=== PATIENT | female | born 1940 | race African-American/Black ===

== ENCOUNTER 2017-06-02 13:31 | Emergency (ER) | payer MEDICARE, MEDICAID ==
[~2017-06-02] VITALS: Ht 160 cm; Wt 68.0 kg
[2017-06-02 13:31] VITALS: BP 127/64
[~2017-06-02 13:31] MED LIST: AMLODIPINE BES2.5 MG ORAL; JANUMET 50-1,01 EACH ORAL
--- NOTE | 2017-06-02 14:03 | Emergency Room Report ---
History of Present Illness General Chief Complaint: Multiple Trauma/Fall Source: Patient Present Illness HPI [id number] from home after accidental trip and fall multiple hours ago outside of her house this morning Takes daily baby ASA States c/o pain to left cheek Denies LOC, nausea/vomiting, blurry vision, change of vision Also c/o pain to left upper arm, not sure if she fell on it though Allergies: Coded Allergies: No Known Allergies (Verified , 01/03/10) Patient History Past Medical History: none Past Surgical History: none Pertinent Family History: none Social History: Denies: smoking, alcohol use, drug use Last Menstrual Period: Post Now: No Immunizations: UTD Reviewed Nursing Documentation: PMH: Agreed, PSxH: Agreed Nursing Documentation-PMH Hx Hypertension: Yes Hx Diabetes: Yes Review of Systems All Other Systems: negative except mentioned in HPI Physical Exam Vital Signs Date Time Temp Pulse Resp B/P (MAP) Pulse Ox O2 Delivery O2 Flow Rate FiO2 06/02/17 13:17 98.2 90 20 134/66 99 Room Air Sp02 EP Interpretation: reviewed, normal General Appearance: normal inspection, well appearing, no apparent distress, alert, GCS 15, non-toxic Head: normocephalic, other - Mild ttp to left lower orbit, mild swelling. No erythema. No reduced ROM of eyes d/t pain. Eyes: bilateral eye PERRL, bilateral eye EOMI ENT: normal ENT inspection, hearing grossly normal, normal pharynx, no angioedema, normal voice, TMs + canals normal, uvula midline, moist mucus membranes Neck: normal inspection, full range of motion, supple, thyroid normal, no meningismus, no bony tend Respiratory: normal inspection, lungs clear, normal breath sounds, no rhonchi, no respiratory distress, no retraction, no accessory muscle use, no wheezing, speaking full sentences Cardiovascular #1: regular rate, rhythm, no edema, no JVD, normal capillary refill Gastrointestinal: normal inspection, normal bowel sounds, non tender, soft, no mass, no peritonitis, non-distended, no guarding, no hernia, no pulsatile mass Genitourinary: no CVA tenderness Musculoskeletal: normal inspection, back normal, normal range of motion, no calf tenderness, pelvis stable, Michelle's Sign negative, other - Mild ttp to left upper arm, no obvious defomrity or bruising. No reduced ROM or ttp to left shoulder, elbow Neurologic: normal inspection, alert, oriented x3, responsive, product development actuary III-XII nml as tested, motor strength/tone normal, cerebellar normal, normal gait, speech normal Psychiatric: normal inspection, judgement/insight normal, mood/affect normal, no suicidal/homicidal ideation, no delusions Skin: normal inspection, normal color, no rash Lymphatic: normal inspection, no adenopathy Medical Decision Making Diagnostic Impression: Primary Impression: Multiple injuries due to trauma Additional Impression: Fall Qualified Codes: W19.XXXA - Unspecified fall, initial encounter ER Course CT Orbits negative for acute fx Low suspicion Xray humerus negative for acute trauma on ED review of xray Patient reassured ER course: Patient has remained stable during ED stay. Disposition: Patient is to be discharged to home. Patient is instructed to follow up with their primary care doctor within 5 days. Strict return precautions discussed with patient such as fever, chills, worsening/severe pain, nausea, vomiting, which may indicate severe illness. Patient verbalizes understanding and agrees with plan. Please note that this Emergency Department Report was dictated using [employer] claims technology software, occasionally this can lead to erroneous entry secondary to interpretation by the dictation equipment Other X-Ray Diagnostic Results Other X-Ray Diagnostic Results : X-Ray ordered: Left humerus # of Views/Limited Vs Complete: 3 View Indication: Pain EP Interpretation: Yes Interpretation: no dislocation, no soft tissue swelling, no fractures Impression: No acute disease Electronically Signed by: Dr Griffin Solorio MD Last Vital Signs Date Time Temp Pulse Resp B/P (MAP) Pulse Ox O2 Delivery O2 Flow Rate FiO2 06/02/17 13:17 98.2 90 20 134/66 99 Room Air Status: improved Disposition: HOME, SELF-CARE GRIFFIN SOLORIO M.D. Jun 02, 2017 14:03
[2017-06-02 15:30] VITALS: BP 153/71
[2017-06-02 16:30] VITALS: BP 144/65
--- NOTE | 2017-06-03 09:42 | Diagnostic Imaging Report ---
Indications: Pain, status post fall Technique: Spiral images obtained through the orbits. No IV contrast utilized. Multiplanar reconstructions were generated.Total dose length product 358.95 mGycm. CTDIvol(s) 28.19 mGy. Dose reduction achieved using automated exposure control Comparison: none Findings: No evidence of acute fracture. There is minimal right supraorbital soft tissue swelling. The sinuses are clear. Patient is edentulous. Impression: Minimal right periorbital soft tissue swelling. Otherwise negative This agrees with the preliminary interpretation provided overnight by [facility] telerad[facility] service. The CT scanner at [facility] is accredited by the [employer] and the scans are performed using protocols designed to limit radiation exposure to as low as reasonably achievable to attain images of sufficient resolution adequate for diagnostic evaluation.
--- NOTE | 2017-06-03 09:46 | Diagnostic Imaging Report ---
Indications: Pain Technique: Two views of the left humerus Comparison: None Findings: No evidence of acute fracture. No dislocations. No radiopaque foreign body Impression: Negative
== END 2017-06-02 16:30 | disposition home or self-care (01) ==
LOC: EDBD 13:31 → EMR 16:25
DX: S09.8XXA Other specified injuries of head, initial encounter (principal); S49.92XA Unspecified injury of left shoulder and upper arm, initial encounter; W01.0XXA Fall on same level from slipping, tripping and stumbling without subsequent striking against object, initial encounter; Y92.89 Other specified places as the place of occurrence of the external cause; R51 Headache; I10 Essential (primary) hypertension; E11.9 Type 2 diabetes mellitus without complications; Z79.82 Long term (current) use of aspirin
CPT/HCPCS: 70480; 99284

== ENCOUNTER 2018-02-14 11:35 | Emergency (ER) | payer MEDICARE, MEDICAID ==
[~2018-02-14] VITALS: Ht 160 cm; Wt 67.1 kg
--- NOTE | 2018-02-14 13:32 | Emergency Room Report ---
History of Present Illness General Chief Complaint: Neck Pain Source: Patient, Medical Record Present Illness HPI Patient presents with pain complaints to the left side of the neck patient essentially points to the lower occipital region of the scalp area into the upper cervical region on the left side reports that the pain started approximately early January She correlates the discomfort to when she had a cyst removed from the left lower chin area and soon after removing the stitches denies any trauma since then denies any chest pain or short of breath pain is exacerbated by touching the area denies any difficulty swallowing denies any head trauma denies any neuropathy in the upper extremities denies any fevers or chills and eyes any change in voice Allergies: Coded Allergies: No Known Allergies (Verified , 02/14/18) Patient History Past Medical History: see triage record Pertinent Family History: none Reviewed Nursing Documentation: PMH: Agreed; PSxH: Agreed Nursing Documentation-PMH Past Medical History: No History, Except For Hx Hypertension: Yes Hx Diabetes: Yes Review of Systems All Other Systems: negative except mentioned in HPI Physical Exam Vital Signs Date Time Temp Pulse Resp B/P (MAP) Pulse Ox O2 Delivery O2 Flow Rate FiO2 02/14/18 11:41 98.8 78 15 191/76 98 Room Air 98.8 Sp02 EP Interpretation: reviewed, normal General Appearance: well appearing, no apparent distress Head: normocephalic, atraumatic Eyes: bilateral eye PERRL, bilateral eye EOMI ENT: normal pharynx, other - Patient has some mild discomfort on palpation of the lower left mandibular region in the jawl region no obvious fluctuance Neck: other - Patient has discomfort on palpation of the left lower occipital region of the scalp C-spine midline is nontender however she does have some discomfort as well paracervical C2-C3 region no palpable masses range of motion intact with some discomfort turning to the left at approximately 25, Respiratory: lungs clear, normal breath sounds Cardiovascular #1: normal peripheral pulses, regular rate, rhythm Genitourinary: no CVA tenderness Musculoskeletal: normal inspection Neurologic: alert, oriented x3 Skin: normal color, no rash Medical Decision Making Diagnostic Impression: Primary Impression: Neck pain ER Course Given the history exam and presentation multiple differentials were considered including but not limited to, neurological neurosurgical, infectious, orthopedic type pathology Patient's discomfort is fairly specific there is a specific mechanical component My consideration for referred type pain is low Patient's imaging study shows significant arthralgic findings Patient remains neurologically appropriate 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 there are no signs of deficits Further testing was not performed And patient requires close outpatient follow-up with return to the emergency room with any change in symptoms , CT/MRI/US Diagnostic Results CT/MRI/US Diagnostic Results : Impression CT C-spineImpression: No acute injury Moderate spondylosis Last Vital Signs Date Time Temp Pulse Resp B/P (MAP) Pulse Ox O2 Delivery O2 Flow Rate FiO2 02/14/18 11:41 98.8 78 15 191/76 98 Room Air 98.8 Status: improved Disposition: HOME, SELF-CARE Condition: Improved Scripts Methocarbamol* (ROBAXIN-750*) 750 Mg Tablet 750 MG PO TID, #21 TAB 0 Refills Prov: Tamara Gaytan DO 02/14/18 Acetaminophen (Tylenol) 325 Mg Tablet 650 MG ORAL Q8HR PRN for Prn Pain/Headache/Temp > 101, #15 TAB 0 Refills Prov: Tamara Gaytan DO 02/14/18 Referrals: NOT CHOSEN IPA/MD,REFERRING (PCP) Additional Instructions: Patient is provided with the discharge instructions notified to follow up with primary doctor in the next 2-3 days otherwise return to the er with any worsening symptoms. Please note that this report is being documented using Interface[employer] technology. This can lead to erroneous entry secondary to incorrect interpretation by the dictating instrument. Tamara Gaytan DO Feb 14, 2018 13:32
[2018-02-14] MEDS ORDERED: TYLENOL325 MG ORAL (14:02)
[2018-02-14] MEDS ORDERED: ROBAXIN-750750 MG PO (14:02)
[2018-02-14 14:07] VITALS: BP 171/59
--- NOTE | 2018-02-14 14:08 | Diagnostic Imaging Report ---
Indication: Neck pain. Technique: Continuous helical imaging of the cervical spine was obtained transaxially from the skull base to the upper thoracic spine. 2-D coronal and sagittal reformatted images were obtained. Automatic Exposure Control was utilized. Total Dose length Product (DLP): 272.[address] Dose Index Volume (CTDIvol): 13.88 mGy Comparison: None Findings: There is no acute fracture or malalignment identified. There is no soft tissue swelling identified. Moderate uncovertebral arthritis is demonstrated at multiple levels. Some of the intervertebral discs show narrowing and osteophytes. Impression: No acute injury Moderate spondylosis The CT scanner at [facility] is accredited by the [employer] and the scans are performed using dose optimization techniques as appropriate to a performed exam including Automatic Exposure control.
[2018-02-14 14:12] VITALS: BP 171/59
== END 2018-02-14 14:12 | disposition home or self-care (01) ==
LOC: EMR 12:22
DX: M54.2 Cervicalgia (principal); I10 Essential (primary) hypertension; E11.9 Type 2 diabetes mellitus without complications; M47.812 Spondylosis without myelopathy or radiculopathy, cervical region
CPT/HCPCS: 72125; 99284

== ENCOUNTER 2018-07-05 09:24 | Inpatient (IN) | payer MEDICARE, MEDICAID ==
[~2018-07-05] VITALS: Ht 160 cm; Wt 63.5 kg
[~2018-07-05 09:24] MED LIST changes: +ROBAXIN-750750 MG PO; +TYLENOL325 MG ORAL
[2018-07-05 09:32] VITALS: BP 221/104
[2018-07-05] MEDS ORDERED: ASPIR 8181 MG ORAL (09:38)
[2018-07-05] MEDS ORDERED: LISINOPRIL20 MG ORAL (09:38)
[2018-07-05] MEDS ORDERED: JANUVIA25 MG ORAL (09:38)
[2018-07-05] MEDS ORDERED: PRAVACHOL40 MG ORAL (09:38)
[2018-07-05] MEDS ORDERED: Sodium Chloride 1,900 ML IVLG ONE (10:00)
--- NOTE | 2018-07-05 10:41 | Diagnostic Imaging Report ---
Indication: Cough Technique: One view of the chest Comparison: 08/17/2005 Findings: Lungs and pleural spaces are clear. Heart size is upper limits normal. Less optimal inspiration currently. Tortuous aorta. No significant interim change Impression: No acute process
[2018-07-05 10:59] LABS: BASOPHILS % (AUTO) 2.2 % (0.0-2.0); EOSINOPHILS % (AUTO) 1.6 % (0.0-3.0); HEMATOCRIT 27.9 % (37.0-47.0); LYMPHOCYTES % (AUTO) 13.3 % (20.0-45.0); MEAN CORPUSCULAR VOLUME 89 FL (80-99); MONOCYTES % (AUTO) 10.2 % (1.0-10.0); NEUTROPHILS % (AUTO) 72.8 % (45.0-75.0); PLATELET COUNT 170 K/UL (150-450); RED BLOOD COUNT 3.15 M/UL (4.20-5.40); RED CELL DISTRIBUTION WIDTH 14.5 % (11.6-14.8); WHITE BLOOD COUNT 4.9 K/UL (4.8-10.8)
--- NOTE | 2018-07-05 11:05 | Diagnostic Imaging Report ---
Indications: Left-sided weakness Technique: Spiral acquisitions obtained through the brain. Angled axial and coronal 5 x 5 mm slices were reconstructed. Total dose length product 1281.08 mGycm. CTDI vol(s) 70.38 mGy. Dose reduction achieved using automated exposure control Comparison: None. Findings: No acute intracranial hemorrhage or edema. No mass effect nor midline shift. Normal monaco-white differentiation. There is age-related enlargement of the ventricles and extra axial CSF spaces. There is periventricular deep white matter low-attenuation, consistent with chronic microvascular ischemic change. Monaco-white differentiation is otherwise normal. Visualized orbits are unremarkable. The sinuses are clear. The mastoids are clear. The calvarium is intact Impression: Chronic and age-related changes is described Negative for acute intracranial bleed or mass effect The CT scanner at [facility] is accredited by the [employer] and the scans are performed using protocols designed to limit radiation exposure to as low as reasonably achievable to attain images of sufficient resolution adequate for diagnostic evaluation.
[2018-07-05 11:10] LABS: ANION GAP 11 mmol/L (5-15); BLOOD UREA NITROGEN 23 mg/dL (7-18); CALCIUM 9.5 MG/DL (8.5-10.1); CARBON DIOXIDE 24 MMOL/L (21-32); CHLORIDE 107 MMOL/L (98-107); POTASSIUM 3.9 MMOL/L (3.5-5.1); SODIUM 142 MMOL/L (136-145)
[2018-07-05 11:19] LABS: APPEARANCE,URINE CLEAR; BILIRUBIN, URINE NEGATIVE (NEGATIVE); COLOR,URINE PALE YELLOW; GLUCOSE, URINE (UA) NEGATIVE (NEGATIVE); KETONES,URINE NEGATIVE (NEGATIVE); LEUKOCYTE ESTERASE ,URINE NEGATIVE (NEGATIVE); NITRITE,URINE NEGATIVE (NEGATIVE); PH,URINE 5 (4.5-8.0); PROTEIN,URINE NEGATIVE (NEGATIVE); UROBILINOGEN,URINE NORMAL MG/DL (0.0-1.0)
[2018-07-05 11:24] LABS: ALANINE AMINOTRANSFERASE 25 U/L (12-78); ALBUMIN 3.8 G/DL (3.4-5.0); ALBUMIN/GLOBULIN RATIO 1.1 (1.0-2.7); ALKALINE PHOSPHATASE 46 U/L (46-116); ASPARTATE AMINO TRANSFERASE 24 U/L (15-37); BILIRUBIN,TOTAL 0.4 MG/DL (0.2-1.0); CKMB 0.9 NG/ML (0.0-3.6); CREATINE KINASE 147 U/L (26-308)
[2018-07-05 11:30] VITALS: BP 206/92
[2018-07-05 13:30] VITALS: BP 198/88
--- NOTE | 2018-07-05 14:00 | Diagnostic Imaging Report ---
Indication: Left-sided weakness Technique: sagittal T1 fast spin echo, axial T1 FLAIR, axial T2 FLAIR, axial T2 FS PROPELLER, axial T2* GRE, axial diffusion weighted images. ADC and exponential ADC maps generated Comparison: Reference made to brain CT 2 hours earlier Findings: No abnormal areas of restricted diffusion to suggest acute infarction. No acute hemorrhage or edema. No mass effect nor midline shift. There is mild age-related enlargement of the ventricles and extra axial CSF spaces. There is mild periventricular deep white matter high T2 signal, consistent with chronic microvascular ischemic change. The vascular flow voids are preserved.. Visualized orbits and sinuses are unremarkable. Impression: Chronic and age-related changes Negative for acute intracranial bleed, mass effect, or infarct
[2018-07-05 15:21] VITALS: BP 187/63
--- NOTE | 2018-07-05 15:39 | Emergency Room Report ---
History of Present Illness General Chief Complaint: Generalized Weakness Source: Patient, Medical Record Present Illness HPI The patient states that she feels terrible. She states that for the past month she has noted inability to lift her left arm. She also feels like she has weakness in her left leg. She states that the symptoms been going on for about a month. She denies pain. She denies recent illness. She denies cough or congestion. She denies abdominal pain. She denies headache or neck pain. She denies tingling or numbness. She denies trauma. She has no other complaints. Allergies: Coded Allergies: No Known Allergies (Verified , 02/14/18) Patient History Past Medical History: see triage record, DM, HTN Social History: Denies: smoking, alcohol use, drug use Reviewed Nursing Documentation: PMH: Agreed; PSxH: Agreed Nursing Documentation-PMH Past Medical History: No History, Except For Hx Hypertension: Yes Hx Diabetes: Yes Review of Systems All Other Systems: negative except mentioned in HPI Physical Exam Vital Signs Date Time Temp Pulse Resp B/P (MAP) Pulse Ox O2 Delivery O2 Flow Rate FiO2 07/05/18 09:32 97.8 88 18 221/104 98 Room Air Sp02 EP Interpretation: reviewed, normal General Appearance: no apparent distress, alert, GCS 15, non-toxic Head: normocephalic, atraumatic Eyes: bilateral eye normal inspection, bilateral eye PERRL ENT: hearing grossly normal, normal pharynx, no angioedema, normal voice Neck: full range of motion, supple/symm/no masses Respiratory: chest non-tender, lungs clear, normal breath sounds, no respiratory distress, no retraction, no accessory muscle use, speaking full sentences Cardiovascular #1: regular rate, rhythm, no edema Gastrointestinal: normal bowel sounds, non tender, soft, non-distended, no guarding, no rebound Rectal: deferred Musculoskeletal: normal inspection, back normal, normal range of motion, non- tender Neurologic: alert, oriented x3, responsive, sensory intact, speech normal, other - First evaluation: unable to Lift L. arm, L. leg 4/5 MS. Repeat evaluation: Resolved. Able to fully lift all extremites equally. Psychiatric: judgement/insight normal, memory normal, mood/affect normal, no suicidal/homicidal ideation Skin: normal color, no rash, warm/dry, well hydrated Lymphatic: no adenopathy Medical Decision Making Diagnostic Impression: Primary Impression: Malignant hypertension Additional Impression: VIDAL (acute kidney injury) ER Course This patient initially was unable to lift her left arm and had 4 out of 5 muscle strength in her left leg. I was concerned she could have CVA. She underwent CT of the head and MRI of the brain. There is no acute CVA identified. Patient was noted to have systolic blood pressures over 200. She was given hydralazine IV. The blood pressure did decline into the 180s systolic. The patient endorses that she has been taking her blood pressure medications regularly. I'm concerned that given this patient's age that she will be unable to manage monitoring her blood pressure at home. I feel this patient needs to be admitted for further monitoring of her blood pressure better blood pressure control. Repeat evaluation of this patient later in the ED course and the patient was able to fully lift and use her left side. I'm unsure of the etiology, although, there may be an element of effort involved. Regardless, the patient is admitted for further evaluation and treatment of her uncontrolled blood pressure. Laboratory Tests Test 07/05/18 10:13 07/05/18 11:10 White Blood Count 4.9 K/UL (4.8-10.8) Red Blood Count 3.15 M/UL (4.20-5.40) L Hemoglobin 9.0 G/DL (12.0-16.0) L Hematocrit 27.9 % (37.0-47.0) L Mean Corpuscular Volume 89 FL (80-99) Mean Corpuscular Hemoglobin 28.5 PG (27.0-31.0) Mean Corpuscular Hemoglobin Concent 32.2 G/DL (32.0-36.0) Red Cell Distribution Width 14.5 % (11.6-14.8) Platelet Count 170 K/UL (150-450) Mean Platelet Volume 7.0 FL (6.5-10.1) Neutrophils (%) (Auto) 72.8 % (45.0-75.0) Lymphocytes (%) (Auto) 13.3 % (20.0-45.0) L Monocytes (%) (Auto) 10.2 % (1.0-10.0) H Eosinophils (%) (Auto) 1.6 % (0.0-3.0) Basophils (%) (Auto) 2.2 % (0.0-2.0) H Sodium Level 142 MMOL/L (136-145) Potassium Level 3.9 MMOL/L (3.5-5.1) Chloride Level 107 MMOL/L (98-107) Carbon Dioxide Level 24 MMOL/L (21-32) Anion Gap 11 mmol/L (5-15) Blood Urea Nitrogen 23 mg/dL (7-18) H Creatinine 2.0 MG/DL (0.55-1.30) H Estimate Glomerular Filtration Rate mL/min (>60) Glucose Level 84 MG/DL (74-106) Lactic Acid Level 1.40 mmol/L (0.4-2.0) Calcium Level 9.5 MG/DL (8.5-10.1) Total Bilirubin 0.4 MG/DL (0.2-1.0) Aspartate Amino Transferase (AST) 24 U/L (15-37) Alanine Aminotransferase (ALT) 25 U/L (12-78) Alkaline Phosphatase 46 U/L (46-116) Total Creatine Kinase 147 U/L (26-308) Creatine Kinase MB 0.9 NG/ML (0.0-3.6) Creatine Kinase MB Relative Index 0.6 Troponin I 0.006 ng/mL (0.000-0.056) Total Protein 7.2 G/DL (6.4-8.2) Albumin 3.8 G/DL (3.4-5.0) Globulin 3.4 g/dL Albumin/Globulin Ratio 1.1 (1.0-2.7) Urine Color Pale yellow Urine Appearance Clear Urine pH 5 (4.5-8.0) Urine Specific [place] 1.010 (1.005-1.035) Urine Protein Negative (NEGATIVE) Urine Glucose (UA) Negative (NEGATIVE) Urine Ketones Negative (NEGATIVE) Urine Blood Negative (NEGATIVE) Urine Nitrite Negative (NEGATIVE) Urine Bilirubin Negative (NEGATIVE) Urine Urobilinogen Normal MG/DL (0.0-1.0) Urine Leukocyte Esterase Negative (NEGATIVE) Microbiology Date/Time Source Procedure Growth Status 07/05/18 10:13 Nasal Nares Influenza Types A,B Antigen (KENDRICK) - Final Complete EKG Diagnostic Results Rate: normal Rhythm: NSR ST Segments: no acute changes Rhythm Strip Diag. Results EP Interpretation: yes Rate: 80's Rhythm: NSR, no PVC's, no ectopy Chest X-Ray Diagnostic Results Chest X-Ray Diagnostic Results : Chest X-Ray Ordered: Yes # of Views/Limited/Complete: 1 View Indication: Other Interpretation: no consolidation, no effusion, no pneumothorax, no acute cardiopulmonary disease Impression: No acute disease Electronically Signed by: Thais Mcgraw DO Last Vital Signs Date Time Temp Pulse Resp B/P (MAP) Pulse Ox O2 Delivery O2 Flow Rate FiO2 07/05/18 15:21 98.2 84 18 187/63 98 Room Air Status: improved Disposition: ADMITTED INPATIENT Condition: Serious Referrals: NON PHYSICIAN (PCP) Thais Mcgraw DO Jul 05, 2018 15:39
[2018-07-05] MEDS ORDERED: Nitroglycerin Subl 0.4mg tab SL PRN (16:30)
[2018-07-05] MEDS ORDERED: LORazepam 1mg tab ORAL PRN (16:30)
--- NOTE | 2018-07-05 16:41 | Consultation ---
Consult Note Consult Note asked to eval for BP OOC and renal failure- Patient seen in Rm 4 ER The patient states that she feels terrible. She states that for the past month she has noted inability to lift her left arm. She also feels like she has weakness in her left leg. She states that the symptoms been going on for about a month. She denies pain. She denies recent illness. She denies cough or congestion. She denies abdominal pain. She denies headache or neck pain. She denies tingling or numbness. She denies trauma. She has no other complaints. No Known Allergies (Verified , 02/14/18) Past Medical History: see triage record, DM, HTN Social History: Denies: smoking, alcohol use, drug use Reviewed Nursing Documentation: PMH: Agreed; PSxH: Agreed Past Medical History: No History, Except For Hx Hypertension: Yes Hx Diabetes: Yes she was told to have weak kidneys by her PMD interviewed examined data reviewed Assessment/Plan CKD likely diabetic/Hypertensive Nephrosclerosis BP OOC Anemia DM BP Management Anemia jaime avoid Nephrotoxics Kidney CHIRAG and 2D echo monitor renal parameters Urine studies Wilfredo Will MD Jul 05, 2018 16:41
[2018-07-05] MEDS ORDERED: HydrALAZINE 25mg tab ORAL PRN (16:45)
[2018-07-05] MEDS ORDERED: Metoprolol Tartrate 12.5mg TAB ORAL SCH (16:45)
[2018-07-05] MEDS: Metoprolol Tartrate 12.5mg TAB ORAL SCH (20:33)
[2018-07-05] MEDS: Heparin 5000 units/ml inj SUBQ SCH (20:36)
--- NOTE | 2018-07-05 20:56 | Diagnostic Imaging Report ---
History: RENAL-A Exam: US RENAL Comparison: FINDINGS: The right kidney measures 9.5 x 3.4 x 5.5 cm. The left kidney measures 9. 7 x 4.5 x 5 cm. The kidneys appear within limits for size and echogenicity. No evidence of hydronephrosis, renal stone or perinephric fluid seen. Bladder volume 123 cc. Appearance of a right ureteral jet noted. No left ureteral jet seen during imaging. IMPRESSION: Kidneys appear within limits. Bladder volume 123 cc. Appearance of a right ureteral jet noted. No left ureteral jet seen during imaging.
[2018-07-06 07:36] LABS: EOSINOPHILS % (AUTO) 1.6 % (0.0-3.0); HEMOGLOBIN 8.5 G/DL (12.0-16.0); MEAN CORPUSCULAR VOLUME 89 FL (80-99); MONOCYTES % (AUTO) 9.8 % (1.0-10.0); NEUTROPHILS % (AUTO) 78.5 % (45.0-75.0); PLATELET COUNT 173 K/UL (150-450); RED BLOOD COUNT 3.04 M/UL (4.20-5.40); RED CELL DISTRIBUTION WIDTH 14.6 % (11.6-14.8); WHITE BLOOD COUNT 5.9 K/UL (4.8-10.8)
[2018-07-06 08:15] VITALS: BP 150/70
[2018-07-06 08:25] LABS: ALANINE AMINOTRANSFERASE 23 U/L (12-78); ALBUMIN 3.3 G/DL (3.4-5.0); ALBUMIN/GLOBULIN RATIO 0.9 (1.0-2.7); ALKALINE PHOSPHATASE 45 U/L (46-116); ANION GAP 10 mmol/L (5-15); ASPARTATE AMINO TRANSFERASE 22 U/L (15-37); BILIRUBIN,TOTAL 0.4 MG/DL (0.2-1.0); BLOOD UREA NITROGEN 24 mg/dL (7-18); CALCIUM 9.3 MG/DL (8.5-10.1); CARBON DIOXIDE 24 MMOL/L (21-32); CHLORIDE 108 MMOL/L (98-107); CHOLESTEROL 188 MG/DL (< 200); CREATININE 1.9 MG/DL (0.55-1.30); FERRITIN 122 NG/ML (8-388); HDL CHOLESTEROL 88 MG/DL (40-60); POTASSIUM 3.9 MMOL/L (3.5-5.1); SODIUM 142 MMOL/L (136-145); TRIGLYCERIDES 64 MG/DL (30-150)
[2018-07-06 08:31] LABS: CREATINE KINASE 166 U/L (26-308); GAMMA GLUTAMYL TRANSPEPTIDASE 25 U/L (5-85); PHOSPHORUS 3.3 MG/DL (2.5-4.9)
[2018-07-06] MEDS: Aspirin Baby 81mg ORAL SCH (08:33)
[2018-07-06] MEDS: Metoprolol Tartrate 12.5mg TAB ORAL SCH ×2 (08:33→20:51)
[2018-07-06] MEDS: Heparin 5000 units/ml inj SUBQ SCH ×2 (08:37→20:52)
[2018-07-06 08:44] LABS: % IRON SATURATION 11 % (15-50); IRON 26 ug/dL (50-175); TOTAL IRON BINDING CAPACITY 232 ug/dL (250-450)
--- NOTE | 2018-07-06 11:36 | History and Physical ---
History of Present Illness General Date patient seen: Jul 06, 2018 Time patient seen: 08:00 Reason for Hospitalization: Generalized Weakness Present Illness HPI 78 year old female with PMH of HTN and DM presented with generalized weakness for past week. Also complains of inability to lift left arm and left leg weakness for 1 month. Pt denies chest pain, headaches, n/v/c/d, recent falls, urinary complaints or abdominal complaints. In the ED, there was a concern for CVA due to Left sided weakness, CT head and MRI head, both unremarkable. During reevaluation, pt was able to move both extremities, pt noted to have elevated BP to 200 SBP, decreased with hydralazine IVpush. Allergies: Coded Allergies: No Known Allergies (Verified , 02/14/18) Medication History Scheduled Amlodipine Besylate* (Amlodipine Besylate*), 2.5 MG ORAL DAILY, (Reported) Aspirin* (Aspir 81*), 81 MG ORAL DAILY, (Reported) Lisinopril (Lisinopril*), 40 MG ORAL DAILY, (Reported) Methocarbamol* (Robaxin-750*), 750 MG PO TID Pravastatin Sodium (Pravachol), 40 MG ORAL BEDTIME, (Reported) Sitagliptin Phos/Metformin Hcl (Janumet 50-1,000 Mg Tablet), 1 TAB ORAL TWICE A DAY, (Reported) Sitagliptin* (Januvia*), 100 MG ORAL DAILY, (Reported) Scheduled PRN Acetaminophen (Tylenol), 650 MG ORAL Q8HR PRN for Prn Pain/Headache/Temp > 101 Patient History History Provided By: Patient Healthcare decision maker Resuscitation status Full Code Advanced Directive on File No Past Medical/Surgical History Past Medical/Surgical History: (1) VIDAL (acute kidney injury) (2) Malignant hypertension (3) Renal failure (ARF), acute on chronic Review of Systems Constitutional: Reports: malaise Eye: Reports: no symptoms ENT: Reports: no symptoms Respiratory: Reports: no symptoms Cardiovascular: Reports: no symptoms Gastrointestinal: Reports: no symptoms Genitourinary: Reports: no symptoms Musculoskeletal: Reports: other - left sided weakness Skin: Reports: no symptoms Psychiatric: Reports: no symptoms Neurological: Reports: no symptoms Endocrine: Reports: no symptoms Hematologic/Lymphatic: Reports: no symptoms Physical Exam General Appearance: WD/WN, no apparent distress, alert, lethargic Lines, tubes and drains: peripheral HEENT: normocephalic, atraumatic, anicteric, mucous membranes moist Neck: non-tender, normal alignment, supple, normal inspection Respiratory/Chest: chest wall non-tender, lungs clear, normal breath sounds, no respiratory distress, no accessory muscle use Cardiovascular/Chest: normal peripheral pulses, normal rate, regular rhythm, regularly irregular Abdomen: normal bowel sounds, non tender, soft, no organomegaly Extremities: normal range of motion Skin Exam: normal pigmentation 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 Last 24 Hour Vital Signs Date Time Temp Pulse Resp B/P (MAP) Pulse Ox O2 Delivery O2 Flow Rate FiO2 07/06/18 08:44 Room Air 07/06/18 08:33 78 150/70 07/06/18 08:33 78 150/70 07/06/18 08:15 99.7 78 18 150/70 (96) 07/06/18 07:52 72 07/06/18 04:00 66 07/06/18 00:00 66 07/05/18 21:00 Room Air 07/05/18 20:33 84 147/73 07/05/18 20:00 78 07/05/18 17:30 Room Air 07/05/18 17:23 83 156/58 07/05/18 17:23 83 156/58 07/05/18 16:29 98.3 92 20 161/68 100 Room Air 07/05/18 15:57 191/77 07/05/18 15:21 98.2 84 18 187/63 98 Room Air 07/05/18 14:13 213/80 07/05/18 13:30 97.9 76 20 198/88 99 Room Air Intake and Output 07/05/18 07/06/18 19:00 07:00 Intake Total 1912 ml 500 ml Balance 1912 ml 500 ml Intake Oral 12 ml 500 ml IV Total 1900 ml # Voids 1 5 Laboratory Tests Test 07/06/18 06:08 07/06/18 09:35 White Blood Count 5.9 K/UL (4.8-10.8) Red Blood Count 3.04 M/UL (4.20-5.40) L Hemoglobin 8.5 G/DL (12.0-16.0) L Hematocrit 27.0 % (37.0-47.0) L Mean Corpuscular Volume 89 FL (80-99) Mean Corpuscular Hemoglobin 28.0 PG (27.0-31.0) Mean Corpuscular Hemoglobin Concent 31.5 G/DL (32.0-36.0) L Red Cell Distribution Width 14.6 % (11.6-14.8) Platelet Count 173 K/UL (150-450) Mean Platelet Volume 6.5 FL (6.5-10.1) Neutrophils (%) (Auto) 78.5 % (45.0-75.0) H Lymphocytes (%) (Auto) 9.0 % (20.0-45.0) L Monocytes (%) (Auto) 9.8 % (1.0-10.0) Eosinophils (%) (Auto) 1.6 % (0.0-3.0) Basophils (%) (Auto) 1.0 % (0.0-2.0) Sodium Level 142 MMOL/L (136-145) Potassium Level 3.9 MMOL/L (3.5-5.1) Chloride Level 108 MMOL/L (98-107) H Carbon Dioxide Level 24 MMOL/L (21-32) Anion Gap 10 mmol/L (5-15) Blood Urea Nitrogen 24 mg/dL (7-18) H Creatinine 1.9 MG/DL (0.55-1.30) H Estimat Glomerular Filtration Rate mL/min (>60) Glucose Level 101 MG/DL (74-106) Hemoglobin A1c 7.6 % (4.3-6.0) H Uric Acid 5.7 MG/DL (2.6-7.2) Calcium Level 9.3 MG/DL (8.5-10.1) Phosphorus Level 3.3 MG/DL (2.5-4.9) Magnesium Level 1.8 MG/DL (1.8-2.4) Iron Level 26 ug/dL (50-175) L Total Iron Binding Capacity 232 ug/dL (250-450) L Percent Iron Saturation 11 % (15-50) L Unsaturated Iron Binding 206 ug/dL (112-346) Ferritin 122 NG/ML (8-388) Total Bilirubin 0.4 MG/DL (0.2-1.0) Gamma Glutamyl Transpeptidase 25 U/L (5-85) Aspartate Amino Transf (AST/SGOT) 22 U/L (15-37) Alanine Aminotransferase (ALT/SGPT) 23 U/L (12-78) Alkaline Phosphatase 45 U/L (46-116) L Total Creatine Kinase 166 U/L (26-308) Troponin I 0.065 ng/mL (0.000-0.056) 0.055 ng/mL (0.000-0.056) Pro-B-Type Natriuretic Peptide 3908 pg/mL (0-125) H Total Protein 6.8 G/DL (6.4-8.2) Albumin 3.3 G/DL (3.4-5.0) L Globulin 3.5 g/dL Albumin/Globulin Ratio 0.9 (1.0-2.7) L Triglycerides Level 64 MG/DL (30-150) Cholesterol Level 188 MG/DL (< 200) LDL Cholesterol 78 mg/dL (<100) HDL Cholesterol 88 MG/DL (40-60) H Cholesterol/HDL Ratio 2.1 (3.3-4.4) L Vitamin B12 Level 560 PG/ML (193-986) Folate 15.6 NG/ML (8.6-58.9) Thyroid Stimulating Hormone (TSH) 0.329 uiU/mL (0.358-3.740) Height (Feet): 5 Height (Inches): 3.00 Weight (Pounds): 140 Medications Current Medications Medications (Trade) Dose Ordered Sig/Morgan Route PRN Reason Start Time Stop Time Status Last Admin Dose Admin Acetaminophen (Tylenol) 650 mg Q4H PRN ORAL Mild Pain (Pain Scale 1-3) 07/05/18 16:30 08/04/18 16:29 Amlodipine Besylate (Norvasc) 10 mg DAILY ORAL 07/06/18 09:00 08/05/18 08:59 07/06/18 08:33 Aspirin (ASA) 81 mg DAILY ORAL 07/06/18 09:00 08/05/18 08:59 07/06/18 08:33 Bisacodyl (Dulcolax) 10 mg DAILYPRN PRN RECTAL Constipation 07/05/18 16:30 08/04/18 16:29 Dextrose (Dextrose 50%) 25 ml Q30M PRN IV Hypoglycemia 07/05/18 16:30 08/04/18 16:29 Dextrose (Dextrose 50%) 50 ml Q30M PRN IV Hypoglycemia 07/05/18 16:30 08/04/18 16:29 Diphenhydramine HCl (Benadryl) 25 mg Q6H PRN ORAL Itching/Pruritis 07/05/18 16:30 08/04/18 16:29 Heparin Sodium (Porcine) (Heparin 5000 units/ml) 5,000 units EVERY 12 HOURS SUBQ 07/05/18 21:00 08/04/18 20:59 07/06/18 08:37 Hydralazine HCl (Apresoline) 25 mg Q4H PRN ORAL bp over 160 syst 07/05/18 16:45 08/04/18 16:44 Iron Sucrose 200 mg/Sodium Chloride 120 ml @ 240 mls/hr ONCE IV 07/06/18 12:00 07/06/18 14:00 07/06/18 11:31 Lorazepam (Ativan) 1 mg Q4H PRN ORAL For Anxiety 07/05/18 16:30 07/12/18 16:29 Metoprolol Tartrate (Lopressor) 12.5 mg Q12HR ORAL 07/05/18 21:00 08/04/18 20:59 07/06/18 08:33 Nitroglycerin (Ntg) 0.4 mg Q5M PRN SL Prn Chest Pain 07/05/18 16:30 08/04/18 16:29 Ondansetron HCl (Zofran) 4 mg Q6H PRN IVP Nausea & Vomiting 07/05/18 16:30 08/04/18 16:29 Pantoprazole (Protonix) 40 mg Q12HR ORAL 07/05/18 21:00 08/04/18 20:59 07/06/18 08:33 Temazepam (Restoril) 15 mg HSPRN PRN ORAL Insomnia 07/05/18 16:30 07/12/18 16:29 Assessment/Plan Assessment/Plan Assessment 78 year old female with PMH of DM and HTN presented with generalized weakness x 1 week, admitted for hypertensive emergency #hypertensive emergency #Acute on chronic renal disease #Troponin leak -BP improved with hydralazine IVp -Cont NOrvasc 10mg daily -Cont Metoprolol 12.5 mg BID -Cont hydralazine 25mg q4hrs PRN -Serial Trop and EKG unremarkable -Appreciate nephrology consult -Appreciate Cardiology consult #DM -Cont ISS -Carb controlled diet -FSG qac and hs #Left sided weakness -likley 2/2 pain possible from OA -Weakness comes and goes, during eval in ED, no weakness noted -CT and MRI brain unremarkable #Anemia likely 2/2 chronic disease and GIO -B12/ folate/ TSH WNL -FE sat 11% -s/p venofer -CTM Code status with discussion: Full I spent 75 min on this patients care, and 40 min was dedicated to counseling and /or care coordination Ayah Galicia MD Jul 06, 2018 11:36
[2018-07-06 12:00] VITALS: BP 146/62
[2018-07-06] MEDS ORDERED: Iron Sucrose 200 MG in NS 110 ML IV SCH (12:00)
--- NOTE | 2018-07-06 13:07 | Nephrology Progress Note ---
Assessment/Plan Problem List: (1) VIDAL (acute kidney injury) (2) Malignant hypertension (3) Renal failure (ARF), acute on chronic Assessment CKD likely diabetic/Hypertensive Nephrosclerosis BP OOC Anemia DM Plan BP Management Anemia jaime, low Iron avoid Nephrotoxics Kidney CHIRAG and 2D echo monitor renal parameters Urine studies Subjective ROS Limited/Unobtainable: No Constitutional: Reports: malaise, weakness Objective Objective Last 24 Hour Vital Signs Date Time Temp Pulse Resp B/P (MAP) Pulse Ox O2 Delivery O2 Flow Rate FiO2 07/06/18 08:44 Room Air 07/06/18 08:33 78 150/70 07/06/18 08:33 78 150/70 07/06/18 08:15 99.7 78 18 150/70 (96) 07/06/18 07:52 72 07/06/18 04:00 66 07/06/18 00:00 66 07/05/18 21:00 Room Air 07/05/18 20:33 84 147/73 07/05/18 20:00 78 07/05/18 17:30 Room Air 07/05/18 17:23 83 156/58 07/05/18 17:23 83 156/58 07/05/18 16:29 98.3 92 20 161/68 100 Room Air 07/05/18 15:57 191/77 07/05/18 15:21 98.2 84 18 187/63 98 Room Air 07/05/18 14:13 213/80 07/05/18 13:30 97.9 76 20 198/88 99 Room Air Intake and Output 07/05/18 07/06/18 19:00 07:00 Intake Total 1912 ml 500 ml Balance 1912 ml 500 ml Intake Oral 12 ml 500 ml IV Total 1900 ml # Voids 1 5 Laboratory Tests 07/06/18 06:08: White Blood Count 5.9, Red Blood Count 3.04L, Hemoglobin 8.5L, Hematocrit 27.0L , Mean Corpuscular Volume 89, Mean Corpuscular Hemoglobin 28.0, Mean Corpuscular Hemoglobin Concent 31.5L, Red Cell Distribution Width 14.6, Platelet Count 173, Mean Platelet Volume 6.5, Neutrophils (%) (Auto) 78.5H, Lymphocytes (%) (Auto) 9.0L, Monocytes (%) (Auto) 9.8, Eosinophils (%) (Auto) 1.6, Basophils (%) (Auto) 1.0, Sodium Level 142, Potassium Level 3.9, Chloride Level 108H, Carbon Dioxide Level 24, Anion Gap 10, Blood Urea Nitrogen 24H, Creatinine 1.9H, Estimat Glomerular Filtration Rate , Glucose Level 101, Hemoglobin A1c 7.6H, Uric Acid 5.7, Calcium Level 9.3, Phosphorus Level 3.3, Magnesium Level 1.8, Iron Level 26L, Total Iron Binding Capacity 232L, Percent Iron Saturation 11L, Unsaturated Iron Binding 206, Ferritin 122, Total Bilirubin 0.4, Gamma Glutamyl Transpeptidase 25, Aspartate Amino Transf (AST/ SGOT) 22, Alanine Aminotransferase (ALT/SGPT) 23, Alkaline Phosphatase 45L, Total Creatine Kinase 166, Troponin I 0.065H, Pro-B-Type Natriuretic Peptide 3908H, Total Protein 6.8, Albumin 3.3L, Globulin 3.5, Albumin/Globulin Ratio 0.9L, Triglycerides Level 64, Cholesterol Level 188, LDL Cholesterol 78, HDL Cholesterol 88H, Cholesterol/HDL Ratio 2.1L, Vitamin B12 Level 560, Folate 15.6 , Thyroid Stimulating Hormone (TSH) 0.329L 07/06/18 09:35: Troponin I 0.055 Height (Feet): 5 Height (Inches): 3.00 Weight (Pounds): 140 General Appearance: no apparent distress Cardiovascular: normal rate Respiratory/Chest: decreased breath sounds Abdomen: soft Objective no change Wilfredo Will MD Jul 06, 2018 13:07
--- NOTE | 2018-07-06 15:07 | Cardiac Electrophysiology PN ---
Subjective Subjective [id number] Objective Last 24 Hour Vital Signs Date Time Temp Pulse Resp B/P (MAP) Pulse Ox O2 Delivery O2 Flow Rate FiO2 07/06/18 12:00 99.1 67 18 146/62 (90) 07/06/18 11:41 57 07/06/18 08:44 Room Air 07/06/18 08:33 78 150/70 07/06/18 08:33 78 150/70 07/06/18 08:15 99.7 78 18 150/70 (96) 07/06/18 07:52 72 07/06/18 04:00 66 07/06/18 00:00 66 07/05/18 21:00 Room Air 07/05/18 20:33 84 147/73 07/05/18 20:00 78 07/05/18 17:30 Room Air 07/05/18 17:23 83 156/58 07/05/18 17:23 83 156/58 07/05/18 16:29 98.3 92 20 161/68 100 Room Air 07/05/18 15:57 191/77 07/05/18 15:21 98.2 84 18 187/63 98 Room Air Intake and Output 07/05/18 07/06/18 19:00 07:00 Intake Total 1912 ml 500 ml Balance 1912 ml 500 ml Intake Oral 12 ml 500 ml IV Total 1900 ml # Voids 1 5 Laboratory Tests Test 07/06/18 06:08 07/06/18 09:35 White Blood Count 5.9 K/UL (4.8-10.8) Red Blood Count 3.04 M/UL (4.20-5.40) L Hemoglobin 8.5 G/DL (12.0-16.0) L Hematocrit 27.0 % (37.0-47.0) L Mean Corpuscular Volume 89 FL (80-99) Mean Corpuscular Hemoglobin 28.0 PG (27.0-31.0) Mean Corpuscular Hemoglobin Concent 31.5 G/DL (32.0-36.0) L Red Cell Distribution Width 14.6 % (11.6-14.8) Platelet Count 173 K/UL (150-450) Mean Platelet Volume 6.5 FL (6.5-10.1) Neutrophils (%) (Auto) 78.5 % (45.0-75.0) H Lymphocytes (%) (Auto) 9.0 % (20.0-45.0) L Monocytes (%) (Auto) 9.8 % (1.0-10.0) Eosinophils (%) (Auto) 1.6 % (0.0-3.0) Basophils (%) (Auto) 1.0 % (0.0-2.0) Sodium Level 142 MMOL/L (136-145) Potassium Level 3.9 MMOL/L (3.5-5.1) Chloride Level 108 MMOL/L (98-107) H Carbon Dioxide Level 24 MMOL/L (21-32) Anion Gap 10 mmol/L (5-15) Blood Urea Nitrogen 24 mg/dL (7-18) H Creatinine 1.9 MG/DL (0.55-1.30) H Estimat Glomerular Filtration Rate mL/min (>60) Glucose Level 101 MG/DL (74-106) Hemoglobin A1c 7.6 % (4.3-6.0) H Uric Acid 5.7 MG/DL (2.6-7.2) Calcium Level 9.3 MG/DL (8.5-10.1) Phosphorus Level 3.3 MG/DL (2.5-4.9) Magnesium Level 1.8 MG/DL (1.8-2.4) Iron Level 26 ug/dL (50-175) L Total Iron Binding Capacity 232 ug/dL (250-450) L Percent Iron Saturation 11 % (15-50) L Unsaturated Iron Binding 206 ug/dL (112-346) Ferritin 122 NG/ML (8-388) Total Bilirubin 0.4 MG/DL (0.2-1.0) Gamma Glutamyl Transpeptidase 25 U/L (5-85) Aspartate Amino Transf (AST/SGOT) 22 U/L (15-37) Alanine Aminotransferase (ALT/SGPT) 23 U/L (12-78) Alkaline Phosphatase 45 U/L (46-116) L Total Creatine Kinase 166 U/L (26-308) Troponin I 0.065 ng/mL (0.000-0.056) 0.055 ng/mL (0.000-0.056) Pro-B-Type Natriuretic Peptide 3908 pg/mL (0-125) H Total Protein 6.8 G/DL (6.4-8.2) Albumin 3.3 G/DL (3.4-5.0) L Globulin 3.5 g/dL Albumin/Globulin Ratio 0.9 (1.0-2.7) L Triglycerides Level 64 MG/DL (30-150) Cholesterol Level 188 MG/DL (< 200) LDL Cholesterol 78 mg/dL (<100) HDL Cholesterol 88 MG/DL (40-60) H Cholesterol/HDL Ratio 2.1 (3.3-4.4) L Vitamin B12 Level 560 PG/ML (193-986) Folate 15.6 NG/ML (8.6-58.9) Thyroid Stimulating Hormone (TSH) 0.329 uiU/mL (0.358-3.740) Microbiology Date/Time Source Procedure Growth Status 07/05/18 10:13 Nasal Nares Influenza Types A,B Antigen (KENDRICK) - Final Complete Paco Awad MD Jul 06, 2018 15:07
[2018-07-06 16:00] VITALS: BP 163/73
--- NOTE | 2018-07-06 19:01 | Consultation ---
DATE OF CONSULTATION: 07/06/2018 CARDIOLOGY CONSULTATION CONSULTING PHYSICIAN: Paco Awad M.D. REFERRING PHYSICIAN: Musa Ly M.D. REASON FOR CONSULTATION: History of hypertension and bradycardia. HISTORY OF PRESENT ILLNESS: The patient is an 78-year-old lady with history of hypertension drove herself in a bus to the hospital for increasing weakness of the left arm and left leg. The patient did not have any chest pain or shortness of breath. In the emergency room, the patient's blood pressure was 220/104 with heart rate of 88. Subsequently, the patient also had episode of bradycardia with heart rate down to low 50s. Cardiology consultation was obtained for further evaluation and management. REVIEW OF SYSTEMS: Negative other than what is mentioned in the history of present illness. PAST MEDICAL HISTORY: 1. Hypertension. 2. Diabetes. FAMILY HISTORY: Noncontributory. SOCIAL HISTORY: She lives at home. Does not smoke or drink alcohol. PHYSICAL EXAMINATION: VITAL SIGNS: Show blood pressure of 146/52, pulse rate 67, respirations 18, and temperature 99.1. HEAD AND NECK: Showed no JVD. LUNGS: Clear. CARDIOVASCULAR: Shows regular S1 and S2 with no gallop or murmur. ABDOMEN: Soft. EXTREMITIES: A 1+ pitting edema. LABORATORY DATA: Labs show white count of 5.9, hemoglobin of 8.5, hematocrit of 27, and platelet count 173,000. Sodium 142, potassium 3.9, BUN of 25, creatinine 1.9, and glucose of 101. Troponin 0.065 and 0.055. BNP is 3908. ASSESSMENT/PLAN: 1. Troponin leak. The second troponin is negative. EKG showed sinus bradycardia with no ST-T wave abnormalities. The patient does not have any chest pain. I will give the patient aspirin and a low-dose beta-chris 12.5 mg b.i.d. 2. History of hypertension. The patient is on Norvasc 10 mg daily. The patient is also on low-dose beta-chris. Add p.r.n. hydralazine and clonidine. I will leave the Lasix to Dr. Will. 3. Renal failure. Duration is not known. 4. Left arm and leg weakness. The patient underwent CT of the head and MRI of the brain, but no acute CVA was found. 5. Anemia. It is not clear at this time. It could be due to renal failure, the creatinine is 2. Thank you very much, Dr. Ly, for allowing me to participate in the care of this patient. Please do not hesitate to contact me for any questions regarding my evaluation. Paco Awad M.D. DR: FRAN JOB#: [id number] CC:
[2018-07-06 20:00] VITALS: BP 121/64
[2018-07-06] MEDS: NovoLOG Insulin Flexpen SUBQ SCH (21:16)
[2018-07-07] VITALS: BP 155/65
[2018-07-07 04:00] VITALS: BP 152/63
[2018-07-07] MEDS: NovoLOG Insulin Flexpen SUBQ SCH (06:21)
[2018-07-07 08:00] VITALS: BP 171/94
[2018-07-07 08:42] LABS: ALANINE AMINOTRANSFERASE 25 U/L (12-78); ALBUMIN 3.5 G/DL (3.4-5.0); ALKALINE PHOSPHATASE 45 U/L (46-116); ANION GAP 12 mmol/L (5-15); ASPARTATE AMINO TRANSFERASE 27 U/L (15-37); BILIRUBIN,TOTAL 0.3 MG/DL (0.2-1.0); BLOOD UREA NITROGEN 23 mg/dL (7-18); CALCIUM 9.3 MG/DL (8.5-10.1); CARBON DIOXIDE 22 MMOL/L (21-32); CHLORIDE 106 MMOL/L (98-107); CREATININE 1.7 MG/DL (0.55-1.30); POTASSIUM 3.8 MMOL/L (3.5-5.1); SODIUM 140 MMOL/L (136-145)
[2018-07-07 08:44] LABS: BASOPHILS % (AUTO) 1.5 % (0.0-2.0); EOSINOPHILS % (AUTO) 2.6 % (0.0-3.0); HEMOGLOBIN 9.1 G/DL (12.0-16.0); MEAN CORPUSCULAR VOLUME 89 FL (80-99); MONOCYTES % (AUTO) 11.1 % (1.0-10.0); NEUTROPHILS % (AUTO) 72.8 % (45.0-75.0); PLATELET COUNT 179 K/UL (150-450); RED BLOOD COUNT 3.25 M/UL (4.20-5.40); RED CELL DISTRIBUTION WIDTH 14.7 % (11.6-14.8); WHITE BLOOD COUNT 6.3 K/UL (4.8-10.8)
[2018-07-07] MEDS: Aspirin Baby 81mg ORAL SCH (09:02)
[2018-07-07] MEDS: Metoprolol Tartrate 12.5mg TAB ORAL SCH ×2 (09:02→21:12)
[2018-07-07] MEDS: Heparin 5000 units/ml inj SUBQ SCH ×2 (09:05→21:16)
[2018-07-07 12:00] VITALS: BP 157/74
--- NOTE | 2018-07-07 12:21 | Nephrology Progress Note ---
Assessment/Plan Problem List: (1) Renal failure (ARF), acute on chronic (2) VIDAL (acute kidney injury) (3) Malignant hypertension Assessment CKD likely diabetic/Hypertensive Nephrosclerosis- Cr lower/ stable BP OOC Anemia DM Plan BP Management- add Hydralazine to Norvasc and Lopressor Anemia jaime, low Iron avoid Nephrotoxics Kidney CHIRAG and 2D echo monitor renal parameters Urine studies Subjective ROS Limited/Unobtainable: No Constitutional: Reports: malaise Objective Objective Last 24 Hour Vital Signs Date Time Temp Pulse Resp B/P (MAP) Pulse Ox O2 Delivery O2 Flow Rate FiO2 07/07/18 09:02 78 171/94 07/07/18 09:02 78 171/94 07/07/18 09:00 Room Air 07/07/18 08:00 99.7 78 21 171/94 (119) 98 07/07/18 07:45 74 07/07/18 04:00 57 07/07/18 04:00 98.6 74 20 152/63 (92) 95 07/07/18 00:00 98.5 68 17 155/65 (95) 96 07/07/18 00:00 56 07/06/18 21:00 Room Air 07/06/18 20:51 80 134/53 07/06/18 20:00 98.2 68 20 121/64 (83) 96 07/06/18 20:00 64 07/06/18 16:39 163/73 07/06/18 16:14 71 07/06/18 16:00 97.0 68 20 163/73 (103) 97 Intake and Output 07/06/18 07/07/18 19:00 07:00 Intake Total 750 ml Balance 750 ml Intake Oral 750 ml # Voids 4 3 Laboratory Tests 07/06/18 15:20: Urine Eosinophils None seen, Urine Random Sodium 65 07/07/18 06:40: White Blood Count 6.3, Red Blood Count 3.25L, Hemoglobin 9.1L, Hematocrit 29.0L , Mean Corpuscular Volume 89, Mean Corpuscular Hemoglobin 28.0, Mean Corpuscular Hemoglobin Concent 31.5L, Red Cell Distribution Width 14.7, Platelet Count 179, Mean Platelet Volume 6.1L, Neutrophils (%) (Auto) 72.8, Lymphocytes (%) (Auto) 12.0L, Monocytes (%) (Auto) 11.1H, Eosinophils (%) (Auto ) 2.6, Basophils (%) (Auto) 1.5, Sodium Level 140, Potassium Level 3.8, Chloride Level 106, Carbon Dioxide Level 22, Anion Gap 12, Blood Urea Nitrogen 23H, Creatinine 1.7H, Estimat Glomerular Filtration Rate , Glucose Level 112H, Calcium Level 9.3, Total Bilirubin 0.3, Aspartate Amino Transf (AST/SGOT) 27, Alanine Aminotransferase (ALT/SGPT) 25, Alkaline Phosphatase 45L, Troponin I 0.040, Total Protein 6.9, Albumin 3.5, Globulin 3.4, Albumin/Globulin Ratio 1.0 07/07/18 08:26: Urine Eosinophils None seen Height (Feet): 5 Height (Inches): 3.00 Weight (Pounds): 140 General Appearance: no apparent distress Cardiovascular: regular rhythm Respiratory/Chest: lungs clear Objective no change Wilfredo Will MD Jul 07, 2018 12:21
--- NOTE | 2018-07-07 13:06 | General Progress Note ---
Assessment/Plan Assessment/Plan Assessment 78 year old female with PMH of DM and HTN presented with generalized weakness x 1 week, admitted for hypertensive emergency #hypertensive emergency #Acute on chronic renal disease - improved #Troponin leak -BP improved with hydralazine IVp -Cont NOrvasc 10mg daily -Cont Metoprolol 12.5 mg BID -Cont hydralazine added -Serial Trop and EKG unremarkable -Appreciate nephrology consult -Appreciate Cardiology consult -Creatinine improved #DM -Cont ISS -Carb controlled diet -FSG qac and hs #Left sided weakness -likley 2/2 pain possible from OA -Weakness comes and goes, during eval in ED, no weakness noted -CT and MRI brain unremarkable #Anemia likely 2/2 chronic disease and GIO -B12/ folate/ TSH WNL -FE sat 11% -s/p venofer -CTM -Will downgrade to med/surg Code status with discussion: Full I spent 45 min on this patients care, and 32 min was dedicated to counseling and /or care coordination Subjective Allergies: Coded Allergies: No Known Allergies (Verified , 02/14/18) Subjective Constitutional: Reports: malaise Eye: Reports: no symptoms ENT: Reports: no symptoms Respiratory: Reports: no symptoms Cardiovascular: Reports: no symptoms Gastrointestinal: Reports: no symptoms Genitourinary: Reports: no symptoms Musculoskeletal: Reports: other - left sided weakness Skin: Reports: no symptoms Psychiatric: Reports: no symptoms Neurological: Reports: no symptoms Endocrine: Reports: no symptoms Hematologic/Lymphatic: Reports: no symptoms Objective Last 24 Hour Vital Signs Date Time Temp Pulse Resp B/P (MAP) Pulse Ox O2 Delivery O2 Flow Rate FiO2 07/07/18 09:02 78 171/94 07/07/18 09:02 78 171/94 07/07/18 09:00 Room Air 07/07/18 08:00 99.7 78 21 171/94 (119) 98 07/07/18 07:45 74 07/07/18 04:00 57 07/07/18 04:00 98.6 74 20 152/63 (92) 95 07/07/18 00:00 98.5 68 17 155/65 (95) 96 07/07/18 00:00 56 07/06/18 21:00 Room Air 07/06/18 20:51 80 134/53 07/06/18 20:00 98.2 68 20 121/64 (83) 96 07/06/18 20:00 64 07/06/18 16:39 163/73 07/06/18 16:14 71 07/06/18 16:00 97.0 68 20 163/73 (103) 97 Intake and Output 07/06/18 07/07/18 19:00 07:00 Intake Total 750 ml Balance 750 ml Intake Oral 750 ml # Voids 4 3 Laboratory Tests 07/06/18 15:20: Urine Eosinophils None seen, Urine Random Sodium 65 07/07/18 06:40: White Blood Count 6.3, Red Blood Count 3.25L, Hemoglobin 9.1L, Hematocrit 29.0L , Mean Corpuscular Volume 89, Mean Corpuscular Hemoglobin 28.0, Mean Corpuscular Hemoglobin Concent 31.5L, Red Cell Distribution Width 14.7, Platelet Count 179, Mean Platelet Volume 6.1L, Neutrophils (%) (Auto) 72.8, Lymphocytes (%) (Auto) 12.0L, Monocytes (%) (Auto) 11.1H, Eosinophils (%) (Auto ) 2.6, Basophils (%) (Auto) 1.5, Sodium Level 140, Potassium Level 3.8, Chloride Level 106, Carbon Dioxide Level 22, Anion Gap 12, Blood Urea Nitrogen 23H, Creatinine 1.7H, Estimat Glomerular Filtration Rate , Glucose Level 112H, Calcium Level 9.3, Total Bilirubin 0.3, Aspartate Amino Transf (AST/SGOT) 27, Alanine Aminotransferase (ALT/SGPT) 25, Alkaline Phosphatase 45L, Troponin I 0.040, Total Protein 6.9, Albumin 3.5, Globulin 3.4, Albumin/Globulin Ratio 1.0 07/07/18 08:26: Urine Eosinophils None seen Height (Feet): 5 Height (Inches): 3.00 Weight (Pounds): 140 Objective General Appearance: WD/WN, no apparent distress, alert, lethargic Lines, tubes and drains: peripheral HEENT: normocephalic, atraumatic, anicteric, mucous membranes moist Neck: non-tender, normal alignment, supple, normal inspection Respiratory/Chest: chest wall non-tender, lungs clear, normal breath sounds, no respiratory distress, no accessory muscle use Cardiovascular/Chest: normal peripheral pulses, normal rate, regular rhythm, regularly irregular Abdomen: normal bowel sounds, non tender, soft, no organomegaly Extremities: normal range of motion Skin Exam: normal pigmentation Neurologic: carpet tile layer II-XII grossly normal Ayah Galicia MD Jul 07, 2018 13:06
[2018-07-07] MEDS ORDERED: HydrALAZINE 25mg tab ORAL SCH (14:00)
[2018-07-07 16:00] VITALS: BP 151/62
[2018-07-07] MEDS ORDERED: Nitroglycerin Subl 0.4mg tab SL PRN (17:45)
[2018-07-07] MEDS ORDERED: LORazepam 1mg tab ORAL PRN (18:00)
[2018-07-07 20:00] VITALS: BP 147/68
[2018-07-07] MEDS ORDERED: HydrALAZINE 25mg tab ORAL PRN (20:45)
[2018-07-07] MEDS: HydrALAZINE 25mg tab ORAL SCH (22:52)
[2018-07-08 00:46] VITALS: BP 136/56
[2018-07-08 04:00] VITALS: BP 140/65
[2018-07-08] MEDS: HydrALAZINE 25mg tab ORAL SCH ×3 (06:21→22:21)
[2018-07-08 08:00] VITALS: BP 139/57
[2018-07-08] MEDS: Aspirin Baby 81mg ORAL SCH (08:36)
[2018-07-08] MEDS: Metoprolol Tartrate 12.5mg TAB ORAL SCH ×2 (08:37→20:46)
[2018-07-08] MEDS: Heparin 5000 units/ml inj SUBQ SCH ×2 (08:51→20:47)
--- NOTE | 2018-07-08 11:40 | Nephrology Progress Note ---
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 Appearance of a right ureteral jet noted. No left ureteral jet seen during imaging. add flomax 2D echo ? Ej Fx 55 % monitor renal parameters Urine studies DC planning? Subjective ROS Limited/Unobtainable: No Objective Objective Last 24 Hour Vital Signs Date Time Temp Pulse Resp B/P (MAP) Pulse Ox O2 Delivery O2 Flow Rate FiO2 07/08/18 09:00 Room Air 07/08/18 08:37 68 140/65 07/08/18 08:37 68 140/65 07/08/18 08:00 97.7 70 20 139/57 (84) 95 07/08/18 06:21 140/65 07/08/18 04:00 98.2 68 20 140/65 (90) 94 07/08/18 00:46 98.2 68 20 136/56 (82) 95 07/07/18 22:52 135/57 07/07/18 21:12 73 147/68 07/07/18 21:00 Room Air 07/07/18 20:00 97.9 73 20 147/68 (94) 96 07/07/18 16:00 98.7 69 22 151/62 (91) 97 07/07/18 15:47 66 07/07/18 14:17 158/71 07/07/18 12:00 98.8 71 21 157/74 (101) 96 07/07/18 11:52 72 Intake and Output 07/07/18 07/08/18 18:59 06:59 Intake Total 120 ml Balance 120 ml Intake Oral 120 ml # Voids 1 Laboratory Tests 07/08/18 07:00: Urine Eosinophils None seen Height (Feet): 5 Height (Inches): 3.00 Weight (Pounds): 140 General Appearance: no apparent distress Objective no change Wilfredo Will MD Jul 08, 2018 11:40
[2018-07-08 12:00] VITALS: BP 152/72
[2018-07-08 16:46] VITALS: BP 136/63
--- NOTE | 2018-07-08 18:27 | Cardiac Electrophysiology PN ---
Assessment/Plan Assessment/Plan 1. Troponin leak. The second troponin is negative. EKG showed sinus bradycardia with no ST-T wave abnormalities. The patient does not have any chest pain. On aspirin and a low-dose beta-chris 12.5 mg b.i.d. 2. History of hypertension. The patient is on Norvasc 10 mg daily. The patient is also on low-dose beta-chris and hydralazine 3. Renal failure. Duration is not known.Cr improved to 1.7 4. Left arm and leg weakness. The patient underwent CT of the head and MRI of the brain, but no acute CVA was found. 5. Anemia. It is not clear at this time. It could be due to renal failure, the creatinine is 2. DW RN Subjective Subjective No CP or SOB. Objective Last 24 Hour Vital Signs Date Time Temp Pulse Resp B/P (MAP) Pulse Ox O2 Delivery O2 Flow Rate FiO2 07/08/18 16:46 98.1 63 18 136/63 (87) 97 07/08/18 13:06 152/72 07/08/18 12:00 97.9 61 20 152/72 (98) 96 07/08/18 09:00 Room Air 07/08/18 08:37 68 140/65 07/08/18 08:37 68 140/65 07/08/18 08:00 97.7 70 20 139/57 (84) 95 07/08/18 06:21 140/65 07/08/18 04:00 98.2 68 20 140/65 (90) 94 07/08/18 00:46 98.2 68 20 136/56 (82) 95 07/07/18 22:52 135/57 07/07/18 21:12 73 147/68 07/07/18 21:00 Room Air 07/07/18 20:00 97.9 73 20 147/68 (94) 96 Intake and Output 07/07/18 07/08/18 19:00 07:00 Intake Total 120 ml Balance 120 ml Intake Oral 120 ml # Voids 1 Laboratory Tests Test 07/08/18 07:00 Urine Eosinophils None seen (NONE SEEN) Objective HEAD AND NECK: No JVD. LUNGS: Clear. CARDIOVASCULAR: Shows regular S1 and S2 with no gallop or murmur. ABDOMEN: Soft. EXTREMITIES: 1+ pitting edema. Paco Awad MD Jul 08, 2018 18:27
[2018-07-08 20:26] VITALS: BP 143/56
[2018-07-08] MEDS ORDERED: Tamsulosin 0.4mg cap ORAL SCH (21:00)
--- NOTE | 2018-07-08 23:12 | General Progress Note ---
Assessment/Plan Assessment/Plan Assessment 78 year old female with PMH of DM and HTN presented with generalized weakness x 1 week, admitted for hypertensive emergency #hypertensive emergency - resolved #Acute on chronic renal disease - improved #Troponin leak -BP improved with hydralazine IVp -Cont NOrvasc 10mg daily -Cont Metoprolol 12.5 mg BID -Cont hydralazine -Serial Trop and EKG unremarkable -Appreciate nephrology consult -Appreciate Cardiology consult -Creatinine improved #DM -Cont ISS -Carb controlled diet -FSG qac and hs #Left sided weakness -likley 2/2 pain possible from OA -Weakness comes and goes, during eval in ED, no weakness noted -CT and MRI brain unremarkable #Anemia likely 2/2 chronic disease and GIO -B12/ folate/ TSH WNL -FE sat 11% -s/p venofer -CTM DC in AM Code status with discussion: Full I spent 45 min on this patients care, and 32 min was dedicated to counseling and /or care coordination Subjective Date patient seen: Jul 08, 2018 Allergies: Coded Allergies: No Known Allergies (Verified , 02/14/18) All Systems: reviewed and negative except above Subjective States she feels better, has no complaints Objective Last 24 Hour Vital Signs Date Time Temp Pulse Resp B/P (MAP) Pulse Ox O2 Delivery O2 Flow Rate FiO2 07/08/18 22:21 126/50 07/08/18 20:46 61 143/56 07/08/18 20:26 98.4 61 20 143/56 (85) 96 07/08/18 16:46 98.1 63 18 136/63 (87) 97 07/08/18 13:06 152/72 07/08/18 12:00 97.9 61 20 152/72 (98) 96 07/08/18 09:00 Room Air 07/08/18 08:37 68 140/65 07/08/18 08:37 68 140/65 07/08/18 08:00 97.7 70 20 139/57 (84) 95 07/08/18 06:21 140/65 07/08/18 04:00 98.2 68 20 140/65 (90) 94 07/08/18 00:46 98.2 68 20 136/56 (82) 95 Intake and Output 07/07/18 07/08/18 19:00 07:00 Intake Total 120 ml Balance 120 ml Intake Oral 120 ml # Voids 1 Laboratory Tests 07/08/18 07:00: Urine Eosinophils None seen Height (Feet): 5 Height (Inches): 3.00 Weight (Pounds): 140 Objective General Appearance: WD/WN, no apparent distress, alert, lethargic Lines, tubes and drains: peripheral HEENT: normocephalic, atraumatic, anicteric, mucous membranes moist Neck: non-tender, normal alignment, supple, normal inspection Respiratory/Chest: chest wall non-tender, lungs clear, normal breath sounds, no respiratory distress, no accessory muscle use Cardiovascular/Chest: normal peripheral pulses, normal rate, regular rhythm, regularly irregular Abdomen: normal bowel sounds, non tender, soft, no organomegaly Extremities: normal range of motion Skin Exam: normal pigmentation 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
[2018-07-09 00:29] VITALS: BP 129/59
[2018-07-09 04:32] VITALS: BP 124/53
[2018-07-09] MEDS: HydrALAZINE 25mg tab ORAL SCH ×2 (05:24→13:26)
[2018-07-09 08:00] VITALS: BP 129/66
[2018-07-09] MEDS: Aspirin Baby 81mg ORAL SCH (08:03)
[2018-07-09] MEDS: Metoprolol Tartrate 12.5mg TAB ORAL SCH (08:04)
[2018-07-09] MEDS: Heparin 5000 units/ml inj SUBQ SCH (08:07)
[2018-07-09 12:00] VITALS: BP 110/48
--- NOTE | 2018-07-09 12:16 | Nephrology Progress Note ---
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 Appearance of a right ureteral jet noted. No left ureteral jet seen during imaging. add flomax 2D echo ? Ej Fx 55 % monitor renal parameters Urine studies DC planning? Subjective ROS Limited/Unobtainable: No Constitutional: Reports: malaise, weakness Objective Objective Last 24 Hour Vital Signs Date Time Temp Pulse Resp B/P (MAP) Pulse Ox O2 Delivery O2 Flow Rate FiO2 07/09/18 09:00 Room Air 07/09/18 08:04 64 124/53 07/09/18 08:03 64 124/53 07/09/18 08:00 98.2 65 16 129/66 (87) 95 07/09/18 05:24 124/53 07/09/18 04:32 98.5 64 18 124/53 (76) 94 07/09/18 00:29 98.5 64 20 129/59 (82) 96 07/08/18 22:21 126/50 07/08/18 21:00 Room Air 07/08/18 20:46 61 143/56 07/08/18 20:26 98.4 61 20 143/56 (85) 96 07/08/18 16:46 98.1 63 18 136/63 (87) 97 07/08/18 13:06 152/72 Intake and Output 07/08/18 07/09/18 18:59 06:59 Intake Total 360 ml Balance 360 ml Intake Oral 360 ml # Voids 3 Height (Feet): 5 Height (Inches): 3.00 Weight (Pounds): 140 General Appearance: no apparent distress Cardiovascular: normal rate Respiratory/Chest: decreased breath sounds Abdomen: soft Objective no change Wilfredo Will MD Jul 09, 2018 12:16
[2018-07-09 13:26] VITALS: BP 110/48
[2018-07-09] MEDS ORDERED: AMLODIPINE BESY10 MG ORAL (15:22)
[2018-07-09] MEDS ORDERED: HYDRALAZINE HCL25 M1 ORAL (15:24)
[2018-07-09] MEDS ORDERED: METOPROLOL SUCC25 MG ORAL ×2 (15:28→15:31)
--- NOTE | 2018-07-09 16:10 | Cardiac Electrophysiology PN ---
Assessment/Plan Assessment/Plan 1. Troponin leak. 2 follow up troponins are negative. EKG showed sinus bradycardia with no ST-T wave abnormalities. The patient does not have any chest pain. On aspirin and a low-dose beta-chris 12.5 mg b.i.d. 2. History of hypertension. The patient is on Norvasc 10 mg daily, Lopressor 12.5 and hydralazine 3. Renal failure. Duration is not known.Cr improved to 1.7 4. Left arm and leg weakness. The patient underwent CT of the head and MRI of the brain, but no acute CVA was found. 5. Anemia. Could be due to renal failure, the creatinine is 2. DW RN Subjective Subjective No CP or SOB. Comfortable in NAD. Objective Last 24 Hour Vital Signs Date Time Temp Pulse Resp B/P (MAP) Pulse Ox O2 Delivery O2 Flow Rate FiO2 07/09/18 13:26 110/48 07/09/18 12:00 98.1 58 14 110/48 (68) 95 07/09/18 09:00 Room Air 07/09/18 08:04 64 124/53 07/09/18 08:03 64 124/53 07/09/18 08:00 98.2 65 16 129/66 (87) 95 07/09/18 05:24 124/53 07/09/18 04:32 98.5 64 18 124/53 (76) 94 07/09/18 00:29 98.5 64 20 129/59 (82) 96 07/08/18 22:21 126/50 07/08/18 21:00 Room Air 07/08/18 20:46 61 143/56 07/08/18 20:26 98.4 61 20 143/56 (85) 96 07/08/18 16:46 98.1 63 18 136/63 (87) 97 Intake and Output 07/08/18 07/09/18 19:00 07:00 Intake Total 360 ml Balance 360 ml Intake Oral 360 ml # Voids 3 Laboratory Tests Test 07/09/18 15:25 C-Reactive Protein, Quantitative Pending Objective HEAD AND NECK: No JVD. LUNGS: Clear. CARDIOVASCULAR: Regular S1 and S2 with no gallop or murmur. ABDOMEN: Soft. EXTREMITIES: 1+ pitting edema. Paco Awad MD Jul 09, 2018 16:10
--- NOTE | 2018-07-11 09:33 | Cardiology Report ---
APPROVED REPORT EXAM: Two-dimensional and M-mode echocardiogram with Doppler and color Doppler. INDICATION Congestive Heart Failure M-Mode DIMENSIONS IVSd0.9 (0.7-1.1cm)Left Atrium (MM)2.9 (1.6-4.0cm) LVDd5.1 (3.5-5.6cm)Aortic Root3.6 (2.0-3.7cm) PWd0.8 (0.7-1.1cm)Aortic Cusp Exc.1.6 (1.5-2.0cm) IVSs1.3 cm LVDs3.2 (2.5-4.0cm) PWs1.0 cm Normal left ventricular chamber size, systolic function and wall motion. Left ventricular ejection fraction estimated to be 55-60 %. Mild left ventricular hypertrophy by 2-D. Trivial pericardial effusion. All other cardiac chamber sizes are within normal limits. Focal aortic valve sclerosis with decreased cusp excursion. Thickened mitral valve leaflets with normal excursion. Mitral annulus and aortic root calcification. Pulmonic valve not well visualized. Normal tricuspid valve structure. IVC dilated at 2.3 cm with slightly physiologic collapse suggestive of increased RA pressure. A color flow and spectral Doppler study was performed and revealed: Trace aortic regurgitation. Trace mitral regurgitation. Mitral diastolic velocities suggest reduced left ventricular relaxation c/w mild LV diastolic dysfunction (Grade I ). Mild tricuspid regurgitation. Tricuspid systolic velocities suggests peak right ventricular systolic pressure of 37 mmHg,consistent with mild pulmonary hypertension.
--- NOTE | 2018-07-11 09:33 | Cardiology Report ---
APPROVED REPORT EKG Measurement Heart [id number] [id number] Sinus bradycardia Otherwise normal ECG
--- NOTE | 2018-07-13 02:28 | Discharge Summary ---
Discharge Summary Hospital Course Date of Admission Jul 05, 2018 at 16:45 Date of Discharge Jul 09, 2018 at 16:30 Admitting Diagnosis MALIGNANT HTN Reason for Hospitalization: hypertensive emergency with VIDAL and type 2 NSTEMI NE Nur is a 78 year old female who was admitted on Jul 05, 2018 at 16:45 for Malignant Hypertension Consultations Cardiology, Nephrology Hospital Course Assessment 78 year old female with PMH of DM and HTN presented with generalized weakness x 1 week, admitted for hypertensive emergency. Pt received hydralazine IVp in ED with decrease in BP. Pt noted to have type 2 NSTEMI, evaluated by cardiology, serial troponins and EKG was unremarkable. Pt restarted on home medications and titrated up, on discharge will continue Norvasc 10mg daily, hydralazine 25mg q6hrs and metoprolol 12.5mg BID. Pt also noted to have acute kidney injury, evaluated by nephrology, improved with decrease in BP. Pt c/o left sided weakness, due to concerns for CVA, CTH and MRI H was done, results unremarkable. On discharge, pt was tolerating PO diet, hemodynamically stable and ambulating with a stable gait. Physical exam prior to discharge: General Appearance: WD/WN, no apparent distress, alert, lethargic Lines, tubes and drains: peripheral HEENT: normocephalic, atraumatic, anicteric, mucous membranes moist Neck: non-tender, normal alignment, supple, normal inspection Respiratory/Chest: chest wall non-tender, lungs clear, normal breath sounds, no respiratory distress, no accessory muscle use Cardiovascular/Chest: normal peripheral pulses, normal rate, regular rhythm, regularly irregular Abdomen: normal bowel sounds, non tender, soft, no organomegaly Extremities: normal range of motion Skin Exam: normal pigmentation 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 35 min dedicated to counseling, care coordination and discharge planning Discharge Medications Continued Medications: Amlodipine Besylate* (Amlodipine Besylate*) 10 Mg Tablet 10 MG ORAL DAILY, TAB (This prescription has been renewed) Aspirin* (Aspir 81*) 81 Mg Tablet.dr 81 MG ORAL DAILY, TAB (This prescription has been renewed) Hydralazine Hcl* (Hydralazine Hcl*) 25 Mg Tablet 25 MG ORAL EVERY 8 HOURS, TAB 0 Refills (This prescription has been renewed) Metoprolol Succinate* (Metoprolol Succinate*) 25 Mg Tab.er.24h 12.5 MG ORAL BID, TAB (This prescription has been renewed) Pravastatin Sodium (Pravachol) 40 Mg Tablet 40 MG ORAL BEDTIME, TAB (This prescription has been renewed) Sitagliptin Phos/Metformin Hcl (Janumet 50-1,000 Mg Tablet) 1 Each Tablet 1 TAB ORAL TWICE A DAY, TAB Sitagliptin* (Januvia*) 25 Mg Tablet 100 MG ORAL DAILY, TAB (This prescription has been renewed) Discontinued Medications: Amlodipine Besylate* (Amlodipine Besylate*) 2.5 Mg Tablet 2.5 MG ORAL DAILY, TAB Lisinopril (Lisinopril*) 20 Mg Tablet 40 MG ORAL DAILY, TAB Metoprolol Succinate* (Metoprolol Succinate*) 25 Mg Tab.er.24h 12.5 MG ORAL DAILY, TAB Discharge Condition Upon Discharge: stable Discharge Disposition Patient was discharged to Home (01) Discharge Diagnoses: (1) Hypertensive emergency (2) Acute kidney failure (3) NSTEMI (non-ST elevated myocardial infarction) Ayah Galicia MD Jul 13, 2018 02:28
== END 2018-07-09 16:30 | disposition home or self-care (01) | DRG 281 ==
LOC: EMR 10:00 → EDBEDREQ 14:14 → EDBEDREQSVC 14:14 → EDBEDREQ 15:40 → 2E 16:45 → 4E 07-07 17:15
DX: I16.1 Hypertensive emergency (principal); I21.A1 Myocardial infarction type 2; N17.9 Acute kidney failure, unspecified; I12.9 Hypertensive chronic kidney disease with stage 1 through stage 4 chronic kidney disease, or unspecified chronic kidney disease; N18.9 Chronic kidney disease, unspecified; E11.22 Type 2 diabetes mellitus with diabetic chronic kidney disease; D63.8 Anemia in other chronic diseases classified elsewhere; M79.602 Pain in left arm; M79.605 Pain in left leg
CPT/HCPCS: 36415; 70450; 70551; 71045; 76770; 80053; 80061; 81003; 82550; 82553; 82607; 82728; 82746; 82962; 82977; 83036; 83540; 83550; 83605; 83735; 83880; 84100; 84300; 84443; 84484; 84550; 85025; 86140; 86710; 87040; 89050; 93005; 93306; 96361; 96374; 96375; 99285; J1815; J2405

== ENCOUNTER 2018-08-10 10:00 | Inpatient (IN) | payer MEDICARE, MEDICAID ==
[~2018-08-10] VITALS: Ht 167.6 cm; Wt 61.0 kg
[~2018-08-10 10:00] MED LIST changes: +AMLODIPINE BESY10 MG ORAL; +ASPIR 8181 MG ORAL; +HYDRALAZINE HCL25 M1 ORAL; +JANUVIA25 MG ORAL; +LISINOPRIL20 MG ORAL; +METOPROLOL SUCC25 MG ORAL; +PRAVACHOL40 MG ORAL
[2018-08-10 10:31] LABS: HEMOGLOBIN 11.9 G/DL (12.0-16.0); MEAN CORPUSCULAR VOLUME 86 FL (80-99); PLATELET COUNT 241 K/UL (150-450); RED BLOOD COUNT 4.29 M/UL (4.20-5.40); WHITE BLOOD COUNT 10.3 K/UL (4.8-10.8)
[2018-08-10 10:32] VITALS: BP 117/78
--- NOTE | 2018-08-10 10:51 | Diagnostic Imaging Report ---
EXAM: XR Chest, 1 View CLINICAL HISTORY: Chest pain TECHNIQUE: Frontal view of the chest. COMPARISON: Chest x-rays dated 07/05/18 FINDINGS: Lungs: Unremarkable. The lungs appear clear. No focal consolidation. Pleural space: Unremarkable. The costophrenic angles are sharp. No visible pneumothorax. Heart: Unremarkable. No cardiomegaly. Mediastinum: Unremarkable. Bones/joints: Unremarkable. Vasculature: Mild calcifications in the aortic arch. Tubes, lines and devices: Telemetry leads overlie the thorax. IMPRESSION: No acute findings.
[2018-08-10 11:02] LABS: ANION GAP 21 mmol/L (5-15); BLOOD UREA NITROGEN 40 mg/dL (7-18); CALCIUM 10.3 MG/DL (8.5-10.1); CARBON DIOXIDE 18 MMOL/L (21-32); CHLORIDE 99 MMOL/L (98-107); CREATININE 3.1 MG/DL (0.55-1.30); POTASSIUM 4.1 MMOL/L (3.5-5.1); SODIUM 138 MMOL/L (136-145)
[2018-08-10 11:15] LABS: ALANINE AMINOTRANSFERASE 21 U/L (12-78); ALKALINE PHOSPHATASE 51 U/L (46-116); ASPARTATE AMINO TRANSFERASE 22 U/L (15-37); BILIRUBIN,TOTAL 0.6 MG/DL (0.2-1.0); CKMB 2.8 NG/ML (0.0-3.6); CREATINE KINASE 192 U/L (26-308)
[2018-08-10] MEDS ORDERED: Metoprolol 5mg/5ml Inj IVP ONE (11:30)
[2018-08-10 12:04] LABS: APPEARANCE,URINE CLEAR; BILIRUBIN, URINE NEGATIVE (NEGATIVE); GLUCOSE, URINE (UA) 1+ (NEGATIVE); KETONES,URINE 2+ (NEGATIVE); LEUKOCYTE ESTERASE ,URINE 1+ (NEGATIVE); NITRITE,URINE NEGATIVE (NEGATIVE); PH,URINE 5 (4.5-8.0); PROTEIN,URINE 3+ (NEGATIVE); UROBILINOGEN,URINE NORMAL MG/DL (0.0-1.0)
[2018-08-10 12:05] LABS: COLOR,URINE YELLOW
--- NOTE | 2018-08-10 12:08 | Emergency Room Report ---
History of Present Illness General Chief Complaint: Generalized Weakness Source: Patient, Medical Record (Tamara Gaytan DO) Present Illness HPI Patient present by paramedics for reports of dizziness fall Near syncopal episode Patient reports that while on the ground she was having a hard time standing up felt extremely weak Denies any focal weakness and eyes any chest pain or short of breath she does also have some nausea with this denies any headache denies any neck pain denies any photophobia Denies any change in medications recently (Tamara Gaytan DO) Allergies: Coded Allergies: No Known Allergies (Verified , 02/14/18) Patient History Past Medical History: see triage record Pertinent Family History: none Reviewed Nursing Documentation: PMH: Agreed; PSxH: Agreed (Tamara Gaytan DO) Nursing Documentation-PMH Past Medical History: No History, Except For Hx Cardiac Problems: Yes Hx Hypertension: Yes Hx Diabetes: Yes Hx Cancer: No Hx Gastrointestinal Problems: No Hx Neurological Problems: No (Tamara Gaytan DO) Review of Systems All Other Systems: negative except mentioned in HPI (Tamara Gaytan DO) Physical Exam Vital Signs Date Time Temp Pulse Resp B/P (MAP) Pulse Ox O2 Delivery O2 Flow Rate FiO2 08/10/18 09:58 99.0 114 20 117/78 99 Room Air Sp02 EP Interpretation: reviewed, normal General Appearance: no apparent distress Head: normocephalic, atraumatic Eyes: bilateral eye PERRL, bilateral eye EOMI ENT: hearing grossly normal, normal pharynx, TMs + canals normal, uvula midline Neck: full range of motion, supple, no meningismus, no bony tend Respiratory: lungs clear, normal breath sounds, no rhonchi, no respiratory distress, no retraction, no accessory muscle use Cardiovascular #1: normal peripheral pulses, regular rate, rhythm, no edema, no gallop, no JVD, no murmur Gastrointestinal: normal bowel sounds, non tender, soft, no mass, no organomegaly, non-distended, no guarding, no hernia, no pulsatile mass, no rebound Genitourinary: no CVA tenderness Musculoskeletal: normal inspection Neurologic: oriented x3, responsive, jira developer III-XII nml as tested, motor strength/ tone normal, sensory intact Psychiatric: mood/affect normal Skin: normal color, no rash, warm/dry, palpation normal Lymphatic: normal inspection, no adenopathy (Tamara Gaytan DO) Procedures Critical Care Time Critical Care Time 40 minutes for multiple re-evaluations hypertensive presentation requiring repeat intervention, elevated troponin concern for cardiac not including any procedural time, (Tamara Gaytan DO) Medical Decision Making Diagnostic Impression: Primary Impression: NSTEMI (non-ST elevated myocardial infarction) Additional Impression: Hypertensive emergency ER Course Patient is a fairly complex patient with multiple differential to consideration including but not limited to cardiac cardiopulmonary and vascular emergencies Patient's blood work shows abnormal findings including elevated troponin level BNP is also elevated Patient requiring acute intervention for her blood pressure Initially remained above 200 systolic patient also nauseated and at this time will have imaging and further inpatient care Labs Test 08/10/18 10:05 08/10/18 11:00 White Blood Count 10.3 K/UL (4.8-10.8) Red Blood Count 4.29 M/UL (4.20-5.40) Hemoglobin 11.9 G/DL (12.0-16.0) Hematocrit 37.0 % (37.0-47.0) Mean Corpuscular Volume 86 FL (80-99) Mean Corpuscular Hemoglobin 27.8 PG (27.0-31.0) Mean Corpuscular Hemoglobin Concent 32.2 G/DL (32.0-36.0) Red Cell Distribution Width 13.0 % (11.6-14.8) Platelet Count 241 K/UL (150-450) Mean Platelet Volume 7.5 FL (6.5-10.1) Neutrophils (%) (Auto) % (45.0-75.0) Lymphocytes (%) (Auto) % (20.0-45.0) Monocytes (%) (Auto) % (1.0-10.0) Eosinophils (%) (Auto) % (0.0-3.0) Basophils (%) (Auto) % (0.0-2.0) Differential Total Cells Counted 100 Neutrophils % (Manual) 87 % (45-75) Lymphocytes % (Manual) 4 % (20-45) Monocytes % (Manual) 8 % (1-10) Eosinophils % (Manual) 0 % (0-3) Basophils % (Manual) 1 % (0-2) Band Neutrophils 0 % (0-8) Platelet Estimate Adequate Platelet Morphology Normal Red Blood Cell Morphology Normal Sodium Level 138 MMOL/L (136-145) Potassium Level 4.1 MMOL/L (3.5-5.1) Chloride Level 99 MMOL/L (98-107) Carbon Dioxide Level 18 MMOL/L (21-32) Anion Gap 21 mmol/L (5-15) Blood Urea Nitrogen 40 mg/dL (7-18) Creatinine 3.1 MG/DL (0.55-1.30) Estimat Glomerular Filtration Rate mL/min (>60) Glucose Level 245 MG/DL (74-106) Calcium Level 10.3 MG/DL (8.5-10.1) Total Bilirubin 0.6 MG/DL (0.2-1.0) Aspartate Amino Transf (AST/SGOT) 22 U/L (15-37) Alanine Aminotransferase (ALT/SGPT) 21 U/L (12-78) Alkaline Phosphatase 51 U/L (46-116) Total Creatine Kinase 192 U/L (26-308) Creatine Kinase MB 2.8 NG/ML (0.0-3.6) Creatine Kinase MB Relative Index 1.4 Troponin I 0.195 ng/mL (0.000-0.056) Pro-B-Type Natriuretic Peptide 56005 pg/mL (0-125) Total Protein 8.1 G/DL (6.4-8.2) Albumin 4.0 G/DL (3.4-5.0) Globulin 4.1 g/dL Albumin/Globulin Ratio 1.0 (1.0-2.7) Urine Color Yellow Urine Appearance Clear Urine pH 5 (4.5-8.0) Urine Specific [place] 1.025 (1.005-1.035) Urine Protein 3+ (NEGATIVE) Urine Glucose (UA) 1+ (NEGATIVE) Urine Ketones 2+ (NEGATIVE) Urine Blood 3+ (NEGATIVE) Urine Nitrite Negative (NEGATIVE) Urine Bilirubin Negative (NEGATIVE) Urine Urobilinogen Normal MG/DL (0.0-1.0) Urine Leukocyte Esterase 1+ (NEGATIVE) (Tamara Gaytan DO) EKG Diagnostic Results Rate: normal Rhythm: NSR ST Segments: other - Nonspecific ST T-wave changes (Tamara Gaytan DO) Rhythm Strip Diag. Results EP Interpretation: yes Rate: 66 Rhythm: NSR, no PVC's, no ectopy (Tamara Gaytan DO) Chest X-Ray Diagnostic Results Chest X-Ray Diagnostic Results : Chest X-Ray Ordered: Yes # of Views/Limited/Complete: 1 View Indication: Chest Pain EP Interpretation: Yes Interpretation: no consolidation, no effusion, no pneumothorax Impression: No acute disease Electronically Signed by: Tamara Gaytan DO (Tamara Gaytan DO) CT/MRI/US Diagnostic Results CT/MRI/US Diagnostic Results : Impression CT headIMPRESSION: 1. No acute intracranial findings. 2. Mild periventricular white matter hypodensities, likely related to chronic small vessel disease changes. 3. Mild generalized cerebral parenchymal volume loss, likely age-related. (Tamara Gaytan DO) CT/MRI/US Diagnostic Results : Imaging Test Ordered: head Impression white mater changes, no mass or bleed (Bhupendra Corbett MD) Last Vital Signs Date Time Temp Pulse Resp B/P (MAP) Pulse Ox O2 Delivery O2 Flow Rate FiO2 08/10/18 11:32 99 193/91 08/10/18 10:32 20 Room Air 08/10/18 10:32 98.9 99 Status: improved (Tamara Gaytan DO) Disposition: ADMITTED INPATIENT Condition: Critical Referrals: Rolando Booth MD (PCP) Tamara Gaytan DO Aug 10, 2018 12:08 Bhupendra Corbett MD Aug 10, 2018 13:53
[2018-08-10 12:45] VITALS: BP 200/90
[2018-08-10 13:15] VITALS: BP 150/68
--- NOTE | 2018-08-10 13:22 | Diagnostic Imaging Report ---
EXAM: CT Head Without Intravenous Contrast CLINICAL HISTORY: PAIN TECHNIQUE: Axial computed tomography images of the head/brain without intravenous contrast. CTDI is 70.38 mGy and DLP is 1340 mGy-cm. One or more of the following dose reduction techniques were used: automated exposure control, adjustment of the mA and/or kV according to patient size, use of iterative reconstruction technique. COMPARISON: CT head dated 07/05/18 FINDINGS: Brain: Mild generalized parenchymal volume loss, likely age-related. Mild periventricular white matter hypodensities. No evidence of acute intracranial hemorrhage. No mass effect or midline shift. Ventricles: Unremarkable. No ventriculomegaly. Bones/joints: Unremarkable. No acute fracture. Soft tissues: Unremarkable. Sinuses: Unremarkable as visualized. No acute sinusitis. Mastoid air cells: Unremarkable as visualized. No mastoid effusion. IMPRESSION: 1. No acute intracranial findings. 2. Mild periventricular white matter hypodensities, likely related to chronic small vessel disease changes. 3. Mild generalized cerebral parenchymal volume loss, likely age-related.
[2018-08-10] MEDS ORDERED: Zolpidem 5mg tab ORAL PRN (14:45)
[2018-08-10] MEDS ORDERED: Miralax 17gm pkt ORAL PRN (14:45)
[2018-08-10] MEDS ORDERED: HydrALAZINE 25mg tab ORAL SCH (14:45)
[2018-08-10] MEDS ORDERED: Nitroglycerin Subl 0.4mg tab SL PRN (14:45)
--- NOTE | 2018-08-10 14:59 | History & Physical ---
History and Physical History & Physicial Rolando Booth MD Aug 10, 2018 14:59
--- NOTE | 2018-08-10 15:47 | Consultation ---
Consult Note Consult Note asked to evaluate at the request of Dr Booth for renal failure Patient is known to me from her previous admission Patient present by paramedics for reports of dizziness fall Near syncopal episode Patient reports that while on the ground she was having a hard time standing up felt extremely weak Denies any focal weakness and eyes any chest pain or short of breath she does also have some nausea with this denies any headache denies any neck pain denies any photophobia Denies any change in medications recently Past Medical History: see triage record, DM, HTN Social History: Denies: smoking, alcohol use, drug use Reviewed Nursing Documentation: PMH: Agreed; PSxH: Agreed Past Medical History: No History, Except For Hx Hypertension: Yes Hx Diabetes: Yes she was told to have weak kidneys by her PMD interviewed examined data reviewed Assessment/Plan CKD likely diabetic/Hypertensive Nephrosclerosis Dehydration BP OOC Anemia DM elevated troponin Hydrate BP Management Anemia jaime avoid Nephrotoxics Kidney CHIRAG and 2D echo done last time reviewed monitor renal parameters Urine studies Wilfredo Will MD Aug 10, 2018 15:47
[2018-08-10 16:00] VITALS: BP 155/93
--- NOTE | 2018-08-10 17:12 | Cardiology Progress Note ---
Assessment/Plan Assessment/Plan The patient is seen and examined, full consult note will be dictated shortly. Objective Last 24 Hour Vital Signs Date Time Temp Pulse Resp B/P (MAP) Pulse Ox O2 Delivery O2 Flow Rate FiO2 08/10/18 16:43 Room Air 08/10/18 13:15 92 16 150/68 100 Room Air 08/10/18 13:15 98.9 92 16 150/68 100 Room Air 08/10/18 12:53 209/86 08/10/18 12:45 87 21 200/90 100 Room Air 08/10/18 11:32 99 193/91 08/10/18 10:32 114 20 Room Air 08/10/18 10:32 98.9 114 20 117/78 99 Room Air 08/10/18 09:58 99.0 114 20 117/78 99 Room Air Laboratory Tests Test 08/10/18 10:05 08/10/18 11:00 08/10/18 15:55 White Blood Count 10.3 K/UL (4.8-10.8) Red Blood Count 4.29 M/UL (4.20-5.40) Hemoglobin 11.9 G/DL (12.0-16.0) L Hematocrit 37.0 % (37.0-47.0) Mean Corpuscular Volume 86 FL (80-99) Mean Corpuscular Hemoglobin 27.8 PG (27.0-31.0) Mean Corpuscular Hemoglobin Concent 32.2 G/DL (32.0-36.0) Red Cell Distribution Width 13.0 % (11.6-14.8) Platelet Count 241 K/UL (150-450) Mean Platelet Volume 7.5 FL (6.5-10.1) Neutrophils (%) (Auto) % (45.0-75.0) Lymphocytes (%) (Auto) % (20.0-45.0) Monocytes (%) (Auto) % (1.0-10.0) Eosinophils (%) (Auto) % (0.0-3.0) Basophils (%) (Auto) % (0.0-2.0) Differential Total Cells Counted 100 Neutrophils % (Manual) 87 % (45-75) H Lymphocytes % (Manual) 4 % (20-45) L Monocytes % (Manual) 8 % (1-10) Eosinophils % (Manual) 0 % (0-3) Basophils % (Manual) 1 % (0-2) Band Neutrophils 0 % (0-8) Platelet Estimate Adequate Platelet Morphology Normal Red Blood Cell Morphology Normal Sodium Level 138 MMOL/L (136-145) Potassium Level 4.1 MMOL/L (3.5-5.1) Chloride Level 99 MMOL/L (98-107) Carbon Dioxide Level 18 MMOL/L (21-32) L Anion Gap 21 mmol/L (5-15) H Blood Urea Nitrogen 40 mg/dL (7-18) H Creatinine 3.1 MG/DL (0.55-1.30) H Estimat Glomerular Filtration Rate mL/min (>60) Glucose Level 245 MG/DL (74-106) H Calcium Level 10.3 MG/DL (8.5-10.1) H Total Bilirubin 0.6 MG/DL (0.2-1.0) Aspartate Amino Transf (AST/SGOT) 22 U/L (15-37) Alanine Aminotransferase (ALT/SGPT) 21 U/L (12-78) Alkaline Phosphatase 51 U/L (46-116) Total Creatine Kinase 192 U/L (26-308) Creatine Kinase MB 2.8 NG/ML (0.0-3.6) Creatine Kinase MB Relative Index 1.4 Troponin I 0.195 ng/mL (0.000-0.056) Pending Pro-B-Type Natriuretic Peptide 11378 pg/mL (0-125) H Total Protein 8.1 G/DL (6.4-8.2) Albumin 4.0 G/DL (3.4-5.0) Globulin 4.1 g/dL Albumin/Globulin Ratio 1.0 (1.0-2.7) Urine Color Yellow Urine Appearance Clear Urine pH 5 (4.5-8.0) Urine Specific [place] 1.025 (1.005-1.035) Urine Protein 3+ (NEGATIVE) H Urine Glucose (UA) 1+ (NEGATIVE) H Urine Ketones 2+ (NEGATIVE) H Urine Blood 3+ (NEGATIVE) H Urine Nitrite Negative (NEGATIVE) Urine Bilirubin Negative (NEGATIVE) Urine Urobilinogen Normal MG/DL (0.0-1.0) Urine Leukocyte Esterase 1+ (NEGATIVE) H Urine RBC 5-10 /HPF (0 - 2) H Urine WBC 2-4 /HPF (0 - 2) Urine Squamous Epithelial Cells Few /LPF (NONE/OCC) Urine Bacteria Few /HPF (NONE) Urine Hyaline Casts 0-2 /LPF (NONE) H Urine Fine Granular Casts 0-2 /LPF (NONE) H Paco Jennings MD Aug 10, 2018 17:12
[2018-08-10] MEDS: sitaGLIPtin 25mg tab ORAL SCH (18:00)
[2018-08-10] MEDS: Aspirin EC 81mg tab ORAL SCH (18:00)
[2018-08-10] MEDS: Docusate 100mg cap ORAL SCH (18:05)
[2018-08-10] MEDS: NovoLOG Insulin Flexpen SUBQ SCH ×2 (18:20→21:01)
--- NOTE | 2018-08-10 18:46 | Consultation ---
History of Present Illness General Date patient seen: Aug 10, 2018 Chief Complaint: Generalized Weakness Referring physician: Dr. Rolando Booth Present Illness HPI Nicolette Nur is an 78-year-old female with past medical history significant for hypertension, diabetes type 2, dyslipidemia, history of chronic kidney disease, who presented to the emergency room complaining about a ground level fall, weakness, and lack of appetite. She states that she was about to get in a taxi to go to [employer] today and all of a sudden her legs collapsed beneath her. She denies any chest pain, shortness of breath, headache, double vision or residual weakness. She has now been admitted to the hospital with the mild elevation of troponin, possible acute coronary syndrome, as well as dehydration, and acute kidney injury on chronic renal insufficiency. We are called to evaluate the cause of her syncope. She is alert and oriented x 4 with a symmetrical motor exam, and no signs or symptoms of an acute stroke. However, we did discuss risk factors for stroke and she understands that he elevated blood pressure is her number one risk. We discussed the importance of maintaining a blood pressure below 130, which patient agreed she is not currently doing. She also reported recently lowering her own dose of antihypertensive because she didn't think it was necessary. Allergies: Coded Allergies: No Known Allergies (Verified , 02/14/18) Medication History Scheduled Amlodipine Besylate* (Amlodipine Besylate*), 10 MG ORAL DAILY, (Reported) Aspirin* (Aspir 81*), 81 MG ORAL DAILY, (Reported) Hydralazine Hcl* (Hydralazine Hcl*), 25 MG ORAL EVERY 8 HOURS, (Reported) Methocarbamol* (Robaxin-750*), 750 MG PO TID Metoprolol Succinate* (Metoprolol Succinate*), 12.5 MG ORAL BID, (Reported) Pravastatin Sodium (Pravachol), 40 MG ORAL BEDTIME, (Reported) Sitagliptin Phos/Metformin Hcl (Janumet 50-1,000 Mg Tablet), 1 TAB ORAL TWICE A DAY, (Reported) Sitagliptin* (Januvia*), 100 MG ORAL DAILY, (Reported) Scheduled PRN Acetaminophen (Tylenol), 650 MG ORAL Q8HR PRN for Prn Pain/Headache/Temp > 101 Patient History Healthcare decision maker Resuscitation status Full Code Advanced Directive on File No Past Medical/Surgical History Past Medical/Surgical History: (1) Hypertension Review of Systems Constitutional: Reports: weakness Eye: Reports: no symptoms Respiratory: Reports: no symptoms Cardiovascular: Reports: no symptoms Gastrointestinal: Reports: no symptoms Genitourinary: Reports: no symptoms Musculoskeletal: Reports: see HPI Skin: Reports: no symptoms Psychiatric: Reports: no symptoms Neurological: Reports: dizziness Hematologic/Lymphatic: Reports: no symptoms All Other Systems: negative except mentioned in HPI Physical Exam General Appearance: WD/WN, no apparent distress, alert, lethargic Lines, tubes and drains: peripheral HEENT: normocephalic, atraumatic, anicteric, mucous membranes moist, PERRL, EOMI, pharynx normal, supple, no JVD Neck: non-tender, normal alignment, supple, normal inspection Respiratory/Chest: normal breath sounds Cardiovascular/Chest: normal peripheral pulses Extremities: normal range of motion, non-tender, normal inspection, no calf tenderness, normal capillary refill, non-pitting, no edema, no cyanosis Skin Exam: warm/dry, no diaphoresis Neurologic: high heel builder II-XII grossly normal, no motor/sensory deficits, abnormal gait , alert, oriented x 3, responsive, normal mood/affect Last 24 Hour Vital Signs Date Time Temp Pulse Resp B/P (MAP) Pulse Ox O2 Delivery O2 Flow Rate FiO2 08/10/18 16:43 Room Air 08/10/18 13:15 92 16 150/68 100 Room Air 08/10/18 13:15 98.9 92 16 150/68 100 Room Air 08/10/18 12:53 209/86 08/10/18 12:45 87 21 200/90 100 Room Air 08/10/18 11:32 99 193/91 08/10/18 10:32 114 20 Room Air 08/10/18 10:32 98.9 114 20 117/78 99 Room Air 08/10/18 09:58 99.0 114 20 117/78 99 Room Air Laboratory Tests Test 08/10/18 10:05 08/10/18 11:00 08/10/18 15:55 White Blood Count 10.3 K/UL (4.8-10.8) Red Blood Count 4.29 M/UL (4.20-5.40) Hemoglobin 11.9 G/DL (12.0-16.0) L Hematocrit 37.0 % (37.0-47.0) Mean Corpuscular Volume 86 FL (80-99) Mean Corpuscular Hemoglobin 27.8 PG (27.0-31.0) Mean Corpuscular Hemoglobin Concent 32.2 G/DL (32.0-36.0) Red Cell Distribution Width 13.0 % (11.6-14.8) Platelet Count 241 K/UL (150-450) Mean Platelet Volume 7.5 FL (6.5-10.1) Neutrophils (%) (Auto) % (45.0-75.0) Lymphocytes (%) (Auto) % (20.0-45.0) Monocytes (%) (Auto) % (1.0-10.0) Eosinophils (%) (Auto) % (0.0-3.0) Basophils (%) (Auto) % (0.0-2.0) Differential Total Cells Counted 100 Neutrophils % (Manual) 87 % (45-75) H Lymphocytes % (Manual) 4 % (20-45) L Monocytes % (Manual) 8 % (1-10) Eosinophils % (Manual) 0 % (0-3) Basophils % (Manual) 1 % (0-2) Band Neutrophils 0 % (0-8) Platelet Estimate Adequate Platelet Morphology Normal Red Blood Cell Morphology Normal Sodium Level 138 MMOL/L (136-145) Potassium Level 4.1 MMOL/L (3.5-5.1) Chloride Level 99 MMOL/L (98-107) Carbon Dioxide Level 18 MMOL/L (21-32) L Anion Gap 21 mmol/L (5-15) H Blood Urea Nitrogen 40 mg/dL (7-18) H Creatinine 3.1 MG/DL (0.55-1.30) H Estimat Glomerular Filtration Rate mL/min (>60) Glucose Level 245 MG/DL (74-106) H Calcium Level 10.3 MG/DL (8.5-10.1) H Total Bilirubin 0.6 MG/DL (0.2-1.0) Aspartate Amino Transf (AST/SGOT) 22 U/L (15-37) Alanine Aminotransferase (ALT/SGPT) 21 U/L (12-78) Alkaline Phosphatase 51 U/L (46-116) Total Creatine Kinase 192 U/L (26-308) Creatine Kinase MB 2.8 NG/ML (0.0-3.6) Creatine Kinase MB Relative Index 1.4 Troponin I 0.195 ng/mL (0.000-0.056) 0.166 ng/mL (0.000-0.056) Pro-B-Type Natriuretic Peptide 17459 pg/mL (0-125) H Total Protein 8.1 G/DL (6.4-8.2) Albumin 4.0 G/DL (3.4-5.0) Globulin 4.1 g/dL Albumin/Globulin Ratio 1.0 (1.0-2.7) Urine Color Yellow Urine Appearance Clear Urine pH 5 (4.5-8.0) Urine Specific [place] 1.025 (1.005-1.035) Urine Protein 3+ (NEGATIVE) H Urine Glucose (UA) 1+ (NEGATIVE) H Urine Ketones 2+ (NEGATIVE) H Urine Blood 3+ (NEGATIVE) H Urine Nitrite Negative (NEGATIVE) Urine Bilirubin Negative (NEGATIVE) Urine Urobilinogen Normal MG/DL (0.0-1.0) Urine Leukocyte Esterase 1+ (NEGATIVE) H Urine RBC 5-10 /HPF (0 - 2) H Urine WBC 2-4 /HPF (0 - 2) Urine Squamous Epithelial Cells Few /LPF (NONE/OCC) Urine Bacteria Few /HPF (NONE) Urine Hyaline Casts 0-2 /LPF (NONE) H Urine Fine Granular Casts 0-2 /LPF (NONE) H Height (Feet): 5 Height (Inches): 6.00 Weight (Pounds): 135 Medications Current Medications Medications (Trade) Dose Ordered Sig/Morgan Route PRN Reason Start Time Stop Time Status Last Admin Dose Admin Acetaminophen (Tylenol) 650 mg Q4H PRN ORAL Mild Pain (Pain Scale 1-3) 08/10/18 14:45 09/09/18 14:44 Amlodipine Besylate (Norvasc) 10 mg DAILY ORAL 08/11/18 09:00 09/09/18 14:44 Aspirin (Ecotrin) 81 mg DAILY ORAL 08/10/18 14:45 09/09/18 14:44 08/10/18 18:00 Bisacodyl (Dulcolax) 10 mg DAILYPRN PRN RECTAL Constipation 08/10/18 14:45 09/09/18 14:44 Carvedilol (Coreg) 6.25 mg EVERY 12 HOURS ORAL 08/10/18 21:00 09/09/18 14:44 Dextrose (Dextrose 50%) 25 ml Q30M PRN IV Hypoglycemia 08/10/18 14:45 09/09/18 14:44 Dextrose (Dextrose 50%) 50 ml Q30M PRN IV Hypoglycemia 08/10/18 14:45 09/09/18 14:44 Docusate Sodium (Colace) 100 mg TID ORAL 08/10/18 18:00 09/09/18 20:59 08/10/18 18:05 Heparin Sodium (Porcine) (Heparin 5000 units/ml) 5,000 units EVERY 12 HOURS SUBQ 08/10/18 21:00 09/09/18 20:59 Hydralazine HCl (Apresoline) 10 mg Q4H PRN IV SBP >160 08/10/18 14:45 09/09/18 14:44 Hydralazine HCl (Apresoline) 25 mg EVERY 8 HOURS ORAL 08/10/18 22:00 09/09/18 14:44 Insulin Aspart (NovoLOG) BEFORE MEALS AND HS SUBQ 08/10/18 16:30 09/09/18 16:29 08/10/18 18:20 Nitroglycerin (Ntg) 0.4 mg Q5M PRN SL Prn Chest Pain 08/10/18 14:45 09/09/18 14:44 Ondansetron HCl (Zofran) 4 mg Q6H PRN IVP Nausea & Vomiting 08/10/18 14:45 09/09/18 14:44 Polyethylene Glycol (Miralax) 17 gm DAILYPRN PRN ORAL Constipation 08/10/18 14:45 09/09/18 14:44 Pravastatin Sodium (Pravachol) 40 mg BEDTIME ORAL 08/10/18 21:00 09/09/18 20:59 Sitagliptin Phosphate (Januvia) 25 mg DAILY ORAL 08/10/18 14:45 09/09/18 14:44 08/10/18 18:00 Sodium Chloride 1,000 ml @ 75 mls/hr [id number] IV 08/10/18 15:43 08/11/18 15:42 08/10/18 15:43 Tamsulosin HCl (Flomax) 0.4 mg BEDTIME ORAL 4/13/19 21:00 09/09/18 20:59 Zolpidem Tartrate (Ambien) 5 mg DAILYPRN PRN ORAL Insomnia 08/10/18 14:45 08/17/18 14:44 Assessment/Plan Problem List: (1) Vasovagal near syncope Assessment & Plan: Reported episode earlier today, described as general weakness leading to collapse of both patient's legs . No residual weakness on exam, motor exam symmetrical bilaterally. Follow BP Telemetry Consider Orthostatic BPs Treat UTI Maintain normothermia Abx as per PMT or ID Maintain normoglycemia with ISS Continue 4 Hour Neuro Obs PT/ OT Evals as soon as possible CT Brain - negative - no indication for ICD Codes: R55 - Syncope and collapse SNOMED: 681976259 (2) Hypertension Assessment & Plan: Maintain BP<140 Supplement current regimen as needed ICD Codes: I10 - Essential (primary) hypertension SNOMED: 85128433 Qualifiers: Qualified Codes: I10 - Essential (primary) hypertension (3) UTI (urinary tract infection) ICD Codes: N39.0 - Urinary tract infection, site not specified SNOMED: 25304604 Qualifiers: Qualified Codes: N39.0 - Urinary tract infection, site not specified; R31.9 - Hematuria, unspecified (4) NSTEMI (non-ST elevated myocardial infarction) Assessment & Plan: Uptrending elevated Troponins No neuro deficits or need for MRI at this time. Continue telemetry monitoring Correct/ Replete lytes as appropriate ICD Codes: I21.4 - Non-ST elevation (NSTEMI) myocardial infarction SNOMED: 06606219 Status: stable Zulma Vivar N.P. Aug 10, 2018 18:46
[2018-08-10 18:54] VITALS: BP 155/93
--- NOTE | 2018-08-10 19:00 | History and Physical Report ---
DATE OF ADMISSION: 08/10/2018 CHIEF COMPLAINT: Dizziness and weakness. HISTORY OF PRESENT ILLNESS: This is an 78-year-old very delightful female with past medical history significant for hypertension, diabetes type 2, dyslipidemia, history of chronic kidney disease, who has presented to the emergency room complaining about the dizziness and fall, weakness, and lack of appetite. The patient stated that she was supposed to take her Januvia, however, per pharmacy, the patient was still getting renewal on her Janumet and while she is taking the Janumet, she is not feeling as good. It was noted that the patient has a worsening of renal function and metformin contraindicated at this time. I advised the patient to do not take the metformin and I advised the patient if the feeling is of progressive worsening, come to the emergency room for further evaluation. The patient presented to the emergency room. Denies any chest pain or shortness of breath. Complained about some nausea and lack of appetite. No vomiting. Denies any headache. Denies any double vision. However, she complained about the episode of fall and dizziness. Shortly after initial evaluation in the emergency, the patient was admitted to the hospital with the mild elevation of troponin, possible acute coronary syndrome, as well as dehydration, and acute kidney injury on chronic renal insufficiency. PAST MEDICAL/PAST SURGICAL HISTORY: As above. History of hypertension, diabetes type 2, diabetic nephropathy, history of dyslipidemia, as well as chronic kidney disease. MEDICATIONS AT HOME: Significant for amlodipine 10 mg p.o. daily, aspirin 81 mg, hydralazine 25 mg every 8 hours, metoprolol 12.5 b.i.d., pravastatin 40 mg at bedtime, and Januvia 25 mg daily. ALLERGIES: No known drug allergies. SOCIAL HISTORY: Denies any smoking, alcohol, or drugs. FAMILY HISTORY: Noncontributory. REVIEW OF SYSTEMS: Mostly as above. Denies any dysuria, frequency, or hematuria. Complained about nausea. No vomiting . Denies any hemoptysis or hematochezia. Denies any suicidal or homicidal ideation. Denies any loss of consciousness. Denies any seizure activity. Complained about the fall and dizziness. Denies any double vision. PHYSICAL EXAMINATION: VITAL SIGNS: On admission, temperature 99, pulse of 114, respirations 20, and blood pressure 117/78. GENERAL: The patient is awake and responsive, in no acute distress. HEAD AND NECK: Pupils are reactive to light. Extraocular movements intact. Neck was supple. No JVD. LUNGS: Good air entry. No wheezing or rales. HEART: Reveals S1, S2. Regular rhythm. No gallops. ABDOMEN: Soft, nondistended, and nontender. Positive bowel sounds. Mildly obese. EXTREMITIES: No cyanosis, clubbing, or edema. NEUROLOGIC: COMPUTER PROGRAMMING MANAGER II through XII grossly intact. Motor is 5/5 in all extremities. Gait is intact. RECTAL/GENITOURINARY: Refused and deferred. PSYCHIATRIC: Mood and affect is intact. LABORATORY DATA: On admission from the ER, WBC of 10.3, hemoglobin 11, hematocrit 37, and platelets is 241,000. Sodium 138, potassium 4.1, chloride 99, bicarb 18, BUN 40, and creatinine 3.1. Glucose level is 245. Calcium is elevated at 10.3. First troponin 0.195. ProBNP of . UA is +3 protein, +1 glucose, +2 ketone, and 5 to 10 rbc. The patient had a CT of the head was done in the ER. No acute intracranial finding, mild periventricular white matter hypodensity likely related to the chronic small vessel disease, and mild generalized cerebral parenchymal volume likely age-related. Chest x-ray was done, noted no acute finding. EKG was significant for sinus tachycardia, ventricular rate of 102. No ST elevation. T-wave inversion was noted. Review of the record prior to admission at [facility] on 07/06/2018 through July 09, 2018 noted that the patient had an echocardiogram, showed a ejection fraction of 55 to 60 percent with mild left ventricular hypertrophy and trivial pericardial effusion. Pulmonic valve not well visualized. Systolic function and wall motion are normal with the left ventricular chamber normal. Review of the chart copy was obtained from the previous admission chart and placed in the chart. ASSESSMENT: 1. Acute kidney injury on chronic renal insufficiency. 2. Dehydration. 3. Diabetes type 2, poorly controlled. 4. Diabetic nephropathy. 5. Hypertension, uncontrolled. 6. Mild elevation in troponin, possible acute coronary syndrome. 7. Dyslipidemia. 8. Mild obesity. PLAN: 1. Admit the patient to monitored unit. 2. We will resume home medication. 3. We will hold off on metformin. 4. Accu-Chek with sliding scale. 5. Gentle hydration x1 liter. 6. Follow up with serial troponin. 7. Echocardiogram. 8. DVT prophylaxis with heparin subcutaneous. 9. Code status is Full Code. 10. We will follow up with Dr. Paco Jennings from Cardiology consultation as well as Dr. Maciel from Neurology and Dr. Will from Nephrology. Rolando Booth M.D. DR: IRIS JOB#: [id number] CC:
--- NOTE | 2018-08-10 19:30 | Consultation ---
DATE OF CONSULTATION: 08/10/2018 CARDIOLOGY CONSULTATION CONSULTING PHYSICIAN: Paco Jennings M.D. REFERRING PHYSICIAN: Rolando Booth M.D. REASON FOR CONSULTATION: Management of presyncope as well as tachycardia. HISTORY OF PRESENT ILLNESS: The patient is a very pleasant 78-year-old lady, who is brought into [facility] by paramedics for report of dizziness as well as fall. The patient apparently had a near syncopal event, but never lost consciousness. She had a hard time to stand up after her fall. She also has complaints of nausea. At the time of arrival to the hospital, her blood pressure was 117/78 mmHg. However, her heart rate was elevated at 114 beats per minute. She had low-grade fever of 99. Her cardiovascular history is significant for history of hypertension and diabetes as well as chronic kidney disease, which was diagnosed just about a year ago. There is also some history of cardiac problems. Upon arrival to the hospital, the initial workup in the emergency department showed elevation of BUN and creatinine of 240 and 3.1 respectively and also elevation of troponin I level at 0.195. The patient's proBNP was also elevated at 17,820. The patient denies any chest pain or shortness of breath with her activities, however, her level of activity is limited. Chest x-ray did not show any acute cardiopulmonary event. She was admitted to telemetry for further evaluation and management of renal failure and presyncope. Cardiology consultation was made at the request of Dr. Booth for resting tachycardia, elevation of troponin I level, as well as presyncope. PAST MEDICAL HISTORY: 1. Chronic kidney disease. 2. Hypertension. 3. Diabetes mellitus. 4. Cardiac disease in the past, the nature of which is unknown. SURGERIES: None. MEDICATIONS: List of medications in the outpatient setting including acetaminophen 650 q.8 h. p.r.n. pain for temperature above 101, amlodipine 10 mg p.o. daily, aspirin 81 mg p.o. daily, hydralazine 25 mg p.o. 3 times a day, Robaxin 750 three times a day, metoprolol 12.5 mg twice daily, Pravachol 40 mg p.o. at bedtime, Janumet one tablet twice daily, and Januvia 100 mg daily. ALLERGIES: No known drug allergies. FAMILY HISTORY: No premature coronary coronary disease in the first-degree relatives. REVIEW OF SYSTEMS: HEENT: Denies any headache, diplopia, or blurred vision. CONSTITUTIONAL: Complains of generalized weakness, but no fever, chills, or night sweats. CARDIOVASCULAR: Denies any chest pain, shortness breath, PND, orthopnea, or leg swelling. Positive for presyncope. Negative for syncope. PULMONARY: Denies any cough, hemoptysis, or wheezing. GASTROINTESTINAL: Loss of appetite has been noted. Positive for nausea. No GI bleed. No diarrhea or constipation. GENITOURINARY: Denies any hematuria, dysuria, or incontinence. She was told that she had kidney disease last year. NEUROLOGY: Denies any motor dysfunction, sensory deficit, or altered speech or any prior stroke. PHYSICAL EXAMINATION: VITAL SIGNS: Blood pressure at the time of arrival to the hospital was 117/78, pulse of 114, respirations 20, temperature 99.0 degrees Fahrenheit, and O2 saturation of 99% on room air. GENERAL: The patient is a very pleasant 78-year-old female, in no apparent respiratory distress. Alert and oriented x4. HEENT: Atraumatic and normocephalic. Anicteric. Pupils are equal, round, and reactive to light and accommodation. There is conjunctival pallor. NECK: JVP is less than 5 cm. No carotid bruit. Carotid upstrokes 2+ bilaterally. CARDIOVASCULAR: Normal S1, S2. There is 2/6 mid systolic murmur at the left sternal border. PMI is at fourth intercostal space at the midclavicular line. LUNGS: Clear to auscultation bilaterally. ABDOMEN: Soft, nontender, and nondistended. No hepatosplenomegaly. Positive bowel sounds. EXTREMITIES: No evidence of edema, clubbing, or cyanosis. LABORATORY FINDINGS: WBC is 10.3, hemoglobin 11.9, hematocrit 37%, and platelet count is 241,000. Sodium was 138, potassium is 4.1, chloride 99, bicarbonate is 18, BUN of 40, creatinine is 3.1, and glucose is 245. Calcium is 10.3. Troponin I elevated at 0.195. ProBNP is 17,820. UA showed 3+ proteinuria, 1+ glucosuria, 2+ ketonuria, and 3+ hematuria with pH of 5 and specific gravity of 1.025. Chest x-ray showed no acute cardiopulmonary disease. A 12-lead electrocardiogram, sinus tachycardia at the rate of 102 with a prolongation of QT interval at 474 millisecond. No acute ischemic features. ASSESSMENT AND PLAN: The patient is a very unfortunate 78-year-old lady, who is seen in Cardiology consultation. 1. Elevation of troponin I level could be secondary to non-ST elevation myocardial infarction versus troponin I leak due to renal failure. Given the fact that the patient is chest pain-free and denies any shortness of breath, I would continue conservative management in view of renal failure. The patient will require aspirin and statins and control of hypertension. We will up titrate beta-chris for better control. 2. Sinus tachycardia. We use beta-blockers. The patient requires to have rule out for hypovolemia, also sepsis given some low temperature and left shift on the CBC. 3. Chronic kidney disease most possibly some acute component. Beta natriuretic peptide is severely elevated. Could be secondary to volume overload. The assessment of hemodynamics is quite complicated. I would be more inclined given the patient fluid than using diuretics. Looking at the orders, it seem that the patient received 20 mg of intravenous diuretics upon arrival to the hospital. We would like to obtain 2D echocardiography for better assessment of hemodynamics. 4. Abnormal EKG including prolongation of QT interval. We will check a stat magnesium level as calcium level is within normal limits. 5. Presyncope/weakness most likely secondary to worsening of renal failure. The patient's nonspecific symptoms is very much explainable by her renal function. I would like to thank, Dr. Booth, for allowing me to participate in the care of this patient. Paco Jennings M.D. DR: TITI JOB#: [id number] CC:
[2018-08-10 20:00] VITALS: BP 162/78
[2018-08-10] MEDS: Tamsulosin 0.4mg cap ORAL SCH (20:58)
[2018-08-10] MEDS ORDERED: Carvedilol 6.25mg Tab ORAL SCH (21:00)
[2018-08-10] MEDS ORDERED: Docusate 100mg cap ORAL SCH (21:00)
[2018-08-10] MEDS: Heparin 5000 units/ml inj SUBQ SCH (21:01)
[2018-08-10] MEDS: HydrALAZINE 25mg tab ORAL SCH (22:15)
[2018-08-11] VITALS (7 sets, daily range): BP systolic 118–170; BP diastolic 62–88
[2018-08-11] MEDS: HydrALAZINE 25mg tab ORAL SCH ×3 (05:57→21:41)
[2018-08-11] MEDS: NovoLOG Insulin Flexpen SUBQ SCH ×4 (05:59→21:42)
[2018-08-11 06:52] LABS: BASOPHILS % (AUTO) 0.9 % (0.0-2.0); EOSINOPHILS % (AUTO) 0.2 % (0.0-3.0); HEMATOCRIT 32.4 % (37.0-47.0); HEMOGLOBIN 10.6 G/DL (12.0-16.0); LYMPHOCYTES % (AUTO) 8.4 % (20.0-45.0); MEAN CORPUSCULAR VOLUME 86 FL (80-99); MONOCYTES % (AUTO) 9.7 % (1.0-10.0); NEUTROPHILS % (AUTO) 80.8 % (45.0-75.0); PLATELET COUNT 198 K/UL (150-450); RED BLOOD COUNT 3.76 M/UL (4.20-5.40); RED CELL DISTRIBUTION WIDTH 13.2 % (11.6-14.8); WHITE BLOOD COUNT 8.7 K/UL (4.8-10.8)
[2018-08-11 07:16] LABS: CREATINE KINASE 155 U/L (26-308); GAMMA GLUTAMYL TRANSPEPTIDASE 28 U/L (5-85)
[2018-08-11 07:19] LABS: ALANINE AMINOTRANSFERASE 20 U/L (12-78); ALBUMIN 3.6 G/DL (3.4-5.0); ALBUMIN/GLOBULIN RATIO 0.9 (1.0-2.7); ALKALINE PHOSPHATASE 45 U/L (46-116); ANION GAP 13 mmol/L (5-15); ASPARTATE AMINO TRANSFERASE 24 U/L (15-37); BILIRUBIN,TOTAL 0.4 MG/DL (0.2-1.0); BLOOD UREA NITROGEN 44 mg/dL (7-18); CALCIUM 9.7 MG/DL (8.5-10.1); CARBON DIOXIDE 25 MMOL/L (21-32); CHLORIDE 100 MMOL/L (98-107); CHOLESTEROL 221 MG/DL (< 200); CREATININE 2.5 MG/DL (0.55-1.30); FERRITIN 398 NG/ML (8-388); HDL CHOLESTEROL 91 MG/DL (40-60); PHOSPHORUS 3.3 MG/DL (2.5-4.9); POTASSIUM 3.4 MMOL/L (3.5-5.1); SODIUM 138 MMOL/L (136-145); TRIGLYCERIDES 82 MG/DL (30-150)
[2018-08-11] MEDS: sitaGLIPtin 25mg tab ORAL SCH (08:24)
[2018-08-11] MEDS: Aspirin EC 81mg tab ORAL SCH (08:24)
[2018-08-11] MEDS: Docusate 100mg cap ORAL SCH ×3 (08:26→18:07)
[2018-08-11] MEDS: Heparin 5000 units/ml inj SUBQ SCH ×2 (08:31→20:46)
[2018-08-11] MEDS: Carvedilol 12.5mg tab ORAL SCH ×2 (09:20→20:42)
--- NOTE | 2018-08-11 11:01 | Nephrology Progress Note ---
Assessment/Plan Problem List: (1) Acute kidney failure Assessment: Cr lowering (2) Renal failure (ARF), acute on chronic (3) Hypertensive emergency (4) NSTEMI (non-ST elevated myocardial infarction) Assessment CKD likely diabetic/Hypertensive Nephrosclerosis Dehydration BP OOC Anemia DM elevated troponin Plan Hydrate K supplement as needed BP Management Anemia jaime avoid Nephrotoxics Kidney CHIRAG and 2D echo done last time reviewed monitor renal parameters Urine studies Subjective ROS Limited/Unobtainable: No Constitutional: Reports: malaise Objective Objective Last 24 Hour Vital Signs Date Time Temp Pulse Resp B/P (MAP) Pulse Ox O2 Delivery O2 Flow Rate FiO2 08/11/18 09:20 91 157/80 08/11/18 08:26 91 157/80 08/11/18 08:00 98.2 91 18 157/80 (105) 100 08/11/18 08:00 93 08/11/18 05:57 158/87 08/11/18 04:00 99.0 95 18 160/81 (107) 98 08/11/18 04:00 95 08/11/18 01:15 82 141/71 (94) 08/11/18 00:57 170/86 08/11/18 00:30 98.5 84 18 170/88 (115) 96 08/11/18 00:00 84 08/10/18 22:15 167/80 08/10/18 21:00 Room Air 08/10/18 20:58 88 164/90 08/10/18 20:00 99.0 101 18 162/78 (106) 98 08/10/18 20:00 101 08/10/18 18:54 98.2 92 18 155/93 (113) 100 08/10/18 16:43 Room Air 08/10/18 16:00 89 08/10/18 16:00 98.2 92 18 155/93 (113) 100 08/10/18 13:15 92 16 150/68 100 Room Air 08/10/18 13:15 98.9 92 16 150/68 100 Room Air 08/10/18 12:53 209/86 08/10/18 12:45 87 21 200/90 100 Room Air 08/10/18 11:32 99 193/91 Intake and Output 08/10/18 08/11/18 18:59 06:59 Intake Total 1000 ml Output Total 300 ml Balance 1000 ml -300 ml IV Total 1000 ml Output Urine Total 300 ml Laboratory Tests 08/10/18 11:00: Urine Color Yellow, Urine Appearance Clear, Urine pH 5, Urine Specific [place] 1.025, Urine Protein 3+H, Urine Glucose (UA) 1+H, Urine Ketones 2+H, Urine Blood 3+H, Urine Nitrite Negative, Urine Bilirubin Negative, Urine Urobilinogen Normal, Urine Leukocyte Esterase 1+H, Urine RBC 5-10H, Urine WBC 2-4, Urine Squamous Epithelial Cells Few, Urine Bacteria Few, Urine Hyaline Casts 0-2H, Urine Fine Granular Casts 0-2H 08/10/18 15:55: Troponin I 0.166H 08/11/18 04:55: Troponin I 0.104H, White Blood Count 8.7, Red Blood Count 3.76L, Hemoglobin 10.6L, Hematocrit 32.4L, Mean Corpuscular Volume 86, Mean Corpuscular Hemoglobin 28.3, Mean Corpuscular Hemoglobin Concent 32.8, Red Cell Distribution Width 13.2, Platelet Count 198, Mean Platelet Volume 7.0, Neutrophils (%) (Auto) 80.8H, Lymphocytes (%) (Auto) 8.4L, Monocytes (%) (Auto) 9.7, Eosinophils (%) (Auto) 0.2, Basophils (%) (Auto) 0.9, Prothrombin Time 10.8 , Prothromb Time International Ratio 1.0, Activated Partial Thromboplast Time 22L, Sodium Level 138, Potassium Level 3.4L, Chloride Level 100, Carbon Dioxide Level 25, Anion Gap 13, Blood Urea Nitrogen 44H, Creatinine 2.5H, Estimat Glomerular Filtration Rate , Glucose Level 144#H, Hemoglobin A1c 6.9H, Uric Acid 10.6H, Calcium Level 9.7, Phosphorus Level 3.3, Magnesium Level 2.3, Ferritin 398H, Total Bilirubin 0.4, Gamma Glutamyl Transpeptidase 28, Aspartate Amino Transf (AST/SGOT) 24, Alanine Aminotransferase (ALT/SGPT) 20, Alkaline Phosphatase 45L, Total Creatine Kinase 155, C-Reactive Protein, Quantitative < 0.4, Pro-B-Type Natriuretic Peptide 5629H, Total Protein 7.4, Albumin 3.6, Globulin 3.8, Albumin/Globulin Ratio 0.9L, Triglycerides Level 82, Cholesterol Level 221H, LDL Cholesterol 97, HDL Cholesterol 91H, Cholesterol/HDL Ratio 2.4L , Vitamin B12 Level 1254H, Folate 15.3, Thyroid Stimulating Hormone (TSH) 0.114L Height (Feet): 5 Height (Inches): 6.00 Weight (Pounds): 135 General Appearance: no apparent distress, lethargic Cardiovascular: tachycardia Respiratory/Chest: decreased breath sounds Abdomen: soft Wilfredo Will MD Aug 11, 2018 11:01
[2018-08-11] MEDS ORDERED: Allopurinol 100mg Tab ORAL SCH (11:15)
[2018-08-11] MEDS: Tamsulosin 0.4mg cap ORAL SCH (20:42)
--- NOTE | 2018-08-11 22:23 | Internal Med Progress Note ---
Subjective Physician Name Rolando Booth Attending Physician Rolando Booth MD Current Medications Medications (Trade) Dose Ordered Sig/Morgan Route PRN Reason Start Time Stop Time Status Last Admin Dose Admin Acetaminophen (Tylenol) 650 mg Q4H PRN ORAL Mild Pain (Pain Scale 1-3) 08/10/18 14:45 09/09/18 14:44 Allopurinol (Zyloprim) 100 mg DAILY ORAL 08/12/18 09:00 09/11/18 08:59 Amlodipine Besylate (Norvasc) 10 mg DAILY ORAL 08/11/18 09:00 09/09/18 14:44 08/11/18 08:26 Aspirin (Ecotrin) 81 mg DAILY ORAL 08/10/18 14:45 09/09/18 14:44 08/11/18 08:24 Bisacodyl (Dulcolax) 10 mg DAILYPRN PRN RECTAL Constipation 08/10/18 14:45 09/09/18 14:44 Carvedilol (Coreg) 12.5 mg EVERY 12 HOURS ORAL 08/11/18 09:00 09/09/18 14:44 08/11/18 20:42 Dextrose (Dextrose 50%) 25 ml Q30M PRN IV Hypoglycemia 08/10/18 14:45 09/09/18 14:44 Dextrose (Dextrose 50%) 50 ml Q30M PRN IV Hypoglycemia 08/10/18 14:45 09/09/18 14:44 Docusate Sodium (Colace) 100 mg TID ORAL 08/10/18 18:00 09/09/18 20:59 08/11/18 18:07 Heparin Sodium (Porcine) (Heparin 5000 units/ml) 5,000 units EVERY 12 HOURS SUBQ 08/10/18 21:00 09/09/18 20:59 08/11/18 20:46 Hydralazine HCl (Apresoline) 10 mg Q4H PRN IV SBP >160 08/10/18 14:45 09/09/18 14:44 08/11/18 00:57 Hydralazine HCl (Apresoline) 25 mg EVERY 8 HOURS ORAL 08/10/18 22:00 09/09/18 14:44 08/11/18 21:41 Insulin Aspart (NovoLOG) BEFORE MEALS AND HS SUBQ 08/10/18 16:30 09/09/18 16:29 08/11/18 21:42 Nitroglycerin (Ntg) 0.4 mg Q5M PRN SL Prn Chest Pain 08/10/18 14:45 09/09/18 14:44 Ondansetron HCl (Zofran) 4 mg Q6H PRN IVP Nausea & Vomiting 08/10/18 14:45 09/09/18 14:44 Polyethylene Glycol (Miralax) 17 gm DAILYPRN PRN ORAL Constipation 08/10/18 14:45 09/09/18 14:44 Pravastatin Sodium (Pravachol) 40 mg BEDTIME ORAL 08/10/18 21:00 09/09/18 20:59 08/11/18 20:40 Sitagliptin Phosphate (Januvia) 25 mg DAILY ORAL 08/10/18 14:45 09/09/18 14:44 08/11/18 08:24 Tamsulosin HCl (Flomax) 0.4 mg BEDTIME ORAL 08/10/18 21:00 09/09/18 20:59 08/11/18 20:42 Zolpidem Tartrate (Ambien) 5 mg DAILYPRN PRN ORAL Insomnia 08/10/18 14:45 08/17/18 14:44 Allergies: Coded Allergies: No Known Allergies (Verified , 02/14/18) Subjective Awake, alert, responsive, No Nausea or Vomiting, Feeling "better" Objective Last Vital Signs Date Time Temp Pulse Resp B/P (MAP) Pulse Ox O2 Delivery O2 Flow Rate FiO2 08/11/18 21:41 130/79 08/11/18 20:42 74 08/11/18 16:00 98.7 18 100 08/11/18 09:00 Room Air Laboratory Tests Test 08/11/18 04:55 White Blood Count 8.7 K/UL (4.8-10.8) Red Blood Count 3.76 M/UL (4.20-5.40) L Hemoglobin 10.6 G/DL (12.0-16.0) L Hematocrit 32.4 % (37.0-47.0) L Mean Corpuscular Volume 86 FL (80-99) Mean Corpuscular Hemoglobin 28.3 PG (27.0-31.0) Mean Corpuscular Hemoglobin Concent 32.8 G/DL (32.0-36.0) Red Cell Distribution Width 13.2 % (11.6-14.8) Platelet Count 198 K/UL (150-450) Mean Platelet Volume 7.0 FL (6.5-10.1) Neutrophils (%) (Auto) 80.8 % (45.0-75.0) H Lymphocytes (%) (Auto) 8.4 % (20.0-45.0) L Monocytes (%) (Auto) 9.7 % (1.0-10.0) Eosinophils (%) (Auto) 0.2 % (0.0-3.0) Basophils (%) (Auto) 0.9 % (0.0-2.0) Prothrombin Time 10.8 SEC (9.30-11.50) Prothromb Time International Ratio 1.0 (0.9-1.1) Activated Partial Thromboplast Time 22 SEC (23-33) L Sodium Level 138 MMOL/L (136-145) Potassium Level 3.4 MMOL/L (3.5-5.1) L Chloride Level 100 MMOL/L (98-107) Carbon Dioxide Level 25 MMOL/L (21-32) Anion Gap 13 mmol/L (5-15) Blood Urea Nitrogen 44 mg/dL (7-18) H Creatinine 2.5 MG/DL (0.55-1.30) H Estimat Glomerular Filtration Rate mL/min (>60) Glucose Level 144 MG/DL (74-106) #H Hemoglobin A1c 6.9 % (4.3-6.0) H Uric Acid 10.6 MG/DL (2.6-7.2) H Calcium Level 9.7 MG/DL (8.5-10.1) Phosphorus Level 3.3 MG/DL (2.5-4.9) Magnesium Level 2.3 MG/DL (1.8-2.4) Ferritin 398 NG/ML (8-388) H Total Bilirubin 0.4 MG/DL (0.2-1.0) Gamma Glutamyl Transpeptidase 28 U/L (5-85) Aspartate Amino Transf (AST/SGOT) 24 U/L (15-37) Alanine Aminotransferase (ALT/SGPT) 20 U/L (12-78) Alkaline Phosphatase 45 U/L (46-116) L Total Creatine Kinase 155 U/L (26-308) Troponin I 0.104 ng/mL (0.000-0.056) C-Reactive Protein, Quantitative < 0.4 mg/dL (0.00-0.90) Pro-B-Type Natriuretic Peptide 5629 pg/mL (0-125) H Total Protein 7.4 G/DL (6.4-8.2) Albumin 3.6 G/DL (3.4-5.0) Globulin 3.8 g/dL Albumin/Globulin Ratio 0.9 (1.0-2.7) L Triglycerides Level 82 MG/DL (30-150) Cholesterol Level 221 MG/DL (< 200) H LDL Cholesterol 97 mg/dL (<100) HDL Cholesterol 91 MG/DL (40-60) H Cholesterol/HDL Ratio 2.4 (3.3-4.4) L Vitamin B12 Level 1254 PG/ML (193-986) H Folate 15.3 NG/ML (8.6-58.9) Thyroid Stimulating Hormone (TSH) 0.114 uiU/mL (0.358-3.740) Intake and Output 08/10/18 08/11/18 19:00 07:00 Intake Total 1000 ml Output Total 300 ml Balance 1000 ml -300 ml IV Total 1000 ml Output Urine Total 300 ml Objective GENERAL: The patient is awake and responsive, in no acute distress. HEAD AND NECK: Pupils are reactive to light. Extraocular movements intact. Neck was supple. No JVD. LUNGS: Good air entry. No wheezing or rales. HEART: Reveals S1, S2. Regular rhythm. No gallops. ABDOMEN: Soft, nondistended, and nontender. Positive bowel sounds. Mildly obese. EXTREMITIES: No cyanosis, clubbing, or edema. NEUROLOGIC: SPR[place] CLIP[place] II through XII grossly intact. Motor is 5/5 in all extremities. Gait is intact. RECTAL/GENITOURINARY: Refused and deferred. Assessment/Plan Assessment/Plan ASSESSMENT: 1. Acute kidney injury on chronic renal insufficiency. 2. Dehydration. 3. Diabetes type 2, poorly controlled. 4. Diabetic nephropathy. 5. Hypertension, uncontrolled. 6. Mild elevation in troponin, possible acute coronary syndrome. 7. Dyslipidemia. 8. Mild obesity. PLAN: - In monitored unit. - Monitor Accu-Chek with sliding scale. - DVT prophylaxis with heparin subcutaneous. - Code status is Full Code. - Dr. Paco Jennings from Cardiology consultation as well as Dr. Maciel from Neurology and Dr. Will from Nephrology. - DC home in AM. Ly Rosenberg Payam MD Aug 11, 2018 22:23
--- NOTE | 2018-08-11 23:00 | Neurology Progress Note ---
Interim History Interim History ROS Limited/Unobtainable: No Complaints: Weakness/ Syncope Events: Uptrending Tropnonin Interim History No new events Review of Systems All Systems: reviewed and negative except above Objective Physical Exam Last Vital Signs Date Time Temp Pulse Resp B/P (MAP) Pulse Ox O2 Delivery O2 Flow Rate FiO2 08/11/18 21:41 130/79 08/11/18 20:42 74 08/11/18 16:00 98.7 18 100 08/11/18 09:00 Room Air Laboratory Tests Test 08/11/18 04:55 White Blood Count 8.7 K/UL (4.8-10.8) Red Blood Count 3.76 M/UL (4.20-5.40) L Hemoglobin 10.6 G/DL (12.0-16.0) L Hematocrit 32.4 % (37.0-47.0) L Mean Corpuscular Volume 86 FL (80-99) Mean Corpuscular Hemoglobin 28.3 PG (27.0-31.0) Mean Corpuscular Hemoglobin Concent 32.8 G/DL (32.0-36.0) Red Cell Distribution Width 13.2 % (11.6-14.8) Platelet Count 198 K/UL (150-450) Mean Platelet Volume 7.0 FL (6.5-10.1) Neutrophils (%) (Auto) 80.8 % (45.0-75.0) H Lymphocytes (%) (Auto) 8.4 % (20.0-45.0) L Monocytes (%) (Auto) 9.7 % (1.0-10.0) Eosinophils (%) (Auto) 0.2 % (0.0-3.0) Basophils (%) (Auto) 0.9 % (0.0-2.0) Prothrombin Time 10.8 SEC (9.30-11.50) Prothromb Time International Ratio 1.0 (0.9-1.1) Activated Partial Thromboplast Time 22 SEC (23-33) L Sodium Level 138 MMOL/L (136-145) Potassium Level 3.4 MMOL/L (3.5-5.1) L Chloride Level 100 MMOL/L (98-107) Carbon Dioxide Level 25 MMOL/L (21-32) Anion Gap 13 mmol/L (5-15) Blood Urea Nitrogen 44 mg/dL (7-18) H Creatinine 2.5 MG/DL (0.55-1.30) H Estimat Glomerular Filtration Rate mL/min (>60) Glucose Level 144 MG/DL (74-106) #H Hemoglobin A1c 6.9 % (4.3-6.0) H Uric Acid 10.6 MG/DL (2.6-7.2) H Calcium Level 9.7 MG/DL (8.5-10.1) Phosphorus Level 3.3 MG/DL (2.5-4.9) Magnesium Level 2.3 MG/DL (1.8-2.4) Ferritin 398 NG/ML (8-388) H Total Bilirubin 0.4 MG/DL (0.2-1.0) Gamma Glutamyl Transpeptidase 28 U/L (5-85) Aspartate Amino Transf (AST/SGOT) 24 U/L (15-37) Alanine Aminotransferase (ALT/SGPT) 20 U/L (12-78) Alkaline Phosphatase 45 U/L (46-116) L Total Creatine Kinase 155 U/L (26-308) Troponin I 0.104 ng/mL (0.000-0.056) C-Reactive Protein, Quantitative < 0.4 mg/dL (0.00-0.90) Pro-B-Type Natriuretic Peptide 5629 pg/mL (0-125) H Total Protein 7.4 G/DL (6.4-8.2) Albumin 3.6 G/DL (3.4-5.0) Globulin 3.8 g/dL Albumin/Globulin Ratio 0.9 (1.0-2.7) L Triglycerides Level 82 MG/DL (30-150) Cholesterol Level 221 MG/DL (< 200) H LDL Cholesterol 97 mg/dL (<100) HDL Cholesterol 91 MG/DL (40-60) H Cholesterol/HDL Ratio 2.4 (3.3-4.4) L Vitamin B12 Level 1254 PG/ML (193-986) H Folate 15.3 NG/ML (8.6-58.9) Thyroid Stimulating Hormone (TSH) 0.114 uiU/mL (0.358-3.740) Impression/Recommendations Problems: (1) Vasovagal near syncope Assessment & Plan: Reported episode earlier today, described as general weakness leading to collapse of both patient's legs . No residual weakness on exam, motor exam symmetrical bilaterally. Follow BP Telemetry Consider Orthostatic BPs Treat UTI Maintain normothermia Abx as per PMT or ID Maintain normoglycemia with ISS Continue 4 Hour Neuro Obs PT/ OT Evals as soon as possible CT Brain - negative - no indication for MRI Brain at this time. Na 135-145 Q4 Hour Neuro obs (2) Hypertension Assessment & Plan: Maintain BP<140 Supplement current regimen as needed (3) UTI (urinary tract infection) Assessment & Plan: Treat as per PMT/ID Maintain normothermia with Tylenol as needed (4) NSTEMI (non-ST elevated myocardial infarction) Assessment & Plan: Uptrending elevated Troponins No neuro deficits or need for MRI at this time. Continue telemetry monitoring Correct/ Replete lytes as appropriate Start ASA/ Plavix Recs as per Cardiology Status: stable Zulma Vivar N.P. Aug 11, 2018 23:00
[2018-08-12] VITALS (7 sets, daily range): BP systolic 114–152; BP diastolic 55–85
--- NOTE | 2018-08-12 00:18 | Neurology Progress Note ---
Interim History Interim History ROS Limited/Unobtainable: No Complaints: Weakness/ Syncope Events: Uptrending Tropnonin Objective Physical Exam Last Vital Signs Date Time Temp Pulse Resp B/P (MAP) Pulse Ox O2 Delivery O2 Flow Rate FiO2 08/11/18 21:41 130/79 08/11/18 21:00 Room Air 08/11/18 20:42 74 08/11/18 20:00 98.2 18 100 Laboratory Tests Test 08/11/18 04:55 White Blood Count 8.7 K/UL (4.8-10.8) Red Blood Count 3.76 M/UL (4.20-5.40) L Hemoglobin 10.6 G/DL (12.0-16.0) L Hematocrit 32.4 % (37.0-47.0) L Mean Corpuscular Volume 86 FL (80-99) Mean Corpuscular Hemoglobin 28.3 PG (27.0-31.0) Mean Corpuscular Hemoglobin Concent 32.8 G/DL (32.0-36.0) Red Cell Distribution Width 13.2 % (11.6-14.8) Platelet Count 198 K/UL (150-450) Mean Platelet Volume 7.0 FL (6.5-10.1) Neutrophils (%) (Auto) 80.8 % (45.0-75.0) H Lymphocytes (%) (Auto) 8.4 % (20.0-45.0) L Monocytes (%) (Auto) 9.7 % (1.0-10.0) Eosinophils (%) (Auto) 0.2 % (0.0-3.0) Basophils (%) (Auto) 0.9 % (0.0-2.0) Prothrombin Time 10.8 SEC (9.30-11.50) Prothromb Time International Ratio 1.0 (0.9-1.1) Activated Partial Thromboplast Time 22 SEC (23-33) L Sodium Level 138 MMOL/L (136-145) Potassium Level 3.4 MMOL/L (3.5-5.1) L Chloride Level 100 MMOL/L (98-107) Carbon Dioxide Level 25 MMOL/L (21-32) Anion Gap 13 mmol/L (5-15) Blood Urea Nitrogen 44 mg/dL (7-18) H Creatinine 2.5 MG/DL (0.55-1.30) H Estimat Glomerular Filtration Rate mL/min (>60) Glucose Level 144 MG/DL (74-106) #H Hemoglobin A1c 6.9 % (4.3-6.0) H Uric Acid 10.6 MG/DL (2.6-7.2) H Calcium Level 9.7 MG/DL (8.5-10.1) Phosphorus Level 3.3 MG/DL (2.5-4.9) Magnesium Level 2.3 MG/DL (1.8-2.4) Ferritin 398 NG/ML (8-388) H Total Bilirubin 0.4 MG/DL (0.2-1.0) Gamma Glutamyl Transpeptidase 28 U/L (5-85) Aspartate Amino Transf (AST/SGOT) 24 U/L (15-37) Alanine Aminotransferase (ALT/SGPT) 20 U/L (12-78) Alkaline Phosphatase 45 U/L (46-116) L Total Creatine Kinase 155 U/L (26-308) Troponin I 0.104 ng/mL (0.000-0.056) C-Reactive Protein, Quantitative < 0.4 mg/dL (0.00-0.90) Pro-B-Type Natriuretic Peptide 5629 pg/mL (0-125) H Total Protein 7.4 G/DL (6.4-8.2) Albumin 3.6 G/DL (3.4-5.0) Globulin 3.8 g/dL Albumin/Globulin Ratio 0.9 (1.0-2.7) L Triglycerides Level 82 MG/DL (30-150) Cholesterol Level 221 MG/DL (< 200) H LDL Cholesterol 97 mg/dL (<100) HDL Cholesterol 91 MG/DL (40-60) H Cholesterol/HDL Ratio 2.4 (3.3-4.4) L Vitamin B12 Level 1254 PG/ML (193-986) H Folate 15.3 NG/ML (8.6-58.9) Thyroid Stimulating Hormone (TSH) 0.114 uiU/mL (0.358-3.740) Impression/Recommendations Problems: (1) Vasovagal near syncope Assessment & Plan: Reported episode earlier today, described as general weakness leading to collapse of both patient's legs . No residual weakness on exam, motor exam symmetrical bilaterally. Follow BP Telemetry Consider Orthostatic BPs Treat UTI Maintain normothermia Abx as per PMT or ID Maintain normoglycemia with ISS Continue 4 Hour Neuro Obs PT/ OT Evals as soon as possible CT Brain - negative - no indication for MRI Brain at this time. Na 135-145 Q4 Hour Neuro obs (2) Hypertension Assessment & Plan: Maintain BP<140 Supplement current regimen as needed (3) UTI (urinary tract infection) Assessment & Plan: Treat as per PMT/ID Maintain normothermia with Tylenol as needed (4) NSTEMI (non-ST elevated myocardial infarction) Assessment & Plan: Uptrending elevated Troponins No neuro deficits or need for MRI at this time. Continue telemetry monitoring Correct/ Replete lytes as appropriate Start ASA/ Plavix Recs as per Cardiology Status: stable Zulma Vivar N.P. Aug 12, 2018 00:18
[2018-08-12] MEDS: NovoLOG Insulin Flexpen SUBQ SCH ×4 (06:04→21:43)
[2018-08-12] MEDS: HydrALAZINE 25mg tab ORAL SCH ×3 (06:04→22:14)
[2018-08-12 06:24] LABS: BASOPHILS % (AUTO) 1.5 % (0.0-2.0); EOSINOPHILS % (AUTO) 0.5 % (0.0-3.0); HEMATOCRIT 32.4 % (37.0-47.0); HEMOGLOBIN 10.4 G/DL (12.0-16.0); LYMPHOCYTES % (AUTO) 12.2 % (20.0-45.0); MEAN CORPUSCULAR VOLUME 87 FL (80-99); MONOCYTES % (AUTO) 9.9 % (1.0-10.0); NEUTROPHILS % (AUTO) 75.9 % (45.0-75.0); PLATELET COUNT 174 K/UL (150-450); RED BLOOD COUNT 3.72 M/UL (4.20-5.40); RED CELL DISTRIBUTION WIDTH 13.2 % (11.6-14.8); WHITE BLOOD COUNT 5.8 K/UL (4.8-10.8)
[2018-08-12 06:48] LABS: ANION GAP 10 mmol/L (5-15); BLOOD UREA NITROGEN 38 mg/dL (7-18); CALCIUM 9.4 MG/DL (8.5-10.1); CARBON DIOXIDE 24 MMOL/L (21-32); CHLORIDE 101 MMOL/L (98-107); CREATININE 1.8 MG/DL (0.55-1.30); POTASSIUM 4.1 MMOL/L (3.5-5.1); SODIUM 135 MMOL/L (136-145)
[2018-08-12 06:54] LABS: ALANINE AMINOTRANSFERASE 17 U/L (12-78); ALBUMIN 3.1 G/DL (3.4-5.0); ALKALINE PHOSPHATASE 42 U/L (46-116); ASPARTATE AMINO TRANSFERASE 18 U/L (15-37); BILIRUBIN,DIRECT 0.1 MG/DL (0.0-0.3); BILIRUBIN,TOTAL 0.5 MG/DL (0.2-1.0); PHOSPHORUS 2.7 MG/DL (2.5-4.9)
[2018-08-12] MEDS: Aspirin EC 81mg tab ORAL SCH (08:54)
[2018-08-12] MEDS: Carvedilol 12.5mg tab ORAL SCH (08:54)
[2018-08-12] MEDS: sitaGLIPtin 25mg tab ORAL SCH (08:54)
[2018-08-12] MEDS: Docusate 100mg cap ORAL SCH ×3 (08:55→18:09)
[2018-08-12] MEDS ORDERED: Allopurinol 100mg Tab ORAL SCH (09:00)
[2018-08-12] MEDS: Heparin 5000 units/ml inj SUBQ SCH ×2 (09:00→21:42)
--- NOTE | 2018-08-12 12:14 | Consultation ---
History of Present Illness General Date patient seen: Aug 12, 2018 Chief Complaint: Generalized Weakness Referring physician: Dr. Rolando Booth Present Illness HPI 78 year old female with hx of HTN, DM, brought in by paramedics after an episode of near syncope. She has been feeling week recently. She was found to have renal failure. She was hypotensive on presentation and shortly afterwards it increased to 20. Her troponin was increased as well. She is admitted to telemetry for work up. Allergies: Coded Allergies: No Known Allergies (Verified , 02/14/18) Medication History Scheduled Amlodipine Besylate* (Amlodipine Besylate*), 10 MG ORAL DAILY, (Reported) Aspirin* (Aspir 81*), 81 MG ORAL DAILY, (Reported) Hydralazine Hcl* (Hydralazine Hcl*), 25 MG ORAL EVERY 8 HOURS, (Reported) Methocarbamol* (Robaxin-750*), 750 MG PO TID Metoprolol Succinate* (Metoprolol Succinate*), 12.5 MG ORAL BID, (Reported) Pravastatin Sodium (Pravachol), 40 MG ORAL BEDTIME, (Reported) Sitagliptin Phos/Metformin Hcl (Janumet 50-1,000 Mg Tablet), 1 TAB ORAL TWICE A DAY, (Reported) Sitagliptin* (Januvia*), 100 MG ORAL DAILY, (Reported) Scheduled PRN Acetaminophen (Tylenol), 650 MG ORAL Q8HR PRN for Prn Pain/Headache/Temp > 101 Patient History Healthcare decision maker Resuscitation status Full Code Advanced Directive on File No Past Medical/Surgical History Past Medical/Surgical History: (1) Diabetes mellitus (2) ATN (acute tubular necrosis) (3) Hypertension Review of Systems All Other Systems: negative except mentioned in HPI Physical Exam General Appearance: WD/WN Lines, tubes and drains: peripheral HEENT: atraumatic Neck: non-tender, normal alignment, supple Respiratory/Chest: chest wall non-tender, lungs clear Cardiovascular/Chest: normal peripheral pulses Abdomen: normal bowel sounds Genitourinary/Rectal: normal genital exam Extremities: normal range of motion Last 24 Hour Vital Signs Date Time Temp Pulse Resp B/P (MAP) Pulse Ox O2 Delivery O2 Flow Rate FiO2 08/12/18 09:00 Room Air 08/12/18 08:55 82 152/70 08/12/18 08:54 82 152/70 08/12/18 08:00 97.2 82 20 152/70 (97) 98 08/12/18 08:00 84 08/12/18 06:04 152/73 08/12/18 04:00 97.8 82 18 152/73 (99) 100 08/12/18 03:56 78 08/12/18 00:00 98.2 73 18 141/69 (93) 100 08/11/18 23:28 73 08/11/18 21:41 130/79 08/11/18 21:00 Room Air 08/11/18 20:42 74 142/63 08/11/18 20:00 98.2 76 18 142/63 (89) 100 08/11/18 16:00 98.7 78 18 118/62 (80) 100 08/11/18 16:00 72 08/11/18 13:08 125/65 Intake and Output 08/11/18 08/12/18 19:00 07:00 Intake Total 500 ml Output Total 500 ml 300 ml Balance 0 ml -300 ml Intake Oral 500 ml Output Urine Total 500 ml 300 ml Laboratory Tests Test 08/12/18 05:50 White Blood Count 5.8 K/UL (4.8-10.8) Red Blood Count 3.72 M/UL (4.20-5.40) L Hemoglobin 10.4 G/DL (12.0-16.0) L Hematocrit 32.4 % (37.0-47.0) L Mean Corpuscular Volume 87 FL (80-99) Mean Corpuscular Hemoglobin 28.0 PG (27.0-31.0) Mean Corpuscular Hemoglobin Concent 32.1 G/DL (32.0-36.0) Red Cell Distribution Width 13.2 % (11.6-14.8) Platelet Count 174 K/UL (150-450) Mean Platelet Volume 7.3 FL (6.5-10.1) Neutrophils (%) (Auto) 75.9 % (45.0-75.0) H Lymphocytes (%) (Auto) 12.2 % (20.0-45.0) L Monocytes (%) (Auto) 9.9 % (1.0-10.0) Eosinophils (%) (Auto) 0.5 % (0.0-3.0) Basophils (%) (Auto) 1.5 % (0.0-2.0) Sodium Level 135 MMOL/L (136-145) L Potassium Level 4.1 MMOL/L (3.5-5.1) Chloride Level 101 MMOL/L (98-107) Carbon Dioxide Level 24 MMOL/L (21-32) Anion Gap 10 mmol/L (5-15) Blood Urea Nitrogen 38 mg/dL (7-18) H Creatinine 1.8 MG/DL (0.55-1.30) H Estimat Glomerular Filtration Rate mL/min (>60) Glucose Level 131 MG/DL (74-106) H Uric Acid 7.8 MG/DL (2.6-7.2) H Calcium Level 9.4 MG/DL (8.5-10.1) Phosphorus Level 2.7 MG/DL (2.5-4.9) Magnesium Level 2.2 MG/DL (1.8-2.4) Total Bilirubin 0.5 MG/DL (0.2-1.0) Direct Bilirubin 0.1 MG/DL (0.0-0.3) Aspartate Amino Transf (AST/SGOT) 18 U/L (15-37) Alanine Aminotransferase (ALT/SGPT) 17 U/L (12-78) Alkaline Phosphatase 42 U/L (46-116) L Troponin I 0.047 ng/mL (0.000-0.056) Total Protein 6.7 G/DL (6.4-8.2) Albumin 3.1 G/DL (3.4-5.0) L Height (Feet): 5 Height (Inches): 6.00 Weight (Pounds): 135 Medications Current Medications Medications (Trade) Dose Ordered Sig/Morgan Route PRN Reason Start Time Stop Time Status Last Admin Dose Admin Acetaminophen (Tylenol) 650 mg Q4H PRN ORAL Mild Pain (Pain Scale 1-3) 08/10/18 14:45 09/09/18 14:44 Allopurinol (Zyloprim) 100 mg DAILY ORAL 08/12/18 09:00 09/11/18 08:59 08/12/18 08:55 Amlodipine Besylate (Norvasc) 10 mg DAILY ORAL 08/11/18 09:00 09/09/18 14:44 08/12/18 08:55 Aspirin (Ecotrin) 81 mg DAILY ORAL 08/10/18 14:45 09/09/18 14:44 08/12/18 08:54 Bisacodyl (Dulcolax) 10 mg DAILYPRN PRN RECTAL Constipation 08/10/18 14:45 09/09/18 14:44 Carvedilol (Coreg) 12.5 mg EVERY 12 HOURS ORAL 08/11/18 09:00 09/09/18 14:44 08/12/18 08:54 Dextrose (Dextrose 50%) 25 ml Q30M PRN IV Hypoglycemia 08/10/18 14:45 09/09/18 14:44 Dextrose (Dextrose 50%) 50 ml Q30M PRN IV Hypoglycemia 08/10/18 14:45 09/09/18 14:44 Docusate Sodium (Colace) 100 mg TID ORAL 08/10/18 18:00 09/09/18 20:59 08/12/18 08:55 Heparin Sodium (Porcine) (Heparin 5000 units/ml) 5,000 units EVERY 12 HOURS SUBQ 08/10/18 21:00 09/09/18 20:59 08/12/18 09:00 Hydralazine HCl (Apresoline) 10 mg Q4H PRN IV SBP >160 08/10/18 14:45 09/09/18 14:44 08/11/18 00:57 Hydralazine HCl (Apresoline) 25 mg EVERY 8 HOURS ORAL 08/10/18 22:00 09/09/18 14:44 08/12/18 06:04 Insulin Aspart (NovoLOG) BEFORE MEALS AND HS SUBQ 08/10/18 16:30 09/09/18 16:29 08/12/18 06:04 Nitroglycerin (Ntg) 0.4 mg Q5M PRN SL Prn Chest Pain 08/10/18 14:45 09/09/18 14:44 Ondansetron HCl (Zofran) 4 mg Q6H PRN IVP Nausea & Vomiting 08/10/18 14:45 09/09/18 14:44 Polyethylene Glycol (Miralax) 17 gm DAILYPRN PRN ORAL Constipation 08/10/18 14:45 09/09/18 14:44 Pravastatin Sodium (Pravachol) 40 mg BEDTIME ORAL 08/10/18 21:00 09/09/18 20:59 08/11/18 20:40 Sitagliptin Phosphate (Januvia) 25 mg DAILY ORAL 08/10/18 14:45 09/09/18 14:44 08/12/18 08:54 Tamsulosin HCl (Flomax) 0.4 mg BEDTIME ORAL 08/10/18 21:00 09/09/18 20:59 08/11/18 20:42 Zolpidem Tartrate (Ambien) 5 mg DAILYPRN PRN ORAL Insomnia 08/10/18 14:45 08/17/18 14:44 Assessment/Plan Problem List: (1) Acute encephalopathy ICD Codes: G93.40 - Encephalopathy, unspecified SNOMED: 64429511, 136699626 (2) Hypertensive emergency ICD Codes: I16.1 - Hypertensive emergency SNOMED: 229653083271257 (3) Vasovagal near syncope ICD Codes: R55 - Syncope and collapse SNOMED: 387525427 (4) NSTEMI (non-ST elevated myocardial infarction) ICD Codes: I21.4 - Non-ST elevation (NSTEMI) myocardial infarction SNOMED: 45577674 (5) ATN (acute tubular necrosis) ICD Codes: N17.0 - Acute kidney failure with tubular necrosis SNOMED: 68096010 (6) Diabetes mellitus ICD Codes: E11.9 - Type 2 diabetes mellitus without complications SNOMED: 61567013 (7) Hypertension ICD Codes: I10 - Essential (primary) hypertension SNOMED: 97572677 Qualifiers: Qualified Codes: I10 - Essential (primary) hypertension Assessment/Plan serial ekg, troponin, echo iv fluids pt/ot renal work up sliding scale diabetic diet might need placement. Radha Vazquez MD Aug 12, 2018 12:14
[2018-08-12 12:21] LABS: CREATINE KINASE 101 U/L (26-308)
--- NOTE | 2018-08-12 12:31 | Nephrology Progress Note ---
Assessment/Plan Problem List: (1) Acute kidney failure Assessment: Cr lowering (2) Renal failure (ARF), acute on chronic (3) Hypertensive emergency (4) NSTEMI (non-ST elevated myocardial infarction) Assessment CKD likely diabetic/Hypertensive Nephrosclerosis Dehydration BP OOC Anemia DM elevated troponin Plan lab reeviewed Cr lowered K supplement as needed BP Management, adjust meds Anemia jaime avoid Nephrotoxics Kidney CHIRAG and 2D echo done last time reviewed monitor renal parameters Urine studies Subjective ROS Limited/Unobtainable: No Objective Objective Last 24 Hour Vital Signs Date Time Temp Pulse Resp B/P (MAP) Pulse Ox O2 Delivery O2 Flow Rate FiO2 08/12/18 09:00 Room Air 08/12/18 08:55 82 152/70 08/12/18 08:54 82 152/70 08/12/18 08:00 97.2 82 20 152/70 (97) 98 08/12/18 08:00 84 08/12/18 06:04 152/73 08/12/18 04:00 97.8 82 18 152/73 (99) 100 08/12/18 03:56 78 08/12/18 00:00 98.2 73 18 141/69 (93) 100 08/11/18 23:28 73 08/11/18 21:41 130/79 08/11/18 21:00 Room Air 08/11/18 20:42 74 142/63 08/11/18 20:00 98.2 76 18 142/63 (89) 100 08/11/18 16:00 98.7 78 18 118/62 (80) 100 08/11/18 16:00 72 08/11/18 13:08 125/65 Intake and Output 08/11/18 08/12/18 18:59 06:59 Intake Total 500 ml Output Total 500 ml 300 ml Balance 0 ml -300 ml Intake Oral 500 ml Output Urine Total 500 ml 300 ml Laboratory Tests 08/12/18 05:50: White Blood Count 5.8, Red Blood Count 3.72L, Hemoglobin 10.4L, Hematocrit 32.4L , Mean Corpuscular Volume 87, Mean Corpuscular Hemoglobin 28.0, Mean Corpuscular Hemoglobin Concent 32.1, Red Cell Distribution Width 13.2, Platelet Count 174, Mean Platelet Volume 7.3, Neutrophils (%) (Auto) 75.9H, Lymphocytes ( %) (Auto) 12.2L, Monocytes (%) (Auto) 9.9, Eosinophils (%) (Auto) 0.5, Basophils (%) (Auto) 1.5, Sodium Level 135L, Potassium Level 4.1, Chloride Level 101, Carbon Dioxide Level 24, Anion Gap 10, Blood Urea Nitrogen 38H, Creatinine 1.8H, Estimat Glomerular Filtration Rate , Glucose Level 131H, Uric Acid 7.7H, Calcium Level 9.4, Phosphorus Level 2.7, Magnesium Level 2.2, Total Bilirubin 0.5, Direct Bilirubin 0.1, Aspartate Amino Transf (AST/SGOT) 18, Alanine Aminotransferase (ALT/SGPT) 17, Alkaline Phosphatase 42L, Total Creatine Kinase 101, Troponin I 0.047, Total Protein 6.7, Albumin 3.1L Height (Feet): 5 Height (Inches): 6.00 Weight (Pounds): 135 General Appearance: no apparent distress Objective no change Wilfredo Will MD Aug 12, 2018 12:31
--- NOTE | 2018-08-12 14:52 | Diagnostic Imaging Report ---
Indication: Acute renal failure, abnormal renal function tests Technique: Grayscale and duplex images of the kidneys, retroperitoneum, and bladder were obtained. Comparison: 07/05/2018 Findings: Right kidney measures 8 cm in length. Left kidney measures 8.2 cm in length. Both kidneys demonstrate normal echogenicity. No hydronephrosis. No focal abnormality. Normal inferior vena cava. Bladder is normal, demonstrates bilateral ureteral jets. No significant interim change Impression: Bilateral small kidneys Otherwise unremarkable. Negative for hydronephrosis.
[2018-08-12] MEDS ORDERED: Miralax 17gm pkt ORAL PRN (15:23)
[2018-08-12] MEDS ORDERED: Zolpidem 5mg tab ORAL PRN (15:23)
[2018-08-12] MEDS ORDERED: Nitroglycerin Subl 0.4mg tab SL PRN (15:30)
[2018-08-12 16:22] LABS: APPEARANCE,URINE CLEAR; BILIRUBIN, URINE NEGATIVE (NEGATIVE); COLOR,URINE PALE YELLOW; GLUCOSE, URINE (UA) NEGATIVE (NEGATIVE); KETONES,URINE 1+ (NEGATIVE); LEUKOCYTE ESTERASE ,URINE 1+ (NEGATIVE); NITRITE,URINE NEGATIVE (NEGATIVE); PH,URINE 5 (4.5-8.0); PROTEIN,URINE 1+ (NEGATIVE); UROBILINOGEN,URINE NORMAL MG/DL (0.0-1.0)
--- NOTE | 2018-08-12 16:38 | Internal Med Progress Note ---
Subjective Physician Name Rolando Booth Attending Physician Rolando Booth MD Current Medications Medications (Trade) Dose Ordered Sig/Morgan Route PRN Reason Start Time Stop Time Status Last Admin Dose Admin Acetaminophen (Tylenol) 650 mg Q4H PRN ORAL Mild Pain (Pain Scale 1-3) 08/12/18 15:21 09/11/18 15:20 Allopurinol (Zyloprim) 100 mg DAILY ORAL 08/13/18 09:00 09/11/18 08:59 Amlodipine Besylate (Norvasc) 10 mg DAILY ORAL 08/13/18 09:00 09/09/18 14:44 Aspirin (Ecotrin) 81 mg DAILY ORAL 08/13/18 09:00 09/09/18 14:44 Bisacodyl (Dulcolax) 10 mg DAILYPRN PRN RECTAL Constipation 08/12/18 15:21 09/11/18 15:20 Carvedilol (Coreg) 25 mg EVERY 12 HOURS ORAL 08/12/18 21:00 09/09/18 14:44 Dextrose (Dextrose 50%) 25 ml Q30M PRN IV Hypoglycemia 08/12/18 15:45 09/09/18 14:44 Dextrose (Dextrose 50%) 50 ml Q30M PRN IV Hypoglycemia 08/12/18 15:45 09/09/18 14:44 Docusate Sodium (Colace) 100 mg TID ORAL 08/12/18 18:00 09/09/18 20:59 Heparin Sodium (Porcine) (Heparin 5000 units/ml) 5,000 units EVERY 12 HOURS SUBQ 08/12/18 21:00 09/09/18 20:59 Hydralazine HCl (Apresoline) 25 mg EVERY 8 HOURS ORAL 08/12/18 22:00 09/09/18 14:44 Insulin Aspart (NovoLOG) BEFORE MEALS AND HS SUBQ 08/12/18 16:30 09/09/18 16:29 Nitroglycerin (Ntg) 0.4 mg Q5M PRN SL Prn Chest Pain 08/12/18 15:30 09/09/18 14:44 Ondansetron HCl (Zofran) 4 mg Q6H PRN IVP Nausea & Vomiting 08/12/18 15:23 09/09/18 15:22 Polyethylene Glycol (Miralax) 17 gm DAILYPRN PRN ORAL Constipation 08/12/18 15:23 09/11/18 15:22 Pravastatin Sodium (Pravachol) 40 mg BEDTIME ORAL 08/12/18 21:00 09/09/18 20:59 Sitagliptin Phosphate (Januvia) 25 mg DAILY ORAL 08/13/18 09:00 09/09/18 14:44 Tamsulosin HCl (Flomax) 0.4 mg BEDTIME ORAL 08/12/18 21:00 09/09/18 20:59 Zolpidem Tartrate (Ambien) 5 mg DAILYPRN PRN ORAL Insomnia 08/12/18 15:23 08/19/18 15:22 Allergies: Coded Allergies: No Known Allergies (Verified , 02/14/18) Subjective Awake, alert, responsive, No Nausea or Vomiting, Feeling "Okay, but weak", renal function improving. Objective Last Vital Signs Date Time Temp Pulse Resp B/P (MAP) Pulse Ox O2 Delivery O2 Flow Rate FiO2 08/12/18 16:00 99.3 91 20 140/85 (103) 99 08/12/18 15:53 Room Air Laboratory Tests Test 08/12/18 05:50 08/12/18 16:00 White Blood Count 5.8 K/UL (4.8-10.8) Red Blood Count 3.72 M/UL (4.20-5.40) L Hemoglobin 10.4 G/DL (12.0-16.0) L Hematocrit 32.4 % (37.0-47.0) L Mean Corpuscular Volume 87 FL (80-99) Mean Corpuscular Hemoglobin 28.0 PG (27.0-31.0) Mean Corpuscular Hemoglobin Concent 32.1 G/DL (32.0-36.0) Red Cell Distribution Width 13.2 % (11.6-14.8) Platelet Count 174 K/UL (150-450) Mean Platelet Volume 7.3 FL (6.5-10.1) Neutrophils (%) (Auto) 75.9 % (45.0-75.0) H Lymphocytes (%) (Auto) 12.2 % (20.0-45.0) L Monocytes (%) (Auto) 9.9 % (1.0-10.0) Eosinophils (%) (Auto) 0.5 % (0.0-3.0) Basophils (%) (Auto) 1.5 % (0.0-2.0) Sodium Level 135 MMOL/L (136-145) L Potassium Level 4.1 MMOL/L (3.5-5.1) Chloride Level 101 MMOL/L (98-107) Carbon Dioxide Level 24 MMOL/L (21-32) Anion Gap 10 mmol/L (5-15) Blood Urea Nitrogen 38 mg/dL (7-18) H Creatinine 1.8 MG/DL (0.55-1.30) H Estimat Glomerular Filtration Rate mL/min (>60) Glucose Level 131 MG/DL (74-106) H Uric Acid 7.7 MG/DL (2.6-7.2) H Calcium Level 9.4 MG/DL (8.5-10.1) Phosphorus Level 2.7 MG/DL (2.5-4.9) Magnesium Level 2.2 MG/DL (1.8-2.4) Total Bilirubin 0.5 MG/DL (0.2-1.0) Direct Bilirubin 0.1 MG/DL (0.0-0.3) Aspartate Amino Transf (AST/SGOT) 18 U/L (15-37) Alanine Aminotransferase (ALT/SGPT) 17 U/L (12-78) Alkaline Phosphatase 42 U/L (46-116) L Total Creatine Kinase 101 U/L (26-308) Troponin I 0.047 ng/mL (0.000-0.056) Total Protein 6.7 G/DL (6.4-8.2) Albumin 3.1 G/DL (3.4-5.0) L Urine Color Pale yellow Urine Appearance Clear Urine pH 5 (4.5-8.0) Urine Specific [place] 1.015 (1.005-1.035) Urine Protein 1+ (NEGATIVE) H Urine Glucose (UA) Negative (NEGATIVE) Urine Ketones 1+ (NEGATIVE) H Urine Blood Negative (NEGATIVE) Urine Nitrite Negative (NEGATIVE) Urine Bilirubin Negative (NEGATIVE) Urine Urobilinogen Normal MG/DL (0.0-1.0) Urine Leukocyte Esterase 1+ (NEGATIVE) H Urine RBC 0-2 /HPF (0 - 2) Urine WBC 2-4 /HPF (0 - 2) Urine Squamous Epithelial Cells Few /LPF (NONE/OCC) Urine Bacteria Many /HPF (NONE) H Urine Eosinophils Pending Urine Random Creatinine Pending Urine Random Microalbumin Pending Urine Random Sodium Pending Urine Creatinine Pending Urine Microalbumin/Creatinine Ratio Pending Urine Potassium Timed Pending Microbiology Date/Time Source Procedure Growth Status 08/10/18 10:20 Blood Blood Culture - Preliminary NO GROWTH AFTER 24 HOURS Resulted 08/10/18 10:05 Blood Blood Culture - Preliminary NO GROWTH AFTER 24 HOURS Resulted Intake and Output 08/11/18 08/12/18 18:59 06:59 Intake Total 500 ml Output Total 500 ml 300 ml Balance 0 ml -300 ml Intake Oral 500 ml Output Urine Total 500 ml 300 ml Objective GENERAL: The patient is awake and responsive, in no acute distress. HEAD AND NECK: Pupils are reactive to light. Extraocular movements intact. Neck was supple. No JVD. LUNGS: Good air entry. No wheezing or rales. HEART: Reveals S1, S2. Regular rhythm. No gallops. ABDOMEN: Soft, nondistended, and nontender. Positive bowel sounds. Mildly obese. EXTREMITIES: No cyanosis, clubbing, or edema. NEUROLOGIC: MACADAM RAKER II through XII grossly intact. Motor is 5/5 in all extremities. Gait is intact. RECTAL/GENITOURINARY: Refused and deferred. Assessment/Plan Assessment/Plan ASSESSMENT: 1. Acute kidney injury on chronic renal insufficiency. 2. Dehydration. 3. Diabetes type 2, poorly controlled. 4. Diabetic nephropathy. 5. Hypertension, uncontrolled. 6. Mild elevation in troponin, possible acute coronary syndrome. 7. Dyslipidemia. 8. Mild obesity. PLAN: - DC monitored transfer to medical unit. - Monitor Accu-Chek with sliding scale. - DVT prophylaxis with heparin subcutaneous. - Code status is Full Code. - Dr. Paco Jennings from Cardiology consultation as well as Dr. Maciel from Neurology and Dr. Will from Nephrology. - DC home soon.. Rolando Booth M.D. Rolando Booth MD Aug 12, 2018 16:38
[2018-08-12] MEDS ORDERED: Carvedilol 25mg Tab ORAL SCH (21:00)
[2018-08-12] MEDS: Tamsulosin 0.4mg cap ORAL SCH (21:38)
[2018-08-12] MEDS: Carvedilol 25mg Tab ORAL SCH (21:38)
--- NOTE | 2018-08-12 23:56 | Cardiology Progress Note ---
Assessment/Plan Assessment/Plan 1. Elevation of troponin I level could be secondary to non-ST elevation myocardial infarction versus troponin I leak due to renal failure. 2D echo reveals normal LVEF with normal intracardiac filling pressure. Given the fact that the patient is chest pain-free and denies any shortness of breath, I would continue conservative management in view of renal failure. Continue aspirin and statins. 2. Sinus tachycardia, resolved. 3. Chronic kidney disease most possibly some acute component. 4. Presyncope/weakness most likely secondary to worsening of renal failure. The patient's nonspecific symptoms is very much explainable by her renal function. Subjective Subjective Sinus rhythm at rate of 81. Objective Last 24 Hour Vital Signs Date Time Temp Pulse Resp B/P (MAP) Pulse Ox O2 Delivery O2 Flow Rate FiO2 08/12/18 22:14 130/59 08/12/18 21:38 81 140/60 08/12/18 21:00 Room Air 08/12/18 20:00 99.3 81 18 140/60 (86) 99 08/12/18 16:00 98.6 78 20 114/60 (78) 99 08/12/18 15:53 Room Air 08/12/18 13:54 117/51 08/12/18 12:00 71 08/12/18 12:00 97.7 71 20 125/55 (78) 98 08/12/18 09:00 Room Air 08/12/18 08:55 82 152/70 08/12/18 08:54 82 152/70 08/12/18 08:00 97.2 82 20 152/70 (97) 98 08/12/18 08:00 84 08/12/18 06:04 152/73 08/12/18 04:00 97.8 82 18 152/73 (99) 100 08/12/18 03:56 78 08/12/18 00:00 98.2 73 18 141/69 (93) 100 Intake and Output 08/11/18 08/12/18 19:00 07:00 Intake Total 500 ml Output Total 500 ml 300 ml Balance 0 ml -300 ml Intake Oral 500 ml Output Urine Total 500 ml 300 ml 2D Echo: EF 55%, small Pericard. eff., Mild LVH, RVSP 23mmHg, Grade I LVDD Laboratory Tests Test 08/12/18 05:50 08/12/18 16:00 White Blood Count 5.8 K/UL (4.8-10.8) Red Blood Count 3.72 M/UL (4.20-5.40) L Hemoglobin 10.4 G/DL (12.0-16.0) L Hematocrit 32.4 % (37.0-47.0) L Mean Corpuscular Volume 87 FL (80-99) Mean Corpuscular Hemoglobin 28.0 PG (27.0-31.0) Mean Corpuscular Hemoglobin Concent 32.1 G/DL (32.0-36.0) Red Cell Distribution Width 13.2 % (11.6-14.8) Platelet Count 174 K/UL (150-450) Mean Platelet Volume 7.3 FL (6.5-10.1) Neutrophils (%) (Auto) 75.9 % (45.0-75.0) H Lymphocytes (%) (Auto) 12.2 % (20.0-45.0) L Monocytes (%) (Auto) 9.9 % (1.0-10.0) Eosinophils (%) (Auto) 0.5 % (0.0-3.0) Basophils (%) (Auto) 1.5 % (0.0-2.0) Sodium Level 135 MMOL/L (136-145) L Potassium Level 4.1 MMOL/L (3.5-5.1) Chloride Level 101 MMOL/L (98-107) Carbon Dioxide Level 24 MMOL/L (21-32) Anion Gap 10 mmol/L (5-15) Blood Urea Nitrogen 38 mg/dL (7-18) H Creatinine 1.8 MG/DL (0.55-1.30) H Estimat Glomerular Filtration Rate mL/min (>60) Glucose Level 131 MG/DL (74-106) H Uric Acid 7.7 MG/DL (2.6-7.2) H Calcium Level 9.4 MG/DL (8.5-10.1) Phosphorus Level 2.7 MG/DL (2.5-4.9) Magnesium Level 2.2 MG/DL (1.8-2.4) Total Bilirubin 0.5 MG/DL (0.2-1.0) Direct Bilirubin 0.1 MG/DL (0.0-0.3) Aspartate Amino Transf (AST/SGOT) 18 U/L (15-37) Alanine Aminotransferase (ALT/SGPT) 17 U/L (12-78) Alkaline Phosphatase 42 U/L (46-116) L Total Creatine Kinase 101 U/L (26-308) Troponin I 0.047 ng/mL (0.000-0.056) Total Protein 6.7 G/DL (6.4-8.2) Albumin 3.1 G/DL (3.4-5.0) L Urine Color Pale yellow Urine Appearance Clear Urine pH 5 (4.5-8.0) Urine Specific [place] 1.015 (1.005-1.035) Urine Protein 1+ (NEGATIVE) H Urine Glucose (UA) Negative (NEGATIVE) Urine Ketones 1+ (NEGATIVE) H Urine Blood Negative (NEGATIVE) Urine Nitrite Negative (NEGATIVE) Urine Bilirubin Negative (NEGATIVE) Urine Urobilinogen Normal MG/DL (0.0-1.0) Urine Leukocyte Esterase 1+ (NEGATIVE) H Urine RBC 0-2 /HPF (0 - 2) Urine WBC 2-4 /HPF (0 - 2) Urine Squamous Epithelial Cells Few /LPF (NONE/OCC) Urine Bacteria Many /HPF (NONE) H Urine Eosinophils None seen (NONE SEEN) Urine Random Creatinine Pending Urine Random Microalbumin Pending Urine Random Sodium 111 mmol/L (20-110) H Urine Creatinine 82.0 MG/DL (30.0-125.0) Urine Microalbumin/Creatinine Ratio Pending Urine Potassium Timed 30 mmol/L (12-62) Microbiology Date/Time Source Procedure Growth Status 08/10/18 10:20 Blood Blood Culture - Preliminary NO GROWTH AFTER 24 HOURS Resulted 08/10/18 10:05 Blood Blood Culture - Preliminary NO GROWTH AFTER 24 HOURS Resulted Objective HEENT: Atraumatic and normocephalic. Anicteric. Pupils are equal, round, and reactive to light and accommodation. There is conjunctival pallor. NECK: JVP is less than 5 cm. No carotid bruit. Carotid upstrokes 2+ bilaterally. CARDIOVASCULAR: Normal S1, S2. There is 2/6 mid systolic murmur at the left sternal border. PMI is at fourth intercostal space at the midclavicular line. LUNGS: Clear to auscultation bilaterally. ABDOMEN: Soft, nontender, and nondistended. No hepatosplenomegaly. Positive bowel sounds. EXTREMITIES: No evidence of edema, clubbing, or cyanosis. Paco Jennings MD Aug 12, 2018 23:56
[2018-08-13] VITALS (9 sets, daily range): BP systolic 82–125; BP diastolic 41–68
[2018-08-13] MEDS: HydrALAZINE 25mg tab ORAL SCH ×3 (05:45→22:00)
[2018-08-13] MEDS: NovoLOG Insulin Flexpen SUBQ SCH ×4 (05:50→21:19)
[2018-08-13] MEDS: Docusate 100mg cap ORAL SCH ×3 (09:07→17:26)
[2018-08-13] MEDS: Allopurinol 100mg Tab ORAL SCH (09:07)
[2018-08-13] MEDS: Aspirin EC 81mg tab ORAL SCH (09:07)
[2018-08-13] MEDS: sitaGLIPtin 25mg tab ORAL SCH (09:08)
[2018-08-13] MEDS: Carvedilol 25mg Tab ORAL SCH (09:08)
[2018-08-13] MEDS: Heparin 5000 units/ml inj SUBQ SCH ×2 (09:10→21:18)
[2018-08-13] MEDS ORDERED: FLOMAX0.4 MG ORAL (09:45)
[2018-08-13] MEDS ORDERED: JANUVIA25 MG ORAL (09:45)
--- NOTE | 2018-08-13 09:47 | Pulmonology Progress Note ---
Assessment/Plan Problems: (1) Acute encephalopathy (2) Hypertensive emergency (3) Vasovagal near syncope (4) NSTEMI (non-ST elevated myocardial infarction) (5) ATN (acute tubular necrosis) (6) Diabetes mellitus (7) Hypertension Assessment/Plan BP better electrolytes better on Januvia for DM sliding scale pt/ot dc planning Subjective ROS Limited/Unobtainable: No Constitutional: Reports: no symptoms Respiratory: Reports: no symptoms Allergies: Coded Allergies: No Known Allergies (Verified , 02/14/18) Objective Last 24 Hour Vital Signs Date Time Temp Pulse Resp B/P (MAP) Pulse Ox O2 Delivery O2 Flow Rate FiO2 08/13/18 09:30 Room Air 08/13/18 09:09 75 113/58 08/13/18 09:08 75 113/58 08/13/18 08:00 98.3 75 21 113/58 (76) 99 08/13/18 05:45 125/68 08/13/18 04:00 98.3 69 18 125/68 (87) 100 69 08/13/18 00:00 98.6 70 18 113/54 (73) 98 08/12/18 22:14 130/59 08/12/18 21:38 81 140/60 08/12/18 21:00 Room Air 08/12/18 20:00 99.3 81 18 140/60 (86) 99 08/12/18 16:00 98.6 78 20 114/60 (78) 99 08/12/18 15:53 Room Air 08/12/18 13:54 117/51 08/12/18 12:00 71 08/12/18 12:00 97.7 71 20 125/55 (78) 98 Intake and Output 08/12/18 08/13/18 19:00 07:00 Intake Total 120 ml 520 ml Output Total 200 ml Balance 120 ml 320 ml Intake Oral 120 ml 520 ml Output Urine Total 200 ml # Voids 3 # Bowel Movements 2 General Appearance: WD/WN HEENT: normocephalic, atraumatic Respiratory/Chest: chest wall non-tender, lungs clear, normal breath sounds Breasts: no masses Cardiovascular: normal peripheral pulses Abdomen: normal bowel sounds, no organomegaly Genitourinary: normal external genitalia Skin: no rash Microbiology Date/Time Source Procedure Growth Status 08/10/18 10:20 Blood Blood Culture - Preliminary NO GROWTH AFTER 48 HOURS Resulted 08/10/18 10:05 Blood Blood Culture - Preliminary NO GROWTH AFTER 48 HOURS Resulted 08/12/18 16:00 Urine,Clean Catch Urine Culture - Preliminary Gram Negative Bacillus 1 Resulted Laboratory Tests 08/12/18 16:00: Urine Color Pale yellow, Urine Appearance Clear, Urine pH 5, Urine Specific [place] 1.015, Urine Protein 1+H, Urine Glucose (UA) Negative, Urine Ketones 1+H , Urine Blood Negative, Urine Nitrite Negative, Urine Bilirubin Negative, Urine Urobilinogen Normal, Urine Leukocyte Esterase 1+H, Urine RBC 0-2, Urine WBC 2-4 , Urine Squamous Epithelial Cells Few, Urine Bacteria ManyH, Urine Eosinophils None seen, Urine Random Creatinine [Pending], Urine Random Microalbumin [Pending ], Urine Random Sodium 111H, Urine Creatinine 82.0, Urine Microalbumin/ Creatinine Ratio [Pending], Urine Potassium Timed 30 Current Medications Medications (Trade) Dose Ordered Sig/Morgan Route PRN Reason Start Time Stop Time Status Last Admin Dose Admin Acetaminophen (Tylenol) 650 mg Q4H PRN ORAL Mild Pain (Pain Scale 1-3) 08/12/18 15:21 09/11/18 15:20 Allopurinol (Zyloprim) 100 mg DAILY ORAL 08/13/18 09:00 09/11/18 08:59 08/13/18 09:07 Amlodipine Besylate (Norvasc) 10 mg DAILY ORAL 08/13/18 09:00 09/09/18 14:44 08/13/18 09:09 Aspirin (Ecotrin) 81 mg DAILY ORAL 08/13/18 09:00 09/09/18 14:44 08/13/18 09:07 Carvedilol (Coreg) 25 mg EVERY 12 HOURS ORAL 08/12/18 21:00 09/09/18 14:44 08/13/18 09:08 Dextrose (Dextrose 50%) 25 ml Q30M PRN IV Hypoglycemia 08/12/18 15:45 09/09/18 14:44 Dextrose (Dextrose 50%) 50 ml Q30M PRN IV Hypoglycemia 08/12/18 15:45 09/09/18 14:44 Docusate Sodium (Colace) 100 mg TID ORAL 08/12/18 18:00 09/09/18 20:59 08/13/18 09:07 Heparin Sodium (Porcine) (Heparin 5000 units/ml) 5,000 units EVERY 12 HOURS SUBQ 08/12/18 21:00 09/09/18 20:59 08/13/18 09:10 Hydralazine HCl (Apresoline) 25 mg EVERY 8 HOURS ORAL 08/12/18 22:00 09/09/18 14:44 08/13/18 05:45 Insulin Aspart (NovoLOG) BEFORE MEALS AND HS SUBQ 08/12/18 16:30 09/09/18 16:29 08/13/18 05:50 Pravastatin Sodium (Pravachol) 40 mg BEDTIME ORAL 08/12/18 21:00 09/09/18 20:59 08/12/18 21:37 Sitagliptin Phosphate (Januvia) 25 mg DAILY ORAL 08/13/18 09:00 09/09/18 14:44 08/13/18 09:08 Tamsulosin HCl (Flomax) 0.4 mg BEDTIME ORAL 08/12/18 21:00 09/09/18 20:59 08/12/18 21:38 Zolpidem Tartrate (Ambien) 5 mg DAILYPRN PRN ORAL Insomnia 08/12/18 15:23 08/19/18 15:22 Radha Vazquez MD Aug 13, 2018 09:47
--- NOTE | 2018-08-13 11:04 | Nephrology Progress Note ---
Assessment/Plan Problem List: (1) Acute kidney failure Assessment: Cr lowering (2) Renal failure (ARF), acute on chronic (3) Hypertensive emergency (4) NSTEMI (non-ST elevated myocardial infarction) Assessment became hypotensive with PT CKD likely diabetic/Hypertensive Nephrosclerosis Dehydration BP OOC Anemia DM elevated troponin Plan fluid challenge adjust bp meds check labs in am Cr lowered K supplement as needed BP Management, adjust meds Anemia jaime avoid Nephrotoxics Kidney CHIRAG and 2D echo done last time reviewed monitor renal parameters Urine studies Subjective ROS Limited/Unobtainable: No Constitutional: Reports: malaise, weakness Objective Objective Last 24 Hour Vital Signs Date Time Temp Pulse Resp B/P (MAP) Pulse Ox O2 Delivery O2 Flow Rate FiO2 08/13/18 10:25 69 84/51 (62) 08/13/18 10:25 72 82/42 (55) 08/13/18 09:30 Room Air 08/13/18 09:09 75 113/58 08/13/18 09:08 75 113/58 08/13/18 08:00 98.3 75 21 113/58 (76) 99 08/13/18 05:45 125/68 08/13/18 04:00 98.3 69 18 125/68 (87) 100 69 08/13/18 00:00 98.6 70 18 113/54 (73) 98 08/12/18 22:14 130/59 08/12/18 21:38 81 140/60 08/12/18 21:00 Room Air 08/12/18 20:00 99.3 81 18 140/60 (86) 99 08/12/18 16:00 98.6 78 20 114/60 (78) 99 08/12/18 15:53 Room Air 08/12/18 13:54 117/51 08/12/18 12:00 71 08/12/18 12:00 97.7 71 20 125/55 (78) 98 Intake and Output 08/12/18 08/13/18 19:00 07:00 Intake Total 120 ml 520 ml Output Total 200 ml Balance 120 ml 320 ml Intake Oral 120 ml 520 ml Output Urine Total 200 ml # Voids 3 # Bowel Movements 2 Laboratory Tests 08/12/18 16:00: Urine Color Pale yellow, Urine Appearance Clear, Urine pH 5, Urine Specific [place] 1.015, Urine Protein 1+H, Urine Glucose (UA) Negative, Urine Ketones 1+H , Urine Blood Negative, Urine Nitrite Negative, Urine Bilirubin Negative, Urine Urobilinogen Normal, Urine Leukocyte Esterase 1+H, Urine RBC 0-2, Urine WBC 2-4 , Urine Squamous Epithelial Cells Few, Urine Bacteria ManyH, Urine Eosinophils None seen, Urine Random Creatinine [Pending], Urine Random Microalbumin [Pending ], Urine Random Sodium 111H, Urine Creatinine 82.0, Urine Microalbumin/ Creatinine Ratio [Pending], Urine Potassium Timed 30 Height (Feet): 5 Height (Inches): 6.00 Weight (Pounds): 135 General Appearance: no apparent distress Objective no change Wilfredo Will MD Aug 13, 2018 11:04
--- NOTE | 2018-08-13 15:02 | Cardiology Report ---
APPROVED REPORT EXAM: Two-dimensional and M-mode echocardiogram with Doppler and color Doppler. INDICATION Dizziness M-Mode DIMENSIONS IVSd0.8 (0.7-1.1cm)Left Atrium (MM)2.6 (1.6-4.0cm) LVDd2.6 (3.5-5.6cm)Aortic Root3.1 (2.0-3.7cm) PWd1.0 (0.7-1.1cm)Aortic Cusp Exc.1.6 (1.5-2.0cm) IVSs0.9 cm LVDs1.8 (2.5-4.0cm) PWs0.7 cm Normal left ventricular chamber size, systolic function and wall motion . Left ventricular ejection fraction estimated to be 55-60%. Mild left ventricular hypertrophy by 2-D. Small posterior pericardial effusion . All other cardiac chamber sizes are within normal limits. Aortic valve calcification with normal cusp excursion . Mildly thickened mitral valve leaflets with normal excursion. Moderate mitral annulus and aortic root calcification. Pulmonic valve not well visualized. IVC at normal size without physiologic collapse A color flow and spectral Doppler study was performed and revealed: No aortic insufficiency . Mitral diastolic velocities suggest reduced left ventricular relaxation c/w mild LV diastolic dysfunction (Grade I ) Trace mitral regurgitation. Trace tricuspid regurgitation. Tricuspid systolic velocities suggests peak right ventricular systolic pressure of 23mmHg.
--- NOTE | 2018-08-13 15:48 | Internal Med Progress Note ---
Subjective Date of Service: Aug 13, 2018 Physician Name Reji Murillo Attending Physician Rolando Booth MD Current Medications Medications (Trade) Dose Ordered Sig/Morgan Route PRN Reason Start Time Stop Time Status Last Admin Dose Admin Acetaminophen (Tylenol) 650 mg Q4H PRN ORAL Mild Pain (Pain Scale 1-3) 08/12/18 15:21 09/11/18 15:20 Allopurinol (Zyloprim) 100 mg DAILY ORAL 08/13/18 09:00 09/11/18 08:59 08/13/18 09:07 Aspirin (Ecotrin) 81 mg DAILY ORAL 08/13/18 09:00 09/09/18 14:44 08/13/18 09:07 Carvedilol (Coreg) 12.5 mg EVERY 12 HOURS ORAL 08/13/18 21:00 09/09/18 14:44 Dextrose (Dextrose 50%) 25 ml Q30M PRN IV Hypoglycemia 08/12/18 15:45 09/09/18 14:44 Dextrose (Dextrose 50%) 50 ml Q30M PRN IV Hypoglycemia 08/12/18 15:45 09/09/18 14:44 Docusate Sodium (Colace) 100 mg TID ORAL 08/12/18 18:00 09/09/18 20:59 08/13/18 13:02 Heparin Sodium (Porcine) (Heparin 5000 units/ml) 5,000 units EVERY 12 HOURS SUBQ 08/12/18 21:00 09/09/18 20:59 08/13/18 09:10 Hydralazine HCl (Apresoline) 12.5 mg EVERY 8 HOURS ORAL 08/13/18 14:00 09/09/18 14:44 Insulin Aspart (NovoLOG) BEFORE MEALS AND HS SUBQ 08/12/18 16:30 09/09/18 16:29 08/13/18 11:33 Pravastatin Sodium (Pravachol) 40 mg BEDTIME ORAL 08/12/18 21:00 09/09/18 20:59 08/12/18 21:37 Sitagliptin Phosphate (Januvia) 25 mg DAILY ORAL 08/13/18 09:00 09/09/18 14:44 08/13/18 09:08 Tamsulosin HCl (Flomax) 0.4 mg BEDTIME ORAL 08/12/18 21:00 09/09/18 20:59 08/12/18 21:38 Zolpidem Tartrate (Ambien) 5 mg DAILYPRN PRN ORAL Insomnia 08/12/18 15:23 08/19/18 15:22 Allergies: Coded Allergies: No Known Allergies (Verified , 02/14/18) ROS Limited/Unobtainable: No Constitutional: Reports: no symptoms HEENT: Reports: no symptoms Cardiovascular: Reports: no symptoms Respiratory: Reports: no symptoms Gastrointestinal/Abdominal: Reports: no symptoms Genitourinary: Reports: no symptoms Neurologic/Psychiatric: Reports: no symptoms Subjective 78 YO F admitted with near syncope. Now dehydration and hypotension. Cover for Int Med-DR Booth. Objective Last Vital Signs Date Time Temp Pulse Resp B/P (MAP) Pulse Ox O2 Delivery O2 Flow Rate FiO2 08/13/18 14:00 98.1 71 20 92/50 (64) 100 71 08/13/18 09:30 Room Air Laboratory Tests Test 08/12/18 16:00 Urine Color Pale yellow Urine Appearance Clear Urine pH 5 (4.5-8.0) Urine Specific [place] 1.015 (1.005-1.035) Urine Protein 1+ (NEGATIVE) H Urine Glucose (UA) Negative (NEGATIVE) Urine Ketones 1+ (NEGATIVE) H Urine Blood Negative (NEGATIVE) Urine Nitrite Negative (NEGATIVE) Urine Bilirubin Negative (NEGATIVE) Urine Urobilinogen Normal MG/DL (0.0-1.0) Urine Leukocyte Esterase 1+ (NEGATIVE) H Urine RBC 0-2 /HPF (0 - 2) Urine WBC 2-4 /HPF (0 - 2) Urine Squamous Epithelial Cells Few /LPF (NONE/OCC) Urine Bacteria Many /HPF (NONE) H Urine Eosinophils None seen (NONE SEEN) Urine Random Creatinine Pending Urine Random Microalbumin Pending Urine Random Sodium 111 mmol/L (20-110) H Urine Creatinine 82.0 MG/DL (30.0-125.0) Urine Microalbumin/Creatinine Ratio Pending Urine Potassium Timed 30 mmol/L (12-62) Microbiology Date/Time Source Procedure Growth Status 08/12/18 16:00 Urine,Clean Catch Urine Culture - Preliminary Gram Negative Bacillus 1 Resulted Intake and Output 08/12/18 08/13/18 18:59 06:59 Intake Total 120 ml 520 ml Output Total 200 ml Balance 120 ml 320 ml Intake Oral 120 ml 520 ml Output Urine Total 200 ml # Voids 3 # Bowel Movements 2 Objective PHYSICAL EXAMINATION: GENERAL: The patient is awake and responsive, in no acute distress. HEAD AND NECK: Pupils are reactive to light. Extraocular movements intact. Neck was supple. No JVD. LUNGS: Good air entry. No wheezing or rales. HEART: Reveals S1, S2. Regular rhythm. No gallops. ABDOMEN: Soft, nondistended, and nontender. Positive bowel sounds. Mildly obese. EXTREMITIES: No cyanosis, clubbing, or edema. NEUROLOGIC: LABORATORY ASSOCIATE II through XII grossly intact. Motor is 5/5 in all extremities. Gait is intact. RECTAL/GENITOURINARY: Refused and deferred. PSYCHIATRIC: Mood and affect is intact. Assessment/Plan Assessment/Plan Assessment/Plan Assessment/Plan ASSESSMENT: 1. Acute kidney injury on chronic renal insufficiency. 2. Dehydration. 3. Diabetes type 2, poorly controlled. 4. Diabetic nephropathy. 5. Hypertension, uncontrolled. 6. Mild elevation in troponin, possible acute coronary syndrome. 7. Dyslipidemia. 8. Mild obesity. PLAN: - DC monitored transfer to medical unit. - Monitor Accu-Chek with sliding scale. - DVT prophylaxis with heparin subcutaneous. - Code status is Full Code. - Dr. Paco Jennigns from Cardiology consultation as well as Dr. Maciel from Neurology and Dr. Will from Nephrology. - DC planning Reji Murillo MD Aug 13, 2018 15:48
--- NOTE | 2018-08-13 17:44 | Neurology Progress Note ---
Interim History Interim History ROS Limited/Unobtainable: No Complaints: Weakness/ Syncope Events: Uptrending Tropnonin Objective Physical Exam Last Vital Signs Date Time Temp Pulse Resp B/P (MAP) Pulse Ox O2 Delivery O2 Flow Rate FiO2 08/13/18 16:01 73 105/55 (72) 08/13/18 15:45 97.2 20 97 08/13/18 09:30 Room Air Impression/Recommendations Problems: (1) Vasovagal near syncope Assessment & Plan: Reported episode earlier today, described as general weakness leading to collapse of both patient's legs . No residual weakness on exam, motor exam symmetrical bilaterally. Follow BP Telemetry Consider Orthostatic BPs Treat UTI Maintain normothermia Abx as per PMT or ID Maintain normoglycemia with ISS Continue 4 Hour Neuro Obs PT/ OT Evals as soon as possible CT Brain - negative - no indication for MRI Brain at this time. Na 135-145 Q4 Hour Neuro obs (2) Hypertension Assessment & Plan: Maintain BP<140 Supplement current regimen as needed (3) UTI (urinary tract infection) Assessment & Plan: Treat as per PMT/ID Maintain normothermia with Tylenol as needed (4) NSTEMI (non-ST elevated myocardial infarction) Assessment & Plan: Uptrending elevated Troponins No neuro deficits or need for MRI at this time. Continue telemetry monitoring Correct/ Replete lytes as appropriate Start ASA/ Plavix Recs as per Cardiology Status: Zulma Sargent N.P. Aug 13, 2018 17:44
--- NOTE | 2018-08-13 18:34 | Cardiology Report ---
APPROVED REPORT EKG Measurement Heart [id number] CA [id number] [id number] Sinus tachycardia Otherwise normal ECG
[2018-08-13] MEDS: Carvedilol 12.5mg tab ORAL SCH (21:00)
[2018-08-13] MEDS ORDERED: Carvedilol 25mg Tab ORAL SCH (21:00)
[2018-08-13] MEDS: Tamsulosin 0.4mg cap ORAL SCH (21:16)
[2018-08-14] VITALS: BP 118/57
[2018-08-14 04:00] VITALS: BP 137/62
[2018-08-14 06:18] LABS: BASOPHILS % (AUTO) 0.8 % (0.0-2.0); EOSINOPHILS % (AUTO) 1.8 % (0.0-3.0); HEMATOCRIT 26.3 % (37.0-47.0); HEMOGLOBIN 8.3 G/DL (12.0-16.0); LYMPHOCYTES % (AUTO) 16.9 % (20.0-45.0); MEAN CORPUSCULAR VOLUME 88 FL (80-99); MONOCYTES % (AUTO) 12.1 % (1.0-10.0); NEUTROPHILS % (AUTO) 68.4 % (45.0-75.0); PLATELET COUNT 144 K/UL (150-450); RED CELL DISTRIBUTION WIDTH 13.4 % (11.6-14.8); WHITE BLOOD COUNT 4.7 K/UL (4.8-10.8)
[2018-08-14] MEDS: HydrALAZINE 25mg tab ORAL SCH (06:32)
[2018-08-14] MEDS: NovoLOG Insulin Flexpen SUBQ SCH ×4 (06:35→20:47)
[2018-08-14 06:47] LABS: ALANINE AMINOTRANSFERASE 16 U/L (12-78); ALBUMIN/GLOBULIN RATIO 1.2 (1.0-2.7); ALKALINE PHOSPHATASE 35 U/L (46-116); ANION GAP 8 mmol/L (5-15); ASPARTATE AMINO TRANSFERASE 21 U/L (15-37); BILIRUBIN,TOTAL 0.3 MG/DL (0.2-1.0); BLOOD UREA NITROGEN 49 mg/dL (7-18); CALCIUM 8.2 MG/DL (8.5-10.1); CARBON DIOXIDE 24 MMOL/L (21-32); CHLORIDE 104 MMOL/L (98-107); CREATININE 2.2 MG/DL (0.55-1.30); PHOSPHORUS 3.5 MG/DL (2.5-4.9); POTASSIUM 4.5 MMOL/L (3.5-5.1); SODIUM 136 MMOL/L (136-145)
[2018-08-14 08:00] VITALS: BP 116/52
[2018-08-14] MEDS: Carvedilol 12.5mg tab ORAL SCH ×2 (08:39→20:41)
[2018-08-14] MEDS: Allopurinol 100mg Tab ORAL SCH (08:39)
[2018-08-14] MEDS: Docusate 100mg cap ORAL SCH ×3 (08:40→17:22)
[2018-08-14] MEDS: Aspirin EC 81mg tab ORAL SCH (08:40)
[2018-08-14] MEDS: sitaGLIPtin 25mg tab ORAL SCH (08:40)
[2018-08-14] MEDS: Heparin 5000 units/ml inj SUBQ SCH ×2 (08:41→20:39)
--- NOTE | 2018-08-14 11:06 | Nephrology Progress Note ---
Assessment/Plan Problem List: (1) Acute kidney failure Assessment: Cr lowering (2) Renal failure (ARF), acute on chronic (3) Hypertensive emergency (4) NSTEMI (non-ST elevated myocardial infarction) Assessment became hypotensive with PT CKD likely diabetic/Hypertensive Nephrosclerosis Dehydration BP OOC Anemia DM elevated troponin Plan fluid challenge adjust bp meds check labs in am K supplement as needed Anemia jaime avoid Nephrotoxics Kidney CHIRAG and 2D echo done last time reviewed monitor renal parameters Urine studies Subjective ROS Limited/Unobtainable: No Constitutional: Reports: malaise Objective Objective Last 24 Hour Vital Signs Date Time Temp Pulse Resp B/P (MAP) Pulse Ox O2 Delivery O2 Flow Rate FiO2 08/14/18 08:39 76 116/52 08/14/18 08:19 Room Air 08/14/18 08:00 98.1 76 18 116/52 (73) 100 08/14/18 06:32 137/62 08/14/18 04:00 98.7 68 18 137/62 (87) 100 08/14/18 00:00 98.2 65 18 118/57 (77) 98 08/13/18 22:00 104/58 08/13/18 21:00 74 114/60 08/13/18 21:00 Room Air 08/13/18 20:00 98.2 74 18 114/60 (78) 99 08/13/18 16:01 73 105/55 (72) 08/13/18 15:45 97.2 74 20 99/46 (63) 97 08/13/18 14:00 98.1 71 20 92/50 (64) 100 71 08/13/18 14:00 92/50 08/13/18 12:00 98.2 72 20 94/41 (58) 97 Intake and Output 08/13/18 08/14/18 19:00 07:00 Intake Total 1740 ml 280 ml Balance 1740 ml 280 ml Intake Oral 740 ml 280 ml IV Total 1000 ml # Voids 4 # Bowel Movements 1 Laboratory Tests 08/14/18 05:42: White Blood Count 4.7L, Red Blood Count 3.00L, Hemoglobin 8.3L, Hematocrit 26.3L , Mean Corpuscular Volume 88, Mean Corpuscular Hemoglobin 27.8, Mean Corpuscular Hemoglobin Concent 31.7L, Red Cell Distribution Width 13.4, Platelet Count 144L, Mean Platelet Volume 8.1, Neutrophils (%) (Auto) 68.4, Lymphocytes (%) (Auto) 16.9L, Monocytes (%) (Auto) 12.1H, Eosinophils (%) (Auto ) 1.8, Basophils (%) (Auto) 0.8, Sodium Level 136, Potassium Level 4.5, Chloride Level 104, Carbon Dioxide Level 24, Anion Gap 8, Blood Urea Nitrogen 49H, Creatinine 2.2H, Estimat Glomerular Filtration Rate , Glucose Level 127H, Uric Acid 5.8, Calcium Level 8.2L, Phosphorus Level 3.5, Magnesium Level 1.9, Total Bilirubin 0.3, Aspartate Amino Transf (AST/SGOT) 21, Alanine Aminotransferase (ALT/SGPT) 16, Alkaline Phosphatase 35L, Troponin I 0.031, Total Protein 5.4L, Albumin 3.0L, Globulin 2.4, Albumin/Globulin Ratio 1.2 Height (Feet): 5 Height (Inches): 6.00 Weight (Pounds): 134 General Appearance: no apparent distress Respiratory/Chest: decreased breath sounds Abdomen: soft Objective no change Wilfredo Will MD Aug 14, 2018 11:06
[2018-08-14] MEDS ORDERED: HydrALAZINE 25mg tab ORAL PRN (11:13)
--- NOTE | 2018-08-14 11:24 | Pulmonology Progress Note ---
Assessment/Plan Problems: (1) Acute encephalopathy (2) Hypertensive emergency (3) Vasovagal near syncope (4) NSTEMI (non-ST elevated myocardial infarction) (5) ATN (acute tubular necrosis) (6) Diabetes mellitus (7) Hypertension Assessment/Plan BP better electrolytes better on Januvia for DM sliding scale pt/ot dc planning, Pt going to [facility] [place] as per insurance Subjective ROS Limited/Unobtainable: No Constitutional: Reports: no symptoms HEENT: Repors: no symptoms Respiratory: Reports: no symptoms Allergies: Coded Allergies: No Known Allergies (Verified , 02/14/18) Objective Last 24 Hour Vital Signs Date Time Temp Pulse Resp B/P (MAP) Pulse Ox O2 Delivery O2 Flow Rate FiO2 08/14/18 08:39 76 116/52 08/14/18 08:19 Room Air 08/14/18 08:00 98.1 76 18 116/52 (73) 100 08/14/18 06:32 137/62 08/14/18 04:00 98.7 68 18 137/62 (87) 100 08/14/18 00:00 98.2 65 18 118/57 (77) 98 08/13/18 22:00 104/58 08/13/18 21:00 74 114/60 08/13/18 21:00 Room Air 08/13/18 20:00 98.2 74 18 114/60 (78) 99 08/13/18 16:01 73 105/55 (72) 08/13/18 15:45 97.2 74 20 99/46 (63) 97 08/13/18 14:00 98.1 71 20 92/50 (64) 100 71 08/13/18 14:00 92/50 08/13/18 12:00 98.2 72 20 94/41 (58) 97 Intake and Output 08/13/18 08/14/18 19:00 07:00 Intake Total 1740 ml 280 ml Balance 1740 ml 280 ml Intake Oral 740 ml 280 ml IV Total 1000 ml # Voids 4 # Bowel Movements 1 General Appearance: WD/WN HEENT: normocephalic, anicteric Respiratory/Chest: chest wall non-tender, normal breath sounds Breasts: no masses Cardiovascular: normal peripheral pulses, regular rhythm, no JVD Abdomen: soft, non tender Genitourinary: normal external genitalia Extremities: no clubbing Skin: no rash Microbiology Date/Time Source Procedure Growth Status 08/12/18 16:00 Urine,Clean Catch Urine Culture - Final Klebsiella Pneumoniae Complete Laboratory Tests 08/14/18 05:42: White Blood Count 4.7L, Red Blood Count 3.00L, Hemoglobin 8.3L, Hematocrit 26.3L , Mean Corpuscular Volume 88, Mean Corpuscular Hemoglobin 27.8, Mean Corpuscular Hemoglobin Concent 31.7L, Red Cell Distribution Width 13.4, Platelet Count 144L, Mean Platelet Volume 8.1, Neutrophils (%) (Auto) 68.4, Lymphocytes (%) (Auto) 16.9L, Monocytes (%) (Auto) 12.1H, Eosinophils (%) (Auto ) 1.8, Basophils (%) (Auto) 0.8, Sodium Level 136, Potassium Level 4.5, Chloride Level 104, Carbon Dioxide Level 24, Anion Gap 8, Blood Urea Nitrogen 49H, Creatinine 2.2H, Estimat Glomerular Filtration Rate , Glucose Level 127H, Uric Acid 5.8, Calcium Level 8.2L, Phosphorus Level 3.5, Magnesium Level 1.9, Total Bilirubin 0.3, Aspartate Amino Transf (AST/SGOT) 21, Alanine Aminotransferase (ALT/SGPT) 16, Alkaline Phosphatase 35L, Troponin I 0.031, Total Protein 5.4L, Albumin 3.0L, Globulin 2.4, Albumin/Globulin Ratio 1.2 Current Medications Medications (Trade) Dose Ordered Sig/Morgan Route PRN Reason Start Time Stop Time Status Last Admin Dose Admin Acetaminophen (Tylenol) 650 mg Q4H PRN ORAL Mild Pain (Pain Scale 1-3) 08/12/18 15:21 09/11/18 15:20 Allopurinol (Zyloprim) 100 mg DAILY ORAL 08/13/18 09:00 09/11/18 08:59 08/14/18 08:39 Aspirin (Ecotrin) 81 mg DAILY ORAL 08/13/18 09:00 09/09/18 14:44 08/14/18 08:40 Carvedilol (Coreg) 12.5 mg EVERY 12 HOURS ORAL 08/13/18 21:00 09/09/18 14:44 Dextrose (Dextrose 50%) 25 ml Q30M PRN IV Hypoglycemia 08/12/18 15:45 09/09/18 14:44 Dextrose (Dextrose 50%) 50 ml Q30M PRN IV Hypoglycemia 08/12/18 15:45 09/09/18 14:44 Docusate Sodium (Colace) 100 mg TID ORAL 08/12/18 18:00 09/09/18 20:59 08/14/18 08:40 Heparin Sodium (Porcine) (Heparin 5000 units/ml) 5,000 units EVERY 12 HOURS SUBQ 08/12/18 21:00 09/09/18 20:59 08/13/18 21:18 Hydralazine HCl (Apresoline) 25 mg Q4H PRN ORAL bp over 160 syst 08/14/18 11:13 09/13/18 11:12 Insulin Aspart (NovoLOG) BEFORE MEALS AND HS SUBQ 08/12/18 16:30 09/09/18 16:29 08/14/18 06:35 Pravastatin Sodium (Pravachol) 40 mg BEDTIME ORAL 08/12/18 21:00 09/09/18 20:59 08/13/18 21:17 Sitagliptin Phosphate (Januvia) 25 mg DAILY ORAL 08/13/18 09:00 09/09/18 14:44 08/14/18 08:40 Sodium Chloride 500 ml @ 999 mls/hr Q31M ONCE IV 08/14/18 11:15 08/14/18 11:45 Tamsulosin HCl (Flomax) 0.4 mg BEDTIME ORAL 08/12/18 21:00 09/09/18 20:59 08/13/18 21:16 Zolpidem Tartrate (Ambien) 5 mg DAILYPRN PRN ORAL Insomnia 08/12/18 15:23 08/19/18 15:22 Radha Vazquez MD Aug 14, 2018 11:24
[2018-08-14 12:00] VITALS: BP 125/57
[2018-08-14 16:00] VITALS: BP 112/45
--- NOTE | 2018-08-14 18:55 | Internal Med Progress Note ---
Subjective Date of Service: Aug 14, 2018 Physician Name Reji Murillo Attending Physician Rolando Booth MD Current Medications Medications (Trade) Dose Ordered Sig/Morgan Route PRN Reason Start Time Stop Time Status Last Admin Dose Admin Acetaminophen (Tylenol) 650 mg Q4H PRN ORAL Mild Pain (Pain Scale 1-3) 08/12/18 15:21 09/11/18 15:20 Allopurinol (Zyloprim) 100 mg DAILY ORAL 08/13/18 09:00 09/11/18 08:59 08/14/18 08:39 Aspirin (Ecotrin) 81 mg DAILY ORAL 08/13/18 09:00 09/09/18 14:44 08/14/18 08:40 Carvedilol (Coreg) 12.5 mg EVERY 12 HOURS ORAL 08/13/18 21:00 09/09/18 14:44 Dextrose (Dextrose 50%) 25 ml Q30M PRN IV Hypoglycemia 08/12/18 15:45 09/09/18 14:44 Dextrose (Dextrose 50%) 50 ml Q30M PRN IV Hypoglycemia 08/12/18 15:45 09/09/18 14:44 Docusate Sodium (Colace) 100 mg TID ORAL 08/12/18 18:00 09/09/18 20:59 08/14/18 17:22 Heparin Sodium (Porcine) (Heparin 5000 units/ml) 5,000 units EVERY 12 HOURS SUBQ 08/12/18 21:00 09/09/18 20:59 08/13/18 21:18 Hydralazine HCl (Apresoline) 25 mg Q4H PRN ORAL bp over 160 syst 08/14/18 11:13 09/13/18 11:12 Insulin Aspart (NovoLOG) BEFORE MEALS AND HS SUBQ 08/12/18 16:30 09/09/18 16:29 08/14/18 16:45 Pravastatin Sodium (Pravachol) 40 mg BEDTIME ORAL 08/12/18 21:00 09/09/18 20:59 08/13/18 21:17 Sitagliptin Phosphate (Januvia) 25 mg DAILY ORAL 08/13/18 09:00 09/09/18 14:44 08/14/18 08:40 Tamsulosin HCl (Flomax) 0.4 mg BEDTIME ORAL 08/12/18 21:00 09/09/18 20:59 08/13/18 21:16 Zolpidem Tartrate (Ambien) 5 mg DAILYPRN PRN ORAL Insomnia 08/12/18 15:23 08/19/18 15:22 Allergies: Coded Allergies: No Known Allergies (Verified , 02/14/18) ROS Limited/Unobtainable: Yes Subjective 78 YO F admitted with near syncope. Now dehydration and hypotension. Cover for Int Med-DR Booth. Await SNF placement Objective Last Vital Signs Date Time Temp Pulse Resp B/P (MAP) Pulse Ox O2 Delivery O2 Flow Rate FiO2 08/14/18 16:00 99.5 60 19 112/45 (67) 100 08/14/18 08:19 Room Air Laboratory Tests Test 08/14/18 05:42 White Blood Count 4.7 K/UL (4.8-10.8) L Red Blood Count 3.00 M/UL (4.20-5.40) L Hemoglobin 8.3 G/DL (12.0-16.0) L Hematocrit 26.3 % (37.0-47.0) L Mean Corpuscular Volume 88 FL (80-99) Mean Corpuscular Hemoglobin 27.8 PG (27.0-31.0) Mean Corpuscular Hemoglobin Concent 31.7 G/DL (32.0-36.0) L Red Cell Distribution Width 13.4 % (11.6-14.8) Platelet Count 144 K/UL (150-450) L Mean Platelet Volume 8.1 FL (6.5-10.1) Neutrophils (%) (Auto) 68.4 % (45.0-75.0) Lymphocytes (%) (Auto) 16.9 % (20.0-45.0) L Monocytes (%) (Auto) 12.1 % (1.0-10.0) H Eosinophils (%) (Auto) 1.8 % (0.0-3.0) Basophils (%) (Auto) 0.8 % (0.0-2.0) Sodium Level 136 MMOL/L (136-145) Potassium Level 4.5 MMOL/L (3.5-5.1) Chloride Level 104 MMOL/L (98-107) Carbon Dioxide Level 24 MMOL/L (21-32) Anion Gap 8 mmol/L (5-15) Blood Urea Nitrogen 49 mg/dL (7-18) H Creatinine 2.2 MG/DL (0.55-1.30) H Estimat Glomerular Filtration Rate mL/min (>60) Glucose Level 127 MG/DL (74-106) H Uric Acid 5.8 MG/DL (2.6-7.2) Calcium Level 8.2 MG/DL (8.5-10.1) L Phosphorus Level 3.5 MG/DL (2.5-4.9) Magnesium Level 1.9 MG/DL (1.8-2.4) Total Bilirubin 0.3 MG/DL (0.2-1.0) Aspartate Amino Transf (AST/SGOT) 21 U/L (15-37) Alanine Aminotransferase (ALT/SGPT) 16 U/L (12-78) Alkaline Phosphatase 35 U/L (46-116) L Troponin I 0.031 ng/mL (0.000-0.056) Total Protein 5.4 G/DL (6.4-8.2) L Albumin 3.0 G/DL (3.4-5.0) L Globulin 2.4 g/dL Albumin/Globulin Ratio 1.2 (1.0-2.7) Microbiology Date/Time Source Procedure Growth Status 08/12/18 16:00 Urine,Clean Catch Urine Culture - Final Klebsiella Pneumoniae Complete Intake and Output 08/13/18 08/14/18 19:00 07:00 Intake Total 1740 ml 280 ml Balance 1740 ml 280 ml Intake Oral 740 ml 280 ml IV Total 1000 ml # Voids 4 # Bowel Movements 1 Objective PHYSICAL EXAMINATION: GENERAL: The patient is awake and responsive, in no acute distress. HEAD AND NECK: Pupils are reactive to light. Extraocular movements intact. Neck was supple. No JVD. LUNGS: Good air entry. No wheezing or rales. HEART: Reveals S1, S2. Regular rhythm. No gallops. ABDOMEN: Soft, nondistended, and nontender. Positive bowel sounds. Mildly obese. EXTREMITIES: No cyanosis, clubbing, or edema. NEUROLOGIC: GROUND NUCLEAR WEAPONS ASSEMBLY OFFICER II through XII grossly intact. Motor is 5/5 in all extremities. Gait is intact. RECTAL/GENITOURINARY: Refused and deferred. PSYCHIATRIC: Mood and affect is intact. Assessment/Plan Assessment/Plan Assessment/Plan Assessment/Plan ASSESSMENT: 1. Acute kidney injury on chronic renal insufficiency. 2. Dehydration. 3. Diabetes type 2, poorly controlled. 4. Diabetic nephropathy. 5. Hypertension, uncontrolled. 6. Mild elevation in troponin, possible acute coronary syndrome. 7. Dyslipidemia. 8. Mild obesity. PLAN: - DC monitored transfer to medical unit. - Monitor Accu-Chek with sliding scale. - DVT prophylaxis with heparin subcutaneous. - Code status is Full Code. - Dr. Paco Jennings from Cardiology consultation as well as Dr. Maciel from Neurology and Dr. Will from Nephrology. - [facility] planning-[facility] when bed available. Reji Murillo MD Aug 14, 2018 18:55
[2018-08-14 20:00] VITALS: BP 126/62
[2018-08-14] MEDS: Tamsulosin 0.4mg cap ORAL SCH (20:42)
--- NOTE | 2018-08-14 22:59 | Neurology Progress Note ---
Interim History Interim History ROS Limited/Unobtainable: Yes Complaints: Weakness/ Syncope Events: Uptrending Tropnonin Objective Physical Exam Last Vital Signs Date Time Temp Pulse Resp B/P (MAP) Pulse Ox O2 Delivery O2 Flow Rate FiO2 08/14/18 21:13 99.5 08/14/18 21:00 Room Air 08/14/18 20:41 78 126/62 08/14/18 20:00 18 99 Laboratory Tests Test 08/14/18 05:42 White Blood Count 4.7 K/UL (4.8-10.8) L Red Blood Count 3.00 M/UL (4.20-5.40) L Hemoglobin 8.3 G/DL (12.0-16.0) L Hematocrit 26.3 % (37.0-47.0) L Mean Corpuscular Volume 88 FL (80-99) Mean Corpuscular Hemoglobin 27.8 PG (27.0-31.0) Mean Corpuscular Hemoglobin Concent 31.7 G/DL (32.0-36.0) L Red Cell Distribution Width 13.4 % (11.6-14.8) Platelet Count 144 K/UL (150-450) L Mean Platelet Volume 8.1 FL (6.5-10.1) Neutrophils (%) (Auto) 68.4 % (45.0-75.0) Lymphocytes (%) (Auto) 16.9 % (20.0-45.0) L Monocytes (%) (Auto) 12.1 % (1.0-10.0) H Eosinophils (%) (Auto) 1.8 % (0.0-3.0) Basophils (%) (Auto) 0.8 % (0.0-2.0) Sodium Level 136 MMOL/L (136-145) Potassium Level 4.5 MMOL/L (3.5-5.1) Chloride Level 104 MMOL/L (98-107) Carbon Dioxide Level 24 MMOL/L (21-32) Anion Gap 8 mmol/L (5-15) Blood Urea Nitrogen 49 mg/dL (7-18) H Creatinine 2.2 MG/DL (0.55-1.30) H Estimat Glomerular Filtration Rate mL/min (>60) Glucose Level 127 MG/DL (74-106) H Uric Acid 5.8 MG/DL (2.6-7.2) Calcium Level 8.2 MG/DL (8.5-10.1) L Phosphorus Level 3.5 MG/DL (2.5-4.9) Magnesium Level 1.9 MG/DL (1.8-2.4) Total Bilirubin 0.3 MG/DL (0.2-1.0) Aspartate Amino Transf (AST/SGOT) 21 U/L (15-37) Alanine Aminotransferase (ALT/SGPT) 16 U/L (12-78) Alkaline Phosphatase 35 U/L (46-116) L Troponin I 0.031 ng/mL (0.000-0.056) Total Protein 5.4 G/DL (6.4-8.2) L Albumin 3.0 G/DL (3.4-5.0) L Globulin 2.4 g/dL Albumin/Globulin Ratio 1.2 (1.0-2.7) Impression/Recommendations Problems: (1) Vasovagal near syncope Assessment & Plan: Reported episode earlier today, described as general weakness leading to collapse of both patient's legs . No residual weakness on exam, motor exam symmetrical bilaterally. Follow BP Telemetry Consider Orthostatic BPs Treat UTI Maintain normothermia Abx as per PMT or ID Maintain normoglycemia with ISS Continue 4 Hour Neuro Obs PT/ OT Evals as soon as possible CT Brain - negative - no indication for MRI Brain at this time. Na 135-145 Q4 Hour Neuro obs (2) Hypertension Assessment & Plan: Maintain BP<140 Supplement current regimen as needed (3) UTI (urinary tract infection) Assessment & Plan: Treat as per PMT/ID Maintain normothermia with Tylenol as needed (4) NSTEMI (non-ST elevated myocardial infarction) Assessment & Plan: Uptrending elevated Troponins No neuro deficits or need for MRI at this time. Continue telemetry monitoring Correct/ Replete lytes as appropriate Start ASA/ Plavix Recs as per Cardiology Status: stable Zulma Vivar N.P. Aug 14, 2018 22:59
--- NOTE | 2018-08-14 23:51 | Cardiology Progress Note ---
Assessment/Plan Assessment/Plan 1. Elevation of troponin I level could be secondary to non-ST elevation myocardial infarction versus troponin I leak due to renal failure. 2D echo reveals normal LVEF with normal intracardiac filling pressure. Given the fact that the patient is chest pain-free and denies any shortness of breath, I would continue conservative management in view of renal failure. Continue aspirin and statins. 2. Sinus tachycardia, resolved. 3. VIDAL on Chronic kidney disease, creat at the baseline 2.1. 4. Presyncope/weakness most likely secondary to worsening of renal failure. Subjective Subjective Sinus rhythm at rate of 78. Objective Last 24 Hour Vital Signs Date Time Temp Pulse Resp B/P (MAP) Pulse Ox O2 Delivery O2 Flow Rate FiO2 08/14/18 21:13 99.5 08/14/18 21:00 Room Air 08/14/18 20:41 78 126/62 08/14/18 20:00 99.9 78 18 126/62 (83) 99 08/14/18 16:00 99.5 60 19 112/45 (67) 100 08/14/18 12:00 99.2 68 17 125/57 (79) 100 08/14/18 08:39 76 116/52 08/14/18 08:19 Room Air 08/14/18 08:00 98.1 76 18 116/52 (73) 100 08/14/18 06:32 137/62 08/14/18 04:00 98.7 68 18 137/62 (87) 100 08/14/18 00:00 98.2 65 18 118/57 (77) 98 Intake and Output 08/13/18 08/14/18 18:59 06:59 Intake Total 1740 ml 280 ml Balance 1740 ml 280 ml Intake Oral 740 ml 280 ml IV Total 1000 ml # Voids 4 # Bowel Movements 1 2D Echo: EF 55%, small Pericard. eff., Mild LVH, RVSP 23mmHg, Grade I LVDD Laboratory Tests Test 08/14/18 05:42 White Blood Count 4.7 K/UL (4.8-10.8) L Red Blood Count 3.00 M/UL (4.20-5.40) L Hemoglobin 8.3 G/DL (12.0-16.0) L Hematocrit 26.3 % (37.0-47.0) L Mean Corpuscular Volume 88 FL (80-99) Mean Corpuscular Hemoglobin 27.8 PG (27.0-31.0) Mean Corpuscular Hemoglobin Concent 31.7 G/DL (32.0-36.0) L Red Cell Distribution Width 13.4 % (11.6-14.8) Platelet Count 144 K/UL (150-450) L Mean Platelet Volume 8.1 FL (6.5-10.1) Neutrophils (%) (Auto) 68.4 % (45.0-75.0) Lymphocytes (%) (Auto) 16.9 % (20.0-45.0) L Monocytes (%) (Auto) 12.1 % (1.0-10.0) H Eosinophils (%) (Auto) 1.8 % (0.0-3.0) Basophils (%) (Auto) 0.8 % (0.0-2.0) Sodium Level 136 MMOL/L (136-145) Potassium Level 4.5 MMOL/L (3.5-5.1) Chloride Level 104 MMOL/L (98-107) Carbon Dioxide Level 24 MMOL/L (21-32) Anion Gap 8 mmol/L (5-15) Blood Urea Nitrogen 49 mg/dL (7-18) H Creatinine 2.2 MG/DL (0.55-1.30) H Estimat Glomerular Filtration Rate mL/min (>60) Glucose Level 127 MG/DL (74-106) H Uric Acid 5.8 MG/DL (2.6-7.2) Calcium Level 8.2 MG/DL (8.5-10.1) L Phosphorus Level 3.5 MG/DL (2.5-4.9) Magnesium Level 1.9 MG/DL (1.8-2.4) Total Bilirubin 0.3 MG/DL (0.2-1.0) Aspartate Amino Transf (AST/SGOT) 21 U/L (15-37) Alanine Aminotransferase (ALT/SGPT) 16 U/L (12-78) Alkaline Phosphatase 35 U/L (46-116) L Troponin I 0.031 ng/mL (0.000-0.056) Total Protein 5.4 G/DL (6.4-8.2) L Albumin 3.0 G/DL (3.4-5.0) L Globulin 2.4 g/dL Albumin/Globulin Ratio 1.2 (1.0-2.7) Microbiology Date/Time Source Procedure Growth Status 08/12/18 16:00 Urine,Clean Catch Urine Culture - Final Klebsiella Pneumoniae Complete Objective HEENT: Atraumatic and normocephalic. Anicteric. Pupils are equal, round, and reactive to light and accommodation. There is conjunctival pallor. NECK: JVP is less than 5 cm. No carotid bruit. Carotid upstrokes 2+ bilaterally. CARDIOVASCULAR: Normal S1, S2. There is 2/6 mid systolic murmur at the left sternal border. PMI is at fourth intercostal space at the midclavicular line. LUNGS: Clear to auscultation bilaterally. ABDOMEN: Soft, nontender, and nondistended. No hepatosplenomegaly. Positive bowel sounds. EXTREMITIES: No evidence of edema, clubbing, or cyanosis. Paco Jennings MD Aug 14, 2018 23:51
[2018-08-15 00:01] VITALS: BP 118/60
[2018-08-15 04:20] VITALS: BP 119/56
[2018-08-15] MEDS: NovoLOG Insulin Flexpen SUBQ SCH ×3 (06:30→16:30)
[2018-08-15 07:33] LABS: BASOPHILS % (AUTO) 1.5 % (0.0-2.0); EOSINOPHILS % (AUTO) 3.3 % (0.0-3.0); HEMATOCRIT 27.7 % (37.0-47.0); HEMOGLOBIN 8.7 G/DL (12.0-16.0); LYMPHOCYTES % (AUTO) 19.8 % (20.0-45.0); MEAN CORPUSCULAR VOLUME 88 FL (80-99); MONOCYTES % (AUTO) 9.1 % (1.0-10.0); NEUTROPHILS % (AUTO) 66.3 % (45.0-75.0); PLATELET COUNT 169 K/UL (150-450); RED BLOOD COUNT 3.16 M/UL (4.20-5.40); RED CELL DISTRIBUTION WIDTH 13.6 % (11.6-14.8); WHITE BLOOD COUNT 4.9 K/UL (4.8-10.8)
[2018-08-15 07:52] LABS: ANION GAP 11 mmol/L (5-15); BLOOD UREA NITROGEN 51 mg/dL (7-18); CALCIUM 8.8 MG/DL (8.5-10.1); CARBON DIOXIDE 23 MMOL/L (21-32); CHLORIDE 106 MMOL/L (98-107); CREATININE 2.1 MG/DL (0.55-1.30); POTASSIUM 4.4 MMOL/L (3.5-5.1); SODIUM 139 MMOL/L (136-145)
[2018-08-15 08:00] VITALS: BP 121/60
[2018-08-15] MEDS: Docusate 100mg cap ORAL SCH ×2 (08:19→13:00)
[2018-08-15] MEDS: sitaGLIPtin 25mg tab ORAL SCH (08:19)
[2018-08-15] MEDS: Allopurinol 100mg Tab ORAL SCH (08:21)
[2018-08-15] MEDS: Aspirin EC 81mg tab ORAL SCH (08:21)
[2018-08-15] MEDS: Heparin 5000 units/ml inj SUBQ SCH (08:22)
[2018-08-15] MEDS: Carvedilol 12.5mg tab ORAL SCH (08:22)
[2018-08-15 12:00] VITALS: BP 121/60
--- NOTE | 2018-08-15 12:20 | Pulmonology Progress Note ---
Assessment/Plan Problems: (1) Acute encephalopathy (2) Hypertensive emergency (3) Vasovagal near syncope (4) NSTEMI (non-ST elevated myocardial infarction) (5) ATN (acute tubular necrosis) (6) Diabetes mellitus (7) Hypertension Assessment/Plan still feeling weak BP better electrolytes better on Januvia for DM sliding scale pt/ot dc planning, Pt going to [facility] as per insurance Subjective ROS Limited/Unobtainable: No Constitutional: Reports: no symptoms HEENT: Repors: no symptoms Respiratory: Reports: no symptoms Allergies: Coded Allergies: No Known Allergies (Verified , 02/14/18) Objective Last 24 Hour Vital Signs Date Time Temp Pulse Resp B/P (MAP) Pulse Ox O2 Delivery O2 Flow Rate FiO2 08/15/18 09:00 Room Air 08/15/18 08:22 74 140/68 08/15/18 04:20 98.7 73 18 119/56 (77) 95 08/15/18 00:01 98.6 74 18 118/60 (79) 95 08/14/18 21:13 99.5 08/14/18 21:00 Room Air 08/14/18 20:41 78 126/62 08/14/18 20:00 99.9 78 18 126/62 (83) 99 08/14/18 16:00 99.5 60 19 112/45 (67) 100 Intake and Output 08/14/18 08/15/18 19:00 07:00 Intake Total 900 ml Balance 900 ml Intake Oral 400 ml IV Total 500 ml # Voids 1 2 # Bowel Movements 1 General Appearance: WD/WN HEENT: normocephalic, atraumatic Respiratory/Chest: chest wall non-tender, lungs clear Breasts: no masses Cardiovascular: normal peripheral pulses Abdomen: normal bowel sounds, no organomegaly Genitourinary: normal external genitalia Extremities: no clubbing Skin: no rash Microbiology Date/Time Source Procedure Growth Status 08/12/18 16:00 Urine,Clean Catch Urine Culture - Final Klebsiella Pneumoniae Complete Laboratory Tests 08/15/18 05:57: White Blood Count 4.9, Red Blood Count 3.16L, Hemoglobin 8.7L, Hematocrit 27.7L , Mean Corpuscular Volume 88, Mean Corpuscular Hemoglobin 27.5, Mean Corpuscular Hemoglobin Concent 31.3L, Red Cell Distribution Width 13.6, Platelet Count 169, Mean Platelet Volume 7.9, Neutrophils (%) (Auto) 66.3, Lymphocytes (%) (Auto) 19.8L, Monocytes (%) (Auto) 9.1, Eosinophils (%) (Auto) 3.3H, Basophils (%) (Auto) 1.5, Sodium Level 139, Potassium Level 4.4, Chloride Level 106, Carbon Dioxide Level 23, Anion Gap 11, Blood Urea Nitrogen 51H, Creatinine 2.1H, Estimat Glomerular Filtration Rate , Glucose Level 104, Calcium Level 8.8 Current Medications Medications (Trade) Dose Ordered Sig/Morgan Route PRN Reason Start Time Stop Time Status Last Admin Dose Admin Acetaminophen (Tylenol) 650 mg Q4H PRN ORAL Mild Pain (Pain Scale 1-3) 08/12/18 15:21 09/11/18 15:20 08/14/18 20:43 Allopurinol (Zyloprim) 100 mg DAILY ORAL 08/13/18 09:00 09/11/18 08:59 08/15/18 08:21 Aspirin (Ecotrin) 81 mg DAILY ORAL 08/13/18 09:00 09/09/18 14:44 08/15/18 08:21 Carvedilol (Coreg) 12.5 mg EVERY 12 HOURS ORAL 08/13/18 21:00 09/09/18 14:44 08/15/18 08:22 Dextrose (Dextrose 50%) 25 ml Q30M PRN IV Hypoglycemia 08/12/18 15:45 09/09/18 14:44 Dextrose (Dextrose 50%) 50 ml Q30M PRN IV Hypoglycemia 08/12/18 15:45 09/09/18 14:44 Docusate Sodium (Colace) 100 mg TID ORAL 08/12/18 18:00 09/09/18 20:59 08/15/18 08:19 Heparin Sodium (Porcine) (Heparin 5000 units/ml) 5,000 units EVERY 12 HOURS SUBQ 08/12/18 21:00 09/09/18 20:59 08/15/18 08:22 Hydralazine HCl (Apresoline) 25 mg Q4H PRN ORAL bp over 160 syst 08/14/18 11:13 09/13/18 11:12 Insulin Aspart (NovoLOG) BEFORE MEALS AND HS SUBQ 08/12/18 16:30 5/13/19 16:29 08/15/18 12:09 Pravastatin Sodium (Pravachol) 40 mg BEDTIME ORAL 08/12/18 21:00 09/09/18 20:59 08/14/18 20:40 Sitagliptin Phosphate (Januvia) 25 mg DAILY ORAL 08/13/18 09:00 09/09/18 14:44 08/15/18 08:19 Tamsulosin HCl (Flomax) 0.4 mg BEDTIME ORAL 08/12/18 21:00 09/09/18 20:59 08/14/18 20:42 Zolpidem Tartrate (Ambien) 5 mg DAILYPRN PRN ORAL Insomnia 08/12/18 15:23 08/19/18 15:22 Radha Vazquez MD Aug 15, 2018 12:20
[2018-08-15] MEDS ORDERED: Vitamin B12 1000mcg/ml Inj IM SCH (14:00)
[2018-08-15 16:00] VITALS: BP 135/59
--- NOTE | 2018-08-15 16:58 | Nephrology Progress Note ---
Assessment/Plan Problem List: (1) Acute kidney failure Assessment: Cr lowering (2) Renal failure (ARF), acute on chronic (3) Hypertensive emergency (4) NSTEMI (non-ST elevated myocardial infarction) Assessment became hypotensive with PT CKD likely diabetic/Hypertensive Nephrosclerosis Dehydration BP OOC Anemia DM elevated troponin Plan feels better BP better controlled K supplement as needed Anemia jaime avoid Nephrotoxics Kidney CHIRAG and 2D echo done last time reviewed monitor renal parameters Urine studies Dc planning Subjective ROS Limited/Unobtainable: No Constitutional: Reports: malaise Objective Objective Last 24 Hour Vital Signs Date Time Temp Pulse Resp B/P (MAP) Pulse Ox O2 Delivery O2 Flow Rate FiO2 08/15/18 09:00 Room Air 08/15/18 08:22 74 140/68 08/15/18 08:00 98.5 74 18 121/60 (80) 99 08/15/18 04:20 98.7 73 18 119/56 (77) 95 08/15/18 00:01 98.6 74 18 118/60 (79) 95 08/14/18 21:13 99.5 08/14/18 21:00 Room Air 08/14/18 20:41 78 126/62 08/14/18 20:00 99.9 78 18 126/62 (83) 99 Intake and Output 08/14/18 08/15/18 19:00 07:00 Intake Total 900 ml Balance 900 ml Intake Oral 400 ml IV Total 500 ml # Voids 1 2 # Bowel Movements 1 Laboratory Tests 08/15/18 05:57: White Blood Count 4.9, Red Blood Count 3.16L, Hemoglobin 8.7L, Hematocrit 27.7L , Mean Corpuscular Volume 88, Mean Corpuscular Hemoglobin 27.5, Mean Corpuscular Hemoglobin Concent 31.3L, Red Cell Distribution Width 13.6, Platelet Count 169, Mean Platelet Volume 7.9, Neutrophils (%) (Auto) 66.3, Lymphocytes (%) (Auto) 19.8L, Monocytes (%) (Auto) 9.1, Eosinophils (%) (Auto) 3.3H, Basophils (%) (Auto) 1.5, Sodium Level 139, Potassium Level 4.4, Chloride Level 106, Carbon Dioxide Level 23, Anion Gap 11, Blood Urea Nitrogen 51H, Creatinine 2.1H, Estimat Glomerular Filtration Rate , Glucose Level 104, Calcium Level 8.8 Height (Feet): 5 Height (Inches): 6.00 Weight (Pounds): 134 General Appearance: no apparent distress Objective no change Wilfredo Will MD Aug 15, 2018 16:58
[2018-08-15] MEDS ORDERED: 1/2 NS 1000ml IV ONE (16:59)
[2018-08-15] MEDS ORDERED: NS 500ML ONE (16:59)
--- NOTE | 2018-08-15 18:38 | Internal Med Progress Note ---
Subjective Date of Service: Aug 15, 2018 Physician Name Reji Murillo Attending Physician Rolando Booth MD Allergies: Coded Allergies: No Known Allergies (Verified , 02/14/18) ROS Limited/Unobtainable: No Constitutional: Reports: no symptoms HEENT: Reports: no symptoms Cardiovascular: Reports: no symptoms Respiratory: Reports: no symptoms Gastrointestinal/Abdominal: Reports: no symptoms Genitourinary: Reports: no symptoms Neurologic/Psychiatric: Reports: no symptoms Subjective 78 YO F admitted with near syncope. Now dehydration and hypotension. Cover for Int Med-DR Booth. Await SNF placement Objective Last Vital Signs Date Time Temp Pulse Resp B/P (MAP) Pulse Ox O2 Delivery O2 Flow Rate FiO2 08/15/18 16:00 98.1 72 16 135/59 (84) 98 08/15/18 09:00 Room Air Laboratory Tests Test 08/15/18 05:57 White Blood Count 4.9 K/UL (4.8-10.8) Red Blood Count 3.16 M/UL (4.20-5.40) L Hemoglobin 8.7 G/DL (12.0-16.0) L Hematocrit 27.7 % (37.0-47.0) L Mean Corpuscular Volume 88 FL (80-99) Mean Corpuscular Hemoglobin 27.5 PG (27.0-31.0) Mean Corpuscular Hemoglobin Concent 31.3 G/DL (32.0-36.0) L Red Cell Distribution Width 13.6 % (11.6-14.8) Platelet Count 169 K/UL (150-450) Mean Platelet Volume 7.9 FL (6.5-10.1) Neutrophils (%) (Auto) 66.3 % (45.0-75.0) Lymphocytes (%) (Auto) 19.8 % (20.0-45.0) L Monocytes (%) (Auto) 9.1 % (1.0-10.0) Eosinophils (%) (Auto) 3.3 % (0.0-3.0) H Basophils (%) (Auto) 1.5 % (0.0-2.0) Sodium Level 139 MMOL/L (136-145) Potassium Level 4.4 MMOL/L (3.5-5.1) Chloride Level 106 MMOL/L (98-107) Carbon Dioxide Level 23 MMOL/L (21-32) Anion Gap 11 mmol/L (5-15) Blood Urea Nitrogen 51 mg/dL (7-18) H Creatinine 2.1 MG/DL (0.55-1.30) H Estimat Glomerular Filtration Rate mL/min (>60) Glucose Level 104 MG/DL (74-106) Calcium Level 8.8 MG/DL (8.5-10.1) Intake and Output 08/14/18 08/15/18 19:00 07:00 Intake Total 900 ml Balance 900 ml Intake Oral 400 ml IV Total 500 ml # Voids 1 2 # Bowel Movements 1 Objective PHYSICAL EXAMINATION: GENERAL: The patient is awake and responsive, in no acute distress. HEAD AND NECK: Pupils are reactive to light. Extraocular movements intact. Neck was supple. No JVD. LUNGS: Good air entry. No wheezing or rales. HEART: Reveals S1, S2. Regular rhythm. No gallops. ABDOMEN: Soft, nondistended, and nontender. Positive bowel sounds. Mildly obese. EXTREMITIES: No cyanosis, clubbing, or edema. NEUROLOGIC: [employer]IX SYSTEMS ADMINISTRATOR II through XII grossly intact. Motor is 5/5 in all extremities. Gait is intact. RECTAL/GENITOURINARY: Refused and deferred. PSYCHIATRIC: Mood and affect is intact. Assessment/Plan Assessment/Plan Assessment/Plan Assessment/Plan ASSESSMENT: 1. Acute kidney injury on chronic renal insufficiency. 2. Dehydration. 3. Diabetes type 2, poorly controlled. 4. Diabetic nephropathy. 5. Hypertension, uncontrolled. 6. Mild elevation in troponin, possible acute coronary syndrome. 7. Dyslipidemia. 8. Mild obesity. PLAN: - DC monitored transfer to medical unit. - Monitor Accu-Chek with sliding scale. - DVT prophylaxis with heparin subcutaneous. - Code status is Full Code. - Dr. Paco Jennings from Cardiology consultation as well as Dr. Maciel from Neurology and Dr. Will from Nephrology. - Discharge to [facility] today Reji Murillo MD Aug 15, 2018 18:38
--- NOTE | 2018-08-15 19:59 | Cardiology Progress Note ---
Assessment/Plan Assessment/Plan 1. Elevation of troponin I level could be secondary to non-ST elevation myocardial infarction versus troponin I leak due to renal failure. 2D echo reveals normal LVEF with normal intracardiac filling pressure. Given the fact that the patient is chest pain-free and denies any shortness of breath, I would continue conservative management in view of renal failure. Continue aspirin and statins. 2. Sinus tachycardia, resolved. 3. VIDAL on Chronic kidney disease, creat at the baseline 2.1. 4. Presyncope/weakness most likely secondary to worsening of renal failure. Subjective Subjective Sinus rhythm at rate of 72. Objective Last 24 Hour Vital Signs Date Time Temp Pulse Resp B/P (MAP) Pulse Ox O2 Delivery O2 Flow Rate FiO2 08/15/18 16:00 98.1 72 16 135/59 (84) 98 08/15/18 12:00 98.5 74 17 121/60 (80) 99 08/15/18 09:00 Room Air 08/15/18 08:22 74 140/68 08/15/18 08:00 98.5 74 18 121/60 (80) 99 08/15/18 04:20 98.7 73 18 119/56 (77) 95 08/15/18 00:01 98.6 74 18 118/60 (79) 95 08/14/18 21:13 99.5 08/14/18 21:00 Room Air 08/14/18 20:41 78 126/62 08/14/18 20:00 99.9 78 18 126/62 (83) 99 Intake and Output 08/14/18 08/15/18 19:00 07:00 Intake Total 900 ml Balance 900 ml Intake Oral 400 ml IV Total 500 ml # Voids 1 2 # Bowel Movements 1 2D Echo: EF 55%, small Pericard. eff., Mild LVH, RVSP 23mmHg, Grade I LVDD Laboratory Tests Test 08/15/18 05:57 White Blood Count 4.9 K/UL (4.8-10.8) Red Blood Count 3.16 M/UL (4.20-5.40) L Hemoglobin 8.7 G/DL (12.0-16.0) L Hematocrit 27.7 % (37.0-47.0) L Mean Corpuscular Volume 88 FL (80-99) Mean Corpuscular Hemoglobin 27.5 PG (27.0-31.0) Mean Corpuscular Hemoglobin Concent 31.3 G/DL (32.0-36.0) L Red Cell Distribution Width 13.6 % (11.6-14.8) Platelet Count 169 K/UL (150-450) Mean Platelet Volume 7.9 FL (6.5-10.1) Neutrophils (%) (Auto) 66.3 % (45.0-75.0) Lymphocytes (%) (Auto) 19.8 % (20.0-45.0) L Monocytes (%) (Auto) 9.1 % (1.0-10.0) Eosinophils (%) (Auto) 3.3 % (0.0-3.0) H Basophils (%) (Auto) 1.5 % (0.0-2.0) Sodium Level 139 MMOL/L (136-145) Potassium Level 4.4 MMOL/L (3.5-5.1) Chloride Level 106 MMOL/L (98-107) Carbon Dioxide Level 23 MMOL/L (21-32) Anion Gap 11 mmol/L (5-15) Blood Urea Nitrogen 51 mg/dL (7-18) H Creatinine 2.1 MG/DL (0.55-1.30) H Estimat Glomerular Filtration Rate mL/min (>60) Glucose Level 104 MG/DL (74-106) Calcium Level 8.8 MG/DL (8.5-10.1) Objective HEENT: Atraumatic and normocephalic. Anicteric. Pupils are equal, round, and reactive to light and accommodation. There is conjunctival pallor. NECK: JVP is less than 5 cm. No carotid bruit. Carotid upstrokes 2+ bilaterally. CARDIOVASCULAR: Normal S1, S2. There is 2/6 mid systolic murmur at the left sternal border. PMI is at fourth intercostal space at the midclavicular line. LUNGS: Clear to auscultation bilaterally. ABDOMEN: Soft, nontender, and nondistended. No hepatosplenomegaly. Positive bowel sounds. EXTREMITIES: No evidence of edema, clubbing, or cyanosis. Paco Jennings MD Aug 15, 2018 19:59
[2018-08-15] MEDS ORDERED: Iron Sucrose 100 MG in NS 55 ML IV SCH (21:00)
--- NOTE | 2018-08-16 13:49 | Discharge Summary ---
Discharge Summary Discharge Summary _ DATE OF ADMISSION: 08/10/2018 DATE OF DISCHARGE: 08/15/2018 ADMITTING MD: Dr. Rolando Booth CONSULTANTS: Dr. Radha Maciel [facility]: Patient is an 78-year-old -Citizen Of [place] female, with past medical history significant for hypertension, type 2 diabetes, dyslipidemia, CKD, who presented to the emergency room complaining of dizziness and fall, weakness and lack of appetite. The patient stated she was supposed to take her Januvia. She however , continued to take Janumet. It was noted that the patient had worsening renal function and metformin was contraindicated. She was advised not to take metformin and if continued to have dizziness and weakness, to come to the emergency room for further evaluation. She then presented to ED via EMS for evaluation of dizziness and weakness. On evaluation at ED, blood pressure was elevated to 200 systolic. Blood work showed elevated troponin to 0.195. ProBNP was 17,820. BUN was elevated at 40, creatinine 3.1. Chest x-ray did not show any acute findings. Head CT did not show any acute intracranial findings. She was then admitted to the hospital due to mild elevation of troponin, possible acute coronary syndrome as well as dehydration and acute kidney injury on chronic renal insufficiency. She underwent cardiac evaluation. Kidney function was monitored. Her junk enzymes were monitored. Patient denied chest pain or shortness of breath. Troponin elevation, possibly secondary to non-ST elevated NH versus troponin leak due to renal failure. She was given conservative management in view of renal failure. She was given aspirin and statin. Coreg was increased to 25 mg twice daily. Neurologist was consulted. Patient complained of ground-level fall. She states that she was about to get in a taxi, and all of a sudden, her legs collapsed beneath her. Neurologist was consulted. There was no neurological deficits noted. No focal or lateralizing weakness on examination. Blood glucose was monitored. She was given Januvia. She was placed on insulin sliding scale. Echocardiogram showed normal LVEF with normal intracardiac filling pressure. Kidney ultrasound showed bilateral small kidneys with normal echogenicity, negative for hydronephrosis. She was given physical therapy. She became hypotensive well with PT. She was given fluid challenge. Blood pressure improved. Urine culture showed growth of Klebsiella. She had anemia and was given IV iron, folic acid and vitamin B12. Patient would need SNF upon discharge. Insurance authorization was obtained. Patient was then discharged to [facility]. FINAL DIAGNOSES: Elevation of troponin I, secondary to non-ST elevated NH and troponin leak to renal failure Sinus tachycardia, resolved Acute kidney injury on chronic kidney disease Presyncope/weakness most likely secondary to worsening renal failure Uncontrolled hypertension Dyslipidemia Mild obesity Type 2 diabetes mellitus, poorly controlled with diabetic nephropathy Dehydration Acute encephalopathy Vasovagal near syncope Klebsiella UTI DISPOSITION: Patient was discharged to a SNF. DISCHARGE MEDICATIONS: Refer to Discharge Medication List. Antibiotics at SNF upon transfer. I have been assigned to complete a discharge summary on this account, I was not involved with the patient's management. Hailee Mir NP Aug 16, 2018 13:49
== END 2018-08-15 17:00 | DRG 280 ==
LOC: EDBD 10:00 → EMR 11:15 → EDBEDREQ 11:45 → 2E 12:20 → EDBEDREQ 12:42 → 3E 08-12 15:23
DX: I21.4 Non-ST elevation (NSTEMI) myocardial infarction (principal); N17.0 Acute kidney failure with tubular necrosis; I16.1 Hypertensive emergency; G93.40 Encephalopathy, unspecified; N39.0 Urinary tract infection, site not specified; B96.1 Klebsiella pneumoniae [K. pneumoniae] as the cause of diseases classified elsewhere; I12.9 Hypertensive chronic kidney disease with stage 1 through stage 4 chronic kidney disease, or unspecified chronic kidney disease; E11.22 Type 2 diabetes mellitus with diabetic chronic kidney disease; N18.9 Chronic kidney disease, unspecified; E78.5 Hyperlipidemia, unspecified; Z79.82 Long term (current) use of aspirin; D64.9 Anemia, unspecified; E86.0 Dehydration; R55 Syncope and collapse; E66.9 Obesity, unspecified
CPT/HCPCS: 36415; 70450; 71045; 76770; 80048; 80053; 80061; 80076; 81001; 81003; 82043; 82550; 82553; 82570; 82607; 82728; 82746; 82962; 82977; 83036; 83735; 83880; 84100; 84133; 84300; 84443; 84484; 84550; 85007; 85025; 85610; 85730; 86140; 87040; 87086; 87181; 89050; 93005; 93306; 96374; 96375; 99291; J1815; J2405; J8499

== ENCOUNTER 2018-10-18 13:19 | Emergency (ER) | payer MEDICARE, MEDICAID ==
[~2018-10-18] VITALS: Ht 157.5 cm; Wt 63.5 kg
[~2018-10-18 13:19] MED LIST changes: +FLOMAX0.4 MG ORAL
[2018-10-18 13:29] VITALS: BP 168/89
--- NOTE | 2018-10-18 13:29 | NUR ---
ED Nurse Note: PT BROUGHT IN BY AMBULANCE PICKED UP FROM THE MALL DUE TO NEAR SYNCOPE EPISODE. PER EMS, PT ALMOST FELL BUT WITNESSED BY BYSTANDERS THAT HELP HER SIT ON A CHAIR. DENIES HEAD INJURY. PT NHI WEAK AND BS WAS 63. PT STATES" I DID NOT EAT TODAY. HX OF DM. PT CAME IN ALERT AND AWAKE X4, FOLLOWING COMMANDS, WITH NON LABORED BREATHING. SKIN IS DRY AND WARM TO TOUCH.
--- NOTE | 2018-10-18 13:35 | Emergency Room Report ---
History of Present Illness General Chief Complaint: Syncope Source: Patient, Medical Record Present Illness HPI Patient is an 78-year-old female presented after near syncopal episode. Patient reports having previous history of hypertension as well as diabetes. She was noted to have slightly low blood sugar when checked by EMS. Patient reports having taken her diabetes medications. She missed her afternoon blood pressure medication dosage. She denies any current complaints at this moment. She states that she feels better.Patient is taking allopurinol as well as Januvia. She does not know the name of her antihypertensive medications. She followed by Dr. Rolando Booth. She denies any vomiting or diarrhea. She denies any dysuria. She had not been having any fever. Allergies: Coded Allergies: No Known Allergies (Verified , 02/14/18) Patient History Past Medical History: see triage record Reviewed Nursing Documentation: PMH: Agreed; PSxH: Agreed Nursing Documentation-PMH Past Medical History: No History, Except For Hx Cardiac Problems: Yes Hx Hypertension: Yes Hx Diabetes: Yes Hx Cancer: No Hx Gastrointestinal Problems: No Hx Neurological Problems: No Review of Systems All Other Systems: negative except mentioned in HPI Physical Exam Vital Signs Date Time Temp Pulse Resp B/P (MAP) Pulse Ox O2 Delivery O2 Flow Rate FiO2 10/18/18 13:19 98.8 80 20 180/86 (117) 98 Room Air Sp02 EP Interpretation: reviewed, normal General Appearance: normal inspection, well appearing, alert, GCS 15 Head: atraumatic ENT: normal ENT inspection, hearing grossly normal, normal voice Neck: normal inspection, full range of motion, supple, no bony tend Respiratory: normal inspection, lungs clear, normal breath sounds, no respiratory distress, no retraction, no wheezing Cardiovascular #1: regular rate, rhythm, no edema Gastrointestinal: normal inspection, normal bowel sounds, non tender, soft, no guarding, no hernia Genitourinary: no CVA tenderness Musculoskeletal: normal inspection, back normal, normal range of motion Neurologic: normal inspection, alert, oriented x3, responsive, retail reset merchandiser III-XII nml as tested, speech normal Psychiatric: normal inspection, judgement/insight normal, mood/affect normal Skin: normal inspection, normal color, no rash Medical Decision Making Diagnostic Impression: Primary Impression: Hypoglycemia associated with diabetes Additional Impressions: Hypertension Syncope, near Anemia ER Course Patient is a 78-year-old female presented after near syncope. Differential diagnosis include was not limited to hypoglycemia, anemia, urinary tract infection, congestive heart failure among others. Because of complexity of patient's case laboratory testing and imaging studies were ordered. Patient was given medication for hypertension. She was noted to have some low blood sugar initially. She was able to tolerate oral feeding and was noted to have improved blood sugar after recheck. Patient was discussed with Dr. Fausto Merrill for transfer to [facility]. Patient appears to be stable for transfer. Labs Test 10/18/18 13:23 10/18/18 13:50 10/18/18 14:50 Sodium Level 144 MMOL/L (136-145) Potassium Level 4.2 MMOL/L (3.5-5.1) Chloride Level 108 MMOL/L (98-107) Carbon Dioxide Level 24 MMOL/L (21-32) Anion Gap 12 mmol/L (5-15) Blood Urea Nitrogen 29 mg/dL (7-18) Creatinine 2.1 MG/DL (0.55-1.30) Estimat Glomerular Filtration Rate mL/min (>60) Glucose Level 133 MG/DL (74-106) Calcium Level 9.3 MG/DL (8.5-10.1) Total Bilirubin 0.3 MG/DL (0.2-1.0) Aspartate Amino Transf (AST/SGOT) 22 U/L (15-37) Alanine Aminotransferase (ALT/SGPT) 24 U/L (12-78) Alkaline Phosphatase 41 U/L (46-116) Total Creatine Kinase 156 U/L (26-308) Creatine Kinase MB 0.9 NG/ML (0.0-3.6) Creatine Kinase MB Relative Index 0.5 Total Protein 7.2 G/DL (6.4-8.2) Albumin 3.7 G/DL (3.4-5.0) Globulin 3.5 g/dL Albumin/Globulin Ratio 1.1 (1.0-2.7) White Blood Count 6.4 K/UL (4.8-10.8) Red Blood Count 3.19 M/UL (4.20-5.40) Hemoglobin 8.7 G/DL (12.0-16.0) Hematocrit 27.7 % (37.0-47.0) Mean Corpuscular Volume 87 FL (80-99) Mean Corpuscular Hemoglobin 27.4 PG (27.0-31.0) Mean Corpuscular Hemoglobin Concent 31.5 G/DL (32.0-36.0) Red Cell Distribution Width 14.4 % (11.6-14.8) Platelet Count 172 K/UL (150-450) Mean Platelet Volume 6.9 FL (6.5-10.1) Neutrophils (%) (Auto) 73.2 % (45.0-75.0) Lymphocytes (%) (Auto) 12.1 % (20.0-45.0) Monocytes (%) (Auto) 10.9 % (1.0-10.0) Eosinophils (%) (Auto) 2.9 % (0.0-3.0) Basophils (%) (Auto) 0.9 % (0.0-2.0) Prothrombin Time 10.3 SEC (9.30-11.50) Prothromb Time International Ratio 1.0 (0.9-1.1) Activated Partial Thromboplast Time 24 SEC (23-33) D-Dimer 2.82 mg/L FEU (0.00-0.49) Troponin I 0.017 ng/mL (0.000-0.056) Urine Color Pale yellow Urine Appearance Clear Urine pH 6 (4.5-8.0) Urine Specific [place] 1.010 (1.005-1.035) Urine Protein Negative (NEGATIVE) Urine Glucose (UA) Negative (NEGATIVE) Urine Ketones Negative (NEGATIVE) Urine Blood Negative (NEGATIVE) Urine Nitrite Negative (NEGATIVE) Urine Bilirubin Negative (NEGATIVE) Urine Urobilinogen Normal MG/DL (0.0-1.0) Urine Leukocyte Esterase 1+ (NEGATIVE) Urine RBC 0-2 /HPF (0 - 2) Urine WBC 0-2 /HPF (0 - 2) Urine Squamous Epithelial Cells Occasional /LPF Urine Bacteria None /HPF (NONE) Last Vital Signs Date Time Temp Pulse Resp B/P (MAP) Pulse Ox O2 Delivery O2 Flow Rate FiO2 10/18/18 13:19 98.8 80 20 180/86 (117) 98 Room Air Status: unchanged Disposition: [facility] Condition: Stable Faisal Baker MD Oct 18, 2018 13:35
--- NOTE | 2018-10-18 13:40 | NUR ---
ED Nurse Note: SANDWICH AND JUICES GIVEN TO PT.
--- NOTE | 2018-10-18 13:51 | NUR ---
ED Nurse Note: BLOOD COLLECTED THEN SENT.
[2018-10-18 14:34] LABS: BASOPHILS % (AUTO) 0.9 % (0.0-2.0); EOSINOPHILS % (AUTO) 2.9 % (0.0-3.0); HEMATOCRIT 27.7 % (37.0-47.0); HEMOGLOBIN 8.7 G/DL (12.0-16.0); LYMPHOCYTES % (AUTO) 12.1 % (20.0-45.0); MEAN CORPUSCULAR VOLUME 87 FL (80-99); MONOCYTES % (AUTO) 10.9 % (1.0-10.0); NEUTROPHILS % (AUTO) 73.2 % (45.0-75.0); PLATELET COUNT 172 K/UL (150-450); RED BLOOD COUNT 3.19 M/UL (4.20-5.40); RED CELL DISTRIBUTION WIDTH 14.4 % (11.6-14.8); WHITE BLOOD COUNT 6.4 K/UL (4.8-10.8)
[2018-10-18 14:40] LABS: ANION GAP 12 mmol/L (5-15); BLOOD UREA NITROGEN 29 mg/dL (7-18); CALCIUM 9.3 MG/DL (8.5-10.1); CARBON DIOXIDE 24 MMOL/L (21-32); CHLORIDE 108 MMOL/L (98-107); CREATININE 2.1 MG/DL (0.55-1.30); POTASSIUM 4.2 MMOL/L (3.5-5.1); SODIUM 144 MMOL/L (136-145)
[2018-10-18 14:53] LABS: ALANINE AMINOTRANSFERASE 24 U/L (12-78); ALBUMIN 3.7 G/DL (3.4-5.0); ALBUMIN/GLOBULIN RATIO 1.1 (1.0-2.7); ALKALINE PHOSPHATASE 41 U/L (46-116); ASPARTATE AMINO TRANSFERASE 22 U/L (15-37); BILIRUBIN,TOTAL 0.3 MG/DL (0.2-1.0); CKMB 0.9 NG/ML (0.0-3.6); CREATINE KINASE 156 U/L (26-308)
--- NOTE | 2018-10-18 15:07 | NUR ---
ED Nurse Note: COLLECTED URINE THEN SENT.
[2018-10-18 15:21] LABS: APPEARANCE,URINE CLEAR; BILIRUBIN, URINE NEGATIVE (NEGATIVE); COLOR,URINE PALE YELLOW; GLUCOSE, URINE (UA) NEGATIVE (NEGATIVE); KETONES,URINE NEGATIVE (NEGATIVE); LEUKOCYTE ESTERASE ,URINE 1+ (NEGATIVE); NITRITE,URINE NEGATIVE (NEGATIVE); PH,URINE 6 (4.5-8.0); PROTEIN,URINE NEGATIVE (NEGATIVE); UROBILINOGEN,URINE NORMAL MG/DL (0.0-1.0)
[2018-10-18 15:30] VITALS: BP 167/87
--- NOTE | 2018-10-18 16:11 | NUR ---
ED Nurse Note: WARM BLANKETS PROVIDED. VSS.
--- NOTE | 2018-10-18 16:19 | Diagnostic Imaging Report ---
Indication: Pain Technique: One view of the chest Comparison: 08/10/2018 Findings: Lungs and pleural spaces are clear. The heart is upper limits normal in size enlarged. Aorta is tortuous and ectatic. Findings are unchanged Impression: No acute process
[2018-10-18 17:30] VITALS: BP 158/66
--- NOTE | 2018-10-18 19:01 | NUR ---
ED Nurse Note: PT STILL UNDECIDED IF SHE IS OKAY TO BE TRANSFERRED OUT OR SHE WILL SIGN AMA.
--- NOTE | 2018-10-18 19:06 | NUR ---
ED Nurse Note: Patient resting comfortably with no complaints. Systolic blood pressure high, ERMD informed. will administer antihypertensive.
--- NOTE | 2018-10-18 19:10 | NUR ---
HAND-OFF: Report given to MIGUEL MOSCOSO.
[2018-10-18 19:22] VITALS: BP 195/62
[2018-10-18 19:42] VITALS: BP 211/71
--- NOTE | 2018-10-18 19:58 | NUR ---
ED Nurse Note: Called over to [facility] and rendered report to Rosalio RN (pronounced Barbara). Currently awaiting arrival of transport unit.
--- NOTE | 2018-10-18 21:30 | NUR ---
[facility] just arrived.
--- NOTE | 2018-10-18 21:46 | NUR ---
ED Nurse Note: Patient cleared for tranport with elevated BP. Patient is A&Ox4, and has no s/s of acute distress.
[2018-10-18 21:47] VITALS: BP 211/71
--- NOTE | 2018-10-19 19:37 | Cardiology Report ---
APPROVED REPORT EKG Measurement Heart [id number] Normal sinus rhythm Cannot rule out Anterior infarct, age undetermined Abnormal ECG
== END 2018-10-18 21:49 | disposition short-term general hospital (02) ==
LOC: EDBD 13:19 → EMR 14:20
DX: E11.649 Type 2 diabetes mellitus with hypoglycemia without coma (principal); I10 Essential (primary) hypertension; R55 Syncope and collapse; D64.9 Anemia, unspecified
CPT/HCPCS: 36415; 71045; 80053; 81003; 82550; 82553; 82962; 84484; 85025; 85379; 85610; 85730; 93005; 96374; 99285; J0360

== ENCOUNTER → 2018-12-09 | Outpatient (CLI) | payer MEDICARE, MEDICAID ==
[2018-12-09 12:23] LABS: APPEARANCE,URINE CLEAR; BILIRUBIN, URINE NEGATIVE (NEGATIVE); COLOR,URINE PALE YELLOW; EOSINOPHILS % (AUTO) 2.8 % (0.0-3.0); GLUCOSE, URINE (UA) NEGATIVE (NEGATIVE); HEMATOCRIT 26.8 % (37.0-47.0); HEMOGLOBIN 8.2 G/DL (12.0-16.0); KETONES,URINE NEGATIVE (NEGATIVE); LEUKOCYTE ESTERASE ,URINE NEGATIVE (NEGATIVE); LYMPHOCYTES % (AUTO) 18.1 % (20.0-45.0); MEAN CORPUSCULAR VOLUME 89 FL (80-99); MONOCYTES % (AUTO) 14.2 % (1.0-10.0); NITRITE,URINE NEGATIVE (NEGATIVE); PH,URINE 5 (4.5-8.0); PLATELET COUNT 183 K/UL (150-450); PROTEIN,URINE NEGATIVE (NEGATIVE); RED BLOOD COUNT 3.01 M/UL (4.20-5.40); RED CELL DISTRIBUTION WIDTH 14.3 % (11.6-14.8); UROBILINOGEN,URINE NORMAL MG/DL (0.0-1.0)
[2018-12-09 12:44] LABS: ANION GAP 8 mmol/L (5-15); BLOOD UREA NITROGEN 29 mg/dL (7-18); CALCIUM 9.1 MG/DL (8.5-10.1); CARBON DIOXIDE 26 MMOL/L (21-32); CHLORIDE 109 MMOL/L (98-107); CHOLESTEROL 175 MG/DL (< 200); CREATININE 2.2 MG/DL (0.55-1.30); HDL CHOLESTEROL 82 MG/DL (40-60); PHOSPHORUS 3.7 MG/DL (2.5-4.9); POTASSIUM 4.3 MMOL/L (3.5-5.1); SODIUM 142 MMOL/L (136-145); TRIGLYCERIDES 71 MG/DL (30-150)
== END | disposition home or self-care (01) ==
LOC: LAB 10:37
DX: E11.9 Type 2 diabetes mellitus without complications (principal); I12.0 Hypertensive chronic kidney disease with stage 5 chronic kidney disease or end stage renal disease; E11.22 Type 2 diabetes mellitus with diabetic chronic kidney disease; N18.6 End stage renal disease
CPT/HCPCS: 36415; 80048; 80061; 81001; 82306; 83970; 84100; 84443; 85025

== ENCOUNTER 2018-12-13 09:55 | Emergency (ER) | payer MEDICARE, MEDICAID ==
[~2018-12-13] VITALS: Ht 157.5 cm; Wt 66.7 kg
[2018-12-13 10:00] VITALS: BP 164/80
[2018-12-13] MEDS ORDERED: PRAVASTATIN SOD40 M1 ORAL (10:00)
[2018-12-13] MEDS ORDERED: JANUVIA100 MG ORAL (10:00)
[2018-12-13] MEDS ORDERED: GLIPIZIDE10 MG PO (10:00)
[2018-12-13] MEDS ORDERED: MINOXIDIL2.5 MG PO (10:00)
[2018-12-13] MEDS ORDERED: CARVEDILOL3.125 MG ORAL (10:00)
[2018-12-13] MEDS ORDERED: FUROSEMIDE20 M1 ORAL (10:00)
--- NOTE | 2018-12-13 10:00 | NUR ---
ED Nurse Note: pt brought in to ER by ambulance from home due to N/V for 5 days. per pt, last time she had a meal was Sunday12/09/18. pt reported N/V with white saliva but no abdominal pain. pt aao x4 and ambulatory with a cane. calm and cooperative. pt is in gown and on child monitor. vs reported to ERMD at the bedside and documented. skin clean and intact. no acute distress noted at this time. no vomiting at this moment.
[2018-12-13 10:19] LABS: BASOPHILS % (AUTO) 1.8 % (0.0-2.0); EOSINOPHILS % (AUTO) 0.1 % (0.0-3.0); HEMATOCRIT 32.8 % (37.0-47.0); HEMOGLOBIN 10.3 G/DL (12.0-16.0); LYMPHOCYTES % (AUTO) 6.2 % (20.0-45.0); MEAN CORPUSCULAR VOLUME 88 FL (80-99); MONOCYTES % (AUTO) 11.1 % (1.0-10.0); NEUTROPHILS % (AUTO) 80.7 % (45.0-75.0); PLATELET COUNT 210 K/UL (150-450); RED BLOOD COUNT 3.74 M/UL (4.20-5.40); RED CELL DISTRIBUTION WIDTH 14.4 % (11.6-14.8); WHITE BLOOD COUNT 9.8 K/UL (4.8-10.8)
--- NOTE | 2018-12-13 10:24 | NUR ---
ED Nurse Note: pt unable to urinate for sample at this moment. will try again after more fluid run.
[2018-12-13 10:27] LABS: BLOOD UREA NITROGEN 34 mg/dL (7-18); CARBON DIOXIDE 22 MMOL/L (21-32); CHLORIDE 110 MMOL/L (98-107); CREATININE 2.3 MG/DL (0.55-1.30); POTASSIUM 3.9 MMOL/L (3.5-5.1); SODIUM 130 MMOL/L (136-145)
[2018-12-13 10:31] LABS: ALANINE AMINOTRANSFERASE 48 U/L (12-78); ALBUMIN 3.9 G/DL (3.4-5.0); ALKALINE PHOSPHATASE 46 U/L (46-116); ASPARTATE AMINO TRANSFERASE 45 U/L (15-37); BILIRUBIN,TOTAL 0.9 MG/DL (0.2-1.0)
--- NOTE | 2018-12-13 10:36 | Emergency Room Report ---
History of Present Illness General Chief Complaint: Vomiting Source: Patient Present Illness HPI Disclaimer: Please note that this report is being documented using DRAGON technology. This can lead to erroneous entry secondary to incorrect interpretation by the dictating instrument. HPI: 78-year-old female history of diabetes, hypertension, hyperlipidemia, chronic kidney disease presents for evaluation of vomiting. Symptoms have been present for approximately 5 days. Notes decreased appetite, anorexia, persistent vomiting with solids and liquids. Only able to tolerate small sips. She denies abdominal pain. Denies fever, chills. Does note fatigue. Denies headaches, vision changes, neck or back pain, chest pain, shortness of breath, dysuria, hematuria, diarrhea, breakdown or rash. PMH: Hypertension, hyperlipidemia, diabetes, chronic kidney disease PSH: As directed me Allergies: Denies Social Hx: Denies drug, alcohol or tobacco use Allergies: Coded Allergies: No Known Allergies (Verified , 02/14/18) Nursing Documentation-PMH Hx Cardiac Problems: Yes - HYPERLIPIDEMIA Hx Hypertension: Yes Hx Diabetes: Yes Hx Cancer: No Hx Gastrointestinal Problems: No Hx Neurological Problems: No Review of Systems All Other Systems: negative except mentioned in HPI Physical Exam Vital Signs Date Time Temp Pulse Resp B/P (MAP) Pulse Ox O2 Delivery O2 Flow Rate FiO2 12/13/18 09:44 98.2 99 20 164/80 (108) 98 Room Air General: Awake and alert, no acute distress, does appear fatigued HEENT: NC/AT. EOMI. eyes somewhat sunken. Dry mucous membranes Cardiovascular: RRR. S1 and S2 normal. No murmur appreciated Resp: Normal work of breathing. No cough, wheezing or crackles appreciated Abdomen: Abdomen is soft, nondistended. Nontender Skin: Intact. No abrasions, laceration or rash over the exposed skin MSK: Normal tone and bulk. Moving all extremities. No obvious deformity. Neuro: Awake and alert. Mentating appropriately. Medical Decision Making Diagnostic Impression: Primary Impression: Dehydration Additional Impressions: Vomiting Tachycardia ER Course IV fluids, antiemetics. Labs including lactate. May require admission. IV fluids started. Laboratory Tests Test 12/13/18 10:10 12/13/18 11:00 12/13/18 11:40 White Blood Count 9.8 K/UL (4.8-10.8) Red Blood Count 3.74 M/UL (4.20-5.40) L Hemoglobin 10.3 G/DL (12.0-16.0) L Hematocrit 32.8 % (37.0-47.0) L Mean Corpuscular Volume 88 FL (80-99) Mean Corpuscular Hemoglobin 27.5 PG (27.0-31.0) Mean Corpuscular Hemoglobin Concent 31.3 G/DL (32.0-36.0) L Red Cell Distribution Width 14.4 % (11.6-14.8) Platelet Count 210 K/UL (150-450) Mean Platelet Volume 6.4 FL (6.5-10.1) L Neutrophils (%) (Auto) 80.7 % (45.0-75.0) H Lymphocytes (%) (Auto) 6.2 % (20.0-45.0) L Monocytes (%) (Auto) 11.1 % (1.0-10.0) H Eosinophils (%) (Auto) 0.1 % (0.0-3.0) Basophils (%) (Auto) 1.8 % (0.0-2.0) Sodium Level 130 MMOL/L (136-145) L Potassium Level 3.9 MMOL/L (3.5-5.1) Chloride Level 110 MMOL/L (98-107) H Carbon Dioxide Level 22 MMOL/L (21-32) Blood Urea Nitrogen 34 mg/dL (7-18) H Creatinine 2.3 MG/DL (0.55-1.30) H Estimat Glomerular Filtration Rate mL/min (>60) Glucose Level 153 MG/DL (74-106) H Lactic Acid Level 2.20 mmol/L (0.4-2.0) H 1.50 mmol/L (0.66-2.22) Calcium Level 10.0 MG/DL (8.5-10.1) Total Bilirubin 0.9 MG/DL (0.2-1.0) Aspartate Amino Transf (AST/SGOT) 45 U/L (15-37) H Alanine Aminotransferase (ALT/SGPT) 48 U/L (12-78) Alkaline Phosphatase 46 U/L (46-116) Total Protein 7.9 G/DL (6.4-8.2) Albumin 3.9 G/DL (3.4-5.0) Globulin 4.0 g/dL Albumin/Globulin Ratio 1.0 (1.0-2.7) Lipase 78 U/L (73-393) Urine Color Pale yellow Urine Appearance Clear Urine pH 5 (4.5-8.0) Urine Specific [place] 1.020 (1.005-1.035) Urine Protein 2+ (NEGATIVE) H Urine Glucose (UA) Negative (NEGATIVE) Urine Ketones 2+ (NEGATIVE) H Urine Blood 1+ (NEGATIVE) H Urine Nitrite Negative (NEGATIVE) Urine Bilirubin Negative (NEGATIVE) Urine Urobilinogen Normal MG/DL (0.0-1.0) Urine Leukocyte Esterase 2+ (NEGATIVE) H Urine RBC 0-2 /HPF (0 - 2) Urine WBC 2-4 /HPF (0 - 2) Urine Squamous Epithelial Cells Few /LPF (NONE/OCC) Urine Bacteria Few /HPF (NONE) Reevaluation Time: 12:13 Last Vital Signs Date Time Temp Pulse Resp B/P (MAP) Pulse Ox O2 Delivery O2 Flow Rate FiO2 12/13/18 10:00 98.2 98 20 164/80 98 Room Air Status: unchanged Reevaluation Impression Patient receiving IV fluids for her elevated lactate. Creatinine is elevated at 2.3 however this to close the patient's baseline. She is hyponatremic consistent with dehydration. She is somewhat improved symptomatically though remains tachycardic around 100 - 105 bpm. She continues to receive IV fluids. Urinalysis shows 2+ leukocyte esterase but few white cells no bacteria. Will send for confirmatory culture but since she is asymptomatic we will elect not to treat at this time. The patient will be transferred to inpatient facility for IV fluid hydration and further management. [facility] Condition: Serious Ozzie Odonnell MD Dec 13, 2018 10:36
[2018-12-13 11:25] LABS: APPEARANCE,URINE CLEAR; BILIRUBIN, URINE NEGATIVE (NEGATIVE); COLOR,URINE PALE YELLOW; GLUCOSE, URINE (UA) NEGATIVE (NEGATIVE); KETONES,URINE 2+ (NEGATIVE); LEUKOCYTE ESTERASE ,URINE 2+ (NEGATIVE); NITRITE,URINE NEGATIVE (NEGATIVE); PH,URINE 5 (4.5-8.0); PROTEIN,URINE 2+ (NEGATIVE); UROBILINOGEN,URINE NORMAL MG/DL (0.0-1.0)
[2018-12-13 12:00] VITALS: BP 171/75
--- NOTE | 2018-12-13 13:10 | NUR ---
ED Nurse Note: spoke with [facility] [employer] case worker to give clinical info for pending transfer. Nawaf states his md will call ours for md to md report
--- NOTE | 2018-12-13 14:00 | NUR ---
ED Nurse Note: reported to ERMD high BP 178/81mmHg.
--- NOTE | 2018-12-13 14:34 | NUR ---
ED Nurse Note: EMS arrived and report given to EMS.
--- NOTE | 2018-12-13 14:41 | NUR ---
ED Nurse Note: report given to Ray at [facility].
--- NOTE | 2018-12-13 14:44 | NUR ---
ED Nurse Note: pt left facility with 2 EMS in stable condition.
[2018-12-13 14:45] VITALS: BP 171/82
== END 2018-12-13 14:45 | disposition short-term general hospital (02) ==
LOC: EDBD 09:55 → EMR 10:52
DX: R11.10 Vomiting, unspecified (principal); E86.0 Dehydration; R00.0 Tachycardia, unspecified; I12.9 Hypertensive chronic kidney disease with stage 1 through stage 4 chronic kidney disease, or unspecified chronic kidney disease; E11.22 Type 2 diabetes mellitus with diabetic chronic kidney disease; N18.9 Chronic kidney disease, unspecified; E78.5 Hyperlipidemia, unspecified
CPT/HCPCS: 36415; 80053; 81003; 83605; 83690; 85025; 93005; 96361; 96374; 99285; J2405

== ENCOUNTER 2018-12-27 07:28 | Inpatient (IN) | payer MEDICARE, MEDICAID ==
[~2018-12-27] VITALS: Ht 154.9 cm; Wt 67.3 kg
[~2018-12-27 07:28] MED LIST changes: +CARVEDILOL3.125 MG ORAL; +FUROSEMIDE20 M1 ORAL; +GLIPIZIDE10 MG PO; +JANUVIA100 MG ORAL; +MINOXIDIL2.5 MG PO; +PRAVASTATIN SOD40 M1 ORAL
[2018-12-27 07:50] VITALS: BP 171/74
[2018-12-27 08:06] LABS: BASOPHILS % (AUTO) 1.4 % (0.0-2.0); EOSINOPHILS % (AUTO) 2.6 % (0.0-3.0); HEMATOCRIT 25.6 % (37.0-47.0); LYMPHOCYTES % (AUTO) 15.5 % (20.0-45.0); MEAN CORPUSCULAR VOLUME 87 FL (80-99); MONOCYTES % (AUTO) 16.1 % (1.0-10.0); NEUTROPHILS % (AUTO) 64.4 % (45.0-75.0); PLATELET COUNT 192 K/UL (150-450); RED BLOOD COUNT 2.95 M/UL (4.20-5.40); WHITE BLOOD COUNT 5.2 K/UL (4.8-10.8)
[2018-12-27 08:15] LABS: ANION GAP 9 mmol/L (5-15); BLOOD UREA NITROGEN 22 mg/dL (7-18); CALCIUM 9.6 MG/DL (8.5-10.1); CARBON DIOXIDE 25 MMOL/L (21-32); CHLORIDE 107 MMOL/L (98-107); CREATININE 2.6 MG/DL (0.55-1.30); POTASSIUM 4.5 MMOL/L (3.5-5.1); SODIUM 141 MMOL/L (136-145)
[2018-12-27 08:17] LABS: APPEARANCE,URINE CLEAR; BILIRUBIN, URINE NEGATIVE (NEGATIVE); GLUCOSE, URINE (UA) NEGATIVE (NEGATIVE); KETONES,URINE NEGATIVE (NEGATIVE); LEUKOCYTE ESTERASE ,URINE 1+ (NEGATIVE); NITRITE,URINE NEGATIVE (NEGATIVE); PH,URINE 5 (4.5-8.0); PROTEIN,URINE 1+ (NEGATIVE); UROBILINOGEN,URINE NORMAL MG/DL (0.0-1.0)
[2018-12-27 08:18] LABS: COLOR,URINE YELLOW
[2018-12-27 08:30] LABS: ALANINE AMINOTRANSFERASE 28 U/L (12-78); ALBUMIN 3.8 G/DL (3.4-5.0); ALKALINE PHOSPHATASE 53 U/L (46-116); ASPARTATE AMINO TRANSFERASE 25 U/L (15-37); BILIRUBIN,TOTAL 0.5 MG/DL (0.2-1.0); CKMB < 0.5 NG/ML (0.0-3.6); CREATINE KINASE 89 U/L (26-308)
--- NOTE | 2018-12-27 08:56 | Emergency Room Report ---
History of Present Illness General Chief Complaint: Edema Source: Medical Record Present Illness HPI 78-year-old female presents ED for evaluation. Patient referred by PMD. States she has been having increased swelling in her arms and legs. Also notes some occasional shortness of breath. Denies chest pain. States that she takes a "water pill". Denies fevers or chills. No other aggravating relieving factors. Denies any other associated symptoms Allergies: Coded Allergies: No Known Allergies (Verified , 02/14/18) Patient History Past Medical History: HTN, CHF Past Surgical History: none Pertinent Family History: none Social History: Denies: smoking, alcohol use, drug use Now: No Immunizations: UTD Reviewed Nursing Documentation: PMH: Agreed; PSxH: Agreed Nursing Documentation-PMH Past Medical History: No History, Except For Hx Cardiac Problems: Yes - HYPERLIPIDEMIA Hx Hypertension: Yes Hx Diabetes: Yes Hx Cancer: No Hx Gastrointestinal Problems: No Hx Neurological Problems: No Review of Systems All Other Systems: negative except mentioned in HPI Physical Exam Vital Signs Date Time Temp Pulse Resp B/P (MAP) Pulse Ox O2 Delivery O2 Flow Rate FiO2 12/27/18 07:32 98.8 81 18 171/74 (106) 96 Room Air Sp02 EP Interpretation: reviewed, normal General Appearance: no apparent distress, alert, GCS 15, non-toxic Head: normocephalic Eyes: bilateral eye normal inspection, bilateral eye PERRL ENT: normal ENT inspection Neck: normal inspection Respiratory: chest non-tender, lungs clear, normal breath sounds, speaking full sentences Cardiovascular #1: regular rate, rhythm, no edema Gastrointestinal: normal bowel sounds, non tender, soft, non-distended, no guarding, no rebound Rectal: deferred Genitourinary: no CVA tenderness Musculoskeletal: swelling - 2+ pitting edema b/l LEs Neurologic: alert, oriented x3, responsive, motor strength/tone normal, sensory intact, speech normal Psychiatric: normal inspection Skin: other - see nursing notes Lymphatic: normal inspection Medical Decision Making Diagnostic Impression: Primary Impression: Renal failure (ARF), acute on chronic Qualified Codes: N17.9 - Acute kidney failure, unspecified; N18.9 - Chronic kidney disease, unspecified Additional Impressions: CHF (congestive heart failure) Qualified Codes: I50.9 - Heart failure, unspecified Peripheral edema ER Course Hospital Course 78 yo F presents to ED with SOB, leg swelling Differential diagnoses include: KS/unstable angina, contusion, muscle strain, PTX, rib fracture Clinical course Patient placed on stretcher. on box nailer. After initial history and physical I ordered labs, EKG, chest x-ray labs reviewed- no leukocytosis, hemoglobin/hematocrit stable, BUN/Cr elevated, trop negative, BNP elevated EKG - NSR, no acute ischemic changes interpreted by me Chest x-ray- cardiomegaly Lasix given. Case discussed with Dr. Tao (due to insurance) and he agreed to accept the patient to his service for further care and support I. I feel this is a highly complex case requiring extensive working including EKG/Rhythm strip, Xray/CT/US, Blood/urine lab work, repeat exams while in ED, and administration of strong opiates/narcotics for pain control, admission to hospital or close patient follow up. Diagnosis - CHF, acute on chronic renal failure, peripheral edema admitted to telemetry in serious condition Labs Test 12/27/18 07:56 12/27/18 08:07 White Blood Count 5.2 K/UL (4.8-10.8) Red Blood Count 2.95 M/UL (4.20-5.40) Hemoglobin 8.0 G/DL (12.0-16.0) Hematocrit 25.6 % (37.0-47.0) Mean Corpuscular Volume 87 FL (80-99) Mean Corpuscular Hemoglobin 27.1 PG (27.0-31.0) Mean Corpuscular Hemoglobin Concent 31.3 G/DL (32.0-36.0) Red Cell Distribution Width 14.0 % (11.6-14.8) Platelet Count 192 K/UL (150-450) Mean Platelet Volume 5.3 FL (6.5-10.1) Neutrophils (%) (Auto) 64.4 % (45.0-75.0) Lymphocytes (%) (Auto) 15.5 % (20.0-45.0) Monocytes (%) (Auto) 16.1 % (1.0-10.0) Eosinophils (%) (Auto) 2.6 % (0.0-3.0) Basophils (%) (Auto) 1.4 % (0.0-2.0) Sodium Level 141 MMOL/L (136-145) Potassium Level 4.5 MMOL/L (3.5-5.1) Chloride Level 107 MMOL/L (98-107) Carbon Dioxide Level 25 MMOL/L (21-32) Anion Gap 9 mmol/L (5-15) Blood Urea Nitrogen 22 mg/dL (7-18) Creatinine 2.6 MG/DL (0.55-1.30) Estimat Glomerular Filtration Rate mL/min (>60) Glucose Level 147 MG/DL (74-106) Calcium Level 9.6 MG/DL (8.5-10.1) Total Bilirubin 0.5 MG/DL (0.2-1.0) Aspartate Amino Transf (AST/SGOT) 25 U/L (15-37) Alanine Aminotransferase (ALT/SGPT) 28 U/L (12-78) Alkaline Phosphatase 53 U/L (46-116) Total Creatine Kinase 89 U/L (26-308) Creatine Kinase MB < 0.5 NG/ML (0.0-3.6) Creatine Kinase MB Relative Index 0.5 Troponin I 0.000 ng/mL (0.000-0.056) Pro-B-Type Natriuretic Peptide 2651 pg/mL (0-125) Total Protein 7.5 G/DL (6.4-8.2) Albumin 3.8 G/DL (3.4-5.0) Globulin 3.7 g/dL Albumin/Globulin Ratio 1.0 (1.0-2.7) Urine Color Yellow Urine Appearance Clear Urine pH 5 (4.5-8.0) Urine Specific [place] 1.025 (1.005-1.035) Urine Protein 1+ (NEGATIVE) Urine Glucose (UA) Negative (NEGATIVE) Urine Ketones Negative (NEGATIVE) Urine Blood Negative (NEGATIVE) Urine Nitrite Negative (NEGATIVE) Urine Bilirubin Negative (NEGATIVE) Urine Urobilinogen Normal MG/DL (0.0-1.0) Urine Leukocyte Esterase 1+ (NEGATIVE) Urine RBC 0 /HPF (0 - 2) Urine WBC 2-4 /HPF (0 - 2) Urine Squamous Epithelial Cells Few /LPF (NONE/OCC) Urine Bacteria Few /HPF (NONE) EKG Diagnostic Results Rate: normal Rhythm: NSR ST Segments: no acute changes ASA given to the pt in ED: No Rhythm Strip Diag. Results EP Interpretation: yes Rhythm: NSR, no PVC's, no ectopy Chest X-Ray Diagnostic Results Chest X-Ray Diagnostic Results : Chest X-Ray Ordered: Yes # of Views/Limited/Complete: 1 View Indication: Shortness of Breath EP Interpretation: Yes Interpretation: no consolidation, no pneumothorax, other - cardiomegaly Impression: Other - chf Electronically Signed by: Electronically signed by Jens Reed MD Last Vital Signs Date Time Temp Pulse Resp B/P (MAP) Pulse Ox O2 Delivery O2 Flow Rate FiO2 12/27/18 07:50 81 18 Room Air 12/27/18 07:50 98.8 171/74 96 Status: improved Disposition: ADMITTED INPATIENT Condition: Serious Referrals: Rolando Booth MD (PCP) Jens Reed MD Dec 27, 2018 08:56
[2018-12-27 09:30] VITALS: BP 133/72
[2018-12-27 10:40] VITALS: BP 138/71
--- NOTE | 2018-12-27 12:03 | Diagnostic Imaging Report ---
Indication: Dyspnea Comparison: 10/18/2018 A single view chest radiograph was obtained. Findings: Interstitial and pulmonary vascular prominence demonstrated. Heart is enlarged. Bones are osteopenic. IMPRESSION: Suspected mild interstitial edema. Correlate clinically
[2018-12-27 12:36] VITALS: BP 134/69
[2018-12-27] MEDS ORDERED: HydrALAZINE 50mg tab ORAL SCH (14:00)
[2018-12-27] MEDS ORDERED: HydrALAZINE 25mg tab ORAL SCH (14:00)
[2018-12-27 16:00] VITALS: BP 130/54
--- NOTE | 2018-12-27 16:30 | Consultation ---
Consult Note Consult Note I was asked to evaluate the patient at the request of Dr Tao for renal failure- Patient known to me from her previous admission 78-year-old female presents ED for evaluation. Patient referred by PMD. States she has been having increased swelling in her arms and legs. Also notes some occasional shortness of breath. Denies chest pain. States that she takes a "water pill". Denies fevers or chills. No other aggravating relieving factors. Denies any other associated symptoms No Known Allergies (Verified , 02/14/18) Past Medical History: HTN, CHF Past Medical History: No History, Except For Hx Cardiac Problems: Yes - HYPERLIPIDEMIA Hx Hypertension: Yes Hx Diabetes: Yes admitted for worsening renal failure and CHF patient interviewed and examined data reviewed . Assessment/Plan (1) Acute kidney failure (2) Renal failure (ARF), acute on chronic (3) Hypertensive kidney disease (4) h/o NSTEMI (non-ST elevated myocardial infarction) (5) Dehydration (6) Anemia of CKD (7) Diabetic Nephropathy 2D Echo- Kidney [facility] urine Eosinophils Monitor renal parameters Optimize cardiac status EPO SQ Wilfredo Will MD Dec 27, 2018 16:30
--- NOTE | 2018-12-27 16:30 | History and Physical Report ---
DATE OF ADMISSION: 12/27/2018 CHIEF COMPLAINT: Worsening lower extremity edema. HISTORY OF PRESENT ILLNESS: The patient is a 78-year-old female. She has a history of chronic kidney disease, hypertension, ischemic cardiomyopathy and diabetes presented with complaints of worsening lower extremity edema for the last 4 months. According to the patient, she has noted lower extremity edema that started in July of this year. She is a poor historian. She is unaware of any recent changes in medications or changes in diet. Because of worsening lower extremity edema, she has now been placed on observation for further evaluation and care. She denies any orthopnea. She has had no PND. She denies any dyspnea on exertion. Again, she is a poor historian. She is unaware of the names or doses of her medications and she is unclear of any recent changes. PAST MEDICAL HISTORY: As above. PAST SURGICAL HISTORY: Includes a hip replacement. CURRENT MEDICATIONS: Reconciled and reviewed. ALLERGIES: None. FAMILY HISTORY: Significant for hypertension. SOCIAL HISTORY: Negative for tobacco, ethanol, or drugs. REVIEW OF SYSTEMS: Unremarkable except for lower extremity edema. PHYSICAL EXAMINATION: VITAL SIGNS: Temperature 98 degrees, blood pressure 134/69, pulse 66, respirations 18. GENERAL: The patient is a well-developed female, in no apparent distress. She is awake, alert, and oriented x4. NECK: Supple. HEART: Regular rate and rhythm. LUNGS: Clear. ABDOMEN: Soft, nontender, and nondistended. EXTREMITIES: Significant for 2+ pitting edema. LABORATORY DATA: White count 5, hemoglobin 8, hematocrit 25, platelet count of 182. Sodium 141, potassium 4.5, BUN 22, creatinine is 2.6. EKG shows showed sinus rhythm without any acute ST-T wave changes. ASSESSMENT: This is a pleasant elderly female with history of hypertension, diabetes, chronic kidney disease, ischemic cardiomyopathy admitted with complaints of worsening lower extremity edema, suspect due to venous insufficiency. PLAN: Cautious diuresis with close monitoring of renal function. Renal consultation will be obtained. We will try to get family to bring the patient's medications. We will continue cardiac diabetic diet. Dietary education regarding salt restriction will also be obtained. Loc Tao M.D. DR: Jens JOB#: [id number] CC:
[2018-12-27] MEDS: NovoLOG Insulin Flexpen SUBQ SCH ×2 (17:15→21:00)
[2018-12-27] MEDS: Docusate 100mg cap ORAL SCH (17:16)
--- NOTE | 2018-12-27 19:16 | Diagnostic Imaging Report ---
EXAM: US Abdomen Complete CLINICAL HISTORY: RENAL-A TECHNIQUE: Real-time ultrasound of the abdomen (complete) with image documentation. COMPARISON: Ultrasound retroperitoneal 08/12/18. FINDINGS: Liver: Visualized liver and spleen are unremarkable. No intrahepatic bile duct dilation. Gallbladder: Unremarkable. No gallstones. Common bile duct: Unremarkable as visualized. No stones. No dilation. Pancreas: Unremarkable as visualized. Kidneys: Kidneys are unremarkable with no stones, masses or hydronephrosis. Right kidney measures 7.7 cm in length. Left kidney measures 8.2 cm right. Spleen: See above. Aorta: Unremarkable. No aneurysm. Inferior vena cava: Unremarkable. Lymph nodes: No mass or adenopathy. Free fluid: No ascites. Pleural space: Incidental finding of bilateral pleural effusions. Tubes, lines and devices: Tran catheter is seen within the decompressed bladder. IMPRESSION: No renal stones, masses or hydronephrosis. Incidental pleural effusions bilaterally.
[2018-12-27 21:00] VITALS: BP 143/59
[2018-12-27] MEDS: Epoetin Alfa-EPBX (NON ESRD)10,000 unit/ml vial SUBQ SCH (21:20)
[2018-12-27] MEDS: Carvedilol 12.5mg tab ORAL SCH (21:21)
[2018-12-27] MEDS: HydrALAZINE 25mg tab ORAL SCH (21:21)
[2018-12-27] MEDS: Tamsulosin 0.4mg cap ORAL SCH (21:26)
[2018-12-28] VITALS (7 sets, daily range): BP systolic 123–140; BP diastolic 47–57
[2018-12-28] MEDS: HydrALAZINE 25mg tab ORAL SCH ×3 (05:50→22:05)
[2018-12-28] MEDS: GlipiZIDE 5mg tab ORAL SCH (05:50)
[2018-12-28] MEDS: NovoLOG Insulin Flexpen SUBQ SCH ×4 (06:30→22:09)
[2018-12-28 08:13] LABS: ALANINE AMINOTRANSFERASE 24 U/L (12-78); ALBUMIN 3.1 G/DL (3.4-5.0); ALBUMIN/GLOBULIN RATIO 0.9 (1.0-2.7); ALKALINE PHOSPHATASE 45 U/L (46-116); ANION GAP 9 mmol/L (5-15); ASPARTATE AMINO TRANSFERASE 21 U/L (15-37); BILIRUBIN,TOTAL 0.4 MG/DL (0.2-1.0); BLOOD UREA NITROGEN 24 mg/dL (7-18); CALCIUM 9.2 MG/DL (8.5-10.1); CARBON DIOXIDE 25 MMOL/L (21-32); CHLORIDE 107 MMOL/L (98-107); CHOLESTEROL 173 MG/DL (< 200); CREATININE 2.5 MG/DL (0.55-1.30); FERRITIN 155 NG/ML (8-388); HDL CHOLESTEROL 69 MG/DL (40-60); POTASSIUM 4.2 MMOL/L (3.5-5.1); SODIUM 141 MMOL/L (136-145); TRIGLYCERIDES 79 MG/DL (30-150)
[2018-12-28 08:15] LABS: % IRON SATURATION 9 % (15-50); IRON 16 ug/dL (50-175); TOTAL IRON BINDING CAPACITY 186 ug/dL (250-450)
--- NOTE | 2018-12-28 08:15 | General Progress Note ---
Assessment/Plan Problem List: (1) Acute kidney failure ICD Codes: N17.9 - Acute kidney failure, unspecified SNOMED: 36941448 (2) Hypertensive emergency ICD Codes: I16.1 - Hypertensive emergency SNOMED: 218638519837544 (3) Renal failure (ARF), acute on chronic ICD Codes: N17.9 - Acute kidney failure, unspecified; N18.9 - Chronic kidney disease, unspecified SNOMED: 168320638 Qualifiers: Qualified Codes: N17.9 - Acute kidney failure, unspecified; N18.9 - Chronic kidney disease, unspecified (4) Peripheral edema ICD Codes: R60.9 - Edema, unspecified SNOMED: 655975235 (5) CHF (congestive heart failure) ICD Codes: I50.9 - Heart failure, unspecified SNOMED: 16888343 Qualifiers: Qualified Codes: I50.9 - Heart failure, unspecified Status: stable Assessment/Plan: pt/ot eval same bp rx cautious diuretic rx snf eval per pt request Subjective ROS Limited/Unobtainable: No Constitutional: Reports: malaise, weakness HEENT: Reports: no symptoms Cardiovascular: Reports: no symptoms Respiratory: Reports: no symptoms Gastrointestinal/Abdominal: Reports: no symptoms Genitourinary: Reports: no symptoms Neurologic/Psychiatric: Reports: no symptoms Endocrine: Reports: no symptoms Hematologic/Lymphatic: Reports: no symptoms Allergies: Coded Allergies: No Known Allergies (Verified , 02/14/18) All Systems: reviewed and negative except above Subjective leg swelling mostly resolved. BP controlled. states she cant go home because she is "too weak." lives alone. will go to snf. Objective Last 24 Hour Vital Signs Date Time Temp Pulse Resp B/P (MAP) Pulse Ox O2 Delivery O2 Flow Rate FiO2 12/28/18 05:50 136/56 12/28/18 04:00 68 12/28/18 04:00 98.3 68 18 136/56 (82) 94 12/28/18 03:50 69 20 134/54 (80) 94 12/28/18 00:00 98.7 77 18 140/47 (78) 94 12/28/18 00:00 72 12/27/18 21:21 143/59 12/27/18 21:21 78 143/59 12/27/18 21:00 98.8 78 19 143/59 (87) 94 8/30/19 21:00 Room Air 12/27/18 20:00 73 12/27/18 16:00 97.6 72 18 130/54 (79) 92 12/27/18 15:32 71 12/27/18 14:06 134/69 12/27/18 12:52 Room Air 12/27/18 12:36 97.7 66 18 134/69 (90) 94 12/27/18 10:50 98.8 73 17 138/71 100 Room Air 12/27/18 10:40 98.8 73 17 138/71 100 Room Air 12/27/18 09:30 98.8 78 16 133/72 96 Room Air Intake and Output 12/27/18 12/28/18 18:59 06:59 Intake Total 500 ml Output Total 1700 ml Balance -1200 ml Intake Oral 500 ml Output Urine Total 1700 ml # Voids 1 2 # Bowel Movements 2 Laboratory Tests 12/28/18 05:47: Sodium Level [Pending], Potassium Level [Pending], Chloride Level [Pending], Carbon Dioxide Level [Pending], Blood Urea Nitrogen [Pending], Creatinine [ Pending], Estimat Glomerular Filtration Rate [Pending], Glucose Level [Pending] , Hemoglobin A1c [Pending], Uric Acid [Pending], Calcium Level [Pending], Phosphorus Level [Pending], Magnesium Level [Pending], Iron Level [Pending], Unsaturated Iron Binding [Pending], Ferritin [Pending], Total Bilirubin [Pending ], Gamma Glutamyl Transpeptidase [Pending], Aspartate Amino Transf (AST/SGOT) [ Pending], Alanine Aminotransferase (ALT/SGPT) [Pending], Alkaline Phosphatase [ Pending], C-Reactive Protein, Quantitative [Pending], Pro-B-Type Natriuretic Peptide [Pending], Total Protein [Pending], Albumin [Pending], Globulin [Pending ], Triglycerides Level [Pending], Cholesterol Level [Pending], LDL Cholesterol [ Pending], HDL Cholesterol [Pending], Cholesterol/HDL Ratio [Pending], Folate [ Pending], Thyroid Stimulating Hormone (TSH) [Pending] Height (Feet): 5 Height (Inches): 1.00 Weight (Pounds): 154 General Appearance: WD/WN, alert Neck: supple Cardiovascular: regular rhythm Respiratory/Chest: chest wall non-tender, lungs clear, normal breath sounds Abdomen: normal bowel sounds, non tender, soft, no organomegaly Edema: no edema noted Arm (L), no edema noted Arm (R), no edema noted Leg (L), no edema noted Leg (R), no edema noted Pedal (L), no edema noted Pedal (R), no edema noted 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
[2018-12-28 08:23] LABS: GAMMA GLUTAMYL TRANSPEPTIDASE 50 U/L (5-85); PHOSPHORUS 4.3 MG/DL (2.5-4.9)
[2018-12-28] MEDS: Aspirin EC 81mg tab ORAL SCH (08:46)
[2018-12-28] MEDS: Carvedilol 12.5mg tab ORAL SCH ×2 (08:46→22:06)
[2018-12-28] MEDS: sitaGLIPtin 25mg tab ORAL SCH (08:46)
[2018-12-28] MEDS: Docusate 100mg cap ORAL SCH ×3 (08:46→18:42)
[2018-12-28] MEDS ORDERED: Minoxidil 2.5mg tab ORAL SCH (09:00)
--- NOTE | 2018-12-28 10:12 | Nephrology Progress Note ---
Assessment/Plan Problem List: (1) Renal failure (ARF), acute on chronic (2) Diabetic nephropathy (3) Hypertensive kidney disease (4) Anemia in chronic kidney disease (CKD) Assessment (1) Acute kidney failure (2) Renal failure (ARF), acute on chronic (3) Hypertensive kidney disease (4) h/o NSTEMI (non-ST elevated myocardial infarction) (5) Dehydration (6) Anemia of CKD (7) Diabetic Nephropathy Plan IV Iron SQ EPO waiting results of -2D Echo - [facility] Subjective ROS Limited/Unobtainable: No Constitutional: Reports: malaise, weakness Objective Objective Last 24 Hour Vital Signs Date Time Temp Pulse Resp B/P (MAP) Pulse Ox O2 Delivery O2 Flow Rate FiO2 12/28/18 09:00 Room Air 12/28/18 08:46 76 128/57 12/28/18 08:00 72 12/28/18 08:00 98.9 76 18 128/57 (80) 95 12/28/18 05:50 136/56 12/28/18 04:00 68 12/28/18 04:00 98.3 68 18 136/56 (82) 94 12/28/18 03:50 69 20 134/54 (80) 94 12/28/18 00:00 98.7 77 18 140/47 (78) 94 12/28/18 00:00 72 12/27/18 21:21 143/59 12/27/18 21:21 78 143/59 12/27/18 21:00 98.8 78 19 143/59 (87) 94 12/27/18 21:00 Room Air 12/27/18 20:00 73 12/27/18 16:00 97.6 72 18 130/54 (79) 92 12/27/18 15:32 71 12/27/18 14:06 134/69 12/27/18 12:52 Room Air 12/27/18 12:36 97.7 66 18 134/69 (90) 94 12/27/18 10:50 98.8 73 17 138/71 100 Room Air 12/27/18 10:40 98.8 73 17 138/71 100 Room Air Intake and Output 12/27/18 12/28/18 18:59 06:59 Intake Total 500 ml Output Total 1700 ml Balance -1200 ml Intake Oral 500 ml Output Urine Total 1700 ml # Voids 1 2 # Bowel Movements 2 Laboratory Tests 12/28/18 05:47: Sodium Level 141, Potassium Level 4.2, Chloride Level 107, Carbon Dioxide Level 25, Anion Gap 9, Blood Urea Nitrogen 24H, Creatinine 2.5H, Estimat Glomerular Filtration Rate , Glucose Level 159H, Hemoglobin A1c 7.1H, Uric Acid 8.9H, Calcium Level 9.2, Phosphorus Level 4.3, Magnesium Level 2.3, Iron Level 16L, Total Iron Binding Capacity 186L, Percent Iron Saturation 9L, Unsaturated Iron Binding 170, Ferritin 155, Total Bilirubin 0.4, Gamma Glutamyl Transpeptidase 50 , Aspartate Amino Transf (AST/SGOT) 21, Alanine Aminotransferase (ALT/SGPT) 24, Alkaline Phosphatase 45L, C-Reactive Protein, Quantitative < 0.4, Pro-B-Type Natriuretic Peptide 2732H, Total Protein 6.6, Albumin 3.1L, Globulin 3.5, Albumin/Globulin Ratio 0.9L, Triglycerides Level 79, Cholesterol Level 173, LDL Cholesterol 78, HDL Cholesterol 69H, Cholesterol/HDL Ratio 2.5L, Folate 10.9, Thyroid Stimulating Hormone (TSH) 0.573 Height (Feet): 5 Height (Inches): 1.00 Weight (Pounds): 154 General Appearance: no apparent distress Respiratory/Chest: decreased breath sounds Abdomen: soft Objective no change Wilfredo Will MD Dec 28, 2018 10:12
--- NOTE | 2018-12-28 10:45 | CDS Physician Query ---
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 SNEHA
[2018-12-28] MEDS ORDERED: Iron Sucrose 200 MG in NS 110 ML IV ONE (11:00)
[2018-12-28] MEDS: Tamsulosin 0.4mg cap ORAL SCH (22:05)
[2018-12-29] VITALS: BP 133/60
[2018-12-29 04:00] VITALS: BP 139/66
[2018-12-29] MEDS: NovoLOG Insulin Flexpen SUBQ SCH ×4 (06:30→21:00)
[2018-12-29] MEDS: HydrALAZINE 25mg tab ORAL SCH ×3 (06:35→21:18)
[2018-12-29] MEDS: GlipiZIDE 5mg tab ORAL SCH (06:35)
[2018-12-29 08:00] VITALS: BP 121/51
[2018-12-29 09:10] LABS: BASOPHILS % (AUTO) 0.8 % (0.0-2.0); EOSINOPHILS % (AUTO) 2.5 % (0.0-3.0); HEMATOCRIT 26.4 % (37.0-47.0); HEMOGLOBIN 8.2 G/DL (12.0-16.0); LYMPHOCYTES % (AUTO) 12.9 % (20.0-45.0); MEAN CORPUSCULAR VOLUME 87 FL (80-99); MONOCYTES % (AUTO) 14.1 % (1.0-10.0); NEUTROPHILS % (AUTO) 69.7 % (45.0-75.0); PLATELET COUNT 178 K/UL (150-450); RED BLOOD COUNT 3.02 M/UL (4.20-5.40); RED CELL DISTRIBUTION WIDTH 14.2 % (11.6-14.8); WHITE BLOOD COUNT 6.1 K/UL (4.8-10.8)
[2018-12-29 09:43] LABS: ALANINE AMINOTRANSFERASE 23 U/L (12-78); ALBUMIN 3.1 G/DL (3.4-5.0); ALBUMIN/GLOBULIN RATIO 0.9 (1.0-2.7); ALKALINE PHOSPHATASE 42 U/L (46-116); ANION GAP 11 mmol/L (5-15); ASPARTATE AMINO TRANSFERASE 22 U/L (15-37); BILIRUBIN,TOTAL 0.4 MG/DL (0.2-1.0); BLOOD UREA NITROGEN 20 mg/dL (7-18); CALCIUM 9.3 MG/DL (8.5-10.1); CARBON DIOXIDE 25 MMOL/L (21-32); CHLORIDE 109 MMOL/L (98-107); CREATININE 2.6 MG/DL (0.55-1.30); SODIUM 145 MMOL/L (136-145)
[2018-12-29 10:28] LABS: PHOSPHORUS 4.4 MG/DL (2.5-4.9)
[2018-12-29] MEDS: sitaGLIPtin 25mg tab ORAL SCH (10:45)
[2018-12-29] MEDS: Aspirin EC 81mg tab ORAL SCH (10:49)
[2018-12-29] MEDS: Docusate 100mg cap ORAL SCH ×3 (10:49→18:01)
[2018-12-29] MEDS: Carvedilol 12.5mg tab ORAL SCH ×2 (10:49→21:19)
--- NOTE | 2018-12-29 11:25 | General Progress Note ---
Assessment/Plan Problem List: (1) Acute kidney failure ICD Codes: N17.9 - Acute kidney failure, unspecified SNOMED: 77812658 (2) Hypertensive emergency ICD Codes: I16.1 - Hypertensive emergency SNOMED: 953001809308605 (3) Renal failure (ARF), acute on chronic ICD Codes: N17.9 - Acute kidney failure, unspecified; N18.9 - Chronic kidney disease, unspecified SNOMED: 802220908 Qualifiers: Qualified Codes: N17.9 - Acute kidney failure, unspecified; N18.9 - Chronic kidney disease, unspecified (4) Peripheral edema ICD Codes: R60.9 - Edema, unspecified SNOMED: 731777375 (5) CHF (congestive heart failure) ICD Codes: I50.9 - Heart failure, unspecified SNOMED: 95967884 Qualifiers: Qualified Codes: I50.9 - Heart failure, unspecified Status: stable Assessment/Plan: pt/ot eval same bp rx cautious diuretic rx snf eval per pt request cepacol throat lozenge Subjective ROS Limited/Unobtainable: No Constitutional: Reports: malaise, weakness HEENT: Reports: no symptoms Cardiovascular: Reports: no symptoms Respiratory: Reports: no symptoms Gastrointestinal/Abdominal: Reports: no symptoms Genitourinary: Reports: no symptoms Neurologic/Psychiatric: Reports: no symptoms Endocrine: Reports: no symptoms Hematologic/Lymphatic: Reports: no symptoms Allergies: Coded Allergies: No Known Allergies (Verified , 02/14/18) All Systems: reviewed and negative except above Subjective leg swelling mostly resolved. BP controlled. states she cant go home because she is "too weak." c/o sore throat lives alone. will go to snf. Objective Last 24 Hour Vital Signs Date Time Temp Pulse Resp B/P (MAP) Pulse Ox O2 Delivery O2 Flow Rate FiO2 12/29/18 10:49 69 121/51 12/29/18 06:35 139/66 12/29/18 04:00 62 12/29/18 04:00 98.1 70 18 139/66 (90) 94 12/29/18 00:00 98.0 69 18 133/60 (84) 94 12/29/18 00:00 68 12/28/18 22:06 71 138/56 12/28/18 22:05 138/56 12/28/18 21:00 98.0 71 18 138/56 (83) 93 12/28/18 21:00 Room Air 12/28/18 20:00 77 12/28/18 16:00 71 12/28/18 16:00 98.9 72 19 134/51 (78) 92 12/28/18 13:05 123/53 12/28/18 12:00 98.6 69 18 123/53 (76) 92 12/28/18 12:00 65 Intake and Output 12/28/18 12/29/18 19:00 07:00 Intake Total 500 ml Output Total 800 ml 600 ml Balance -300 ml -600 ml Intake Oral 500 ml Output Urine Total 800 ml 600 ml # Bowel Movements 1 1 Laboratory Tests 12/29/18 04:00: Urine Eosinophils None seen 12/29/18 07:35: White Blood Count 6.1, Red Blood Count 3.02L, Hemoglobin 8.2L, Hematocrit 26.4L , Mean Corpuscular Volume 87, Mean Corpuscular Hemoglobin 27.3, Mean Corpuscular Hemoglobin Concent 31.3L, Red Cell Distribution Width 14.2, Platelet Count 178, Mean Platelet Volume 6.3L, Neutrophils (%) (Auto) 69.7, Lymphocytes (%) (Auto) 12.9L, Monocytes (%) (Auto) 14.1H, Eosinophils (%) (Auto ) 2.5, Basophils (%) (Auto) 0.8, Sodium Level 145, Potassium Level 4.0, Chloride Level 109H, Carbon Dioxide Level 25, Anion Gap 11, Blood Urea Nitrogen 20H, Creatinine 2.6H, Estimat Glomerular Filtration Rate , Glucose Level 78, Uric Acid 8.1H, Calcium Level 9.3, Phosphorus Level 4.4, Magnesium Level 2.2, Total Bilirubin 0.4, Aspartate Amino Transf (AST/SGOT) 22, Alanine Aminotransferase (ALT/SGPT) 23, Alkaline Phosphatase 42L, C-Reactive Protein, Quantitative < 0.4, Pro-B-Type Natriuretic Peptide 2161H, Total Protein 6.6, Albumin 3.1L, Globulin 3.5, Albumin/Globulin Ratio 0.9L, Vitamin B12 Level [ Pending], Thyroid Stimulating Hormone (TSH) 0.518, Free Thyroxine 1.43, Free Triiodothyronine 2.3 Height (Feet): 5 Height (Inches): 1.00 Weight (Pounds): 154 Objective General Appearance: WD/WN, alert Neck: supple Cardiovascular: regular rhythm Respiratory/Chest: chest wall non-tender, lungs clear, normal breath sounds Abdomen: normal bowel sounds, non tender, soft, no organomegaly Edema: no edema noted Arm (L), no edema noted Arm (R), no edema noted Leg (L), no edema noted Leg (R), no edema noted Pedal (L), no edema noted Pedal (R), no edema noted 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
[2018-12-29 12:00] VITALS: BP 119/52
--- NOTE | 2018-12-29 12:23 | Nephrology Progress Note ---
Assessment/Plan Problem List: (1) Renal failure (ARF), acute on chronic (2) Diabetic nephropathy (3) Hypertensive kidney disease (4) Anemia in chronic kidney disease (CKD) Assessment (1) Acute kidney failure (2) Renal failure (ARF), acute on chronic (3) Hypertensive kidney disease (4) h/o NSTEMI (non-ST elevated myocardial infarction) (5) Dehydration (6) Anemia of CKD (7) Diabetic Nephropathy Plan IV Iron SQ EPO -2D Echo Ej Fx 55% - [facility] No renal stones, masses or hydronephrosis. Incidental pleural effusions bilaterally. Subjective ROS Limited/Unobtainable: No Constitutional: Reports: malaise Objective Objective Last 24 Hour Vital Signs Date Time Temp Pulse Resp B/P (MAP) Pulse Ox O2 Delivery O2 Flow Rate FiO2 12/29/18 10:49 69 121/51 12/29/18 06:35 139/66 12/29/18 04:00 62 12/29/18 04:00 98.1 70 18 139/66 (90) 94 12/29/18 00:00 98.0 69 18 133/60 (84) 94 12/29/18 00:00 68 12/28/18 22:06 71 138/56 12/28/18 22:05 138/56 12/28/18 21:00 98.0 71 18 138/56 (83) 93 12/28/18 21:00 Room Air 12/28/18 20:00 77 12/28/18 16:00 71 12/28/18 16:00 98.9 72 19 134/51 (78) 92 12/28/18 13:05 123/53 Intake and Output 12/28/18 12/29/18 18:59 06:59 Intake Total 500 ml Output Total 800 ml 600 ml Balance -300 ml -600 ml Intake Oral 500 ml Output Urine Total 800 ml 600 ml # Bowel Movements 1 1 Laboratory Tests 12/29/18 04:00: Urine Eosinophils None seen 12/29/18 07:35: White Blood Count 6.1, Red Blood Count 3.02L, Hemoglobin 8.2L, Hematocrit 26.4L , Mean Corpuscular Volume 87, Mean Corpuscular Hemoglobin 27.3, Mean Corpuscular Hemoglobin Concent 31.3L, Red Cell Distribution Width 14.2, Platelet Count 178, Mean Platelet Volume 6.3L, Neutrophils (%) (Auto) 69.7, Lymphocytes (%) (Auto) 12.9L, Monocytes (%) (Auto) 14.1H, Eosinophils (%) (Auto ) 2.5, Basophils (%) (Auto) 0.8, Sodium Level 145, Potassium Level 4.0, Chloride Level 109H, Carbon Dioxide Level 25, Anion Gap 11, Blood Urea Nitrogen 20H, Creatinine 2.6H, Estimat Glomerular Filtration Rate , Glucose Level 78, Uric Acid 8.1H, Calcium Level 9.3, Phosphorus Level 4.4, Magnesium Level 2.2, Total Bilirubin 0.4, Aspartate Amino Transf (AST/SGOT) 22, Alanine Aminotransferase (ALT/SGPT) 23, Alkaline Phosphatase 42L, C-Reactive Protein, Quantitative < 0.4, Pro-B-Type Natriuretic Peptide 2161H, Total Protein 6.6, Albumin 3.1L, Globulin 3.5, Albumin/Globulin Ratio 0.9L, Vitamin B12 Level [ Pending], Thyroid Stimulating Hormone (TSH) 0.518, Free Thyroxine 1.43, Free Triiodothyronine 2.3 Height (Feet): 5 Height (Inches): 1.00 Weight (Pounds): 154 General Appearance: no apparent distress, lethargic Cardiovascular: normal rate Respiratory/Chest: decreased breath sounds Abdomen: distended Objective no change Wilfredo Will MD Dec 29, 2018 12:23
[2018-12-29 16:00] VITALS: BP 137/79
[2018-12-29] MEDS ORDERED: HYDRALAZINE HC100 MG ORAL (18:48)
[2018-12-29 20:00] VITALS: BP 130/68
[2018-12-29] MEDS: Tamsulosin 0.4mg cap ORAL SCH (21:18)
[2018-12-29] MEDS: Iron Sucrose 100 MG in NS 55 ML IVPB SCH (21:18)
[2018-12-30] VITALS: BP 141/62
[2018-12-30 04:00] VITALS: BP 144/58
[2018-12-30] MEDS ORDERED: guaiFENesin w/Codeine 5ml Liq ud ORAL PRN (05:15)
[2018-12-30] MEDS: GlipiZIDE 5mg tab ORAL SCH (05:48)
[2018-12-30] MEDS: HydrALAZINE 25mg tab ORAL SCH ×3 (05:49→22:11)
[2018-12-30] MEDS: NovoLOG Insulin Flexpen SUBQ SCH ×4 (06:30→21:06)
--- NOTE | 2018-12-30 07:18 | General Progress Note ---
Assessment/Plan Problem List: (1) Acute kidney failure ICD Codes: N17.9 - Acute kidney failure, unspecified SNOMED: 80616997 (2) Hypertensive emergency ICD Codes: I16.1 - Hypertensive emergency SNOMED: 287260746880382 (3) Renal failure (ARF), acute on chronic ICD Codes: N17.9 - Acute kidney failure, unspecified; N18.9 - Chronic kidney disease, unspecified SNOMED: 487316137 Qualifiers: Qualified Codes: N17.9 - Acute kidney failure, unspecified; N18.9 - Chronic kidney disease, unspecified (4) Peripheral edema ICD Codes: R60.9 - Edema, unspecified SNOMED: 475600016 (5) CHF (congestive heart failure) ICD Codes: I50.9 - Heart failure, unspecified SNOMED: 51053865 Qualifiers: Qualified Codes: I50.9 - Heart failure, unspecified Status: stable Assessment/Plan: pt/ot eval same bp rx cautious diuretic rx snf eval per pt request cepacol/robitussin for cough/sore throat check cxr dc planning to snf per pt request Subjective ROS Limited/Unobtainable: No Constitutional: Reports: malaise, weakness HEENT: Reports: no symptoms Cardiovascular: Reports: no symptoms Respiratory: Reports: cough Gastrointestinal/Abdominal: Reports: no symptoms Genitourinary: Reports: no symptoms Neurologic/Psychiatric: Reports: no symptoms Endocrine: Reports: no symptoms Hematologic/Lymphatic: Reports: no symptoms Allergies: Coded Allergies: No Known Allergies (Verified , 02/14/18) All Systems: reviewed and negative except above Subjective c/o cough and sore throat. bp well controlled. no cp/sob. no fever or sob. Objective Last 24 Hour Vital Signs Date Time Temp Pulse Resp B/P (MAP) Pulse Ox O2 Delivery O2 Flow Rate FiO2 12/30/18 05:49 140/60 12/30/18 04:00 66 12/30/18 04:00 98.9 72 18 144/58 (86) 96 12/30/18 00:00 97.8 71 17 141/62 (88) 95 12/30/18 00:00 73 12/29/18 21:19 70 130/68 12/29/18 21:18 130/68 12/29/18 21:00 Room Air 12/29/18 20:00 76 12/29/18 20:00 98.1 74 17 130/68 (88) 95 12/29/18 16:00 72 12/29/18 16:00 98.0 70 17 137/79 (98) 94 12/29/18 13:54 127/53 12/29/18 12:00 98.8 70 18 119/52 (74) 94 12/29/18 12:00 71 12/29/18 10:49 69 121/51 12/29/18 09:00 Room Air 12/29/18 08:00 77 12/29/18 08:00 98.4 97 18 121/51 (74) 94 Intake and Output 12/29/18 12/30/18 19:00 07:00 Intake Total 860 ml 60 ml Output Total 1600 ml 400 ml Balance -740 ml -340 ml IV Total 60 ml Other 860 ml Output Urine Total 1600 ml 400 ml # Bowel Movements 1 Laboratory Tests 12/29/18 07:35: White Blood Count 6.1, Red Blood Count 3.02L, Hemoglobin 8.2L, Hematocrit 26.4L , Mean Corpuscular Volume 87, Mean Corpuscular Hemoglobin 27.3, Mean Corpuscular Hemoglobin Concent 31.3L, Red Cell Distribution Width 14.2, Platelet Count 178, Mean Platelet Volume 6.3L, Neutrophils (%) (Auto) 69.7, Lymphocytes (%) (Auto) 12.9L, Monocytes (%) (Auto) 14.1H, Eosinophils (%) (Auto ) 2.5, Basophils (%) (Auto) 0.8, Sodium Level 145, Potassium Level 4.0, Chloride Level 109H, Carbon Dioxide Level 25, Anion Gap 11, Blood Urea Nitrogen 20H, Creatinine 2.6H, Estimat Glomerular Filtration Rate , Glucose Level 78, Uric Acid 8.1H, Calcium Level 9.3, Phosphorus Level 4.4, Magnesium Level 2.2, Total Bilirubin 0.4, Aspartate Amino Transf (AST/SGOT) 22, Alanine Aminotransferase (ALT/SGPT) 23, Alkaline Phosphatase 42L, C-Reactive Protein, Quantitative < 0.4, Pro-B-Type Natriuretic Peptide 2161H, Total Protein 6.6, Albumin 3.1L, Globulin 3.5, Albumin/Globulin Ratio 0.9L, Vitamin B12 Level 651, Thyroid Stimulating Hormone (TSH) 0.518, Free Thyroxine 1.43, Free Triiodothyronine 2.3 12/30/18 03:30: Urine Eosinophils [Pending] Height (Feet): 5 Height (Inches): 1.00 Weight (Pounds): 154 Objective General Appearance: WD/WN, alert Neck: supple Cardiovascular: regular rhythm Respiratory/Chest: chest wall non-tender, lungs clear, normal breath sounds Abdomen: normal bowel sounds, non tender, soft, no organomegaly Edema: no edema noted Arm (L), no edema noted Arm (R), no edema noted Leg (L), no edema noted Leg (R), no edema noted Pedal (L), no edema noted Pedal (R), no edema noted 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
[2018-12-30 08:00] VITALS: BP 141/61
[2018-12-30] MEDS: Aspirin EC 81mg tab ORAL SCH (09:00)
[2018-12-30] MEDS: Carvedilol 12.5mg tab ORAL SCH ×2 (09:29→21:04)
[2018-12-30] MEDS: Docusate 100mg cap ORAL SCH ×3 (09:29→17:22)
[2018-12-30] MEDS: Flonase Nasal Inhaler 16gm NASAL SCH ×2 (09:29→17:22)
[2018-12-30] MEDS: sitaGLIPtin 25mg tab ORAL SCH (09:30)
--- NOTE | 2018-12-30 10:28 | Diagnostic Imaging Report ---
EXAM: XR Chest, 1 View CLINICAL HISTORY: COUGH TECHNIQUE: Frontal view of the chest. COMPARISON: No relevant prior studies available. FINDINGS: Lungs: Thickening of interstitial markings. No confluent consolidation. Pleural space: Unremarkable. No pneumothorax. Heart: Large cardiac silhouette. Mediastinum: Unremarkable. Bones/joints: No acute fracture. IMPRESSION: Thickening of interstitial markings. No confluent consolidation.
--- NOTE | 2018-12-30 11:08 | Nephrology Progress Note ---
Assessment/Plan Problem List: (1) Renal failure (ARF), acute on chronic (2) Diabetic nephropathy (3) Hypertensive kidney disease (4) Anemia in chronic kidney disease (CKD) Assessment (1) Acute kidney failure (2) Renal failure (ARF), acute on chronic (3) Hypertensive kidney disease (4) h/o NSTEMI (non-ST elevated myocardial infarction) (5) Dehydration (6) Anemia of CKD (7) Diabetic Nephropathy Plan no labs today IV Iron SQ EPO -2D Echo Ej Fx 55% - [facility] No renal stones, masses or hydronephrosis. Incidental pleural effusions bilaterally. Subjective ROS Limited/Unobtainable: No Constitutional: Reports: malaise Objective Objective Last 24 Hour Vital Signs Date Time Temp Pulse Resp B/P (MAP) Pulse Ox O2 Delivery O2 Flow Rate FiO2 12/30/18 09:29 65 141/61 12/30/18 08:00 98.2 65 18 141/61 (87) 95 12/30/18 05:49 140/60 12/30/18 04:00 66 12/30/18 04:00 98.9 72 18 144/58 (86) 96 12/30/18 00:00 97.8 71 17 141/62 (88) 95 12/30/18 00:00 73 12/29/18 21:19 70 130/68 12/29/18 21:18 130/68 12/29/18 21:00 Room Air 12/29/18 20:00 76 12/29/18 20:00 98.1 74 17 130/68 (88) 95 12/29/18 16:00 72 12/29/18 16:00 98.0 70 17 137/79 (98) 94 12/29/18 13:54 127/53 12/29/18 12:00 98.8 70 18 119/52 (74) 94 12/29/18 12:00 71 Intake and Output 12/29/18 12/30/18 19:00 07:00 Intake Total 860 ml 60 ml Output Total 1600 ml 400 ml Balance -740 ml -340 ml IV Total 60 ml Other 860 ml Output Urine Total 1600 ml 400 ml # Bowel Movements 1 Laboratory Tests 12/30/18 03:30: Urine Eosinophils Rare Height (Feet): 5 Height (Inches): 1.00 Weight (Pounds): 154 General Appearance: no apparent distress Respiratory/Chest: decreased breath sounds Abdomen: soft Objective no change Wilfredo Will MD Dec 30, 2018 11:08
[2018-12-30 11:59] LABS: BASOPHILS % (AUTO) 0.7 % (0.0-2.0); EOSINOPHILS % (AUTO) 2.8 % (0.0-3.0); HEMATOCRIT 29.4 % (37.0-47.0); HEMOGLOBIN 9.1 G/DL (12.0-16.0); LYMPHOCYTES % (AUTO) 11.7 % (20.0-45.0); MEAN CORPUSCULAR VOLUME 87 FL (80-99); NEUTROPHILS % (AUTO) 72.8 % (45.0-75.0); PLATELET COUNT 219 K/UL (150-450); RED BLOOD COUNT 3.39 M/UL (4.20-5.40); RED CELL DISTRIBUTION WIDTH 14.2 % (11.6-14.8); WHITE BLOOD COUNT 6.4 K/UL (4.8-10.8)
[2018-12-30 12:00] VITALS: BP 111/55
[2018-12-30 16:00] VITALS: BP 133/59
[2018-12-30 20:00] VITALS: BP 142/63
[2018-12-30] MEDS: Tamsulosin 0.4mg cap ORAL SCH (21:04)
[2018-12-30] MEDS: Epoetin Alfa-EPBX (NON ESRD)10,000 unit/ml vial SUBQ SCH (21:04)
[2018-12-30] MEDS: Iron Sucrose 100 MG in NS 55 ML IVPB SCH (21:04)
[2018-12-31] VITALS (7 sets, daily range): BP systolic 129–161; BP diastolic 53–71
[2018-12-31] MEDS: GlipiZIDE 5mg tab ORAL SCH (06:16)
[2018-12-31] MEDS: HydrALAZINE 25mg tab ORAL SCH ×3 (06:17→22:08)
[2018-12-31] MEDS: NovoLOG Insulin Flexpen SUBQ SCH ×4 (06:20→22:13)
[2018-12-31 07:17] LABS: BASOPHILS % (AUTO) 1.4 % (0.0-2.0); EOSINOPHILS % (AUTO) 2.6 % (0.0-3.0); HEMATOCRIT 27.6 % (37.0-47.0); HEMOGLOBIN 8.7 G/DL (12.0-16.0); LYMPHOCYTES % (AUTO) 15.1 % (20.0-45.0); MEAN CORPUSCULAR VOLUME 88 FL (80-99); MONOCYTES % (AUTO) 15.4 % (1.0-10.0); NEUTROPHILS % (AUTO) 65.6 % (45.0-75.0); PLATELET COUNT 208 K/UL (150-450); RED BLOOD COUNT 3.15 M/UL (4.20-5.40); RED CELL DISTRIBUTION WIDTH 14.4 % (11.6-14.8); WHITE BLOOD COUNT 5.8 K/UL (4.8-10.8)
[2018-12-31 07:49] LABS: ALANINE AMINOTRANSFERASE 28 U/L (12-78); ALBUMIN/GLOBULIN RATIO 0.8 (1.0-2.7); ALKALINE PHOSPHATASE 43 U/L (46-116); ANION GAP 12 mmol/L (5-15); ASPARTATE AMINO TRANSFERASE 28 U/L (15-37); BILIRUBIN,TOTAL 0.4 MG/DL (0.2-1.0); BLOOD UREA NITROGEN 18 mg/dL (7-18); CALCIUM 9.2 MG/DL (8.5-10.1); CARBON DIOXIDE 25 MMOL/L (21-32); CHLORIDE 107 MMOL/L (98-107); GAMMA GLUTAMYL TRANSPEPTIDASE 35 U/L (5-85); PHOSPHORUS 3.5 MG/DL (2.5-4.9); POTASSIUM 3.7 MMOL/L (3.5-5.1); SODIUM 144 MMOL/L (136-145)
[2018-12-31] MEDS: Docusate 100mg cap ORAL SCH ×3 (08:34→17:19)
[2018-12-31] MEDS: Carvedilol 12.5mg tab ORAL SCH ×2 (08:35→22:08)
[2018-12-31] MEDS: Aspirin EC 81mg tab ORAL SCH (08:36)
[2018-12-31] MEDS: sitaGLIPtin 25mg tab ORAL SCH (08:36)
[2018-12-31] MEDS: Flonase Nasal Inhaler 16gm NASAL SCH ×2 (08:37→17:19)
--- NOTE | 2018-12-31 10:20 | Cardiology Report ---
APPROVED REPORT EXAM: Two-dimensional and M-mode echocardiogram with Doppler and color Doppler. INDICATION Congestive Heart Failure M-Mode DIMENSIONS IVSd1.1 (0.7-1.1cm)Left Atrium (MM)3.4 (1.6-4.0cm) LVDd4.0 (3.5-5.6cm)Aortic Root2.3 (2.0-3.7cm) PWd1.0 (0.7-1.1cm)Aortic Cusp Exc.1.7 (1.5-2.0cm) LVDs2.1 (2.5-4.0cm) PWs1.4 cm Normal left ventricular chamber size, systolic function and wall motion. Left ventricular ejection fraction estimated to be 55 %. Borderline left ventricular hypertrophy. Small- medium poserior pericardial effusion. Mild left atrial enlargement. Right cardiac chamber sizes are within normal limits. Focal aortic valve sclerosis with adequate cusp excursion. Thickened mitral valve leaflets with normal excursion. Mitral annulus and aortic root calcification. Normal pulmonic valve structure. Normal tricuspid valve structure. IVC is normal in size without physiological collapse. A color flow and spectral Doppler study was performed and revealed: No aortic regurgitation. No mitral regurgitation. Mitral diastolic velocities suggest mild left ventricular diastolic dysfunction (Grade I). Mild to moderate tricuspid regurgitation. Tricuspid systolic velocities suggests peak right ventricular systolic pressure of 59 mmHg, consistent with moderate pulmonary hypertension. Trace pulmonic regurgitation present.
--- NOTE | 2018-12-31 11:40 | Cardiology Report ---
APPROVED REPORT EKG Measurement Heart [id number] 130P37 [id number] Normal sinus rhythm Cannot rule out Anterior infarct, age undetermined Abnormal ECG
--- NOTE | 2018-12-31 14:58 | Nephrology Progress Note ---
Assessment/Plan Problem List: (1) Renal failure (ARF), acute on chronic (2) Diabetic nephropathy (3) Hypertensive kidney disease (4) Anemia in chronic kidney disease (CKD) Assessment (1) Acute kidney failure (2) Renal failure (ARF), acute on chronic (3) Hypertensive kidney disease (4) h/o NSTEMI (non-ST elevated myocardial infarction) (5) Dehydration (6) Anemia of CKD (7) Diabetic Nephropathy Plan labs reviewed Cr lower IV Iron SQ EPO -2D Echo Ej Fx 55% - [facility] No renal stones, masses or hydronephrosis. Incidental pleural effusions bilaterally. Subjective ROS Limited/Unobtainable: No Constitutional: Reports: malaise Objective Objective Last 24 Hour Vital Signs Date Time Temp Pulse Resp B/P (MAP) Pulse Ox O2 Delivery O2 Flow Rate FiO2 12/31/18 13:21 146/55 12/31/18 12:00 98.2 87 20 129/56 (80) 97 12/31/18 12:00 67 12/31/18 10:03 98.2 76 18 130/55 (80) 95 12/31/18 09:00 Room Air 12/31/18 08:35 76 146/55 12/31/18 08:00 72 12/31/18 08:00 98.2 79 18 146/55 (85) 95 12/31/18 06:17 161/71 12/31/18 04:00 71 12/31/18 04:00 98.7 76 18 161/71 (101) 97 12/31/18 00:00 98.8 67 18 148/58 (88) 95 12/31/18 00:00 64 12/30/18 22:11 141/60 12/30/18 21:04 82 142/63 12/30/18 21:00 Room Air 12/30/18 20:00 99.5 82 18 142/63 (89) 96 12/30/18 20:00 78 12/30/18 16:00 98.2 66 20 133/59 (83) 95 12/30/18 16:00 69 Intake and Output 12/30/18 12/31/18 19:00 07:00 Intake Total 900 ml 240 ml Output Total 900 ml 1600 ml Balance 0 ml -1360 ml Intake Oral 900 ml 240 ml Output Urine Total 900 ml 1600 ml Laboratory Tests 12/31/18 02:05: Urine Eosinophils Few seen 12/31/18 06:11: White Blood Count 5.8, Red Blood Count 3.15L, Hemoglobin 8.7L, Hematocrit 27.6L , Mean Corpuscular Volume 88, Mean Corpuscular Hemoglobin 27.5, Mean Corpuscular Hemoglobin Concent 31.4L, Red Cell Distribution Width 14.4, Platelet Count 208, Mean Platelet Volume 6.0L, Neutrophils (%) (Auto) 65.6, Lymphocytes (%) (Auto) 15.1L, Monocytes (%) (Auto) 15.4H, Eosinophils (%) (Auto ) 2.6, Basophils (%) (Auto) 1.4, Sodium Level 144, Potassium Level 3.7, Chloride Level 107, Carbon Dioxide Level 25, Anion Gap 12, Blood Urea Nitrogen 18, Creatinine 2.0H, Estimat Glomerular Filtration Rate , Glucose Level 118H, Uric Acid 6.3, Calcium Level 9.2, Phosphorus Level 3.5, Magnesium Level 2.0, Total Bilirubin 0.4, Gamma Glutamyl Transpeptidase 35, Aspartate Amino Transf ( AST/SGOT) 28, Alanine Aminotransferase (ALT/SGPT) 28, Alkaline Phosphatase 43L, C-Reactive Protein, Quantitative < 0.4, Pro-B-Type Natriuretic Peptide 1349H, Total Protein 6.6, Albumin 3.0L, Globulin 3.6, Albumin/Globulin Ratio 0.8L Height (Feet): 5 Height (Inches): 1.00 Weight (Pounds): 154 General Appearance: no apparent distress Objective no change Wilfredo Will MD Dec 31, 2018 14:58
--- NOTE | 2018-12-31 17:30 | Discharge Summary ---
DATE OF ADMISSION: 12/27/2018 DATE OF DISCHARGE: 12/31/2018 ADMISSION DIAGNOSES: 1. Shortness of breath. 2. Uncontrolled hypertension. 3. CHF. DISCHARGE DIAGNOSES: 1. Shortness of breath. 2. Uncontrolled hypertension. 3. CHF. HOSPITAL COURSE: This is a pleasant female admitted with complaints of worsening lower extremity edema and CHF exacerbation. She was admitted. She was cautiously diuresed. She had improvement in her lower extremity edema. Her hospital course was complicated by cough and congestion and felt to be due to allergies or possibly a viral infection. On discharge, the patient was improved, but she requested to go to a retirement facility. She was discharged there in stable condition. She will be followed up there in one to two days. DISCHARGE MEDICATIONS: Please see discharge medication list for discharge medications. DIET: Cardiac diet. ACTIVITIES: Ad-vania. Loc Tao M.D. DR: MARY JANE JOB#: [id number] CC:
[2018-12-31] MEDS: Iron Sucrose 100 MG in NS 55 ML IVPB SCH (22:09)
[2018-12-31] MEDS: Tamsulosin 0.4mg cap ORAL SCH (22:17)
[2019-01-01] VITALS: BP 148/62
[2019-01-01 04:00] VITALS: BP 163/69
[2019-01-01] MEDS: NovoLOG Insulin Flexpen SUBQ SCH ×2 (06:30→11:30)
[2019-01-01] MEDS: GlipiZIDE 5mg tab ORAL SCH (06:40)
[2019-01-01] MEDS: HydrALAZINE 25mg tab ORAL SCH (06:41)
[2019-01-01 08:00] VITALS: BP 150/71
--- NOTE | 2019-01-01 08:00 | General Progress Note ---
Assessment/Plan Problem List: (1) Acute kidney failure ICD Codes: N17.9 - Acute kidney failure, unspecified SNOMED: 93465600 (2) Hypertensive emergency ICD Codes: I16.1 - Hypertensive emergency SNOMED: 540453250333463 (3) Renal failure (ARF), acute on chronic ICD Codes: N17.9 - Acute kidney failure, unspecified; N18.9 - Chronic kidney disease, unspecified SNOMED: 866271658 Qualifiers: Qualified Codes: N17.9 - Acute kidney failure, unspecified; N18.9 - Chronic kidney disease, unspecified (4) Peripheral edema ICD Codes: R60.9 - Edema, unspecified SNOMED: 964649792 (5) CHF (congestive heart failure) ICD Codes: I50.9 - Heart failure, unspecified SNOMED: 32662703 Qualifiers: Qualified Codes: I50.9 - Heart failure, unspecified Status: stable Assessment/Plan: pt/ot eval same bp rx cautious diuretic rx dc coreg increase hydralazine snf eval per pt request cepacol/robitussin for cough/sore throat dc planning to snf per pt request Subjective ROS Limited/Unobtainable: No Constitutional: Reports: malaise, weakness HEENT: Reports: no symptoms Cardiovascular: Reports: lightheadedness Respiratory: Reports: no symptoms Gastrointestinal/Abdominal: Reports: no symptoms Genitourinary: Reports: no symptoms Neurologic/Psychiatric: Reports: anxiety Endocrine: Reports: no symptoms Hematologic/Lymphatic: Reports: no symptoms Allergies: Coded Allergies: No Known Allergies (Verified , 02/14/18) All Systems: reviewed and negative except above Subjective bradycardic 30s last night. no symptoms. no fever or chills. no sob. HR better now. Objective Last 24 Hour Vital Signs Date Time Temp Pulse Resp B/P (MAP) Pulse Ox O2 Delivery O2 Flow Rate FiO2 01/01/19 06:41 163/69 01/01/19 04:00 98.5 70 20 163/69 (100) 96 01/01/19 04:00 64 01/01/19 00:00 68 01/01/19 00:00 98.6 67 20 148/62 (90) 95 12/31/18 22:08 151/61 12/31/18 22:08 78 151/61 9/3/19 21:00 Room Air 12/31/18 20:00 68 12/31/18 20:00 98.7 78 18 151/61 (91) 94 12/31/18 16:00 63 12/31/18 16:00 98.1 76 18 148/53 (84) 98 12/31/18 13:21 146/55 12/31/18 12:00 98.2 87 20 129/56 (80) 97 12/31/18 12:00 67 12/31/18 10:03 98.2 76 18 130/55 (80) 95 12/31/18 09:00 Room Air 12/31/18 08:35 76 146/55 12/31/18 08:00 72 12/31/18 08:00 98.2 79 18 146/55 (85) 95 Intake and Output 12/31/18 01/01/19 18:59 06:59 Intake Total 360 ml Output Total 1300 ml 500 ml Balance -940 ml -500 ml Intake Oral 360 ml Output Urine Total 1300 ml 500 ml # Bowel Movements 1 Height (Feet): 5 Height (Inches): 1.00 Weight (Pounds): 148 Objective General Appearance: WD/WN, alert Neck: supple Cardiovascular: regular rhythm Respiratory/Chest: chest wall non-tender, lungs clear, normal breath sounds Abdomen: normal bowel sounds, non tender, soft, no organomegaly Edema: no edema noted Arm (L), no edema noted Arm (R), no edema noted Leg (L), no edema noted Leg (R), no edema noted Pedal (L), no edema noted Pedal (R), no edema noted Generalized Neurologic: contact center agent II-XII grossly normal, alert, oriented x 3 Loc Tao MD Jan 01, 2019 08:00
[2019-01-01] MEDS: Docusate 100mg cap ORAL SCH ×2 (08:40→13:00)
[2019-01-01] MEDS: Aspirin EC 81mg tab ORAL SCH (08:40)
[2019-01-01] MEDS: sitaGLIPtin 25mg tab ORAL SCH (08:41)
[2019-01-01] MEDS: Flonase Nasal Inhaler 16gm NASAL SCH (08:42)
[2019-01-01 12:00] VITALS: BP 150/70
[2019-01-01] MEDS ORDERED: HydrALAZINE 50mg tab ORAL SCH (14:00)
[2019-01-01] MEDS ORDERED: ALLOPURINOL100 M1 ORAL (15:34)
[2019-01-01] MEDS ORDERED: FLONASE1 SPRAYS NASAL (15:34)
--- NOTE | 2019-01-01 18:52 | Nephrology Progress Note ---
Assessment/Plan Problem List: (1) Renal failure (ARF), acute on chronic (2) Diabetic nephropathy (3) Hypertensive kidney disease (4) Anemia in chronic kidney disease (CKD) Assessment (1) Acute kidney failure (2) Renal failure (ARF), acute on chronic (3) Hypertensive kidney disease (4) h/o NSTEMI (non-ST elevated myocardial infarction) (5) Dehydration (6) Anemia of CKD (7) Diabetic Nephropathy Plan no new labs today Cr lower IV Iron SQ EPO agrre with DC Planning -2D Echo Ej Fx 55% - [facility] No renal stones, masses or hydronephrosis. Incidental pleural effusions bilaterally. Subjective ROS Limited/Unobtainable: No Interval Events/Complaints late entery- Seem 8 am with BLANKA Nunez Objective Objective Last 24 Hour Vital Signs Date Time Temp Pulse Resp B/P (MAP) Pulse Ox O2 Delivery O2 Flow Rate FiO2 01/01/19 12:00 98.1 71 18 150/70 (96) 95 01/01/19 12:00 78 01/01/19 09:00 Room Air 01/01/19 08:00 74 01/01/19 08:00 98.5 78 18 150/71 (97) 96 01/01/19 06:41 163/69 01/01/19 04:00 98.5 70 20 163/69 (100) 96 01/01/19 04:00 64 01/01/19 00:00 68 01/01/19 00:00 98.6 67 20 148/62 (90) 95 12/31/18 22:08 151/61 12/31/18 22:08 78 151/61 12/31/18 21:00 Room Air 12/31/18 20:00 68 12/31/18 20:00 98.7 78 18 151/61 (91) 94 Intake and Output 12/31/18 01/01/19 19:00 07:00 Intake Total 360 ml Output Total 1300 ml 500 ml Balance -940 ml -500 ml Intake Oral 360 ml Output Urine Total 1300 ml 500 ml # Bowel Movements 1 Height (Feet): 5 Height (Inches): 1.00 Weight (Pounds): 148 General Appearance: no apparent distress Objective no change Wilfredo Will MD Jan 01, 2019 18:52
== END 2019-01-01 17:28 | disposition home health service (06) | DRG 682 ==
LOC: EMR 07:54 → 2E 09:37 → EDBEDREQ 10:44
DX: N17.9 Acute kidney failure, unspecified (principal); I50.21 Acute systolic (congestive) heart failure; I50.33 Acute on chronic diastolic (congestive) heart failure; I16.1 Hypertensive emergency; I13.0 Hypertensive heart and chronic kidney disease with heart failure and stage 1 through stage 4 chronic kidney disease, or unspecified chronic kidney disease; E86.0 Dehydration; I12.9 Hypertensive chronic kidney disease with stage 1 through stage 4 chronic kidney disease, or unspecified chronic kidney disease; N18.9 Chronic kidney disease, unspecified; E11.22 Type 2 diabetes mellitus with diabetic chronic kidney disease; E78.5 Hyperlipidemia, unspecified; I25.2 Old myocardial infarction; D63.8 Anemia in other chronic diseases classified elsewhere
CPT/HCPCS: 36415; 71045; 76770; 80053; 80061; 81003; 82550; 82553; 82607; 82728; 82746; 82962; 82977; 83036; 83540; 83550; 83735; 83880; 84100; 84439; 84443; 84481; 84484; 84550; 85025; 86140; 89050; 93005; 93306; 96374; 99285; J1815; J2405

== ENCOUNTER 2019-01-23 09:05 | Emergency (ER) | payer MEDICARE, MEDICAID ==
[~2019-01-23] VITALS: Ht 157.5 cm; Wt 66.2 kg
[~2019-01-23 09:05] MED LIST changes: +ALLOPURINOL100 M1 ORAL; +FLONASE1 SPRAYS NASAL; +HYDRALAZINE HC100 MG ORAL
--- NOTE | 2019-01-23 09:08 | NUR ---
ED Nurse Note: Patient brought in by ambulance from home, patient c/o feeling sick for 3 days, started vomiting last night. patient reports she vomited a lot, now the color is brown. patiet is alert awake x4 ambulatory, breathing unlabored and even, left leg pitting edema 2+ noted.
[2019-01-23] MEDS ORDERED: Nitroglycerin Subl 0.4mg tab SL PRN (09:15)
[2019-01-23] MEDS ORDERED: Metoclopramide 10mg/2ml Inj IVP ONE (09:15)
[2019-01-23 09:16] VITALS: BP 195/96
--- NOTE | 2019-01-23 09:22 | Emergency Room Report ---
History of Present Illness General Chief Complaint: Generalized Weakness Source: Patient, Medical Record, EMS Present Illness HPI Patient is an 78-year-old female presented after increased nausea and vomiting. She reports having multiple episodes of nonbloody emesis. She had prior history of renal disease. She had not been able to take her medications this morning due to nausea and vomiting. She denies any diarrhea. She denies any severe pain. She reports having increased bilateral lower extremity swelling. Gradual onset.She denies any fever. She denies any hematemesis or bloody stools. Allergies: Coded Allergies: No Known Allergies (Verified , 02/14/18) Patient History Past Medical History: see triage record Reviewed Nursing Documentation: PMH: Agreed; PSxH: Agreed Nursing Documentation-PMH Past Medical History: No History, Except For Hx Cardiac Problems: Yes Hx Hypertension: Yes Hx Diabetes: Yes - DM 2 Hx Cancer: No Hx Gastrointestinal Problems: No Hx Neurological Problems: No Review of Systems All Other Systems: negative except mentioned in HPI Physical Exam Vital Signs Date Time Temp Pulse Resp B/P (MAP) Pulse Ox O2 Delivery O2 Flow Rate FiO2 01/23/19 09:04 98.8 109 16 173/89 (117) 99 Room Air Sp02 EP Interpretation: reviewed, normal General Appearance: normal inspection, well appearing, alert, GCS 15, Chronically Ill Head: atraumatic ENT: normal ENT inspection, hearing grossly normal, normal voice Neck: normal inspection, full range of motion, supple, no bony tend Respiratory: normal inspection, no respiratory distress, no retraction, no wheezing, rales Cardiovascular #1: regular rate, rhythm, edema - bilateral pitting Gastrointestinal: normal inspection, normal bowel sounds, non tender, soft, no guarding, no hernia Genitourinary: no CVA tenderness Musculoskeletal: normal inspection, back normal, normal range of motion Neurologic: normal inspection, alert, oriented x3, responsive, 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 Differential included but was not limited to anemia, pneumonia, pneumothorax, myocardial infarction, pericardial effusion, congestive heart failure, acidosis. Because of complexity of patient' s case laboratory tests and imaging studies were ordered. Patient was noted to have an exam consistent with congestive heart failure. She was noted to have bilateral lower extremity swelling. She was noted to be somewhat tachycardic and fluid overloaded. She was given IV Lasix as well as nitroglycerin.Patient was noted to have some improvement subsequently. Patient was given aspirin due to elevated troponin. Chest x-ray one view interpreted by radiology showed cardiomegaly without definite infiltrate. Patient was discussed with Dr. Tabares who agreed to accept the patient as transfer to [facility]. Patient appears to be stable for transfer. Labs Test 01/23/19 09:20 01/23/19 11:11 White Blood Count 5.6 K/UL (4.8-10.8) Red Blood Count 4.29 M/UL (4.20-5.40) Hemoglobin 11.5 G/DL (12.0-16.0) Hematocrit 37.0 % (37.0-47.0) Mean Corpuscular Volume 86 FL (80-99) Mean Corpuscular Hemoglobin 26.7 PG (27.0-31.0) Mean Corpuscular Hemoglobin Concent 31.0 G/DL (32.0-36.0) Red Cell Distribution Width 15.6 % (11.6-14.8) Platelet Count 206 K/UL (150-450) Mean Platelet Volume 6.4 FL (6.5-10.1) Neutrophils (%) (Auto) 84.5 % (45.0-75.0) Lymphocytes (%) (Auto) 7.7 % (20.0-45.0) Monocytes (%) (Auto) 6.0 % (1.0-10.0) Eosinophils (%) (Auto) 0.0 % (0.0-3.0) Basophils (%) (Auto) 1.8 % (0.0-2.0) Prothrombin Time 10.8 SEC (9.30-11.50) Prothromb Time International Ratio 1.0 (0.9-1.1) Activated Partial Thromboplast Time 24 SEC (23-33) Sodium Level 144 MMOL/L (136-145) Potassium Level 4.1 MMOL/L (3.5-5.1) Chloride Level 105 MMOL/L (98-107) Carbon Dioxide Level 21 MMOL/L (21-32) Anion Gap 18 mmol/L (5-15) Blood Urea Nitrogen 16 mg/dL (7-18) Creatinine 1.8 MG/DL (0.55-1.30) Estimat Glomerular Filtration Rate mL/min (>60) Glucose Level 185 MG/DL (74-106) Calcium Level 10.5 MG/DL (8.5-10.1) Total Bilirubin 1.0 MG/DL (0.2-1.0) Aspartate Amino Transf (AST/SGOT) 47 U/L (15-37) Alanine Aminotransferase (ALT/SGPT) 41 U/L (12-78) Alkaline Phosphatase 63 U/L (46-116) Troponin I 0.217 ng/mL (0.000-0.056) Pro-B-Type Natriuretic Peptide 36915 pg/mL (0-125) Total Protein 8.3 G/DL (6.4-8.2) Albumin 4.4 G/DL (3.4-5.0) Globulin 3.9 g/dL Albumin/Globulin Ratio 1.1 (1.0-2.7) Lipase 66 U/L (73-393) EKG Diagnostic Results Rate: tachycardiac - 103 Rhythm: NSR ST Segments: no acute changes Last Vital Signs Date Time Temp Pulse Resp B/P (MAP) Pulse Ox O2 Delivery O2 Flow Rate FiO2 01/23/19 09:16 98.8 106 23 195/96 96 Room Air Status: unchanged Disposition: ADMITTED INPATIENT Condition: Serious Faisal Baker MD Jan 23, 2019 09:22
--- NOTE | 2019-01-23 09:29 | NUR ---
ED Nurse Note: medication given as orderd, patient tolerated well. patient is taken to CT
--- NOTE | 2019-01-23 09:43 | NUR ---
ED Nurse Note: patient came back from CT.
[2019-01-23 09:45] LABS: BASOPHILS % (AUTO) 1.8 % (0.0-2.0); HEMOGLOBIN 11.5 G/DL (12.0-16.0); LYMPHOCYTES % (AUTO) 7.7 % (20.0-45.0); MEAN CORPUSCULAR VOLUME 86 FL (80-99); NEUTROPHILS % (AUTO) 84.5 % (45.0-75.0); PLATELET COUNT 206 K/UL (150-450); RED BLOOD COUNT 4.29 M/UL (4.20-5.40); RED CELL DISTRIBUTION WIDTH 15.6 % (11.6-14.8); WHITE BLOOD COUNT 5.6 K/UL (4.8-10.8)
[2019-01-23 09:59] LABS: ANION GAP 18 mmol/L (5-15); BLOOD UREA NITROGEN 16 mg/dL (7-18); CALCIUM 10.5 MG/DL (8.5-10.1); CARBON DIOXIDE 21 MMOL/L (21-32); CHLORIDE 105 MMOL/L (98-107); CREATININE 1.8 MG/DL (0.55-1.30); POTASSIUM 4.1 MMOL/L (3.5-5.1); SODIUM 144 MMOL/L (136-145)
[2019-01-23 10:11] LABS: ALANINE AMINOTRANSFERASE 41 U/L (12-78); ALBUMIN 4.4 G/DL (3.4-5.0); ALBUMIN/GLOBULIN RATIO 1.1 (1.0-2.7); ALKALINE PHOSPHATASE 63 U/L (46-116); ASPARTATE AMINO TRANSFERASE 47 U/L (15-37)
[2019-01-23] MEDS ORDERED: Aspirin Baby 81mg ONE (10:25)
[2019-01-23] MEDS ORDERED: Aspirin Baby 81mg ORAL ONE (10:30)
--- NOTE | 2019-01-23 10:35 | Diagnostic Imaging Report ---
Indication: Abdominal pain Technique: Continuous helical transaxial imaging of the abdomen and pelvis was obtained from the lung bases to the pubic symphysis. No intravenous contrast was administered. Coronal 2-D reformats were also obtained. Automatic Exposure Control was utilized. Total Dose length Product (DLP): 1056.[address] Dose Index Volume (CTDIvol): 22.8 mGy Comparison: 01/04/2010 Findings: Trace bilateral pleural effusions and posterior basal atelectasis demonstrated. Small pericardial effusion is present. There is bronchiectasis at both lung bases. The heart is enlarged. Aorta is moderately calcified. There is no nephrolithiasis or hydronephrosis identified. The renal pelvis is prominent which is a normal variant or extrarenal pelvis configuration. The gallbladder is dense which may reflect underlying sludge or small stones. There is no biliary ductal dilatation identified. Noncontrast solid organ evaluation is negative. There is extensive diverticulosis of the colon without definite diverticulitis. There is no evidence of small bowel obstruction. Much of the pelvis is obscured and not from visualization due to extensive streak artifact from bilateral hip prostheses. There is a scar in the infraumbilical ventral abdominal wall. This is likely from prior surgery. There is narrowing of intervertebral discs and accompanying endplate osteophyte formation. Hypertrophied facet joints also demonstrated. IMPRESSION: Dense gallbladder which may reflective of gallstones or sludge. Diverticulosis of the colon. No definite diverticulitis. Obscured pelvis due to bilateral hip prostheses and resultant streak artifact. Degenerative changes of the spine. Atherosclerotic vascular disease. Trace bilateral pleural effusions and underlying atelectasis and suggestion of chronic disease with bronchiectasis. The CT scanner at [facility] is accredited by the [employer] and the scans are performed using dose optimization techniques as appropriate to a performed exam including Automatic Exposure control.
[2019-01-23] MEDS ORDERED: ASPIRIN81 MG ORAL (10:45)
--- NOTE | 2019-01-23 10:59 | Diagnostic Imaging Report ---
Indication: Dyspnea Comparison: 12/30/2018 A single view chest radiograph was obtained. Findings: Mild pulmonary vascular congestion may be present. The heart is enlarged. Bones are osteopenic. IMPRESSION: Possible mild pulmonary vascular congestion. Correlate clinically
--- NOTE | 2019-01-23 11:13 | NUR ---
ED Nurse Note: [facility]A SENT TO LAB
--- NOTE | 2019-01-23 11:19 | NUR ---
ED Nurse Note: notified to Dr. Baker regarding patient's BP 195/85
[2019-01-23 11:22] VITALS: BP 195/85
[2019-01-23] MEDS ORDERED: Enalaprilat 2.5mg/2ml Inj IV ONE (11:30)
[2019-01-23 11:51] LABS: APPEARANCE,URINE CLEAR; BILIRUBIN, URINE NEGATIVE (NEGATIVE); COLOR,URINE PALE YELLOW; GLUCOSE, URINE (UA) NEGATIVE (NEGATIVE); KETONES,URINE NEGATIVE (NEGATIVE); LEUKOCYTE ESTERASE ,URINE NEGATIVE (NEGATIVE); NITRITE,URINE NEGATIVE (NEGATIVE); PH,URINE 7 (4.5-8.0); PROTEIN,URINE 1+ (NEGATIVE); UROBILINOGEN,URINE NORMAL MG/DL (0.0-1.0)
--- NOTE | 2019-01-23 12:05 | NUR ---
ED Nurse Note: Report given to Damian MOSCOSO at [facility]. endorsed all plan of care to Damian MOSCOSO.
--- NOTE | 2019-01-23 12:58 | NUR ---
ED Nurse Note: notified to Dr. Baker regarding BP 185/82
[2019-01-23 13:40] VITALS: BP 195/96
--- NOTE | 2019-01-23 13:40 | NUR ---
ED Nurse Note: no new orders received regarding patient's BP after notifying Dr. Baker regarding patient's BP 185/82. departing bp was 185/80. [facility] air value tester was ok to take patient. patient transferred with [facility] ambulance with all of her belongings.
--- NOTE | 2019-01-26 15:26 | Cardiology Report ---
APPROVED REPORT EKG Measurement Heart [id number] 140P39 [id number] Sinus tachycardia Low voltage QRS Cannot rule out Anterior infarct, age undetermined Abnormal ECG
== END 2019-01-23 13:40 | disposition short-term general hospital (02) ==
LOC: EDBD 09:05 → EMR 09:45
DX: I21.4 Non-ST elevation (NSTEMI) myocardial infarction (principal); I16.1 Hypertensive emergency; R11.10 Vomiting, unspecified; E87.70 Fluid overload, unspecified; E11.9 Type 2 diabetes mellitus without complications
CPT/HCPCS: 36415; 71045; 74176; 80053; 81003; 82962; 83690; 83880; 84484; 85025; 85610; 85730; 86850; 86900; 86901; 93005; 96374; 96375; 99285; J1940; J2765; S0028

== ENCOUNTER 2019-02-22 14:06 | Emergency (ER) | payer MEDICARE, MEDICAID ==
[~2019-02-22] VITALS: Ht 160 cm; Wt 68.0 kg
[~2019-02-22 14:06] MED LIST changes: +ASPIRIN81 MG ORAL
[2019-02-22 14:20] VITALS: BP 184/76
--- NOTE | 2019-02-22 14:20 | NUR ---
ED Nurse Note: pt walked in to ED due to abdominal pain aw nausea and vomiting since . pt called Dr. Booth and instructed to go to ED. no diarrhea. last BM was this morning. denies eating raw food or started new meds. AAO x4. ambulatory with steady gait using cane. respirations even and non-labored noted. skin warm to touch. no open wound noted. on surveillance system monitor. will wait for further order.
--- NOTE | 2019-02-22 14:24 | Emergency Room Report ---
History of Present Illness General Chief Complaint: Vomiting Source: Patient Present Illness HPI 78-year-old female history of hypertension, diabetes, CHF, presents with 3 days of nausea vomiting generalized abdominal pain, no diarrhea, no fever no chills, patient is felt generalized weakness, no aggravating or alleviating factors severity is moderate, constant, patient denies any chest pain, but she does endorse some shortness of breath. Patient was sent in by her doctor because she has not been tolerating p.o., patient presents for evaluation Allergies: Coded Allergies: No Known Allergies (Verified , 02/14/18) Patient History Past Medical History: see triage record Reviewed Nursing Documentation: PMH: Agreed; PSxH: Agreed Nursing Documentation-PMH Hx Cardiac Problems: Yes Hx Hypertension: Yes Hx Diabetes: Yes - DM 2 Hx Cancer: No Hx Gastrointestinal Problems: No Hx Neurological Problems: No Review of Systems All Other Systems: negative except mentioned in HPI Physical Exam Sp02 EP Interpretation: reviewed, normal General Appearance: well appearing, no apparent distress, alert Head: normocephalic, atraumatic Eyes: bilateral eye PERRL, bilateral eye EOMI ENT: uvula midline, dry mucus membranes Neck: supple, thyroid normal, supple/symm/no masses Respiratory: lungs clear, no respiratory distress, no retraction, no accessory muscle use Cardiovascular #1: normal peripheral pulses, no edema, no gallop, no murmur, tachycardia Gastrointestinal: non tender, soft, no guarding, no rebound Musculoskeletal: normal inspection Neurologic: alert, oriented x3 Psychiatric: mood/affect normal Skin: no rash, warm/dry Medical Decision Making Diagnostic Impression: Primary Impression: Dehydration Additional Impression: Weakness ER Course 78-year-old female resents with clinical dehydration, tachycardia, dry mucous membranes, will gently rehydrate patient given her comorbidities, CT scan shows no acute processes differential diagnosis includes dehydration, gastroenteritis , diverticulitis Gentle fluid hydration, patient with a slightly elevated troponinemia, may be secondary to her dehydration and CKD, patient is denying any chest pain or shortness of breath Patient accepted by [facility] at 3:50pm Will admit patient for dehydration and weakness. Laboratory Tests Test 02/22/19 14:45 White Blood Count 6.6 K/UL (4.8-10.8) Red Blood Count 3.71 M/UL (4.20-5.40) L Hemoglobin 9.9 G/DL (12.0-16.0) L Hematocrit 31.8 % (37.0-47.0) L Mean Corpuscular Volume 86 FL (80-99) Mean Corpuscular Hemoglobin 26.7 PG (27.0-31.0) L Mean Corpuscular Hemoglobin Concent 31.1 G/DL (32.0-36.0) L Red Cell Distribution Width 16.0 % (11.6-14.8) H Platelet Count 217 K/UL (150-450) Mean Platelet Volume 6.9 FL (6.5-10.1) Neutrophils (%) (Auto) 79.0 % (45.0-75.0) H Lymphocytes (%) (Auto) 6.6 % (20.0-45.0) L Monocytes (%) (Auto) 13.3 % (1.0-10.0) H Eosinophils (%) (Auto) 0.1 % (0.0-3.0) Basophils (%) (Auto) 1.0 % (0.0-2.0) Prothrombin Time 11.4 SEC (9.30-11.50) Prothrombin Time INR 1.1 (0.9-1.1) PTT 23 SEC (23-33) Sodium Level 146 MMOL/L (136-145) H Potassium Level 3.8 MMOL/L (3.5-5.1) Chloride Level 105 MMOL/L (98-107) Carbon Dioxide Level 23 MMOL/L (21-32) Anion Gap 18 mmol/L (5-15) H Blood Urea Nitrogen 18 mg/dL (7-18) Creatinine 1.8 MG/DL (0.55-1.30) H Estimate Glomerular Filtration Rate mL/min (>60) Glucose Level 119 MG/DL (74-106) H Lactic Acid Level 1.80 mmol/L (0.4-2.0) Calcium Level 10.0 MG/DL (8.5-10.1) Phosphorus Level 3.2 MG/DL (2.5-4.9) Magnesium Level 2.3 MG/DL (1.8-2.4) Total Bilirubin 0.9 MG/DL (0.2-1.0) Aspartate Amino Transferase (AST) 37 U/L (15-37) Alanine Aminotransferase (ALT) 31 U/L (12-78) Alkaline Phosphatase 50 U/L (46-116) Total Creatine Kinase 160 U/L (26-308) Creatine Kinase MB 2.2 NG/ML (0.0-3.6) Creatine Kinase MB Relative Index 1.3 Troponin I 0.085 ng/mL (0.000-0.056) Pro-B-Type Natriuretic Peptide 58682 pg/mL (0-125) H Total Protein 8.0 G/DL (6.4-8.2) Albumin 4.0 G/DL (3.4-5.0) Globulin 4.0 g/dL Albumin/Globulin Ratio 1.0 (1.0-2.7) Lipase 56 U/L (73-393) L EKG Diagnostic Results EKG Time: 14:38 EP Interpretation: Sinus tachycardia, rate 105, QTc [address] elevations, normal axis Rhythm Strip Diag. Results Rhythm Strip Time: 14:43 EP Interpretation: yes Rate: 103 Rhythm: no PVC's, no ectopy, other - Sinus tachycardia Chest X-Ray Diagnostic Results Chest X-Ray Diagnostic Results : Chest X-Ray Ordered: Yes # of Views/Limited/Complete: 1 View Indication: Shortness of Breath EP Interpretation: Yes Interpretation: no consolidation, no effusion, no pneumothorax, no acute cardiopulmonary disease Impression: No acute disease Electronically Signed by: Mingo Kirkpatrick MD CT/MRI/US Diagnostic Results CT/MRI/US Diagnostic Results : Impression Procedure: CT Abdomen Pelvis WO Contrast EXAM: CT Abdomen and Pelvis Without Intravenous Contrast CLINICAL HISTORY: PAIN TECHNIQUE: Axial computed tomography images of the abdomen and pelvis without intravenous contrast. CTDI is 16.9 mGy and DLP is 842.6 mGy-cm. One or more of the following dose reduction techniques were used: automated exposure control, adjustment of the mA and or kV according to patient size, use of iterative reconstruction technique. COMPARISON: No relevant prior studies available. FINDINGS: Lung bases: Unremarkable. Pleural space: Trace bilateral pleural effusions. Heart: Cardiomegaly. Cardiomegaly and trace pericardial fluid. Mediastinum: Small hiatal hernia. ABDOMEN: Liver: Unremarkable Gallbladder and bile ducts: No calcified stones. No ductal dilation. Pancreas: Unremarkable. Spleen: Unremarkable. Adrenals: Unremarkable. Kidneys and ureters: No renal calculi or obstructive changes. Stomach and bowel: Colonic diverticula without diverticulitis. PELVIS: Appendix: No findings to suggest acute appendicitis. Bladder: Poorly visualized Reproductive: Poorly visualized ABDOMEN and PELVIS: Intraperitoneal space: Unremarkable. Bones joints: Limited assessment of the pelvis and its contents due to artifacts from the bilateral hip replacements. Soft tissues: Anasarca. Vasculature: Unremarkable. No abdominal aortic aneurysm. Lymph nodes: No enlarged lymph nodes. IMPRESSION: No acute findings. Dictated By: Alexia Priest MD Electronically Signed By: Alexia Priest MD Signed Date/Time 02/22/19 1542 CC: Mingo Kirkpatrick MD Disposition: XFER T-TRM HOSP Condition: Stable Mingo Kirkpatrick MD Feb 22, 2019 14:24
[2019-02-22 15:17] LABS: EOSINOPHILS % (AUTO) 0.1 % (0.0-3.0); HEMATOCRIT 31.8 % (37.0-47.0); HEMOGLOBIN 9.9 G/DL (12.0-16.0); LYMPHOCYTES % (AUTO) 6.6 % (20.0-45.0); MEAN CORPUSCULAR VOLUME 86 FL (80-99); MONOCYTES % (AUTO) 13.3 % (1.0-10.0); PLATELET COUNT 217 K/UL (150-450); RED BLOOD COUNT 3.71 M/UL (4.20-5.40); WHITE BLOOD COUNT 6.6 K/UL (4.8-10.8)
[2019-02-22 15:31] LABS: ANION GAP 18 mmol/L (5-15); BLOOD UREA NITROGEN 18 mg/dL (7-18); CARBON DIOXIDE 23 MMOL/L (21-32); CHLORIDE 105 MMOL/L (98-107); CREATININE 1.8 MG/DL (0.55-1.30); POTASSIUM 3.8 MMOL/L (3.5-5.1); SODIUM 146 MMOL/L (136-145)
[2019-02-22 15:35] LABS: INR 1.1 (0.9-1.1)
[2019-02-22 15:42] LABS: ALANINE AMINOTRANSFERASE 31 U/L (12-78); ALKALINE PHOSPHATASE 50 U/L (46-116); ASPARTATE AMINO TRANSFERASE 37 U/L (15-37); BILIRUBIN,TOTAL 0.9 MG/DL (0.2-1.0); CKMB 2.2 NG/ML (0.0-3.6); CREATINE KINASE 160 U/L (26-308); PHOSPHORUS 3.2 MG/DL (2.5-4.9)
--- NOTE | 2019-02-22 15:43 | Diagnostic Imaging Report ---
EXAM: CT Abdomen and Pelvis Without Intravenous Contrast CLINICAL HISTORY: PAIN TECHNIQUE: Axial computed tomography images of the abdomen and pelvis without intravenous contrast. CTDI is 16.9 mGy and DLP is 842.6 mGy-cm. One or more of the following dose reduction techniques were used: automated exposure control, adjustment of the mA and or kV according to patient size, use of iterative reconstruction technique. COMPARISON: No relevant prior studies available. FINDINGS: Lung bases: Unremarkable. Pleural space: Trace bilateral pleural effusions. Heart: Cardiomegaly. Cardiomegaly and trace pericardial fluid. Mediastinum: Small hiatal hernia. ABDOMEN: Liver: Unremarkable Gallbladder and bile ducts: No calcified stones. No ductal dilation. Pancreas: Unremarkable. Spleen: Unremarkable. Adrenals: Unremarkable. Kidneys and ureters: No renal calculi or obstructive changes. Stomach and bowel: Colonic diverticula without diverticulitis. PELVIS: Appendix: No findings to suggest acute appendicitis. Bladder: Poorly visualized Reproductive: Poorly visualized ABDOMEN and PELVIS: Intraperitoneal space: Unremarkable. Bones joints: Limited assessment of the pelvis and its contents due to artifacts from the bilateral hip replacements. Soft tissues: Anasarca. Vasculature: Unremarkable. No abdominal aortic aneurysm. Lymph nodes: No enlarged lymph nodes. IMPRESSION: No acute findings.
[2019-02-22 16:00] VITALS: BP 174/70
--- NOTE | 2019-02-22 16:00 | NUR ---
ED Nurse Note: RN informed high bp to Dr. Kirkpatrick, 174/70mmHg with 102 HR. will wait for the further order.
[2019-02-22] MEDS ORDERED: Labetalol 5mg/ml 20ml vial IV ONE (16:15)
--- NOTE | 2019-02-22 16:30 | NUR ---
ED Nurse Note: pt unable to provide urine. Dr. Kirkpatrick notified.
--- NOTE | 2019-02-22 16:37 | Diagnostic Imaging Report ---
EXAM: XR Chest, 1 View CLINICAL HISTORY: ABD PAIN TECHNIQUE: Frontal view of the chest. COMPARISON: No relevant prior studies available. FINDINGS: Lungs: Accentuation of bronchovascular markings and mild consolidative atelectasis in the right lung base. Reduced lung volumes. Pleural space: Small bilateral pleural effusions better seen on the CT. No pneumothorax. Heart: Large cardiac silhouette and small pericardial effusion as shown on the earlier CT. Mediastinum: Unremarkable. Bones joints: No acute fracture. IMPRESSION: Accentuation of bronchovascular markings and mild consolidative atelectasis in the right lung base.
--- NOTE | 2019-02-22 17:00 | NUR ---
ED Nurse Note: Reports given to Yasir James at [facility].
--- NOTE | 2019-02-22 17:04 | NUR ---
ED Nurse Note: pt transferred to [facility] by [phone].
[2019-02-22 17:07] VITALS: BP 154/72
--- NOTE | 2019-02-25 16:55 | Cardiology Report ---
APPROVED REPORT EKG Measurement Heart [id number] Sinus tachycardia Cannot rule out Anterior infarct, age undetermined Abnormal ECG
== END 2019-02-22 17:25 | disposition short-term general hospital (02) ==
LOC: EMR 14:55
DX: E86.0 Dehydration (principal); R53.1 Weakness; E11.9 Type 2 diabetes mellitus without complications; I11.0 Hypertensive heart disease with heart failure; I50.9 Heart failure, unspecified; R06.02 Shortness of breath; K44.9 Diaphragmatic hernia without obstruction or gangrene
CPT/HCPCS: 36415; 71045; 74176; 80053; 82550; 82553; 83605; 83690; 83735; 83880; 84100; 84484; 85025; 85610; 85730; 87040; 93005; 96361; 96374; 96375; 99284; J2405; J7030

== ENCOUNTER 2019-03-20 13:11 | Emergency (ER) | payer MEDICARE, MEDICAID ==
[~2019-03-20] VITALS: Ht 157.5 cm; Wt 71.2 kg
[2019-03-20 13:40] VITALS: BP 117/68
--- NOTE | 2019-03-20 13:40 | NUR ---
ED Nurse Note: pt ambulated to ed c/o "feeling weak, and im sick, i havent ate anything". pt placed in gown and on configurator, labs will be drawn per ermd order
--- NOTE | 2019-03-20 13:45 | NUR ---
ED Nurse Note: PT STATES SHE IS UNABLE TO URINATE AT THIS TIME. WILL REATTEMP TO RETRIEVE URINE SAMPLE LATER.
--- NOTE | 2019-03-20 14:14 | Emergency Room Report ---
History of Present Illness General Chief Complaint: Gastrointestinal Illness Source: Patient Present Illness HPI 78-year-old female with a history of hypertension, diabetes, hyperlipidemia and chronic kidney disease who presents to emergency room with 2 days of vomiting patient states her episodes of vomiting started on Sunday and resolved Sunday night. Patient states that she has been unable to tolerate much p.o. due to weakness and concerns for vomiting. Patient denies any diarrhea. Patient does note that she has had decreased bowel movements, as she has not been eating very much. Patient states she feels very weak she is unable to ambulate well she feels like she needs to come to fall down. Patient is supposed to be ambulating with a walker however she does not like to use it as it is very heavy , she uses a cane instead. Patient denies any fevers chills or recent travel. Allergies: Coded Allergies: No Known Allergies (Verified , 02/14/18) Patient History PMH Narrative Chronic kidney disease, hypertension, hyperlipidemia, diabetes PSxH Narrative Hysterectomy Nursing Documentation-PMH Past Medical History: No History, Except For Hx Cardiac Problems: Yes Hx Hypertension: Yes Hx Diabetes: Yes - DM 2 Hx Cancer: No Hx Gastrointestinal Problems: No Hx Neurological Problems: No Review of Systems Constitutional: Denies: chills, fever Respiratory: Denies: cough, shortness of breath Cardiovascular: Denies: chest pain, palpitations Gastrointestinal: Reports: nausea, vomiting; Denies: abdominal pain, diarrhea Musculoskeletal: Denies: back pain, muscle pain Skin: Denies: rash, dryness Neurological: Denies: headache, seizure Physical Exam Vital Signs Date Time Temp Pulse Resp B/P (MAP) Pulse Ox O2 Delivery O2 Flow Rate FiO2 03/20/19 13:36 98.6 100 19 117/68 (84) 95 Room Air Sp02 EP Interpretation: reviewed, normal General Appearance: no apparent distress, alert, GCS 15, non-toxic Head: normocephalic, atraumatic ENT: hearing grossly normal, normal pharynx, normal voice, dry mucus membranes Neck: full range of motion, supple/symm/no masses Respiratory: chest non-tender, lungs clear, normal breath sounds, speaking full sentences Cardiovascular #1: regular rate, rhythm, edema - 4+ pitting Cardiovascular #2: 2+ radial (R), 2+ radial (L) Gastrointestinal: normal bowel sounds, non tender, soft, non-distended, no guarding, no rebound Rectal: deferred Genitourinary: normal inspection, no CVA tenderness Neurologic: alert, responsive, grossly normal Skin: warm/dry, normal turgor Medical Decision Making ER Course 78-year-old female with a history of hypertension, chronic kidney disease, diabetes, hypertension who presents to emergency room with multiple episodes of vomiting for 2 days duration now resolved. But now having persistent weakness. Patient found to have exam showing lower extremity edema Differential includes acute on chronic kidney failure, DKA, ACS gastroenteritis , electrolyte abnormality Lab testing performed chest x-ray performed EKG performed. Patient found to have elevated proBNP consistent with congestive heart failure exacerbation. Patient symptoms likely secondary to CHF. Patient to be admitted for diuresis. Patient's care accepted to . Patient agreeable with transfer to [facility] Laboratory Tests Test 03/20/19 14:48 White Blood Count 5.6 K/UL (4.8-10.8) Red Blood Count 3.44 M/UL (4.20-5.40) L Hemoglobin 9.3 G/DL (12.0-16.0) L Hematocrit 29.5 % (37.0-47.0) L Mean Corpuscular Volume 86 FL (80-99) Mean Corpuscular Hemoglobin 27.2 PG (27.0-31.0) Mean Corpuscular Hemoglobin Concent 31.6 G/DL (32.0-36.0) L Red Cell Distribution Width 16.1 % (11.6-14.8) H Platelet Count 166 K/UL (150-450) Mean Platelet Volume 7.0 FL (6.5-10.1) Neutrophils (%) (Auto) 71.4 % (45.0-75.0) Lymphocytes (%) (Auto) 9.8 % (20.0-45.0) L Monocytes (%) (Auto) 17.0 % (1.0-10.0) H Eosinophils (%) (Auto) 0.5 % (0.0-3.0) Basophils (%) (Auto) 1.3 % (0.0-2.0) Sodium Level 146 MMOL/L (136-145) H Potassium Level 3.4 MMOL/L (3.5-5.1) L Chloride Level 108 MMOL/L (98-107) H Carbon Dioxide Level 31 MMOL/L (21-32) Anion Gap 7 mmol/L (5-15) Blood Urea Nitrogen 28 mg/dL (7-18) H Creatinine 2.4 MG/DL (0.55-1.30) H Estimate Glomerular Filtration Rate mL/min (>60) Glucose Level 73 MG/DL (74-106) L Lactic Acid Level 1.60 mmol/L (0.4-2.0) Calcium Level 9.8 MG/DL (8.5-10.1) Total Bilirubin 0.7 MG/DL (0.2-1.0) Aspartate Amino Transferase (AST) 31 U/L (15-37) Alanine Aminotransferase (ALT) 19 U/L (12-78) Alkaline Phosphatase 42 U/L (46-116) L Total Creatine Kinase 105 U/L (26-308) Creatine Kinase MB 2.9 NG/ML (0.0-3.6) Creatine Kinase MB Relative Index 2.7 Troponin I 0.173 ng/mL (0.000-0.056) Pro-B-Type Natriuretic Peptide 75917 pg/mL (0-125) H Total Protein 7.4 G/DL (6.4-8.2) Albumin 3.9 G/DL (3.4-5.0) Globulin 3.5 g/dL Albumin/Globulin Ratio 1.1 (1.0-2.7) Lipase 101 U/L (73-393) Microbiology Date/Time Source Procedure Growth Status 03/20/19 14:30 Nasal Not Otherwise Specified - Final Complete 03/20/19 14:30 Nasal Not Otherwise Specified - Final Complete Lab Results Impression Chronic kidney disease, troponinemia, elevated proBNP, hypokalemia EKG Diagnostic Results EKG Time: 16:22 EP Interpretation: Dermal sinus rhythm, T wave flattening lateral leads, Rhythm: NSR Last Vital Signs Date Time Temp Pulse Resp B/P (MAP) Pulse Ox O2 Delivery O2 Flow Rate FiO2 03/20/19 13:36 98.6 100 19 117/68 (84) 95 Room Air Disposition: XFER SHT-TRM [facility] Sean Singh M.D. Mar 20, 2019 14:14
--- NOTE | 2019-03-20 14:32 | NUR ---
ED Nurse Note: xray at bedside
--- NOTE | 2019-03-20 14:38 | NUR ---
ED Nurse Note: xray completed
--- NOTE | 2019-03-20 15:00 | NUR ---
ED Nurse Note: IV SITE ESTABLISHED, LINE IS PATENT AND INTACT, BLOOD SPECIMEN COLLECTED; SENT TO LAB
--- NOTE | 2019-03-20 15:02 | Diagnostic Imaging Report ---
Indication: Chest pain Comparison: 02/22/2019 A single view chest radiograph was obtained. Findings: No definite infiltrate or pulmonary vascular congestion identified. The heart is enlarged. The aorta is mildly enlarged consistent with atherosclerotic vascular disease. The bones are osteopenic. Impression: No acute disease
[2019-03-20 15:06] VITALS: BP 110/62
[2019-03-20 15:37] LABS: BASOPHILS % (AUTO) 1.3 % (0.0-2.0); EOSINOPHILS % (AUTO) 0.5 % (0.0-3.0); HEMATOCRIT 29.5 % (37.0-47.0); HEMOGLOBIN 9.3 G/DL (12.0-16.0); LYMPHOCYTES % (AUTO) 9.8 % (20.0-45.0); MEAN CORPUSCULAR VOLUME 86 FL (80-99); NEUTROPHILS % (AUTO) 71.4 % (45.0-75.0); PLATELET COUNT 166 K/UL (150-450); RED BLOOD COUNT 3.44 M/UL (4.20-5.40); RED CELL DISTRIBUTION WIDTH 16.1 % (11.6-14.8); WHITE BLOOD COUNT 5.6 K/UL (4.8-10.8)
[2019-03-20 15:52] LABS: ANION GAP 7 mmol/L (5-15); BLOOD UREA NITROGEN 28 mg/dL (7-18); CALCIUM 9.8 MG/DL (8.5-10.1); CARBON DIOXIDE 31 MMOL/L (21-32); CHLORIDE 108 MMOL/L (98-107); CREATININE 2.4 MG/DL (0.55-1.30); POTASSIUM 3.4 MMOL/L (3.5-5.1); SODIUM 146 MMOL/L (136-145)
[2019-03-20 16:05] LABS: ALANINE AMINOTRANSFERASE 19 U/L (12-78); ALBUMIN 3.9 G/DL (3.4-5.0); ALBUMIN/GLOBULIN RATIO 1.1 (1.0-2.7); ALKALINE PHOSPHATASE 42 U/L (46-116); ASPARTATE AMINO TRANSFERASE 31 U/L (15-37); BILIRUBIN,TOTAL 0.7 MG/DL (0.2-1.0); CKMB 2.9 NG/ML (0.0-3.6); CREATINE KINASE 105 U/L (26-308)
[2019-03-20 16:54] VITALS: BP 167/62
--- NOTE | 2019-03-20 17:19 | NUR ---
ED Nurse Note: TELEPHONE REPORT GIVEN TO GURWINDER CARRIZALESLEAD TECHNICAL ARCHITECT AT [facility] FOR CONTINUTIY OF CARE.
[2019-03-20 17:27] VITALS: BP 156/54
--- NOTE | 2019-03-20 17:27 | NUR ---
ED Nurse Note: [facility] AT BEDSIDE TO TRANPORT PT. PT HAS ALL BELONGINGS. PT AMBULTAORY WITH STEADY WITH CANE. PT WAS ASSITED TO RESTROOM, COLLECTED URINE SPECIMEN; WILL SEND TO LAB. PT FADI LINE INTACT AND PATENT. NO ACUTE DISTRESS NOTED. VSS.
[2019-03-20 18:24] LABS: APPEARANCE,URINE CLEAR; BILIRUBIN, URINE NEGATIVE (NEGATIVE); COLOR,URINE PALE YELLOW; GLUCOSE, URINE (UA) NEGATIVE (NEGATIVE); KETONES,URINE NEGATIVE (NEGATIVE); LEUKOCYTE ESTERASE ,URINE NEGATIVE (NEGATIVE); NITRITE,URINE NEGATIVE (NEGATIVE); PH,URINE 6 (4.5-8.0); PROTEIN,URINE 2+ (NEGATIVE); UROBILINOGEN,URINE NORMAL MG/DL (0.0-1.0)
--- NOTE | 2019-03-21 10:46 | Cardiology Report ---
APPROVED REPORT EKG Measurement Heart [id number] Sinus rhythm with premature supraventricular complexes Nonspecific T wave abnormality Abnormal ECG
== END 2019-03-20 17:27 | disposition short-term general hospital (02) ==
LOC: EMR 14:49
DX: I50.9 Heart failure, unspecified (principal); E11.22 Type 2 diabetes mellitus with diabetic chronic kidney disease; I12.9 Hypertensive chronic kidney disease with stage 1 through stage 4 chronic kidney disease, or unspecified chronic kidney disease; N18.9 Chronic kidney disease, unspecified; E78.5 Hyperlipidemia, unspecified; Z90.710 Acquired absence of both cervix and uterus
CPT/HCPCS: 36415; 71045; 80053; 81003; 82550; 82553; 83605; 83690; 83880; 84484; 85025; 86710; 87040; 93005; 96374; 99284; J1940; J8499

== ENCOUNTER 2019-05-04 13:08 | Emergency (ER) | payer OTHER, MEDICAID ==
[~2019-05-04] VITALS: Ht 162.6 cm; Wt 61.2 kg
--- NOTE | 2019-05-04 13:32 | NUR ---
ED Nurse Note: Pt brought into ED by ambulance. Pt has been vomiting since sunday and has eaten/drunk very little. Pt also has had epigastric pain 01/07 since sunday. Pt is alert and oriented, ambulatory with cane but weak. Pt set up on monitor. MD aware BP 186/80. Will cont to monitor.
[2019-05-04 13:34] VITALS: BP 186/82
[2019-05-04] MEDS ORDERED: Omnipaque-300 100ml vial INJ PRN (13:45)
--- NOTE | 2019-05-04 14:00 | NUR ---
ED Nurse Note: Dr Odonnell aware pt's BP 198/101.
[2019-05-04 15:18] LABS: BASOPHILS % (AUTO) 2.9 % (0.0-2.0); EOSINOPHILS % (AUTO) 0.5 % (0.0-3.0); HEMATOCRIT 30.9 % (37.0-47.0); HEMOGLOBIN 9.7 G/DL (12.0-16.0); LYMPHOCYTES % (AUTO) 11.2 % (20.0-45.0); MEAN CORPUSCULAR VOLUME 88 FL (80-99); MONOCYTES % (AUTO) 12.3 % (1.0-10.0); NEUTROPHILS % (AUTO) 73.2 % (45.0-75.0); PLATELET COUNT 204 K/UL (150-450); RED BLOOD COUNT 3.49 M/UL (4.20-5.40); RED CELL DISTRIBUTION WIDTH 15.2 % (11.6-14.8); WHITE BLOOD COUNT 6.6 K/UL (4.8-10.8)
[2019-05-04 15:37] LABS: ANION GAP 11 mmol/L (5-15); BLOOD UREA NITROGEN 24 mg/dL (7-18); CALCIUM 9.3 MG/DL (8.5-10.1); CARBON DIOXIDE 26 MMOL/L (21-32); CHLORIDE 110 MMOL/L (98-107); POTASSIUM 4.1 MMOL/L (3.5-5.1); SODIUM 147 MMOL/L (136-145)
--- NOTE | 2019-05-04 15:38 | Emergency Room Report ---
History of Present Illness General Chief Complaint: Upper Respiratory Illness Source: Patient (Jens Reed MD) Present Illness HPI 79-year-old female presents ED for evaluation. Brought in by EMS from home. States she has been feeling nausea and stomach pain for the last several days. Pain is dull, 5 out of 10, nonradiating. Denies fevers or chills. Denies cough. Denies chest pain. Denies diarrhea. Notes no other aggravating relieving factors. Denies any other associated symptoms (Jens Reed MD) Allergies: Coded Allergies: No Known Allergies (Verified , 02/14/18) Patient History Past Medical History: DM, HTN Past Surgical History: none Pertinent Family History: none Social History: Denies: smoking, alcohol use, drug use Now: No Immunizations: UTD Reviewed Nursing Documentation: PMH: Agreed; PSxH: Agreed (Jens Reed MD) Nursing Documentation-PMH Past Medical History: No History, Except For Hx Cardiac Problems: Yes Hx Hypertension: Yes Hx Diabetes: Yes - DM 2 Hx Cancer: No Hx Gastrointestinal Problems: No Hx Neurological Problems: No (Jens Reed MD) Review of Systems All Other Systems: negative except mentioned in HPI (Jens Reed MD) Physical Exam Vital Signs Date Time Temp Pulse Resp B/P (MAP) Pulse Ox O2 Delivery O2 Flow Rate FiO2 05/04/19 13:07 98.4 86 18 180/86 (117) 98 Room Air 05/04/19 13:34 98 Sp02 EP Interpretation: reviewed, normal General Appearance: no apparent distress, alert, GCS 15, non-toxic Head: normocephalic, atraumatic Eyes: bilateral eye normal inspection, bilateral eye PERRL ENT: hearing grossly normal, normal pharynx, no angioedema, normal voice Neck: full range of motion, supple/symm/no masses Respiratory: chest non-tender, lungs clear, normal breath sounds, speaking full sentences Cardiovascular #1: regular rate, rhythm, no edema Cardiovascular #2: 2+ carotid (R), 2+ carotid (L), 2+ radial (R), 2+ radial (L) , 2+ dorsalis pedis (R), 2+ dorsalis pedis (L) Gastrointestinal: normal bowel sounds, non tender, soft, non-distended, no guarding, no rebound Rectal: deferred Genitourinary: normal inspection, no CVA tenderness Musculoskeletal: back normal, normal range of motion, gait/station normal, non- tender Neurologic: alert, motor strength/tone normal, oriented x3, sensory intact, responsive, speech normal Psychiatric: judgement/insight normal, memory normal, mood/affect normal, no suicidal/homicidal ideation Reflexes: 3+ bicep (R), 3+ bicep (L), 3+ tricep (R), 3+ tricep (L), 3+ knee (R) , 3+ knee (L) Lymphatic: no adenopathy (Jens Reed MD) Medical Decision Making Diagnostic Impression: Primary Impression: UTI (urinary tract infection) Additional Impressions: CKD (chronic kidney disease) CHF exacerbation Pleural effusion Pericardial effusion Laboratory Tests Test 05/04/19 14:50 05/04/19 15:50 White Blood Count 6.6 K/UL (4.8-10.8) Red Blood Count 3.49 M/UL (4.20-5.40) L Hemoglobin 9.7 G/DL (12.0-16.0) L Hematocrit 30.9 % (37.0-47.0) L Mean Corpuscular Volume 88 FL (80-99) Mean Corpuscular Hemoglobin 27.7 PG (27.0-31.0) Mean Corpuscular Hemoglobin Concent 31.3 G/DL (32.0-36.0) L Red Cell Distribution Width 15.2 % (11.6-14.8) H Platelet Count 204 K/UL (150-450) Mean Platelet Volume 6.8 FL (6.5-10.1) Neutrophils (%) (Auto) 73.2 % (45.0-75.0) Lymphocytes (%) (Auto) 11.2 % (20.0-45.0) L Monocytes (%) (Auto) 12.3 % (1.0-10.0) H Eosinophils (%) (Auto) 0.5 % (0.0-3.0) Basophils (%) (Auto) 2.9 % (0.0-2.0) H Sodium Level 147 MMOL/L (136-145) H Potassium Level 4.1 MMOL/L (3.5-5.1) Chloride Level 110 MMOL/L (98-107) H Carbon Dioxide Level 26 MMOL/L (21-32) Anion Gap 11 mmol/L (5-15) Blood Urea Nitrogen 24 mg/dL (7-18) H Creatinine 2.0 MG/DL (0.55-1.30) H Estimate Glomerular Filtration Rate mL/min (>60) Glucose Level 135 MG/DL (74-106) H Calcium Level 9.3 MG/DL (8.5-10.1) Total Bilirubin 0.7 MG/DL (0.2-1.0) Aspartate Amino Transferase (AST) 26 U/L (15-37) Alanine Aminotransferase (ALT) 21 U/L (12-78) Alkaline Phosphatase 48 U/L (46-116) Troponin I 0.075 ng/mL (0.000-0.056) Pro-B-Type Natriuretic Peptide > 92422 pg/mL (0-125) H Total Protein 7.4 G/DL (6.4-8.2) Albumin 3.6 G/DL (3.4-5.0) Globulin 3.8 g/dL Albumin/Globulin Ratio 0.9 (1.0-2.7) L Lipase 236 U/L (73-393) Urine Color Pale yellow Urine Appearance Slightly cloudy Urine pH 6 (4.5-8.0) Urine Specific [place] 1.015 (1.005-1.035) Urine Protein 3+ (NEGATIVE) H Urine Glucose (UA) Negative (NEGATIVE) Urine Ketones 1+ (NEGATIVE) H Urine Blood 2+ (NEGATIVE) H Urine Nitrite Negative (NEGATIVE) Urine Bilirubin Negative (NEGATIVE) Urine Urobilinogen Normal MG/DL (0.0-1.0) Urine Leukocyte Esterase 2+ (NEGATIVE) H Urine RBC 2-4 /HPF (0 - 2) H Urine WBC 10-15 /HPF (0 - 2) H Urine Squamous Epithelial Cells Moderate /LPF (NONE/OCC) H Urine Bacteria Moderate /HPF (NONE) H Microbiology Date/Time Source Procedure Growth Status 05/04/19 15:50 Nasal Nares - Final Complete 05/04/19 15:50 Nasal Nares - Final Complete (Ozzie Odonnell MD) Chest X-Ray Diagnostic Results Chest X-Ray Diagnostic Results : Chest X-Ray Ordered: Yes # of Views/Limited/Complete: 1 View Indication: Shortness of Breath Interpretation: no consolidation, other - Bilateral vascular congestion Impression: Other - Bilateral vascular congestion Electronically Signed by: Electronically signed by Dr. Ozzie Odonnell (Ozzie Odonnell MD) CT/MRI/US Diagnostic Results CT/MRI/US Diagnostic Results : Impression Preliminary Findings Only See Final Report For Complete Findings CT ABDOMEN & PELVIS With Contrast: Comparison is made to CT abdomen/pelvis on 02/22/2019. Small bilateral pleural effusions and associated atelectasis. Cardiomegaly. Small to moderate pericardial effusion. Small hiatal hernia. Small calcifications left greater than right breasts. Hyperdense material in the gallbladder may represent artifact versus stones/ sludge. Diverticulosis without definite evidence of diverticulitis. Normal appendix. No bowel obstruction. Mild fullness of the renal collecting systems. No definite obstructing stone identified. However, evaluation of the pelvis is limited by prominent streak artifact from the bilateral hip arthroplasties. Atherosclerotic changes of the vasculature. No aortic aneurysm. Grade 1 anterolisthesis of L4 on L5. Radiologist: Samantha Hameed M.D. (Ozzie Odonnell MD) Last Vital Signs Date Time Temp Pulse Resp B/P (MAP) Pulse Ox O2 Delivery O2 Flow Rate FiO2 05/04/19 13:34 98 15 Room Air 98 05/04/19 13:34 98.0 186/82 97 (Jens Reed MD) Reevaluation Time: 17:28 Reevaluation Impression Assumed care of the patient approximately 3:[address] Reed Briefly, this is a 79-year-old female coming in for evaluation of weakness, vague abdominal pain. She has a history of renal insufficiency follows with Dr. Booth. At the time of signout labs and CT of the abdomen and pelvis are pending. Labs show evidence of an acute urinary tract infection with moderate bacteria and 2+ leukocyte esterase. Otherwise, troponin is elevated 0.07 though this is downtrending from her previous admissions. She has a history of CHF and BN peptide is significantly elevated with bilateral pulmonary congestion seen on chest x-ray. Small pleural effusions are seen on x-ray as well as a small to moderate pericardial effusion. Patient is hypertensive and was given Lasix. She will be treated for urinary tract infection. No other significant acute finding seen on CT. will admit for treatment of urinary tract infection and CHF exacerbation. She will be transferred to [facility] per her insurance plan, Dr. Martinez is accepting physician. Stable for transfer. (Ozzie Odonnell MD) Disposition: XFER SHT-TRM HOSP Condition: Serious Referrals: Rolando Booth MD (PCP) Jens Reed MD May 04, 2019 15:38 Ozzie Odonnell MD May 04, 2019 17:30
[2019-05-04 15:48] LABS: ALANINE AMINOTRANSFERASE 21 U/L (12-78); ALBUMIN 3.6 G/DL (3.4-5.0); ALBUMIN/GLOBULIN RATIO 0.9 (1.0-2.7); ALKALINE PHOSPHATASE 48 U/L (46-116); ASPARTATE AMINO TRANSFERASE 26 U/L (15-37); BILIRUBIN,TOTAL 0.7 MG/DL (0.2-1.0)
[2019-05-04 15:50] VITALS: BP 197/110
[2019-05-04 16:20] LABS: APPEARANCE,URINE SLIGHTLY CLOUDY; BILIRUBIN, URINE NEGATIVE (NEGATIVE); COLOR,URINE PALE YELLOW; GLUCOSE, URINE (UA) NEGATIVE (NEGATIVE); KETONES,URINE 1+ (NEGATIVE); LEUKOCYTE ESTERASE ,URINE 2+ (NEGATIVE); NITRITE,URINE NEGATIVE (NEGATIVE); PH,URINE 6 (4.5-8.0); PROTEIN,URINE 3+ (NEGATIVE); UROBILINOGEN,URINE NORMAL MG/DL (0.0-1.0)
--- NOTE | 2019-05-04 17:27 | Diagnostic Imaging Report ---
Indication: Abdominal pain Technique: Spiral acquisitions obtained through the abdomen and pelvis. No oral contrast utilized, per emergency room physician request No IV contrast utilized, per referring physician request.. Multiplanar reconstructions were generated. Total dose length product 1007 mGycm. CTDIvol(s) 20 mGy. Dose reduction achieved using automated exposure control Comparison: 02/22/2019 Findings: There is extensive streak artifact from hip prostheses obscuring much of the pelvis. The appendix is normal. There is extensive colonic diverticulosis. No definite evidence of diverticulitis. No small bowel distention. No free or loculated intraperitoneal gas or fluid. There is a small sliding-type hiatal hernia. The distal esophagus, stomach, duodenum are otherwise unremarkable. Lack of IV contrast limits assessment of the solid organs. Gallbladder contents are dense, may reflect sludge or milk of calcium bile. The liver, bile ducts, pancreas, spleen, adrenals, kidneys are unremarkable. There are prominent extrarenal pelvises bilaterally again demonstrated. A right iliac arterial stent is again demonstrated. There are bilateral moderate-sized pleural effusions. The heart is enlarged. There is a pericardial effusion again demonstrated which is slightly increased from the previous study. Atelectatic changes and interstitial septal edema are seen at both lung bases. The bones demonstrate degenerative changes of the lumbar spine.. Impression: Cardiomegaly Bilateral pleural effusions, pericardial effusion, pulmonary interstitial edema again noted Limited evaluation of the pelvis due to streak artifact No acute abdominal or pelvic process Colonic diverticulosis. No evidence of diverticulitis Prominent bilateral extrarenal pelvises Dense gallbladder contents, likely hyperdense sludge or milk of calcium bile Other findings as noted, including degenerative lumbar spondylosis, right iliac arterial stent, small hiatal hernia This agrees with the preliminary interpretation provided overnight by [facility] teleradiology service. The CT scanner at [facility] is accredited by the [employer] and the scans are performed using protocols designed to limit radiation exposure to as low as reasonably achievable to attain images of sufficient resolution adequate for diagnostic evaluation.
[2019-05-04] MEDS ORDERED: cefTRIAXone 1 GM in NS 55 ML IVPB ONE (17:45)
--- NOTE | 2019-05-04 19:10 | NUR ---
ED Nurse Note: Received report from Meenakshi MOSCOSO.
[2019-05-04 19:17] VITALS: BP 189/89
--- NOTE | 2019-05-04 19:44 | NUR ---
ED Nurse Note: Report given to William from [facility].
[2019-05-04 19:46] VITALS: BP 186/92
--- NOTE | 2019-05-04 19:46 | NUR ---
ED Nurse Note: Pt cleared by LEONARDO to be transferred to [facility]. Report given to William MOSCOSO. Pt alert and oriented, verbally responsive. No SOB. IV line on left forearm patent and intact. No skin issues. Pt was picked up by 2 EMT via [facility]. All belongins was given to the patient.
[2019-05-04] MEDS ORDERED: Albuterol/Ipratropium 3ml neb HHN PRN (20:15)
[2019-05-04] MEDS ORDERED: Miralax 17gm pkt ORAL PRN (20:15)
[2019-05-04] MEDS ORDERED: Morphine Sulfate 2mg/ml Inj(IV/IM USE ONLY) IVP PRN (20:15)
[2019-05-04] MEDS ORDERED: Nitroglycerin Subl 0.4mg tab SL PRN (20:15)
[2019-05-04] MEDS ORDERED: NovoLOG Insulin Flexpen SUBQ SCH (21:00)
[2019-05-04] MEDS ORDERED: Heparin 5000 units/ml inj SUBQ SCH (21:00)
[2019-05-04] MEDS ORDERED: Tamsulosin 0.4mg cap ORAL SCH (21:00)
[2019-05-04] MEDS ORDERED: Cefepime HCl 2 GM in D5W 110 ML IV SCH (21:00)
[2019-05-05] MEDS ORDERED: Vancomycin 1 GM in D5W 275 ML IV SCH (00:30)
[2019-05-05] MEDS ORDERED: Minoxidil 2.5mg tab ORAL SCH (09:00)
[2019-05-05] MEDS ORDERED: Allopurinol 100mg Tab ORAL SCH (09:00)
--- NOTE | 2019-05-05 09:48 | Diagnostic Imaging Report ---
. Indication: Shortness of breath Technique: One view of the chest Comparison: 03/20/2019 Findings: The heart is enlarged, also evident previously. There is borderline interstitial congestion. There may be small bilateral pleural effusions. These are new findings since prior exam. Impression: Cardiomegaly Borderline interstitial congestion and possible small bilateral pleural effusions
== END 2019-05-04 19:46 | disposition short-term general hospital (02) ==
LOC: EDBD 13:08 → EMR 13:53 → EDBEDREQ 18:38 → EDBEDREQSVC 18:38 → EMR 19:46
DX: N39.0 Urinary tract infection, site not specified (principal); I13.0 Hypertensive heart and chronic kidney disease with heart failure and stage 1 through stage 4 chronic kidney disease, or unspecified chronic kidney disease; E11.22 Type 2 diabetes mellitus with diabetic chronic kidney disease; N18.1 Chronic kidney disease, stage 1; I50.9 Heart failure, unspecified; J90 Pleural effusion, not elsewhere classified; I31.3 Pericardial effusion (noninflammatory); I51.7 Cardiomegaly; K44.9 Diaphragmatic hernia without obstruction or gangrene; K57.90 Diverticulosis of intestine, part unspecified, without perforation or abscess without bleeding; I70.90 Unspecified atherosclerosis
CPT/HCPCS: 36415; 71045; 74176; 80053; 81003; 82962; 83690; 83880; 84484; 85025; 86710; 87086; 93005; 96365; 96375; 99284; J0696; J1940; J2405; J7040; S0028